=== PATIENT | male | born 1960 | race Caucasian/White ===

== ENCOUNTER 2022-03-20 13:47 | Outpatient (CLI) | payer OTHER, BC, SELFPAY ==
--- NOTE | 2022-03-20 14:00 | CRLHL7_ITS ---
For Patients: As a result of the Century Cures Act, medical imaging exams and procedure reports are released immediately into your electronic medical record. You may view this report before your referring provider. If you have questions, please contact your health care provider. INDICATION: TECHNIQUE: Ultrasound venous duplex left lower extremity. COMPARISON: None. FINDINGS: The left common femoral, superficial femoral, deep femoral, popliteal, posterior tibial, and greater saphenous veins are fully compressible normal waveforms. The contralateral right common femoral vein is also compressible with normal waveform. No masses evident. IMPRESSION: Normal ultrasound of the left lower extremity veins. Dictated by: Ankur Parada MD @ 03/20/2022 14:41:27 (Electronically Signed)
== END 2022-03-20 13:48 | disposition home or self-care (01) ==
LOC: US 13:54
PROVIDERS: PCP Family Medicine; Visit Provider Family Medicine
DX: M79.605 Pain in left leg (principal); Z98.1 Arthrodesis status
CPT/HCPCS: 93971

== ENCOUNTER 2022-06-29 15:41 | Outpatient (CLI) | payer OTHER, BC, SELFPAY ==
--- OUTSIDE RECORDS SUMMARY | 2022-06-29 15:49 | XMS_ITS ---
:1960 Author Care Team Providers Name Role Phone LIV BRUNO MD Primary Care Provider [phone] Allergies Code Code System Name Reaction Severity Status Onset NKDA ? Notes: seasonal Medications Name Status Start Date Stop Date ? ? amlodipine 5 mg tablet Active ? Not avail able chlorhexidine gluconate 0.12 % mouthwash Completed ? 01/19/2022 BEGIN AM OF SURGERY, RINSE 1/2 OZ X 30 SEC AFTER BREAKFAST & AT BED. DONT EAT/DRINK/RINSE X 30 MIN ciprofloxacin 500 mg tablet Completed ? 03/17 cyclobenzaprine 10 mg tablet Completed ? 02/2022 DentaGel 1.1 % Active ? Not available USE DIRECTED ON PACKAGE, BEGIN DAY AFTER SURGERY etodolac 300 mg capsule Active ? Not avai lable TAKE FIRST CAP 1 HOUR PRIOR TO APPOINTM ENT, THEN 1 CAP EVERY 8 HOURS NEEDED FOR DISCOMFORT hydrocodone 5 mg-acetaminophen 325 mg tablet Completed ? 01/19/2022 TAKE 1-2 TABS BY MOUTH EVERY 6 HOURS NEEDED FOR PAIN methylprednisolone 4 mg tablets in a dose pack Completed ? 01/19/2022 START THE MORNING OF SURGERY, USE DIRECTED ON PACKAGE naproxen 500 mg tablet Active ? Not avail able oxaprozin 600 mg tablet Completed ? 01/20/20 22 oxycodone 5 mg tablet Completed ? 04/06/2020 oxycodone-acetaminophen 5 mg-325 mg tablet Completed ? 07/21/2021 prednisone 20 mg tablet Completed ? 01/20/20 22 sildenafil 100 mg tablet Active ? Not michael ilable TAKE ONE TABLET BY MOUTH ONE HOUR PRIOR TO SEX sulfamethoxazole 800 mg-trimethoprim 160 mg tablet Completed ? 04/06/2020 tadalafil 20 mg tablet Active ? Not avail able Take 1 tablet as needed by oral route for 30 days. tramadol 50 mg tablet Active ? Not availa ble Problems Name Status Onset Date Source ? Carcinoma of Prostate Active 04/06/2020 ? Procedures Date Name Performed by ? 10/05/2019 Prostatectomy Information not avai lable 09/16/2018 Colonoscopy Information not avai lable Notes: per pt estimate of date ? Repair of Multiple Tears of Rotator Cuff of Information not available Shoulder ? Kidney Operation Information not avai lable ? Operative Procedure on Knee Information not available Notes: Kidney surgery for kidney stone s Results Lab Results Date Name Specimen Result Interpretation Description Value Range Status Address ? 01/19/2022 PSA, Serum or ? PSA, Total <0.04 ng/mL ? ? Plasma 01/19/2022 PSA, Serum or ? No observation ? ? ? Plasma recorded. 07/21/2021 PSA, Serum or ? PSA, Total <0.04 ? ? Plasma 07/21/2021 PSA, Serum or ? No observation ? ? ? Plasma recorded. 04/13/2021 Testosterone, ? No observation ? ? ? [place] Total, Serum recorded. [facility] [address] [facility] 04/13/2021 Testosterone, ? No observation ? ? ? [place] Free + Total, recorded. [facility] Serum Radiology Department : [address] [facility] 04/07/2021 PSA, Serum or ? PSA, Total <0.04ng/ml ? ? Plasma 08/03/2020 PSA, Serum or ? No observation ? ? ? Plasma recorded. 04/07/2020 PSA, Serum or ? No observation ? ? ? Plasma recorded. 04/06/2020 PSA, Serum or ? No observation ? ? ? Plasma recorded. ? PSA, Serum or ? PSA, Total <0.04 ng/mL ? ? Plasma ? PSA, Serum or ? PSA, Total <0.04 ng/Ml ? ? Plasma Past Encounters 01/19/2022 Carcinoma of Prostate; Erectile Dysfunct ion Following Radical Prostatectomy Connor Schaeffer MD: [address], [place] [address], Ph. 07/21/2021 Carcinoma of Prostate Connor Schaeffer MD: [address], [place] [address], Ph. 04/07/2021 Carcinoma of Prostate; Malaise and Fatig ue Connor Schaeffer MD: [address], [place] [address], Ph. Social History Tobacco Smoking Status Never Smoker Vaccine List Vaccine Type COVID-19 vaccine, vector-nr, [id number], PF , 0.5 mL (Evens) 11/24/2020 COVID-19, mRNA, LNP-S, PF, 100 mcg/0.5 m L dose (handsomexcutivea) 07/17/2021 Influenza, injectable, MDCK, preservativ e free, quadrivalent 07/17/2021 influenza, injectable, quadrivalent 07/06/2015 influenza, injectable, quadrivalent, pre servative free 07/28/2020 influenza, recombinant, quadrIvalent,inj ectable, preservative free 07/09/2019 influenza, seasonal, injectable 07/07/2010 07/05/2011 08/12/2012 influenza, seasonal, injectable, preserv ative free 06/09/2009 Tdap 05/24/2008 11/15/2016 Plan of Care Reminders Provider Appointments None recorded. ? ? Lab None recorded. ? ? Referral None recorded. ? ? Procedures None recorded. ? ? Surgeries None recorded. ? ? Imaging None recorded. ? ? Vitals 01/19/2022 09:30AM ESTABLISHED 10 Height Weight BMI 5 ft 11 in 205 lbs 28.6 kg/m2 07/21/2021 09:10AM ESTABLISHED 10 Height Weight BMI 5 ft 11 in 205 lbs 28.6 kg/m2 04/07/2021 02:50PM ESTABLISHED 10 Height Weight BMI Blood Pressure 5 ft 11 in 207 lbs 28.9 kg/m2 141/84 mm[Hg] 12/05/2020 03:50PM ESTABLISHED 10 Height Weight BMI 5 ft 11 in 200 lbs 27.9 kg/m2 08/03/2020 03:20PM ESTABLISHED 10 Height Weight BMI 5 ft 11 in 200 lbs 27.9 kg/m2 04/06/2020 04:00PM ESTABLISHED 10 Height Weight BMI 5 ft 11 in 200 lbs 27.9 kg/m2
--- OUTSIDE RECORDS SUMMARY | 2022-06-29 15:50 | XMS_ITS | Encounter Summary ---
:1960 Author Organization [place] Address [address] [place] [address] Care Team Providers Name Role Phone SunnyChadd vicente Primary Care Provider Reason for Visit Reason Onset Date Comments Clinic Care Coordination - Follow-up 10/08/2019 pos t op Encounter Details Date Type Department Care Team Description 10/08/2019 Telephone [facility] Lou Davies, Clinic Care Coordination Surgery Clinic Altagracia RN - Follow-up (post op ) [address] [place] [address] Social History Tobacco Use Types Packs/Day Years Used Date Smoking Tobacco: Never Smokeless Tobacco: Never Alcohol Use Standard Drinks/Week Comments Yes 0 (1 standard drink = 0.6 oz pure alcoho l) 2-3/week Sex Assigned at Date Recorded Not on file documented as of this encounter Miscellaneous Notes Telephone Encounter - Lou Davies, RN - 10/08/2019 12:22 PM CST Procedure: Combined open primary closure and laparoscopic repair of ventral hernia Date: 10/05/2019 Surgeon: Dr. Reyes This patient also had robotic assisted radical prostatectomy, bilateral lymph node dissection combined with the hernia repair. His is wondering if it is okay if Dr. Solis's office removes the brigida from the hernia repairrather than patient having to make a separate appointment to see Dr. Reyes for staple removal. Informed her that this is fine. However, if patient is having any concerns in regards to the hernia surgery, he should set up a post operative visit with Dr. Reyes. She verbalized understanding and will call PRN. Lou Davies, RN-BSN RTMENT STORE SALESPERSON documented in this encounter Plan of Treatment Not on filedocumented as of this encounter Visit Diagnoses Not on filedocumented in this encounter Care Teams Collet Gluer Relationship Specialty Start Date End Date Chadd Correa PCP - General Family Practice 09/22/[address] [address] documented as of this encounter
--- OUTSIDE RECORDS SUMMARY | 2022-06-29 15:50 | XMS_ITS | Clinical Summary ---
:1960 Author Organization [place] Address [facility] [place] [address] Care Team Providers Name Role Phone SunnyBeth cabreras Umberto Primary Care Provider Allergies No known active allergies Medications Medication Sig Dispensed Refills Start Date End Date Status oxaprozin (DAYPRO) 600 Take 1,200 mg by 0 Active MG tablet mouth daily as needed traMADol (ULTRAM) 50 Take 50-100 mg by 0 Active MG tablet mouth daily as needed Glucosamine HCl Take 2 tablets by 0 Active (GLUCOSAMINE PO) mouth daily MAGNESIUM PO Take 1 tablet by 0 Active mouth daily B Complex-C (SUPER B Take 1 tablet by 0 Active COMPLEX PO) mouth daily oxymetazoline (AFRIN) Kinsey 2 sprays 0 Active 0.05 % nasal spray into both nostrils every evening as needed for congestion oxyCODONE (ROXICODONE) Take 1-2 tablets 8 tablet 0 10/07/2019 Active 5 MG (5-10 mg) by mouth tabletIndications: S/P every 3 hours as prostatectomy needed for moderate to severe pain senna-docusate Take 1 tablet by 30 tablet 0 10/07/2019 Active (SENOKOT-S/PERICOLACE) mouth 2 times 8.6-50 MG daily tabletIndications: S/P prostatectomy bacitracin 500 UNIT/GM Apply topically 2 0 0 Active OINTIndications: S/P times daily as prostatectomy needed for wound care Active Problems Problem Noted Date S/P prostatectomy 10/05/2019 Resolved Problems Problem Noted Date Resolved Date iamLUMBAR DISC DISPLACEMENT 08/07/2005 11/21/2005 Family History Medical History Relation Comments Diabetes Father Other Cancer Mother Coronary Artery Disease Sister Relation Status Comments Father Mother Sister Social History Tobacco Use Types Packs/Day Years Used Date Smoking Tobacco: Never Smokeless Tobacco: Never Tobacco Cessation: Counseling Given: Yes Alcohol Use Standard Drinks/Week Comments Yes 0 (1 standard drink = 0.6 oz pure alcoho l) 2-3/week Sex Assigned at Date Recorded Not on file Last Filed Vital Signs Vital Sign Reading Time Taken Comments Blood Pressure 141/75 10/07/2019 12:47 PM AUTOMATIC MOUNTER Pulse 90 10/05/2019 3:49 PM AUTOMATIC MOUNTER Temperature 36.2 ??C (97.2 ??F) 10/07/2019 12:47 PM AUTOMATIC MOUNTER Respiratory Rate 16 10/07/2019 12:47 PM AUTOMATIC MOUNTER Oxygen Saturation 95% 10/07/2019 12:47 PM AUTOMATIC MOUNTER Inhaled Oxygen Concentration - - Weight 90.3 kg (199 lb 1.6 oz) 10/05/2019 6:12 AM AUTOMATIC MOUNTER Height 180.3 cm (5' 11) 10/05/2019 6:12 AM AUTOMATIC MOUNTER Body Mass Index 27.77 10/05/2019 6:12 AM AUTOMATIC MOUNTER Plan of Treatment Health Maintenance Due Date Last Done Comments ADVANCE CARE PLANNING 1960 ANNUAL REVIEW OF HM ORDERS 1960 CT COLONOGRAPHY 1960 FIT-DNA (Cologuard) 1960 FIT 1960 FLEX SIG 1960 HEPATITIS B IMMUNIZATION (1 1960 of 3 - 3-dose series) YEARLY PREVENTIVE VISIT 1960 COVID-19 Vaccine (#1) 06/14/1963 HIV SCREENING 1977 HEPATITIS C SCREENING 1980 DTAP/TDAP/TD IMMUNIZATION 12/13/1987 (1 - Tdap) LIPID 1997 ZOSTER IMMUNIZATION (1 of 2012 2) PHQ-2 (once per calendar 09/16/2021 year) INFLUENZA VACCINE (#1) 2022 07/09/2019, 08/12/2012, 07/05/2011, Additional history exists COLONOSCOPY 07/10/2029 07/10/2019 COLORECTAL CANCER SCREENING 07/10/2029 IPV IMMUNIZATION Aged Out No longer eligi ble based on patient 's age to complete this topic MENINGITIS IMMUNIZATION Aged Out No longe r eligible based on patient 's age to complete this topic Pneumococcal Vaccine: Aged Out No longer eligible Pediatrics (0 to 5 Years) based on patient's age and At-Risk Patients (6 to to co mplete this topic 64 Years) Medical Devices Implanted Type Area Set Staff Fitter Device Shelf Model / Identifier Expiration Serial / Date Lot Mesh Symbotex Composite Stex 20cm X 15cm [id number] Mesh N/A: C OVIDIEN 05/16/2023 [id number] / Implanted: Qty: 1 on 10/05/2019 by Carlos Solis MD at [facility] Umbilical / [id number] Stent Ureteral Percuflex Plus [id number] Stent Right: Ureter BOSTO N 07/13/2021 [id number] / Implanted: Qty: 1 on 02/12/2019 by Vicente Hayes MD at [facility] [employer] [id number] / [id number] Insurance Payer Benefit Plan / Subscriber ID Effective Dates Phone Addre ss Type Group BCBS BCBS OUT OF [id number] 2015-Present [phone] [address] [address] [place] [address] [id number] (Home) [phone] [facility] [place] (Work) [place] [address] Sawyer Carlson Personal/Family Self [phone] (Home) [place] [address] Advance Directives For more information, please contact: [phone] Latest Code Status on File Code Status Date Activated Date Inactivated Comments Full Code 10/05/2019 3:23 PM 10/07/2019 4:21 PM Question Answer Comments Code status determined by: Unable to determine; FULL CODE un til documents or legal decision maker available Care Teams Underwater Roboticist Relationship Specialty Start Date End Date Chadd Correa PCP - General Family Practice 09/22/[address] [address]
--- OUTSIDE RECORDS SUMMARY | 2022-06-29 15:50 | XMS_ITS | Encounter Summary ---
:1960 Author Organization [place] Address [address] [place] [address] Care Team Providers Name Role Phone Miguel Brown MD Primary Care Provider [phone] Reason for Visit Auth/Cert Specialty Diagnoses / Procedures Referred By Contact Refer red To Contact Surgery Diagnoses RIGHT URETERAL STONE Sh Periop Services Procedures CYSTOURETEROSCOPY, WITH HOLMIUM LASER LITHOTRIPSY OF URETERAL CALCULUS AND STENT INSERTION [address] [place] [address] Phone: Referral ID Status Reason Start Date Expiration Date Visits Requ ested Visits Authorized [id number] 1 1 Encounter Details Date Type Department Care Team Description 02/12/2019 Anesthesia Event M [facility] Luis Bearden MD [facility] [address] [place] [address] [facility] Alana Mendoza, CAMPUS WELLNESS COORDINATOR MARKETING SERVICES VICE PRESIDENT [address] [place] [id number] [address] [place] [address] Anesthesia Record Procedure Summary Procedure Name Responsible Anesthesia Start Anesthesia Stop Anesthesiologist Time Time CYSTOSCOPY RIGHT Luis Bearden MD 02/12/19 0717 02/12/19 0805 URETEROSCOPY, STONE REMOVAL RETROGRADE, STENT CHANGE (Right: Urethra) Events Date Time Event Comment 02/12/2019 0630 0717 An Start 0717 An Start Data 0720 An Induction 0721 An LMA 0730 AN INCISION 0800 LMA Removed 0802 an stop data 0805 An Stop Electronically s igned by Alana Mann on February 12, 2019 8:07 AM Name Total dexamethasone 4mg/mL 4 mg fentaNYL (SUBLIMAZE) injection 150 mcg lidocaine 2% 100 mg midazolam 1mg/mL 2 mg ondansetron 2mg/mL 4 mg propofol (DIPRIVAN) injection 10 mg/mL vial 200 mg ceFAZolin (ANCEF) intermittent infusion 2 g in 100 mL dextrose PRE-MIX 2 g LR 600 mL Agents Name NO HELIOX O2 N2O Air Exp Sevoflurane Exp Isoflurane Exp Desflurane Exp N2O Ins Sevoflurane Ins Isoflurane Ins Desflurane O2 Auxiliary Blood No blood administrations on file. Lines, Drains, and Airways Type Details Placement Removal Peripheral IV 20 G; Left; Lower 02/12/19 0732 by 02/12/19 0901 by forearm; Alcohol; Monique Burch, Injectable; Tolerated RN well Retired Non-Surgical 02/12/19; 0721; 02/12/19 0721 by 02/12/19 0 800 by Airway Intravenous; Easy; 5; Alana Mann, CAMPUS WELLNESS COORDINATOR Alana Gaytan, laryngeal mask airway; MARKETING SERVICES VICE PRESIDENT CAMPUS WELLNESS COORDINATOR MARKETING SERVICES VICE PRESIDENT center of mouth; MARKETING SERVICES VICE PRESIDENT; SMT; Spontaneous ventilation, Adequate tidal volume, Follows commands, Precision Mechanical Instrument Maker strength adequate, Head lift adequate, Transported with oxygen, Purposeful movement documented in this encounter Social History Tobacco Use Types Packs/Day Years Used Date Smoking Tobacco: Never Smokeless Tobacco: Never Alcohol Use Standard Drinks/Week Comments Yes 0 (1 standard drink = 0.6 oz pure alcoho l) Sex Assigned at Date Recorded Not on file documented as of this encounter OR Notes Anesthesia Postprocedure Evaluation - Luis Bearden MD - 02/12/2019 12:37 PM CDT Patient: Sawyer Samuelsuart Procedure(s): CYSTOSCOPY RIGHT URETEROSCOPY, STONE REMOVAL RETROGRADE, STENT CHANGE Diagnosis:RIGHT URETERAL STONE Diagnosis Additional Information: No value filed. Anesthesia Type: General, LMA Note: Anesthesia Post Evaluation Patient location during evaluation: PACU Patient participation: Able to fully participate in evaluation Level of consciousness: awake and alert Pain management: adequate Airway patency: patent Cardiovascular status: acceptable Respiratory status: acceptable Hydration status: acceptable PONV: none Anesthetic complications: None Last vitals: Vitals: 02/12/19 0830 02/12/19 0845 02/12/19 0904 BP: 114/79 115/77 123/71 Pulse: 56 Resp: 16 16 12 Temp: 35.8 ??C (96.4 ??F) 35.8 ??C (96.4 ??F) SpO2: 95% 99% 95% Electronically Signed By: Luis Bearden MD February 12, 2019 12:37 PM Anesthesia Preprocedure Evaluation - Luis Bearden MD - 02/12/2019 6:30 AM CDT Anesthesia Pre-Procedure Evaluation Patient: Sawyer Carlson : 1960 Preoperative Diagnosis: RIGHT URETERAL STONE Procedure(s): CYSTOSCOPY RIGHT URETEROSCOPY HOLMIUM LASER LITHOTRIPSY Past Medical History: Diagnosis Date ??? Right ureteral stone ??? Seasonal allergies ??? Tinnitus ??? Umbilical hernia Past Surgical History: Procedure Laterality Date ??? ORTHOPEDIC SURGERY RIGHT KNEE MENISCUS REPAIR, LEFT SOULDER IMPINGEMENT Anesthesia Evaluation . ROS/MED HX ENT/Pulmonary: (-) tobacco use and sleep apnea Neurologic: Cardiovascular: METS/Exercise Tolerance: Hematologic: Musculoskeletal: GI/Hepatic: (-) GERD Renal/Genitourinary: (+) Nephrolithiasis , Endo: Psychiatric: Infectious Disease: Malignancy: Other: Physical Exam Normal systems: cardiovascular, pulmonary and dental Airway Mallampati: II TM distance: >3 FB Neck ROM: full Dental Cardiovascular Pulmonary Lab Results Component Value Date WBC 10.3 01/20/2019 HGB 15.3 01/20/2019 HCT 43.6 01/20/2019 PLT 176 01/20/2019 NA 140 01/20/2019 POTASSIUM 3.9 01/20/2019 CHLORIDE 109 01/20/2019 CO2 25 01/20/2019 BUN 13 01/20/2019 CR 0.94 01/20/2019 GLC 136 (H) 01/20/2019 JACINTA 8.8 01/20/2019 ALBUMIN 3.7 01/20/2019 PROTTOTAL 7.1 01/20/2019 ALT 31 01/20/2019 AST 17 01/20/2019 ALKPHOS 79 01/20/2019 BILITOTAL 0.7 01/20/2019 Preop Vitals BP Readings from Last 3 Encounters: 02/12/19 125/84 01/20/19 (!) 127/102 01/07/17 128/81 Pulse Readings from Last 3 Encounters: 01/20/19 61 01/07/17 57 05/03/16 64 Resp Readings from Last 3 Encounters: 02/12/19 16 01/20/19 18 01/07/17 20 SpO2 Readings from Last 3 Encounters: 02/12/19 96% 01/20/19 99% 01/07/17 97% Temp Readings from Last 1 Encounters: 02/12/19 36.2 ??C (97.2 ??F) (Oral) Ht Readings from Last 1 Encounters: 02/12/19 1.778 m (5' 10) Wt Readings from Last 1 Encounters: 02/12/19 88.9 kg (196 lb) Estimated body mass index is 28.12 kg/m?? as calculated from the following: Height as of this encounter: 1.778 m (5' 10). Weight as of this encounter: 88.9 kg (196 lb). Anesthesia Plan History & Physical Review History and physical reviewed and following examination; no interval change. ASA Status: 1 . NPO Status: > 8 hours Plan for General and LMA with Intravenous and Propofol induction. Maintenance will be Inhalation. PONV prophylaxis: Ondansetron (or other 5HT-3) and Dexamethasone or Solumedrol Postoperative Care Postoperative pain management: IV analgesics and Oral pain medications. Consents Anesthetic plan, risks, benefits and alternatives discussed with: Patient and Spouse.. Luis Bearden MD documented in this encounter Miscellaneous Notes Anesthesia Care Transfer Note - Alana Mann APRN MARKETING SERVICES VICE PRESIDENT - 02/12/2019 8:09 AM CDT Images from the original note were not included. Patient: Sawyer Carlson Procedure(s): CYSTOSCOPY RIGHT URETEROSCOPY, STONE REMOVAL RETROGRADE, STENT CHANGE Diagnosis: RIGHT URETERAL STONE Diagnosis Additional Information: No value filed. Anesthesia Type: General, LMA Note: Airway :Face Mask Patient transferred to:PACU Comments: At end of procedure, spontaneous respirations, adequate tidal volumes, followed commands to voice, LMA removed atraumatically, oropharynx suctioned, airway patent after LMA removal. Oxygen via facemask at 10 liters per minute to PACU. Oxygen tubing connected to wall O2 in PACU, SpO2, NiBP, and EKG monitors and alarms on and functioning, Izzy Hugger warmer connected to patient gown, report on patient's clinical status given to LEHR OPERATOR, RN questions answered.Handoff Report: Identifed the Patient, Identified the Reponsible Provider, Reviewed the pertinent medical history, Discussed the surgical course, Reviewed Intra-OP anesthesia mangement and issues during anesthesia, Set expectations forpost-procedure period and Allowed opportunity for questions and acknowledgement of understanding Vitals: (Last set prior to Anesthesia Care Transfer) MARKETING SERVICES VICE PRESIDENT VITALS 02/12/2019 0732 - 02/12/2019 0809 02/12/2019 NIBP: 119/79 Pulse: 77 NIBP Mean: 98 SpO2: 95 % Resp Rate (observed): 1 (Abnormal) Resp Rate (set): 10 Electronically Signed By: Alana Mann APRN CRNA February 12, 2019 8:09 AM documented in this encounter Plan of Treatment Not on filedocumented as of this encounter Visit Diagnoses Not on filedocumented in this encounter Administered Medications Inactive Administered Medications - up to 3 most recent administrations Medication Order MAR Action Action Date Dose Rate Site ceFAZolin (ANCEF) intermittent Given 02/12/2019 7:25 AM CDT 2 g infusion 2 g in 100 mL dextrose PRE-MIX Routine, 2 g, Intravenous, PRE-OP/PRE-PROCEDURE, Starting on Johanny 02/12/19 at 0548, For 1 dose, Give first dose within 1 hour PRIOR to incision. If patient weight is greater than or equal to 120 kg increase dose to 3 g., Indications: Perioperative Pharmacoprophylaxis, Pre-procedure dexamethasone (DECADRON) injection Given 02/12/2019 7:31 AM CDT 4 mg PRN, Administer over 1 Minutes, Starting on Johanny 02/12/19 at 0731, Anesthesia Intra-op fentaNYL (PF) (SUBLIMAZE) injection Given 02/12/2019 7:45 AM CDT 50 mcg PRN, Administer over 3-5 Minutes, Starting on Johanny 02/12/19 at 0721, Anesthesia Intra-op Given 02/12/2019 7:28 AM CDT 50 mcg Given 02/12/2019 7:21 AM CDT 50 mcg lactated ringers infusion New Bag 02/12/2019 7:17 AM CDT Intravenous, CONTINUOUS PRN, Anesthesia Intra-op, Starting on Johanny 02/12/19 at 0717, Until Johanny 02/12/19 at 0807 lidocaine 2% injection (MDV) Given 02/12/2019 7:21 AM CDT 100 mg PRN, Starting on Johanny 02/12/19 at 0721, Anesthesia Intra-op midazolam (VERSED) injection Given 02/12/2019 7:19 AM CDT 2 mg Administer over 2 Minutes, PRN, Starting on Johanny 02/12/19 at 0719, Anesthesia Intra-op ondansetron (ZOFRAN) injection Given 02/12/2019 7:31 AM CDT 4 mg PRN, Administer over 2-5 Minutes, Starting on Johanny 02/12/19 at 0731, Anesthesia Intra-op propofol (DIPRIVAN) injection 10 mg/mL v ial Given 02/12/2019 7:21 AM CDT 200 mg PRN, Starting on Johanny 02/12/19 at 0721, Anesthesia Intra-op documented in this encounter Care Teams Icu Clerk Relationship Specialty Start Date End Date Miguel Brown MD PCP - General Family Practice 04/17/16 09/21/19 documented as of this encounter
--- OUTSIDE RECORDS SUMMARY | 2022-06-29 15:50 | XMS_ITS | Encounter Summary ---
:1960 Author Organization [facility] Address [facility] [place] [address] Care Team Providers Name Role Phone Chadd Correa Primary Care Provider Reason for Visit Auth/Cert Specialty Diagnoses / Procedures Referred By Contact Refer red To Contact Surgery Diagnoses Prostate cancer (H) Prostate cancer (H) [C61] Periop Services Procedures PROSTATECTOMY, ROBOT-ASSISTED, USING DA LASHONDA XI, WITH PELVIC LYMPHADENECTOMY HERNIORRHAPHY, UMBILICAL, OPEN [address] [place] [address] Phone: Referral ID Status Reason Start Date Expiration Date Visits Requ ested Visits Authorized [id number] 1 1 Encounter Details Date Type Department Care Team Description 10/05/[address] [facility] Carlos Piña MD ROBOTIC ASSISTED RADICAL [place] [facility] PROSTATECTOMY, BILATERAL Services [address] PELVIC LYMPH NODE DISSEC [address], [address] [place]([facility]) (with [address] [place] [address] ANESTHESIA ALSO) [place] [address] [phone] Surgery Details Date/Time Status Location OR Service Patient Case Class Case Tr auma Class Type Case? 10/05/19 7:30 Posted OR OR [facility] Day Outpatient in AM 42 Urology Surgery Bed Panel 1 Procedure LRB Anes Op Region Wound Class Commen ts ROBOTIC ASSISTED RADICAL N/A General Pelvis II-Clean Co ntaminated PROSTATECTOMY, BILATERAL PELVIC LYMPH NODE DISSEC TION(WANG) (with TAP ANESTHESIA ALSO) Panel 2 Procedure LRB Anes Op Region Wound Class Commen ts LAPAROSCOPIC ASSISTED UMBILICAL HERNIA N/A General Abdomen I-Clean REPAIR WITH MESH (FITZ) Surgeon Surgeon Role Service Panel Carlos Piña MD Primary [facility] Urology 1 Long Byrnes MD Primary General 2 Jody Squires PA-C Assisting Supervisor Blast Furnace Authoriz ation 2 documented in this encounter Social History Tobacco Use Types Packs/Day Years Used Date Smoking Tobacco: Never Smokeless Tobacco: Never Alcohol Use Standard Drinks/Week Comments Yes 0 (1 standard drink = 0.6 oz pure alcoho l) 2-3/week Sex Assigned at Date Recorded Not on file documented as of this encounter Last Filed Vital Signs Vital Sign Reading Time Taken Comments Blood Pressure 125/79 10/05/2019 6:12 AM BUZZSAW OPERATOR HELPER Pulse - - Temperature 36.3 ??C (97.4 ??F) 10/05/2019 6:12 AM BUZZSAW OPERATOR HELPER Respiratory Rate 16 10/05/2019 6:12 AM BUZZSAW OPERATOR HELPER Oxygen Saturation 96% 10/05/2019 6:12 AM BUZZSAW OPERATOR HELPER Inhaled Oxygen Concentration - - Weight 90.3 kg (199 lb 1.6 oz) 10/05/2019 6:12 AM BUZZSAW OPERATOR HELPER Height 180.3 cm (5' 11) 10/05/2019 6:12 AM BUZZSAW OPERATOR HELPER Body Mass Index 27.77 10/05/2019 6:12 AM BUZZSAW OPERATOR HELPER documented in this encounter Discharge Instructions Discharge InstructionsSkylar Hall RN - 10/07/2019 10:25 AM CST Make appointments to follow up with Dr. Byrnes in 10-14 days. Also for staple removal ~10 days at Urology or our clinic.-Call with concerns [facility] Discharge Instructions: Post-Operative Laparoscopic Umbilical/Ventral Hernia ACTIVITY ??? Take frequent, short walks and increase your activity gradually. ??? Avoid strenuous physical activity or heavy lifting greater than 15 lbs. for 4 weeks. You may climb stairs. ??? You may drive without restrictions when you are not using any prescription pain medication and feel comfortable in a car. ??? You may return to work/school when you are comfortable without any prescription pain medication. ??? You may wear an abdominal binder for comfort for 2-3 weeks from your surgery. You can wash the abdominal binder and dry it on low heat in the dryer. WOUND CARE ??? You may remove your outer dressing or Band-Aids and shower 48 hours after the surgery. Pat your incisions dry and leave them open to air. Re-apply dressing (Band-Aids or gauze/tape) as needed for comfort or drainage. ??? You may have steri-strips (looks like white tape) on your incision. You may peel off the steri-strips 2 weeks after your surgery if they have not peeled off on their own. ??? Do not soak your incisions in a tub or pool for 2 weeks. ??? Do not apply any lotions, creams, or ointments to your incisions. ??? A ridge under your incisions is normal and will gradually resolve. DIET ??? Start with liquids, then gradually resume your regular diet as tolerated. ??? Drink plenty of fluids to stay hydrated. PAIN ??? Expect some tenderness and discomfort at the incision site(s). Use the prescribed pain medication/muscle relaxant at your discretion. Expect gradual resolution of your pain over several days. ??? You may take ibuprofen with food (unless you have been told not to) instead of or in addition toyour prescribed pain medication. If you are taking [place] or Percocet, do not take any additional acetaminophen/APAP/Tylenol. ??? Do not drink alcohol or drive while you are taking pain medications. ??? You may apply ice to your incisions in 20 minute intervals as needed for the next 48 hours. After that time, consider switching to heat if you prefer. EXPECTATIONS ??? Pain medications can cause constipation. Limit use when possible. Take over the counter stool softener/stimulant, such as Colace or Senna, 1-2 times a day with plenty of water. You may take a mild over the counter laxative, such as Miralax or a suppository, as needed. You may take 1 oz. (2 tablespoons) Milk of Magnesia the evening following surgery to encourage bowel movement. You make discontinue these medications once you are having regular bowel movements and/or are no longer taking your narcotic pain medication. ??? You may have shoulder or upper back discomfort due to the gas used in surgery. This is temporaryand should resolve in 48-72 hours. Short, frequent walks may help with this. FOLLOW UP ??? Follow up with your surgeon in 10-14 days for staple removal (unless done at Urology office, then 2-3 weeks is ok). Please call our office at [phone] to schedule your appointment. We are located at [address] [place] [address]. CALL OUR OFFICE AT [phone] IF YOU HAVE: ??? Chills or fever above 101??F. ??? Increased redness or drainage at your incisions. ??? Significant bleeding. ??? Pain not relieved by your pain medication or rest. ??? Increasing pain after the first 48 hours. ??? Any other concerns or questions. Revised September 2017 SAW OPERATOR HELPER AttachmentsThe following attachments cannot be sent through Care Everywhere. Hernia Repair (Laparoscopic), After (Nigerien)Indwelling Urinary Catheter, Discharge Instructions (Nigerien)Leg Bag, Discharge Instructions (Nigerien)Barcenas Catheter, Care (Nigerien)documented in this encounter Medications at Time of Discharge Medication Sig Dispensed Refills Start Date End Date B Complex-C (SUPER B Take 1 tablet by 0 COMPLEX PO) mouth daily bacitracin 500 UNIT/GM Apply topically 2 0 2019 OINTIndications: S/P times daily as needed prostatectomy for wound care Glucosamine HCl Take 2 tablets by 0 (GLUCOSAMINE PO) mouth daily MAGNESIUM PO Take 1 tablet by 0 mouth daily oxaprozin (DAYPRO) 600 Take 1,200 mg by 0 MG tablet mouth daily as needed oxyCODONE (ROXICODONE) 5 Take 1-2 tablets 8 tablet 0 10/07 MG tabletIndications: (5-10 mg) by mouth S/P prostatectomy every 3 hours as needed for moderate to severe pain oxymetazoline (AFRIN) [place] 2 sprays into 0 0.05 % nasal spray both nostrils every evening as needed for congestion senna-docusate Take 1 tablet by 30 tablet 0 10/07/2019 (SENOKOT-S/PERICOLACE) mouth 2 times daily 8.6-50 MG tabletIndications: S/P prostatectomy traMADol (ULTRAM) 50 MG Take 50-100 mg by 0 tablet mouth daily as needed sulfamethoxazole-trimeth Take 1 tablet by 6 tablet 0 10/2010/23/2019 oprim (BACTRIM DS/SEPTRA mouth 2 times daily DS) 800-160 MG for 3 days Start tabletIndications: S/P taking the day before prostatectomy catheter removal documented as of this encounter Progress Notes Himanshu Crane PA-C - 10/07/2019 8:31 AM CST General Surgery Stable S/P Lap Umbilical Hernia Repair with Mesh POD2 -Discharge to home -Instructions reviewed -Follow up with Dr. Byrnes in 10-14 days. Staple removal ~10 days at Urology or our clinic. -Call with concerns -Pt and ok with waiting until follow up for work forms. Will call if need sooner. Doing much better today. Passing flatus. No BM yet. Pain improved and with activity primarily. NAD, pleasant, A&O BP 116/71 (BP Location: Right arm) Pulse 90 Temp 96.4 ??F (35.8 ??C) (Oral) Resp 16 Ht 1.803m (5' 11) Wt 90.3 kg (199 lb 1.6 oz) SpO2 93% BMI 27.77 kg/m?? Intake/Output Summary (Last 24 hours) at 10/07/2019 0833 Last data filed at 10/07/2019 0620 Gross per 24 hour Intake 510 ml Output 1215 ml Net -705 ml Abd: soft, approp tender, ND Inc: CDI with brigida NICHOLAS: serosang. RN to pull prior to discharge and bandage SAW OPERATOR HELPER Mick Okeefe PA-C - 10/07/2019 8:05 AM CST [facility] Progress Note Assessment & Plan Fredy Carlson is a 58 year old male POD#2 RALP and ventral hernia repair. AVSS, afebrile. Pain controlled. Ambulated. Tolerating diet. Discharge meds and instructions discussed. Plan: ?? Ambulate, IS ?? Remove NICHOLAS prior to discharge ?? Regular diet ?? RN to teach barcenas cares ?? Follow up in [address] cystogram, staple removal, and possible barcenas removal. Mick Okeefe PA-C 10/07/2019 8:05 AM [facility] Mon-Sat, 7am - 4pm Office: [phone] Interval History Pain much better controlled today. Ambuated. Tolerating diet. +flatus. No chest pain, dyspnea, or calf pain. Physical Exam Temp: 96.4 ??F (35.8 ??C) Temp src: Oral BP: 116/71 Heart Rate: 57 Resp: 16 SpO2: 93 % O2 Device: None (Room air) Vitals: 10/05/19 0612 Weight: 90.3 kg (199 lb 1.6 oz) Vital Signs with Ranges Temp: [96.4 ??F (35.8 ??C)-96.8 ??F (36 ??C)] 96.4 ??F (35.8 ??C) Heart Rate: [55-57] 57 Resp: [16] 16 BP: (109-117)/(68-71) 116/71 SpO2: [93 %] 93 % I/O last 3 completed shifts: In: 630 [P.O.:480; I.V.:150] Out: 1215 [Urine:1100; Drains:115] General: Patient awake, alert, NAD, sitting up in chair Head: Normocephalic, atraumatic Eyes: No icterus Neck: Symmetric Respiratory: Breathing unlabored Cardiac: Skin well-perfused GI: Soft, appropriately tender, non-distended, no SP tenderness, no CVA tenderness, NICHOLAS serosang Genitourinary: Barcenas in place draining clear pink urine, No penoscrotal edema Skin: Incisions CDI with brigida [employer], no visible rashes Extremities: No LE edema, no calf pain Neurologic: No focal deficits Neuropsychiatric: A&O x 3, responding appropriately Medications ??? 0.45% sodium chloride + KCl 20 mEq/L Stopped (10/06/19 2250) ??? acetaminophen 650 mg Oral Q6H ??? senna-docusate 1 tablet Oral BID ??? sodium chloride (PF) 3 mL Intracatheter Q8H Data Results for orders placed or performed during the hospital encounter of 10/05/19 (from the past 24 hour(s)) Glucose by meter Result Value Ref Range Glucose 80 70 - 99 mg/dL Jody Mcfarland PA-C - 10/06/2019 11:16 AM CST [facility] General Surgery Daily Post-Op Note Assessment and Plan: Fredy Carlson is a 58 year old male S/P Procedure(s): ROBOTIC ASSISTED RADICAL PROSTATECTOMY, BILATERAL PELVIC LYMPH NODE DISSEC TION(PIÑA) (with TAP ANESTHESIA ALSO) LAPAROSCOPIC ASSISTED UMBILICAL HERNIA REPAIR WITH MESH (BYRNES), 1 Day Post-Op Pain: mainly at midline incision, controlled with Tylenol, Toradol, has Oxy available prn Bowel: - gas Diet: tolerating regular diet with no nausea IVFs: 1/2 NS w/ K @ 75 mL/hr Activity: encourage up to chair, ambulation 3x daily, use of IS DVT prophylaxis: PCD and ambulation Dispo: likely tomorrow if pain well controlled and ambulating Interval History: Pt sitting up in bed. at bedside. Complains of pain at midline incision site. Tolerating regular diet. Hasn't been up walking yet. Physical Exam: Temp: 97.2 ??F (36.2 ??C) Temp src: Oral BP: 107/66 Pulse: 90 Heart Rate: 58 Resp: 16 SpO2: 94 % O2 Device: None (Room air) Oxygen Delivery: 1 LPM I/O last 3 completed shifts: In: 2100 [P.O.:300; I.V.:1800] Out: 1355 [Urine:1100; Drains:175; Blood:80] Constitutional: alert and no distress Abdomen: Abdomen soft, appropriately tender. Incisions: dressings and brigida in place - clean/dry/intact Data Recent Labs Lab 10/06/19 0706 HGB 13.6 CR 0.98 GLC 103* Jody Squires PA-C Mick Monroy PA-C - 10/06/2019 8:44 AM CST [facility] Progress Note Assessment & Plan Fredy Kit Carlson is a 58 year old male POD#1 RALP and ventral hernia repair with mesh. AVSS, afebrile. Limited mobility due to pain and nausea/dizziness. Good UOP. NICHOLAS OP 175. Hgb 13.6. Creat 0.98. Plan: ?? Continue barcenas catheter. DO NOT REMOVE. ?? Needs to ambulate ?? IS ?? Toradol ?? Can have small bites of whatever seems appealing. OK to have regular diet if he goes slow ?? Encourage PO fluids ?? Restart IVF at slow rate ?? Remove NICHOLAS prior to discharge ?? If ambulating and tolerating PO can discharge later today or tomorrow pending gen surg eval ?? RN to provide leg bag and teach barcenas cares. Mick Okeefe PA-C 10/06/2019 8:45 AM [facility] Mon-Fri, 7am - 4pm Office: [phone] Interval History [place] dizzy and nauseated when sitting up at bedside. Has not ambulated. Pain not well controlled. Noflatus or BM. Minimal appetite. Has been eating/drinking very little. No chest pain, dyspnea, or calf pain. Physical Exam Temp: 97.2 ??F (36.2 ??C) Temp src: Oral BP: 107/66 Pulse: 90 Heart Rate: 58 Resp: 16 SpO2: 94 % O2 Device: None (Room air) Oxygen Delivery: 1 LPM Vitals: 10/05/19 0612 Weight: 90.3 kg (199 lb 1.6 oz) Vital Signs with Ranges Temp: [96.4 ??F (35.8 ??C)-98.8 ??F (37.1 ??C)] 97.2 ??F (36.2 ??C) Pulse: [71-91] 90 Heart Rate: [58-90] 58 Resp: [5-16] 16 BP: (107-137)/(60-82) 107/66 SpO2: [93 %-99 %] 94 % I/O last 3 completed shifts: In: 2100 [P.O.:300; I.V.:1800] Out: 1355 [Urine:1100; Drains:175; Blood:80] General: Patient awake, alert, NAD Head: Normocephalic, atraumatic Eyes: No icterus Neck: Symmetric Respiratory: Breathing unlabored Cardiac: Skin well-perfused GI: Soft, appropriately tender, non-distended Genitourinary: Barcenas in place draining tracy urine, No penoscrotal edema Skin: Incisions CDI with trocar sites brigida ELADIO. No shadowing on midline incision dressing. NICHOLAS drain serosang Extremities: No LE edema, no calf pain Neurologic: No focal deficits Neuropsychiatric: A&O x 3, responding appropriately Medications ??? 0.45% sodium chloride + KCl 20 mEq/L ??? acetaminophen 650 mg Oral Q6H ??? senna-docusate 1 tablet Oral Daily ??? sodium chloride (PF) 3 mL Intracatheter Q8H Data Results for orders placed or performed during the hospital encounter of 10/05/19 (from the past 24 hour(s)) Creatinine Result Value Ref Range Creatinine 0.98 0.66 - 1.25 mg/dL GFR Estimate 85 >60 mL/min/[1.73_m2] GFR Estimate If Black >90 >60 mL/min/[1.73_m2] Hemoglobin Result Value Ref Range Hemoglobin 13.6 13.3 - 17.7 g/dL Glucose Result Value Ref Range Glucose 103 (H) 70 - 99 mg/dL SAW OPERATOR HELPER Donna Craven - 10/05/2019 6:36 AM CST Medication History Completed by Medication Scribe Admission medication history interview status for the 10/05/2019 admission is complete. See [facility] admission navigator for prior to admission medications Medication history sources: Patient, Surescripts, H&P and Patient's home med list Medication history source reliability: Good Adherence assessment: N/A Not Observed Significant changes made to the medication list: None Additional medication history information: Patient brought own home meds: Afrin Nasal [place] Medication reconciliation completed by provider prior to medication history? No Time spent in this activity: 30 minutes Prior to Admission medications Medication Sig Last Dose Taking? Auth Provider B Complex-C (SUPER B COMPLEX PO) Take 1 tablet by mouth daily more than a week Yes Reported, Patient Glucosamine HCl (GLUCOSAMINE PO) Take 2 tablets by mouth daily more than a week Yes Reported, Patient MAGNESIUM PO Take 1 tablet by mouth daily more than a week Yes Reported, Patient oxaprozin (DAYPRO) 600 MG tablet Take 1,200 mg by mouth daily as needed more than a month at prn YesReported, Patient oxymetazoline (AFRIN) 0.05 % nasal spray [place] 2 sprays into both nostrils every evening as needed for congestion 10/03/2019 Yes Reported, Patient traMADol (ULTRAM) 50 MG tablet Take 50-100 mg by mouth daily as needed more than a month at prn Yes Reported, Patient SAW OPERATOR HELPER documented in this encounter Procedure Notes Carlos Piña MD - 10/05/2019 12:18 PM CST Post-operative Note Preoperative Diagnosis: Prostate Cancer, Umbilical hernia Postoperative Diagnosis: Prostate Cancer, umbilical hernia Procedure: Robot Assisted Radical Prostatectomy with pelvic lymphadenectomy Umbilical hernia repair. See Dr Byrnes's note Surgeon(s): Carlos Piña MD Pierce, Bradley Robert, MD Supervisor Blast Furnace Surgeon(s): Chelsea Landry PA-C Date of Procedure: 10/05/2019 PSA: 5.3 PROSTATE VOLUME: 45 cc PATHOLOGY: Adenocarcinoma, Oliver grade 7 Right [place]: 3/4 Right Mid: Right Base: Left [place]: 3/4 Left Mid: 3/4 Left Base: 3/4 POTENCY SPARING: RIGHT RISK FACTORS: Body mass index is 27.77 kg/m??. Hernia: Umbilical PORT PLACEMENT: Standard 6 ports After discussing all treatment options, the patient elected to proceed with robotic prostatectomy. The patient understands that we will proceed with robotic prostatectomy, but will convert to open prostatectomy if needed. Dr Byrnes will do his hernia repair. DESCRIPTION OF PROCEDURE: The patient was identified and was brougt to the operating room. Hewas placed on a Gelfoam padded table. After adequate general anesthesia, he was placed in low stirrups. Pneumatic compression stockings had been applied. All the pressure points were adequately padded. Shoulder braces were used, these were appropriately positioned not to cause any pressure. The patient was then prepped and draped in the usual manner. Time out was called. An 18 canadian barcenas catheter was placed with in the sterile field and the bladder was emptied. I made a small supra umbilical incision. Stay sutures were placed on the fascia. Using a Veress needle, pneumoperitoneum was achieved. I then placed a 12 mm port at this site. Initial endoscopic inspection with a 0 degree lens showed findings as noted above. The remainingports were then placed. Two 8 mm ports were placed on either side 10 cm from the umbilical port. A 12 mm port was placed in the right lower quadrant above the anterior superior iliac spine, and a similar location on the left side an 8 mm port was placed. A 8 mm airseal/suction port was placed lateral to the camera port on the right side. With all the ports in place the patient was placed in steep trendelenburg position and the robot was docked. I performed the robotic prostatectomy in my standard fashion. 4 arms were used. The surgery was performed using a 0 degree lens. Guarded scissors in arm 1, PK long lines operator in arm 2 and prograsp in arm 3.I first incised the peritonium at the bladder base. The seminal vesicles and vas deferens were identified and dissected free and the plane between the prostate and rectum was identified and seperated as distal and lateral as possible. Next peritoneal incisions were made lateral to the medial umbilicalligaments and the bladder was dissected away from the anterior abdominal wall and pubic ramus to expose the prostate. The superficial dorsal vein was cauterized and transected. The endopelvic fascia was opened. I then proceeded to dissect the tissue away from the apex of the prostate down to the deep dorsal vein complex. I then placed a 0 Vic[address] suture [address]-1 needle to ligate the deep dorsal complex. Next the anterior bladder wall was incised at the level of the bladder neck. The barcenas catheter was extracted from the bladder and placed to traction using the third arm. The posterior bladder neck wasthen excised and dissected away from the base of the prostate. The previously dissected seminal vesicles and vas deferens were now brought into view. These structures were then tented up. The plane between the prostate and the rectum was further dissected up to the apex of the prostate. This exposed the lateral pedicles. I then proceeded to identify the plane between the lateral prostate and the lateral pedicles. Vesselsealer was used and the lateral pedicle was transected. Electro Cautery was not used in this area. Nerve preservation was performed mainly on he right. The dissection was carried around the apex of theprostate. Next I transected the deep dorsal vein and further dissection was carried around the apex of the prostate. The urethra was transected distal to the apex of the prostate and the prostate was placed in am Endopouch. Amadou-Seal was used to achieve further hemostasis. I than performed bilateral pelvic lymphadenectomy. The nodes along the right iliac and obturator chain were removed. Clinically they were not enlarged and appeared benign. They were sent for permanent pathologic analysis. Next, I proceeded to anastomosis the bladder neck to the urethra using a running suture of 3-0 Monocryl on a double armed needle. A two layer anastomosis was performed posteriorly. A 20 canadian barcenas catheter was placed and the bladder irrigated well. A good watertight , tension free anastasmosis was obtained. Further inspection at this time showed no further bleeding. The string of the Endopouch was then brought out through the umbilical port site. The robot was then docked away. A 15 canadian round Derek Romano was placed through the left lower quadrant port and all the laparoscopic ports were removed. I slightly extended the supraumbilical incision and the prostate was removed through this site. The fascia was then closed using Vicryl sutures. The skin incisions were closed using brigida. The Derek Romano was secured to the skin with a silk stitch. The needle, sponge and lap counts were correct. The patient remained stable throughout the entire procedure. The estimated blood loss was 80 cc . The patient tolerated the procedure well and was sent to the recovery room in stable condition. SAW OPERATOR HELPER documented in this encounter Miscellaneous Notes Plan of Care - Skylar Hall RN - 10/07/2019 2:14 PM CST 7-3 shift Minimum abd pain controlled with Toradol. Was getting anxious and nauseated due to nervousness priorto NICHOLAS removal - premedicated with Oxycodone and Zofran which helped NICHOLAS removal -Suture removed from NICHOLAS site and NICHOLAS removed without incident. Pt did have discomfort during removal but lessened to tolerable level within 10 minutes following. Pressure dressing applied to NICHOLAS site. Small amt red blood noted on old NICHOLAS drsg before removal. About 45 minutes spent gathering supplies and teaching pt and via demo about catheter care, changing bedside bag to leg bag - emptying them/positioning for best flow. Pt/ decided to just use bedside bag for the 2 weeks that he needs to keep barcenas in. Catheter supplies and drsg/tape supplies for NICHOLAS site given to pt. By afternoon, pt gets up indeo in room. No longer a fall risk. Patient discharged at approx 1400 to home. IV was discontinued. Abdominal and NICHOLAS site discomfort at time of discharge was tolerable. Belongings returned to patient. Discharge instructions and medications reviewed with patient. New 3 rx meds were filled here and sent with pt. Patient and verbalized understanding and all questions were answered.. At time of discharge, patient condition was stable and left the unit in w/c with barcenas in place to beside bag escorted by step force aid SAW OPERATOR HELPER Plan of Care - Brooke Coto RN - 10/07/2019 6:39 AM CST A&Ox4. VSS on RA. C/o mild incisional pain, refused 2am scheduled tylenol, Toradol given x1. +BS, +flatus. Lap sites x5 & midline incision; CDI. Left NICHOLAS to bulb suction; bright/bloody output. Barcenas patent, adequate UO. Up SBA. PIV SL. Plan to discharge home today with barcenas. SAW OPERATOR HELPER Plan of Care - Braden Schaeffer, SUNSHINE - 10/06/2019 10:49 PM CST A&Ox4. VSS. C/o abdominal pain; PRN toradol effective. Regular diet; tolerating well. BS active,+ flatus. Lap sites x5 and midline incision; CDI. NICHOLAS to bulb suction; bright, bloody output. Barcenas patent; adequate UO. Ambulated in the watts today x1; up with SBA. PIV is SL. Placed abdominal binder and barcenas supplies in pt room in preparation for discharge 10/07. SAW OPERATOR HELPER Plan of Care - Skylar Hall RN - 10/06/2019 1:37 PM CST 7a-3p shift POD#1 A&Ox4. VSS. Capno WNL at shift start abd was dc'd. Midline incision & 5 lap sites. The 5 lapsite bandaids were removed by urology PA. Midline drsg from hernia repair is D/I. Abdomen distended soft and tender to touch, No flatus yet. Bowel sounds hypoactive.Senokot started At shift start pt was pale, fatigued, and having increase abd pain. Gas Systems Worker asked urology PA for Toradol (since pt refuses offer of any narcotic due to fear of constipation hx with narcs in the past) and for IV fluids (pt has not been on any IV fluids since post op, pt's probably dehydrated which is contributing to fatigue) Toradoll and scheduled Tylenol combo was effective and controlled pain well. By afternoon pt pt was more energetic, facial color returned to normal and he tolerated walk in watts and sitting in chair each x1 with assist of 1. Slight nausea at shift start resolved with Zofran. Held Ativan since pt denied any nausea for rest of shift. Pt will be going home with barcenas in place for 2 weeks Pt/ watched Urinary catheter care video and each received a copy of the Urinary Catheter Care atHome booklet Alix shift to give demo and teach pt/and both on catheter changing bedside bag to leg bag. need hands on learning and practice changing bags Plan for discharge home tomorrow - pending medically status Addendum: walked in watts with SBA at 2pm -tolerated activity , Medicated with Toradol at approx 3pm for postop abd pain SAW OPERATOR HELPER Plan of Care - Brooke Coto RN - 10/06/2019 6:22 AM CST A&Ox4. VSS on 1L oxygen. Capno WNL. Midline incision & 5 lap sites, CDI. C/o mild pain to sites, scheduled tylenol effective. BS+, -flatus. Clear liquid diet, tolerating. Left NICHOLAS, bright/bloodydrainage. Barcenas, patent, adequate UO. Up SBA, stood at bedside, c/o some dizziness. Discharge pending. SAW OPERATOR HELPER Plan of Care - Dee Moore, SUNSHINE - 10/05/2019 9:34 PM CST Pt is A/Ox4. VSS, on 1L O2, capno WNL. C/o pain to abd, scheduled tylenol effective + ice applied. Hypo BS, not passing gas, clear liquid diet. Became quickly nauseous after dinner + standing up-PRN zofran and compazine given. 5 lap sites w/ bandaids + midline incision (covered): CDI. L NICHOLAS w/ bright, bloody drainage. Barcenas patent w/ clear tracy UOP. Stood at edge of bed w/ some dizziness, was not able to ambulate in hallway this shift. Up SBA. Urology following. Discharge pending progress. SAW OPERATOR HELPER Plan of Care - Skylar Hall RN - 10/05/2019 4:20 PM CST Pt arrived to unit at approx 1430 settled into bed by NA and myself. IV changed to TJKO till pharmacist reviews orders. NICHOLAS draining on left side of abdomen bright red blood. Barcenas catheter flowing watermelon to tracy clear urine. CAPNO score WNL. Pt states abdominal pain tolerable at 3 in 1-10 scale. Abdomen has 5 visible lap sites covered with bandaids that have scant red blood drainage each. Midline abd has a drsdg which is dry/intact. BS absent at present. Abd soft, nondistended Left side abd NICHOLAS drsg is D/I. Pt denies n/v, he is awake, alert and conversing with family. Pt taking sips of water and icechips and tolerating it well.. Lungs anteriorly clear. Gas Systems Worker explained the current orders, POC and showed family the family lounge and location of ice and water for pt and themselves. Gas Systems Worker also explained rationale of the PCD's, NICHOLAS, CAPNO, IV, frequent vitals. Pt/family expressed understanding of info. Current status is stable. Continue to monitor SAW OPERATOR HELPER Op Note - Long Byrnes MD - 10/05/2019 2:34 PM CST PREOPERATIVE DIAGNOSIS: ventral hernia, prostate cancer POSTOPERATIVE DIAGNOSIS: same PROCEDURE: Combined open primary closure and Laparoscopic repair of ventral hernia. Surgeon: Long Byrnes MD 1st Supervisor Blast Furnace: Jody Squires PA-C, Physician social human services assistants rn first assistant was necessary during the performance of this procedure for expertise in patient positioning, prepping, draping, trocar placement, camera management, retraction and exposure, and suctioning. ANESTHESIA: General endotracheal. ESTIMATED BLOOD LOSS: 5cc DRAINS: None. COMPLICATIONS: None. SPECIMENS: None. INDICATIONS: Mr Carlson presented to my office with a symptomatic ventral hernia. I discussed with the patient therapeutic options and it was elected to proceed with combined open and laparoscopic repair. The potential risks of bleeding, infection, bowel injury, recurrent hernia, chronic prosthetic infection or chronic pain were all reviewed in detail and he wished to proceed. DESCRIPTION OF PROCEDURE: After informed consent was obtained, the patient was taken to the operating room and placed supine on the operating table. Following the induction of adequate general endotracheal anesthesia, the abdomen was shaved, prepped and draped in the usual fashion. Patient subsequently was operated on by the urology service and underwent robotic assisted laparoscopic cystoprostatectomy. When this was completed I entered the operating room. A surgical timeout for my portion of the procedure was initiated and completed, appropriate IV antibiotics had been administered. A curvilinear infraumbilical incision was made and dissection was carried down until the hernia sac was encountered. The sac was excised. The fascia was then closed primarily with 0 Vicryl suture. A carbon dioxide pneumoperitoneum was then established. I utilized the previously placed robotic ports for the procedure. I did need to place an additional 5 mm port in the right upper abdomen. Fascial closure at the hernia site was good. I elected to repair not only this site but also to prophylactically repair the supraumbilical specimen extraction site where the fascia had been closed by the attending urologist with interrupted 0 Vicryl suture. I elected to reinforce this area with a 15 cm circular Symbotex mesh. A positioning suture was placed in the center of the mesh. The mesh was then introduced into the abdominal cavity. The positioning suture was brought out at a location that would allow to completely covermy hernia repair site as well as the fascia of the specimen extraction site. There was a minimum of 5 cm of overlapping coverage on all sides of both sites. With the mesh in good position, the AbsorbaTack absorbable fixation device was used to circumferentially tack the mesh into position. Under the direction of the attending urologist I placed a drain down into the pelvis anterior to the bladder anastomosis that was brought out through the left lower quadrant port site. This was sutured into position at the skin exit site. With the mesh completely tacked into position and the drain in place, all remaining trocars were removed. Carbon dioxide was massaged from the abdomen. Local anesthetic was injected. The midline incision was closed using a combination of 3.0 vicryl on the subq and 4.0 Vicryl on the skin. The laparoscopic incisions were closed with subcuticular 4-0 Vicryl stitches. Benzoin andSteri-Strips were applied. Needle and sponge counts were correct. The patient tolerated this well. He was awakened in the operating room, extubated and taken to recovery room in stable condition. LONG BYRNES MD SAW OPERATOR HELPER Op Note - Carlos Piña MD - 10/05/2019 12:06 PM CST [facility] Urology Brief Operative Note Pre-operative diagnosis: Prostate cancer (H) [C61] Umbilical hernia Post-operative diagnosis: Same Procedure: Procedure(s): ROBOTIC ASSISTED RADICAL PROSTATECTOMY, BILATERAL PELVIC LYMPH NODE DISSEC TION(WANG) (with TAP ANESTHESIA ALSO) LAPAROSCOPIC ASSISTED UMBILICAL HERNIA REPAIR WITH MESH (FITZ) Surgeon: Carlos Piña MD Supervisor Blast Furnace(s): Chelsea Landry PA-C Anesthesia: General endotracheal anesthesia Estimated blood loss: 80 mL Total IV fluids: (See anesthesia record) Blood transfusion: No transfusion was given during surgery Total urine output: (See anesthesia record) Drains: Derek-Romano Specimens: Prostate , lymph nodes Implants: None Findings: Prostate ca, umbilical hernia Complications: None Condition: Stable Comments: See dictated operative report for full details SAW OPERATOR HELPER documented in this encounter Plan of Treatment Not on filedocumented as of this encounter Procedures Procedure Name Priority Date/Time Associated Comments Diagnosis GLUCOSE BY METER Routine 10/07/2019 6:17 Results for this AM BUZZSAW OPERATOR HELPER procedure are i n the results section. HEMOGLOBIN Routine 10/06/2019 7:06 Results for this AM BUZZSAW OPERATOR HELPER procedure are i n the results section. CREATININE Routine 10/06/2019 7:06 Results for this AM BUZZSAW OPERATOR HELPER procedure are i n the results section. GLUCOSE Add-On AM 10/06/2019 7:06 Results for this AM BUZZSAW OPERATOR HELPER procedure are i n the results section. SURGICAL PATHOLOGY EXAM Routine 10/05/2019 11:11 Results for this AM BUZZSAW OPERATOR HELPER procedure are i n the results section. HERNIORRHAPHY, 10/05/2019 8:01 Prostate cancer UMBILICAL, LAPAROSCOPIC AM BUZZSAW OPERATOR HELPER (H) PROSTATECTOMY, 10/05/2019 8:01 Prostate cancer ROBOT-ASSISTED, USING AM BUZZSAW OPERATOR HELPER (H) DA LASHONDA XI, WITH PELVIC LYMPHADENECTOMY EKG CARDIAC - HIM SCAN 09/24/2019 12:00 AM BUZZSAW OPERATOR HELPER LAB RESULT - HIM SCAN 07/09/2019 12:00 AM CDT documented in this encounter Results Glucose by meter (10/07/2019 6:17 AM BUZZSAW OPERATOR HELPER) P athologist Signature Glucose 80 70 - 99 10/07/2019 POINT OF CARE mg/dL 6:38 AM BUZZSAW OPERATOR HELPER TEST, GLUCOSE Specimen Anatomical Collection Method Collection Time Receive d Time (Source) Location / / Volume Laterality 10/07/2019 6:17 AM 0 6:38 BUZZSAW OPERATOR HELPER AM BUZZSAW OPERATOR HELPER Carlos Piña MD LAB - BEAKER POCT Performing Organization Address City/State/ZIP Code Phon e Number [facility] POINT OF CARE TEST, GLUCOSE POINT OF CARE TEST, GLUCOSE (ABNORMAL) Glucose (10/06/2019 7:06 AM BUZZSAW OPERATOR HELPER) P athologist Signature Glucose 103 (H) 70 - 99 10/06/2019 [place] mg/dL 7:34 AM BUZZSAW OPERATOR HELPER [facility] Specimen Anatomical Collection Method Collection Time Receive d Time (Source) Location / / Volume Laterality Blood specimen 10/06/2019 7:06 AM 020 7:07 (specimen) BUZZSAW OPERATOR HELPER AM BUZZSAW OPERATOR HELPER Carlos Piña MD LAB - BLOOD ORDERABLES Performing Organization Address City/State/ZIP Code Phon e Number M [facility] [address] [place] [address] [phone] [facility] [address] [place] [address], [place] [phone] Hemoglobin (10/06/2019 7:06 AM BUZZSAW OPERATOR HELPER) athologist Signature Hemoglobin 13.6 13.3 - 17.7 10/06/2019 [place] g/dL 7:19 AM [facility] Specimen Anatomical Collection Method Collection Time Receive d Time (Source) Location / / Volume Laterality Blood specimen 10/06/2019 7:06 AM 020 7:07 (specimen) BUZZSAW OPERATOR HELPER AM BUZZSAW OPERATOR HELPER Chelsea Landry PA-C LAB - BLOOD ORDERABLES Performing Organization Address City/State/ZIP Code Phon e Number M [facility] [address] [place] [address] [facility] [address] [place] [address], [place] [phone] Creatinine (10/06/2019 7:06 AM BUZZSAW OPERATOR HELPER) athologist Signature Creatinine 0.98 0.66 - 1.25 10/06/2019 [place] mg/dL 7:34 AM [facility] GFR Estimate 85 >60 10/06/2019 [place] mL/min/{1.7 7:[address] [facility] 3_m2} [facility] Comment: Non GFR Calc Starting 09/02/2018, serum creatinine ba sed estimated GFR (eGFR) will be calculated using the Chronic Kidney Dise [facility] Epidemiology Collaboration (CKD-EPI) equation. GFR Estimate If >90 >60 mL/min/{1.73_m2} 10/06/2019 7: 34 AM [facility] Comment: GFR Calc Starting 09/02/2018, serum creatinine ba sed estimated GFR (eGFR) will be calculated using the Chronic Kidney Dise [facility] Epidemiology Collaboration (CKD-EPI) equation. Specimen Anatomical Collection Method Collection Time Receive d Time (Source) Location / / Volume Laterality Blood specimen 10/06/2019 7:06 AM 020 7:07 (specimen) BUZZSAW OPERATOR HELPER AM BUZZSAW OPERATOR HELPER Chelsea Landry PA-C LAB - BLOOD ORDERABLES Performing Organization Address City/State/ZIP Code Phon e Number M [facility] [address] [place] [address] [facility] [address] [place] [address], [place] [phone] Surgical pathology exam (10/05/2019 11:11 AM BUZZSAW OPERATOR HELPER) Component Value Ref Test Analysis Performed At [facility] Range Method Time Signature Copath Report Patient Name: FREDY CARLSON MR#: [id number] Specimen #: [id number] Collected: 10/05/2019 Received: 10/05/2019 Reported: 10/07/2019 15:27 Ordering Phy(s): CARLOS PIÑA For improved result formatting, select 'View Enhanced Report Format' under Linked Documents section. 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 Status: Submitted Checklist Inst: 1 ?Last Upda rojas By: Michael Lucero M.D., 10/07/2019 15:26:23 Part(s) Involved: B: Prostate and seminal vesicles Synoptic Report: SPECIMEN ??Procedure: ?- Radical prostatectomy TUMOR ??Histologic Type: ?- Acinar adenocarcinoma ??Histologic Grade ?Grade Group and Oliver Score: ?- Grade group 2 ([place] Score 3 + 4 = 7) ?Percentage of Pattern 4: 40% ??Intraductal Carcinoma (IDC): ?- Not identified ??Tumor Quantitation: ?12% ??Extraprostatic Extension (EPE): ?- Present, focal ?Location of Extraprostatic Extension: ?- Left posterior ??Urinary Bladder Neck Invasion: ?- Not identified ??Seminal Vesicle Invasion: ?- Not identified ??Treatment Effect: ?- No known presurgical therapy ??Lymphovascular Invasion: ?- Not Identified ??Perineural Invasion: ?- Present MARGINS ??Margins: ?- Uninvolved by invasive carcinoma ?- Benign prostate glands present at surgical margin LYMPH NODES ??Number of Lymph Nodes Involved: ?- 0 ??Number of Lymph Nodes Examined: 5 PATHOLOGIC STAGE CLASSIFICATION (PTNM, AJCC 8TH EDITION) ??Primary Tumor (pT): ?- pT3a ??Regional Lymph Nodes (pN): ?- pN0 ADDITIONAL FINDINGS ??Additional Findings: ?- High-grade prostatic intraepithelial neoplasia (P IN) CAP [facility] October 2018 Annual Release Electronically signed out by: Michael Lucero M.D. CLINICAL HISTORY: Prostate cancer GROSS: A. The specimen is received in formalin, labeled with the pa michael's name and date of , and designated prostate apical tissue. It consists of a 0.5 x 0.3 x 0.3 c m pink-red soft tissue fragment. Submitted in toto in one cassette. B. The specimen is received in formalin, labeled with the pa keshiamesfin's name and date of , and designated prostate and seminal vesicles. It consists of a 43.4 g rad ical prostatectomy specimen measuring 4.0 cm apex to base x 3.9 cm transversely x 4.2 cm anterior to posterior . ??The right and left seminal vesicles measure 3.7 x 1.5 x 0.7 cm and 3.2 x 1.4 x 0.6 cm respectively. ??The ri ght and left vasa deferentia measure 2.2 cm in length x 0.5 cm in diameter and 2.0 cm in length x 0.6 cm di ameter, respectively. ??The left side of the prostate is inked black, and the right side is inked blue. ? ?The bladder neck and distal urethral margins are coned and submitted entirely. ??The specimen is serially sec tioned from apex to base into nine slices, revealing a pink-roberts, focally nodular cut surface. No discre te tumor nodules are noted grossly. Coffee Sampler sections are submitted. Summary of Sections: B1 - right seminal vesicle B2 - left seminal vesicle B3 - right bladder neck margin B4 - left bladder neck margin B5 - right distal urethral margin B6 - left distal urethral margin B7-B9 - right anterior apex (slice 1), mid (slice 5), base ( slice 9) B10-B12 - right posterior apex (slice 1), mid (slice 5), bas e (slice 9) B13-B15 - left anterior apex (slice 1), mid (slice 5), base (slice 9) B16-B18 - left posterior apex (slice 1), mid (slice 5), base (slice 9) C. The specimen is received in formalin, labeled with the pa tient's name and date of , and designated right pelvic lymph nodes. It consists of two yellow-roberts fo guru fatty replaced potential lymph nodes measuring 0.7 cm and 7.5 cm in greatest dimension. The lymph nodes are entirely submitted. Summary of Sections: C1 - one intact potential lymph node C2-C10 - one serially sectioned potential lymph node D. The specimen is received in formalin, labeled with the pa tient's name and date of , and designated left pelvic lymph nodes. It consists of four yellow pink f ocally fatty replaced potential lymph nodes ranging from 0.2-8.0 cm in greatest dimension. The lymph nod es are entirely submitted. Summary of Sections: D1 - two intact potential lymph nodes D2 - one bisected potential lymph node D3-D14 - one serially sectioned potential lymph node (Dictat ed by: ANKUR Segundo(ASCP)CM 10/05/2019 02:25 PM) MICROSCOPIC: Sections from the separately submitted apical tissue show pr ostatic tissue with marked cautery artifact. A prostate triple cocktail was performed and show no definitiv e expression of P504S and intact basal cells in the non-cauterized tissue. The prostate shows mixed pattern 3 and 4 acinar adenocarcinoma with focal extra prostatic extension at left posterior. All the resection mar gins are negative for carcinoma. The tumor comes closest to the left apical margin. The bladder neck is uninv olved. All of the examined lymph nodes are benign. This case was reviewed in consultation with Dr. Alamo and Dr. Rosales, who concurs with the interpretation. The technical component of this testing [facility], with the professional compo nent performed at the [facility], [address] [place] [address] ??[phone] ([phone]) The following ASR disclaimer is in reference to the stain(s) listed below: ?Analyte Specific Reagents (ASRs) are used in many laboratory tests necessary for [facility] care and generally do not require FDA approval. ??This test was developed and its performance geraldine acteristics determined by [facility]. ??It has not been cleared or approved by the U.S. Food and Drug Administration. P504s/p63 (ASR) CPT Codes: A: 23292.051, 85862-GAM-BNY, 03496-PRC B: 59860-PU6 C: 46666-KP4 D: 49697-BP7 COLLECTION SITE: Client: [facility] Location: SHOR (S) Specimen (Source) Anatomical Collection Method Collection Time Re ceived Time Location / / Volume Laterality Tissue specimen PROSTATIC 10/05/2019 11:11 (specimen) STRUCTURE / AM BUZZSAW OPERATOR HELPER Unknown Tissue specimen PROSTATIC 10/05/2019 11:34 (specimen) STRUCTURE / AM BUZZSAW OPERATOR HELPER Unknown Tissue specimen STRUCTURE OF 10/05/2019 11:34 (specimen) LYMPHATIC SYSTEM AM BUZZSAW OPERATOR HELPER OF RIGHT HALF OF PELVIS / Unknown Tissue specimen STRUCTURE OF 10/05/2019 11:40 (specimen) LYMPHATIC SYSTEM AM BUZZSAW OPERATOR HELPER OF LEFT HALF OF PELVIS / Unknown Carlos K Piña MD LAB - BEAKER AP Performing Organization Address City/State/ZIP Code Phon e Number [facility] EKG CARDIAC - HIM SCAN (09/24/2019 12:00 AM BUZZSAW OPERATOR HELPER) Specimen (Source) Anatomical Location Collection Method / Collectio n Time Received Time / Laterality Volume 09/24/2019 Narrative This result has an attachment that is no t available. Provider Outside ECG ORDERABLES LAB RESULT - HIM SCAN (07/09/2019 12:00 AM CDT) Specimen (Source) Anatomical Location Collection Method / Collectio n Time Received Time / Laterality Volume 07/09/2019 Narrative This result has an attachment that is no t available. Provider Outside NON-BEAKER LAB TESTING documented in this encounter Visit Diagnoses Diagnosis S/P prostatectomy - Primary Other postprocedural status S/P prostatectomy Other postprocedural status Prostate cancer (H) Malignant neoplasm of prostate documented in this encounter Administered Medications Inactive Administered Medications - up to 3 most recent administrations Medication Order MAR Action Action Date Dose Rate Site 0.45% sodium chloride + KCl 20 New Bag 10/06/2019 11:38 AM BUZZSAW OPERATOR HELPER 75 mL/hr mEq/L infusion at 75 mL/hr, Intravenous, CONTINUOUS, Starting on Sat10/06/19 at 0845, Until Sat10/07/19 at 1616 acetaminophen (TYLENOL) tablet 1,000 mg Given 10/05/2019 7:06 AM BUZZSAW OPERATOR HELPER 1,000 mg 1,000 mg, Oral, ONCE, On Sat10/05/19 at 0700, For 1 dose, Maximum acetaminophen dose from all sources = 75 mg/kg/day not to exceed 4 gram, Pre-procedure acetaminophen (TYLENOL) tablet 650 mg Given 10/06/2019 11:36 PM BUZZSAW OPERATOR HELPER 650 mg 650 mg, Oral, EVERY 6 HOURS RT, First dose on Sat10/05/19 at 1530, Maximum acetaminophen dose from all sources = 75 mg/kg/day not to exceed 4 grams/day., Post-procedure Given 10/06/2019 2:55 PM BUZZSAW OPERATOR HELPER 650 mg Given 10/06/2019 8:28 AM BUZZSAW OPERATOR HELPER 650 mg bacitracin ointment Topical, 2 TIMES DAILY, First dose on 10/07/19 at 1030, Apply to urinary meatus at urinary catheter site bacitracin ointment Topical, 2 TIMES DAILY PRN, wound care, Starting on Sat10/07/19 at 1026, Apply to meatus hemostatic matrix Given 10/05/2019 11:30 AM 2 kits Operative Site/Surgical (SURGIFLO) kit BUZZSAW OPERATOR HELPER Site PRN, Starting on Sat10/05/19 at 1130, Intra-procedure HYDROmorphone (PF) (DILAUDID) injection Given 10/05/2019 2:10 PM BUZZSAW OPERATOR HELPER 0.5 mg 0.3-0.5 mg 0.3-0.5 mg, Intravenous, EVERY 5 MIN PRN, other, acute pain. ??May administer if Respiratory Rate is greater than 10, Starting on Sat10/05/19 at 1314, Max cumulative dose = 2 mg If fentaNYL (SUBLIMAZE) is also ordered, use HYDROmorphone (DILAUDID) if pain control insufficient with fentaNYL (SUBLIMAZE) or a longer acting agent is needed. For ordered IV doses 0.1-4 mg give IV Push undiluted. Administer each 2mg over 2-5 minutes., PACU ketorolac (TORADOL) injection 30 mg Given 10/07/2019 1:32 PM BUZZSAW OPERATOR HELPER 30 mg 30 mg, Intravenous, EVERY 6 HOURS PRN, moderate to severe pain, Starting on Sat10/06/19 at 0841, For 5 days, Can cause pain on injection. If ordered intravenously (IV) : administer through a running maintenance fluid over 1 minute followed by a flush. If patient complains of pain on injection, may dilute 15-30 mg in 5 mL and push over 1 to 2 minutes. Given 10/07/2019 6:22 AM BUZZSAW OPERATOR HELPER 30 mg Given 10/06/2019 9:50 PM BUZZSAW OPERATOR HELPER 30 mg LORazepam (ATIVAN) injection 0.5-1 mg 0.5-1 mg, Intravenous, EVERY 6 HOURS PRN , anxiety, Starting on Sat10/06/19 at 1500, This drug may cause significant respirat ory depression. Monitor respiratory status and vital signs carefully for 1 hour after each dose. metoclopramide (REGLAN) injection 10 mg 10 mg, Intravenous, Administer over 2 Mi nutes, EVERY 6 HOURS PRN, nausea, vomiting, Starting on Sat10/05/19 at 1522, This is Step 3 of nausea and vomiting management. Give if nausea not resolved 15 minutes a fter giving prochlorperazine (COMPAZINE). If nausea not resolved in 15-30 minutes, Notify provider. Avoid use if patient has full bowel obstruction or perforation. I rritant. For ordered IV doses 1-10 mg, give IV Push undiluted over 2 minutes., Post-procedure metoclopramide (REGLAN) tablet 10 mg 10 mg, Oral, EVERY 6 HOURS PRN, nausea, vomiting, Starting on Sat10/05/19 at 1522, This is Step 3 of nausea and vomiting ma nagement. Give if nausea not resolved 15 minutes after giving prochlorperazine (C OMPAZINE). If nausea not resolved in 15-30 minutes, Notify provider., Post-procedure ondansetron (ZOFRAN) injection 4 mg 4 mg, Intravenous, EVERY 6 HOURS PRN, nausea, vomiting , Administer over 2-5 Minutes, Starting on Sat10/05/19 at 1522, This is Step 1 of nausea and vomiting management. If nausea not resolved in 15 minutes, go t o Step 2 prochlorperazine (COMPAZINE). Irritant. For ordered IV do ses 0.1-4 mg, give IV Push undiluted over 2-5 minutes., Post-procedure ondansetron (ZOFRAN-ODT) ODT tab 4 mg Given 10/07/2019 11:45 AM [employer]PER[employer] HELPER 4 mg 4 mg, Oral, EVERY 6 HOURS PRN, nausea, vomiting, Starting on Sat10/05/19 at 1522, This is Step 1 of nausea and vomiting management. If nausea not resolved in 15 minutes, go to Step 2 prochlorperazine (COMPAZINE). Do not push through foil backing. Peel back foil and gently remove. Place on tongue immediately. Administration with liquid unnecessary With dry hands, peel back foil backing and gently remove tablet. Do not push oral disintegrating tablet through foil backing. Administer immediately on tongue and oral disintegrating tablet dissolves in seconds, then swallow with saliva. Liquid not required., Post-procedure Given 10/06/2019 7:23 AM [employer]PERATOR HELPER 4 mg Given 10/05/2019 5:49 PM [employer] HELPER 4 mg opium-belladonna (B&O SUPPRETTES) 30-16.2 MG Given 12:49 PM [employer]PER[employer] HELPER 30 mg per suppository PRN, Starting on Sat10/05/19 at 1249, Intra-procedure oxyCODONE (oxyCONTIN) 12 hr tablet 10 mg Given 10/05/2019 7:06 AM [employer]PER[employer] HELPER 10 mg 10 mg, Oral, ONCE, On Sat10/05/19 at 0700, For 1 dose, DO NOT CRUSH., Pre-procedure oxyCODONE (ROXICODONE) tablet 5-10 mg Given 10/07/2019 11:45 AM [employer]PER[employer] HELPER 5 mg 5-10 mg, Oral, EVERY 3 HOURS PRN, moderate to severe pain, Starting on Sat10/06/19 at 1121 prochlorperazine (COMPAZINE) injection 1 0 mg Given 10/05/2019 8:05 PM [employer] HELPER 10 mg 10 mg, Intravenous, EVERY 6 HOURS PRN, nausea, vomiting, Administer over 1-2 Minutes, Starting on Sat10/05/19 at 1522, This is Step 2 of nausea and vomiting management. If nausea not resolved in 15 minutes, give metoclopramide (REGLAN), if ordered (step 3 of nausea and vomiting management) For ordered IV doses 0.1-10 mg, give IV Push undiluted. Each 5mg over 1 minute., Post-procedure prochlorperazine (COMPAZINE) tablet 10 m g 10 mg, Oral, EVERY 6 HOURS PRN, nausea, vomiting, Starting on Sat10/05/19 at 1522, This is Step 2 of nausea and vomiting management. If n ausea not resolved in 15 minutes, give metoclopramide (REGLAN), i f ordered (step 3 of nausea and vomiting management), Post-procedure senna-docusate (SENOKOT-S/PERICOLACE) Given 10/06/2019 8:[address] 1 tablet 8.6-50 MG per tablet 1 tablet 1 tablet, Oral, DAILY, First dose (after last modification) on Sat10/06/19 at 0900, If no bowel movement in 24 hours, increase to 2 tablets PO. Hold for loose stools. Hold for loose stools., Post-procedure senna-docusate (SENOKOT-S/PERICOLACE) Given 10/06/2019 9:[address] 1 tablet 8.6-50 MG per tablet 1 tablet 1 tablet, Oral, 2 TIMES DAILY, First dose (after last modification) on Sat10/06/19 at 2100, If no bowel movement in 24 hours, increase to 2 tablets PO. Hold for loose stools. Hold for loose stools. sodium chloride (PF) 0.9% PF flush 3 mL Given 10/06/2019 9:01 AM [employer] HELPER 3 mLs 3 mL, Intracatheter, EVERY 1 MIN PRN, line flush, for peripheral IV flush post IV meds, Starting on Sat10/05/19 at 1522, Post-procedure sodium chloride (PF) 0.9% PF flush 3 mL Given 10/07/2019 6:25 AM [employer]PER[employer] HELPER 3 mLs 3 mL, Intracatheter, EVERY 8 HOURS, First dose on Sat10/05/19 at 1530, And Q1H PRN, to lock peripheral IV dormant line., Post-procedure Given 10/06/2019 6:39 AM [employer] HELPER 3 mLs sodium chloride 0.9% (bag) Given 10/05/2019 8:37 AM 1,000 mLs Operative irrigation [employer]ATOR HELPER Site/Surgical S ite PRN, Starting on Sat10/05/19 at 0837, Intra-procedure sodium chloride 0.9% Given 10/05/2019 8:37 AM 1,000 mLs Operative (bottle) irrigation [employer]PERATOR HELPER Site/Surgical S ite PRN, Starting on Sat10/05/19 at 0837, Intra-procedure documented in this encounter Active and Recently Administered Medications Times are shown in [employer] HEL[employer]. Scheduled Medication Order 10/05/2019 10/06/2019 10/07/2019 acetaminophen (TYLENOL) tablet 1,000 mg (COMPLETED) 07 06 (Given - Provider: Iva Groves RN) 1,000 mg, Oral, ONCE, Sat10/05/19 at 070 0, For 1 dose, Maximum acetaminophen dose from all sources = 75 mg/kg/day not to exceed 4 gram, Pre-procedure acetaminophen (TYLENOL) tablet 650 mg 1626 (Not Given - Provider: Dee Moore RN - Reason: Patient/family refused)1741 (Given - Provider: Dee Moore RN)2356 (Given - Provider: Brooke Coto, RN) 0217 (Given - Provider: Brooke Coto, RN)0828 (Given - Provider: Skylar Hall, SUNSHINE)1455 (Given - Provider: Skylar Hall, SUNSHINE)2336 (Given - Provider: Brooke Coto, RN) 0150 (Not Given - Provider: Brooke rodriguez RN - Reason: Patient/family refused)0800 (Not Given - Provider: Skylar Hall RN - Reason: Patient/family refused)1300 (Not Given - Provider: Skylar Hall RN - Reason: Patient/family refused) 650 mg, Oral, EVERY 6 HOURS, First dose on Sat10/05/19 at 1530, Maximum acetaminophen dose from all sources = 75 mg/kg/day not to exceed 4 grams/day., Post-procedure bacitracin ointment 1332 (Not Gi luis - Provider: Skylar Hall RN - Reason: Patient/family refused) Topical, 2 TIMES DAILY, First dose on 10/07/19 at 1030, Apply to urinary meatus at urinary catheter site ceFAZolin (ANCEF) intermittent infusion 2 g in 100 mL dextrose PRE-MIX (COMPLETED) 0816 (Given - Provider: Kristen Spain APRN CRNA)1016 (Given - Provider: Kristen Spain APRN CRNA)1212 (Given - Provider: Kristen Spain APRN CRNA) Routine, 2 g, Intravenous, PRE-OP/PRE-LA OCEDURE, Starting Sat10/05/19 at 0556, For 1 dose, Give first dose within 1 hour PRIOR to incision. If patient weight is greater than or equal to 120 kg increase dose to 3 g., Indications: Perioperative Pharmacoprophylaxis oxyCODONE (oxyCONTIN) 12 hr tablet 10 mg (COMPLETED) 0 706 (Given - Provider: Iva Groves, SUNSHINE) 10 mg, Oral, ONCE, Sat10/05/19 at 0700, For 1 dose, DO NOT CRUSH., Pre-procedure senna-docusate (SENOKOT-S/PERICOLACE) 8.6-50 MG per tablet 1 tablet (CANCELED) 0858 (Given - Provider: Skylar Hall RN) 1 tablet, Oral, DAILY, First dose (after last modification) on Sat10/06/19 at 0900, If no bowel movement in 24 hours, increase to 2 tablets PO. Hold for loose stools. Hold for loose stools., Post-procedure senna-docusate (SENOKOT-S/PERICOLACE) 8.6-50 MG per tablet 1 tablet 0 (Given - Provider: Braden Schaeffer RN) 0900 (Not Given - Provider: Skylar black RN - Reason: Patient/family refused) 1 tablet, Oral, 2 TIMES DAILY, First dos e (after last modification) on Sat10/06/19 at 2100, If no bowel movement in 24 hours, increase to 2 tablets PO. Hold for loose stools. Hold for loose stools. sodium chloride (PF) 0.9% PF flush 3 mL 1538 (Not Give n - Provider: Skylar Hall RN - Reason: IV Infusing) 0151 (Not Given - Provider: Brooke rodriguez RN - Reason: Patient sleeping)0639 (Given - Provider: Brooke Coto, RN)1400 (Not Given - Provider: Skylar Hall RN - Reason: IV Infusing) 0625 (Given - Provider: Brooke Coto, RN)1300 (Not Given - Provider: Skylar Hall RN - Reason: No IV Access) 3 mL, Intracatheter, EVERY 8 HOURS, Firs t dose on Sat10/05/19 at 1530, And Q1H PRN, to lock peripheral IV dormant line., Post-procedure 2150 (Not Given - Provider: Braden Schaeffer RN - Reason: IV Infusing) Continuous Medication Order 10/05/2019 10/06/2019 10/07/2019 0.45% sodium chloride + KCl 20 mEq/L infusion 1138 (New Bag - Provider: Skylar Hall RN)2250 (Stopped - Provider: Braden Schaeffer RN - Comment: adequate I+O) 0500 (Stopped - Provider: Skylar palma RN - Comment: Stopped by other RN.neonatal surgeon reported of IV dc'd prior to day shift today) at 75 mL/hr, Intravenous, CONTINUOUS, St arting Sat10/06/19 at 0845, Until Sat10/07/19 at 1616 PRN Medication Order 10/05/2019 10/06/2019 10/07/2019 bacitracin ointment Topical, 2 TIMES DAILY PRN, wound care, Starting Sat10/07/19 at 1026, Apply to meatus hemostatic matrix (SURGIFLO) kit (CANCELED) 1130 (Give n - Provider: Carlos Piña MD) PRN, Starting Sat10/05/19 at 1130, Intra-procedure HYDROmorphone (PF) (DILAUDID) injection 0.3-0.5 mg (CA NCELED) 1410 (Given - Provider: Tana York RN) 0.3-0.5 mg, Intravenous, EVERY 5 MIN PRN , Starting Sat10/05/19 at 1314, Until Sat10/05/19 at 1500, other, acute pain. ??May administer if Respiratory Rate is greater than 10, PACU, Max cumulative dose = 2 mg If fentaNYL (SUBLIMAZE) is also or dered, use HYDROmorphone (DILAUDID) if pain control insufficient with fentaNYL (SUBLIMAZE) or a longer acting agent is needed. For ordered IV doses 0.1-4 mg give IV Push undiluted. Administer each 2mg over 2-5 minutes. HYDROmorphone (PF) (DILAUDID) injection 0.3-0.5 mg 0.3-0.5 mg, Intravenous, EVERY 3 HOURS P RN, Starting Sat10/05/19 at 1522, Until Sat10/07/19 at 1616, moderate to severe pain, Post-procedure, For ordered IV doses 0.1-4 mg give IV Push undiluted. Administer each 2mg over 2-5 minutes. ketorolac (TORADOL) injection 30 mg 0858 (Given - Provider: Skylar Hall RN)1456 (Given - Provider: Skylar Hall, SUNSHINE)2150 (Given - Provider: Braden Schaeffer RN) 0622 (Given - Provider: Brooke Coto , SUNSHINE)1332 (Given - Provider: Skylar Hall RN) 30 mg, Intravenous, EVERY 6 HOURS PRN, S tarting 10/06/19 at 0841, For 5 days, moderate to severe pain, Can cause pain on injection. If ordered intravenously (IV) : administer through a running mainte nance fluid over 1 minute followed by a flush. If patient complains of pain on injection, may dilute 15-30 mg in 5 mL and push over 1 to 2 minutes. lidocaine (LMX4) cream Topical, EVERY 1 HOUR PRN, pain, with VA D insertion or accessing implanted port., Starting Sat10/05/19 at 1522, Do NOT give if patient has a history of allergy to any local anesthetic or any luis pro duct. Apply at least 30 minutes prior to VAD insertion or port access. In divided doses as needed for size of site for insertion with MAX Dose: 2.5 g (?? of 5 g tube), Post-procedure lidocaine (XYLOCAINE) 5 % ointment Topical, 4 TIMES DAILY PRN, other, ureth ral irritation, Starting Sat10/05/19 at 1522, Apply to urethral meatus., Post-procedure lidocaine 1 % 0.1-1 mL 0.1-1 mL, Other, EVERY 1 HOUR PRN, mild pain with VAD insertion., Starting Sat10/05/19 at 1522, Do NOT give if patient has a history of allergy to any local anesthetic or any luis product. MAX dose 1 mL subcutaneous OR intradermal in divid ed doses as needed for VAD insertion., Post-procedure LORazepam (ATIVAN) injection 0.5-1 mg 0.5-1 mg, Intravenous, EVERY 6 HOURS PRN , anxiety, Starting 10/06/19 at 1500, This drug may cause significant respiratory depression. Monitor respiratory status and vital signs carefully for 1 hour after each dose. metoclopramide (REGLAN) injection 10 mg(Linked Group 1) 10 mg, Intravenous, Administer over 2 Mi nutes, EVERY 6 HOURS PRN, Starting Sat10/05/19 at 1522, nausea, vomiting, This is Step 3 of nausea and vomiting management. Give if nausea not resolved 15 minutes after giving prochlorperazine (COMPAZIN E). If nausea not resolved in 15-30 minutes, Notify provider. Avoid use if patient has full bowel obstruction or perforation. Irritant. For ordered IV doses 1-10 mg, give IV Push undiluted over 2 minutes., Post-procedure metoclopramide (REGLAN) tablet 10 mg(Linked Group 1) 10 mg, Oral, EVERY 6 HOURS PRN, Starting 10/05/19 at 1522, nausea, vomiting, This is Step 3 of nausea and vomiting management. Give if nausea not resolved 15 minutes after giving prochlorperazine (CO MPAZINE). If nausea not resolved in 15-3 0 minutes, Notify provider., Post-procedure naloxone (NARCAN) injection 0.1-0.4 mg 0.1-0.4 mg, Intravenous, EVERY 2 MIN PRN , opioid reversal, Starting 10/05/19 at 1522, For respiratory rate LESS than or EQUAL to 8. Partial reversal dose: 0.1 mg titrated q 2 minutes for Analgesia Si de Effects Monitoring Sedation Level of 3 (frequently drowsy, arousable, drifts to sleep during conversation).Full reversal dose: 0.4 mg bolus for Analgesia Side Effects Monitoring Sedation Level of 4 ( somnolent, minimal or no response to sti mulation). For ordered IV doses 0.1-2mg give IVP. Give each 0.4mg over 15 seconds in emergency situations. For non- emergent situations further dilute in 9mL of NS to facilitate titration of response., Post-procedure smfyblzx-fcbphhpchn-vgmwdqcwu (NEOSPORIN) ointment Topical, 4 TIMES DAILY PRN, urethral irr itation, Starting 10/05/19 at 1522, Apply to urethral meatus., Post-procedure ondansetron (ZOFRAN) injection 4 mg(Linked Group 2) 17 49 (See Alternative - Provider: Dee Moore RN) 0723 (See Alternative - Provider: Braden Lockhart RN) 1145 (See Alternative - Provider: Skylar Hall, SUNSHINE) 4 mg, Intravenous, EVERY 6 HOURS PRN, na usea, vomiting, Administer over 2-5 Minutes, Starting 10/05/19 at 1522, This is Step 1 of nausea and vomiting management. If nausea not resolved in 15 minutes, go to Step 2 prochlorperazine (COMPAZIN E). Irritant. For ordered IV doses 0.1-4 mg, give IV Push undiluted over 2-5 minutes., Post-procedure ondansetron (ZOFRAN-ODT) ODT tab 4 mg(Linked Group 2) 1749 (Given - Provider: Dee Moore RN) 0723 (Given - Provider: Braden Lockhart RN) 1145 (Given - Provider: Skylar Hall RN) 4 mg, Oral, EVERY 6 HOURS PRN, nausea, v omiting, Starting 10/05/19 at 1522, This is Step 1 of nausea and vomiting management. If nausea not resolved in 15 minutes, go to Step 2 prochlorperazine (COMP AZINE). Do not push through foil backing . Peel back foil and gently remove. Place on tongue immediately. Administration with liquid unnecessary With dry hands, peel back foil backing and gently remove t ablet. Do not push oral disintegrating t ablet through foil backing. Administer immediately on tongue and oral disintegrating tablet dissolves in seconds, then swallow with saliva. Liquid not required., Post-procedure opium-belladonna (B&O SUPPRETTES) 30-16.2 MG per suppo sitory (CANCELED) 1249 (Given - Provider: Carlos Piña MD) PRN, Starting 10/05/19 at 1249, Intra-procedure oxyCODONE (ROXICODONE) tablet 5-10 mg 1145 (Given - Provider: Skylar Hall RN - Comment: abd pain at 4 - medicated) 5-10 mg, Oral, EVERY 3 HOURS PRN, modera te to severe pain, Starting 10/06/19 at 1121 prochlorperazine (COMPAZINE) injection 10 mg(Linked Gr oup 3) 2004 (Given - Provider: Dee Moore RN) 10 mg, Intravenous, EVERY 6 HOURS PRN, n ausea, vomiting, Administer over 1-2 Minutes, Starting 10/05/19 at 1522, This is Step 2 of nausea and vomiting management. If nausea not resolved in 15 minutes , give metoclopramide (REGLAN), if order ed (step 3 of nausea and vomiting management) For ordered IV doses 0.1-10 mg, give IV Push undiluted. Each 5mg over 1 minute., Post-procedure prochlorperazine (COMPAZINE) tablet 10 mg(Linked Group 3) 2004 (See Alternative - Provider: Dee Moore, SUNSHINE) 10 mg, Oral, EVERY 6 HOURS PRN, nausea, vomiting, Starting 10/05/19 at 1522, This is Step 2 of nausea and vomiting management. If nausea not resolved in 15 minutes, give metoclopramide (REGLAN), if o rdered (step 3 of nausea and vomiting management), Post-procedur e sodium chloride (PF) 0.9% PF flush 3 mL 0901 (Given - Provider: Skylar Hall, SUNSHINE) 3 mL, Intracatheter, EVERY 1 MIN PRN, li ne flush, for peripheral IV flush post IV meds, Starting 10/05/19 at 1522, Post-procedure sodium chloride 0.9% (bag) irrigation (CANCELED) 0837 (Given - Provider: Carlos Piña MD) PRN, Starting 10/05/19 at 0837, Intra-procedure sodium chloride 0.9% (bottle) irrigation (CANCELED) 08 37 (Given - Provider: Carlos Piña MD) PRN, Starting 10/05/19 at 0837, Intra-procedure Linked Groups Order Group 1: metoclopramide (REGLAN) tablet 10 mgJump to med 10 mg, Oral, EVERY 6 HOURS PRN, Starting 10/05/19 at 1522, nausea, vomiting
This is Step 3 of nausea and vomiting management. Give if nausea not resolved 15 minutes after giving prochlorperazine (COMPAZINE).&nbs p;If nausea not resolved in 15-30 minutes, Notify provider.
Post-procedure Or metoclopramide (REGLAN) injection 10 mgJump to med 10 mg, Intravenous, Administer over 2 Mi nutes, EVERY 6 HOURS PRN, Starting 10/05/19 at 1522, nausea, vomiting
This is Step 3 of nausea and vomiting management. Give if luanne sea not resolved 15 minutes after giving prochlorperazine (COMPAZINE). If nausea not resolved in 15-30 minutes, Notify provider. Avoid use if patient has full bowel obstruction or perf oration. Irritant. For ordered IV doses 1-10 mg, give IV Push undiluted over 2 minutes.
Post-procedure Group 2: ondansetron (ZOFRAN-ODT) ODT tab 4 mgJump to med 4 mg, Oral, EVERY 6 HOURS PRN, nausea, v omiting, Starting 10/05/19 at 1522
This is Step 1 of nausea and vomiting management. If nausea not resolved in 15 minutes, go to St ep 2 prochlorperazine (COMPAZINE). Do no t push through foil backing. Peel back foil and gently remove. Place on tongue immediately. Administration with liquid unnecessary With dry hands, peel b ack foil backing and gently remove table t. Do not push oral disintegrating tablet through foil backing. Administer immediately on tongue and oral disintegrating tablet dissolves in seconds, then swallow with saliva. Liquid not required.
Po st-procedure Or ondansetron (ZOFRAN) injection 4 mgJump to med 4 mg, Intravenous, EVERY 6 HOURS PRN, na usea, vomiting, Administer over 2-5 Minutes, Starting 10/05/19 at 1522
This is Step 1 of nausea and vomiting management. If nausea not resolved in 15 minutes, go to Step 2 prochlorperazine (COMPAZINE). Irritant. For ordered IV doses 0.1-4 mg, give IV Push undiluted over 2-5 minutes.
Post-procedure Group 3: prochlorperazine (COMPAZINE) injection 10 mgJump to med 10 mg, Intravenous, EVERY 6 HOURS PRN, n ausea, vomiting, Administer over 1-2 Minutes, Starting 10/05/19 at 1522
This is Step 2 of nausea and vomiting management. If nausea not reso lved in 15 minutes, give metoclopramide (REGLAN), if ordered (step 3 of nausea and vomiting management) For ordered IV doses 0.1-10 mg, give IV Push undiluted. Each 5mg over 1 minute.
Post-procedure Or prochlorperazine (COMPAZINE) tablet 10 mgJump to med 10 mg, Oral, EVERY 6 HOURS PRN, nausea, vomiting, Starting 10/05/19 at 1522
This is Step 2 of nausea and vomiting management. If nausea not resolved in 15 minutes, give metoclopram inder (REGLAN), if ordered (step 3 of naus ea and vomiting management)
Post-procedure documented in this encounter Care Teams Cloth Weaver Relationship Specialty Start Date End Date Chadd Correa PCP - General Family Practice 09/22/19 [place] [id number] documented as of this encounter
--- OUTSIDE RECORDS SUMMARY | 2022-06-29 15:50 | XMS_ITS | Encounter Summary ---
:1960 Author Organization [facility] Address [address] [place] [id number] Care Team Providers Name Role Phone Miguel Brown MD Primary Care Provider [phone] Encounter Details Date Type Department Care Team Description 02/12/2019 Travel Social History Tobacco Use Types Packs/Day Years Used Date Smoking Tobacco: Never Smokeless Tobacco: Never Alcohol Use Standard Drinks/Week Comments Yes 0 (1 standard drink = 0.6 oz pure alcoho l) Sex Assigned at Date Recorded Not on file documented as of this encounter Plan of Treatment Not on filedocumented as of this encounter Visit Diagnoses Not on filedocumented in this encounter Care Teams Rn Perioperative Relationship Specialty Start Date End Date Miguel Brown MD PCP - General Family Practice 04/17/16 09/21/19 documented as of this encounter
--- OUTSIDE RECORDS SUMMARY | 2022-06-29 15:50 | XMS_ITS | Encounter Summary ---
:1960 Author Organization [place] Address [facility] [place] [address] Care Team Providers Name Role Phone Chadd Correa Primary Care Provider Reason for Visit Auth/Cert Specialty Diagnoses / Procedures Referred By Contact Refer red To Contact Surgery Diagnoses Prostate cancer (H) Prostate cancer (H) [C61] Sh Periop Services Procedures PROSTATECTOMY, ROBOT-ASSISTED, USING DA LASHONDA XI, WITH PELVIC LYMPHADENECTOMY HERNIORRHAPHY, UMBILICAL, OPEN [address] [place] [address] Phone: Referral ID Status Reason Start Date Expiration Date Visits Requ ested Visits Authorized [id number] 1 1 Encounter Details Date Type Department Care Team Description 10/05/2019 - Hospital Encounter [facility] Carlos Piña S/P prostatectomy 10/07/2019 Niall Lopez MD (Primary Dx) Oncology UROLOGY [address], [facility] [address] [address] [address] [place] [id number] Social History Tobacco Use Types Packs/Day Years Used Date Smoking Tobacco: Never Smokeless Tobacco: Never Alcohol Use Standard Drinks/Week Comments Yes 0 (1 standard drink = 0.6 oz pure alcoho l) 2-3/week Sex Assigned at Date Recorded Not on file documented as of this encounter Last Filed Vital Signs Vital Sign Reading Time Taken Comments Blood Pressure 141/75 10/07/2019 12:47 PM COMPUTER NUMERIC CONTROL SETTER Pulse 90 10/05/2019 3:49 PM COMPUTER NUMERIC CONTROL SETTER Temperature 36.2 ??C (97.2 ??F) 10/07/2019 12:47 PM COMPUTER NUMERIC CONTROL SETTER Respiratory Rate 16 10/07/2019 12:47 PM COMPUTER NUMERIC CONTROL SETTER Oxygen Saturation 95% 10/07/2019 12:47 PM COMPUTER NUMERIC CONTROL SETTER Inhaled Oxygen Concentration - - Weight 90.3 kg (199 lb 1.6 oz) 10/05/2019 6:12 AM COMPUTER NUMERIC CONTROL SETTER Height 180.3 cm (5' 11) 10/05/2019 6:12 AM COMPUTER NUMERIC CONTROL SETTER Body Mass Index 27.77 10/05/2019 6:12 AM COMPUTER NUMERIC CONTROL SETTER documented in this encounter Discharge Instructions Discharge InstructionsSkylar Hall RN - 10/07/2019 10:25 AM CST Make appointments to follow up with Dr. Byrnes in 10-14 days. Also for staple removal ~10 days at Urology or our clinic.-Call with concerns [facility] - [facility] Discharge Instructions: Post-Operative Laparoscopic [...] prescribed pain medication. If you are taking [place] or Percocet, do not take any additional [...] is ok). Please call our office at [phone] to schedule your appointment. We are located at [address] [place] [address]. CALL OUR OFFICE AT [phone] IF YOU HAVE: ??? Chills or fever above 101??F. ??? Increased redness or drainage at your incisions. ??? Significant bleeding. ??? Pain not relieved by your pain medication or rest. ??? Increasing pain after the first 48 hours. ??? Any other concerns or questions. Revised September 2017 UTER NUMERIC CONTROL SETTER AttachmentsThe following attachments cannot be sent through Care Everywhere. Hernia Repair (Laparoscopic), After (Latvian)Indwelling Urinary Catheter, Discharge Instructions (Latvian)Leg Bag, Discharge Instructions (Latvian)Barcenas Catheter, Care (Latvian)documented in this encounter Medications at Time of [...] for moderate to severe pain oxymetazoline (AFRIN) Howells 2 sprays into 0 0.05 % nasal [...] to pull prior to discharge and bandage UTER NUMERIC CONTROL SETTER Mick Okeefe PA-C - 10/07/2019 8:05 AM CST [facility] Urology Progress Note Assessment & Plan Fredy [...] PA-C 10/07/2019 8:05 AM [facility] Mon-Fri, 7am - 4pm Office: [phone] Interval History Pain much better controlled today. [...] penoscrotal edema Skin: Incisions CDI with brigida WAXER FLOOR, no visible rashes Extremities: No LE edema, [...] Range Glucose 80 70 - 99 mg/dL UTER NUMERIC CONTROL SETTER Jody Squires PA-C - 10/06/2019 11:16 AM CST [facility] General Surgery Daily Post-Op Note Assessment and [...] CR 0.98 GLC 103* Jody Squires PA-C UTER NUMERIC CONTROL SETTER Mick Okeefe PA-C - 10/06/2019 8:44 AM CST [facility] Urology Progress Note Assessment & Plan Fredy [...] PA-C 10/06/2019 8:45 AM [facility] Mon-Sat, 7am - 4pm Office: [phone] Interval History Dewitt dizzy and nauseated when sitting up at [...] Glucose 103 (H) 70 - 99 mg/dL UTER NUMERIC CONTROL SETTER Donna Craven - 10/05/2019 6:36 AM CST Medication History Completed by Medication Scribe Admission medication history interview status for the 10/05/2019 admission is complete. See [facility] admission navigator for prior to admission medications Medication history sources: Patient, Surescripts, H&P and Patient's home med list Medication history source reliability: Good Adherence assessment: N/A Not Observed Significant changes made to the medication list: None Additional medication history information: Patient brought own home meds: Afrin Nasal Howells Medication reconciliation completed by provider prior to [...] Patient oxymetazoline (AFRIN) 0.05 % nasal spray Howells 2 sprays into both nostrils every evening as needed for congestion 10/03/2019 Yes Reported, Patient traMADol (ULTRAM) 50 MG tablet Take 50-100 mg by mouth daily as needed more than a month at prn Yes Reported, Patient UTER NUMERIC CONTROL SETTER documented in this encounter Procedure Notes Carlos Piña MD - 10/05/2019 12:18 PM CST Post-operative Note Preoperative Diagnosis: Prostate Cancer, Umbilical hernia Postoperative Diagnosis: Prostate Cancer, umbilical hernia Procedure: Robot Assisted Radical Prostatectomy with pelvic lymphadenectomy Umbilical hernia repair. See Dr Byrnes's note Surgeon(s): Carlos Piña MD Pierce, Bradley Robert, MD Clinical Data Analyst Surgeon(s): Chelsea Landry PA-C Date of Procedure: 10/05/2019 PSA: 5.3 PROSTATE VOLUME: 45 cc PATHOLOGY: Adenocarcinoma, Oliver grade 7 Right Jessup: 3/4 Right Mid: Right Base: Left Jessup: 3/4 Left Mid: 3/4 Left Base: 3/4 [...] manner. Time out was called. An 18 grenadian barcenas catheter was placed with in the [...] lens. Guarded scissors in arm 1, PK retail customer service representative in arm 2 and prograsp in arm [...] layer anastomosis was performed posteriorly. A 20 grenadian barcenas catheter was placed and the bladder irrigated well. A good watertight , tension free anastasmosis was obtained. Further inspection at this time showed no further bleeding. The string of the Endopouch was then brought out through the umbilical port site. The robot was then docked away. A 15 grenadian round Derek Romano was placed through the [...] to the recovery room in stable condition. UTER NUMERIC CONTROL SETTER documented in this encounter Miscellaneous Notes Plan [...] beside bag escorted by step force aid UTER NUMERIC CONTROL SETTER Plan of Care - Brooke Coto RN - 10/07/2019 6:39 AM CST A&Ox4. VSS on RA. C/o mild incisional pain, refused 2am scheduled tylenol, Toradol given x1. +BS, +flatus. Lap sites x5 & midline incision; CDI. Left NICHOLAS to bulb suction; bright/bloody output. Barcenas patent, adequate UO. Up SBA. PIV SL. Plan to discharge home today with barcenas. UTER NUMERIC CONTROL SETTER Plan of Care - Braden Schaeffer RN - 10/06/2019 10:49 PM CST A&Ox4. VSS. [...] pt room in preparation for discharge 10/07. UTER NUMERIC CONTROL SETTER Plan of Care - Skylar Hall RN [...] pale, fatigued, and having increase abd pain. Extension Educator asked urology PA for Toradol (since pt [...] at approx 3pm for postop abd pain UTER NUMERIC CONTROL SETTER Plan of Care - Brooke Coto RN - 10/06/2019 6:22 AM CST A&Ox4. VSS on 1L oxygen. Capno WNL. Midline incision & 5 lap sites, CDI. C/o mild pain to sites, scheduled tylenol effective. BS+, -flatus. Clear liquid diet, tolerating. Left NICHOLAS, bright/bloodydrainage. Barcenas, patent, adequate UO. Up SBA, stood at bedside, c/o some dizziness. Discharge pending. UTER NUMERIC CONTROL SETTER Plan of Care - Dee Moore RN - 10/05/2019 9:34 PM CST Pt is [...] Up SBA. Urology following. Discharge pending progress. UTER NUMERIC CONTROL SETTER Plan of Care - Skylar Hall RN [...] and tolerating it well.. Lungs anteriorly clear. Extension Educator explained the current orders, POC and showed family the family lounge and location of ice and water for pt and themselves. Extension Educator also explained rationale of the PCD's, NICHOLAS, CAPNO, IV, frequent vitals. Pt/family expressed understanding of info. Current status is stable. Continue to monitor UTER NUMERIC CONTROL SETTER Op Note - Long Byrnes MD - 10/05/2019 2:34 PM CST PREOPERATIVE DIAGNOSIS: ventral hernia, prostate cancer POSTOPERATIVE DIAGNOSIS: same PROCEDURE: Combined open primary closure and Laparoscopic repair of ventral hernia. Surgeon: Long Byrnes MD 1st Clinical Data Analyst: Jody Squires PA-C, Physician lab assistant bilingual administrative assistant was necessary during the performance of [...] room in stable condition. LONG BYRNES MD UTER NUMERIC CONTROL SETTER Op Note - Carlos Piña MD - 10/05/2019 12:[address] [facility] Urology Brief Operative Note Pre-operative diagnosis: Prostate cancer (H) [C61] Umbilical hernia Post-operative diagnosis: Same Procedure: Procedure(s): ROBOTIC ASSISTED RADICAL PROSTATECTOMY, BILATERAL PELVIC LYMPH NODE DISSEC TION(WANG) (with TAP ANESTHESIA ALSO) LAPAROSCOPIC ASSISTED UMBILICAL HERNIA REPAIR WITH MESH (FITZ) Surgeon: Carlos Piña MD Clinical Data Analyst(s): Chelsea Landry PA-C Anesthesia: General endotracheal anesthesia Estimated blood loss: 80 mL Total IV fluids: (See anesthesia record) Blood transfusion: No transfusion was given during surgery Total urine output: (See anesthesia record) Drains: Derek-Romano Specimens: Prostate , lymph nodes Implants: None Findings: Prostate ca, umbilical hernia Complications: None Condition: Stable Comments: See dictated operative report for full details UTER NUMERIC CONTROL SETTER documented in this encounter Plan of Treatment Not on filedocumented as of this encounter Procedures Procedure Name Priority Date/Time Associated Comments Diagnosis GLUCOSE BY METER Routine 10/07/2019 6:17 Results for this AM COMPUTER NUMERIC CONTROL SETTER procedure are i n the results section. HEMOGLOBIN Routine 10/06/2019 7:06 Results for this AM COMPUTER NUMERIC CONTROL SETTER procedure are i n the results section. CREATININE Routine 10/06/2019 7:06 Results for this AM COMPUTER NUMERIC CONTROL SETTER procedure are i n the results section. GLUCOSE Add-On AM 10/06/2019 7:06 Results for this AM COMPUTER NUMERIC CONTROL SETTER procedure are i n the results section. SURGICAL PATHOLOGY EXAM Routine 10/05/2019 11:11 Results for this AM COMPUTER NUMERIC CONTROL SETTER procedure are i n the results section. HERNIORRHAPHY, 10/05/2019 8:01 Prostate cancer UMBILICAL, LAPAROSCOPIC AM COMPUTER NUMERIC CONTROL SETTER (H) PROSTATECTOMY, 10/05/2019 8:01 Prostate cancer ROBOT-ASSISTED, USING AM COMPUTER NUMERIC CONTROL SETTER (H) DA LASHONDA XI, WITH PELVIC LYMPHADENECTOMY EKG CARDIAC - HIM SCAN 09/24/2019 12:00 AM COMPUTER NUMERIC CONTROL SETTER LAB RESULT - HIM SCAN 07/09/2019 12:00 AM CDT documented in this encounter Results Glucose by meter (10/07/2019 6:17 AM COMPUTER NUMERIC CONTROL SETTER) athologist Signature Glucose 80 70 - 99 10/07/2019 POINT OF CARE mg/dL 6:38 AM COMPUTER NUMERIC CONTROL SETTER TEST, GLUCOSE Specimen Anatomical Collection Method Collection Time Receive d Time (Source) Location / / Volume Laterality 10/07/2019 6:17 AM 0 6:38 COMPUTER NUMERIC CONTROL SETTER AM COMPUTER NUMERIC CONTROL SETTER Carlos Piña MD LAB - BEAKER POCT Performing Organization Address City/State/ZIP Code Phon e Number [facility] POINT OF CARE TEST, GLUCOSE POINT OF CARE TEST, GLUCOSE (ABNORMAL) Glucose (10/06/2019 7:06 AM COMPUTER NUMERIC CONTROL SETTER) athologist Signature Glucose 103 (H) 70 - 99 10/06/2019 [place] mg/dL 7:34 AM COMPUTER NUMERIC CONTROL SETTER [facility] Specimen Anatomical Collection Method Collection Time Receive d Time (Source) Location / / Volume Laterality Blood specimen 10/06/2019 7:06 AM 020 7:07 (specimen) COMPUTER NUMERIC CONTROL SETTER AM COMPUTER NUMERIC CONTROL SETTER Carlos Piña MD LAB - BLOOD ORDERABLES Performing Organization Address City/State/ZIP Code Phon e Number M [facility] [address] [place] [address] [employer] [address] [place] [address], [place] [phone] Hemoglobin (10/06/2019 7:06 AM COMPUTER NUMERIC CONTROL SETTER) athologist Signature Hemoglobin 13.6 13.3 - 17.7 10/06/2019 [place] g/dL 7:19 AM COMPUTER NUMERIC CONTROL SETTER [facility] Specimen Anatomical Collection Method Collection Time Receive d Time (Source) Location / / Volume Laterality Blood specimen 10/06/2019 7:06 AM 020 7:07 (specimen) COMPUTER NUMERIC CONTROL SETTER AM COMPUTER NUMERIC CONTROL SETTER Chelsea Landry PA-C LAB - BLOOD ORDERABLES Performing Organization Address City/State/ZIP Code Phon e Number M [facility] [address] [place] [address] [employer] [address] [place] [address], [place] [phone] Creatinine (10/06/2019 7:06 AM COMPUTER NUMERIC CONTROL SETTER) P athologist Signature Creatinine 0.98 0.66 - 1.25 10/06/2019 [place] mg/dL 7:34 AM [facility] GFR Estimate 85 >60 10/06/2019 [place] mL/min/{1.7 7:34 AM [facility] 3_m2} [facility] Comment: Non GFR Calc Starting 09/02/2018, serum creatinine ba sed estimated GFR (eGFR) will be calculated using the Chronic Kidney Dise page hospital Epidemiology Collaboration (CKD-EPI) equation. GFR Estimate If >90 >60 mL/min/{1.73_m2} 10/06/2019 7: [address] [facility] Comment: GFR Calc Starting 09/02/2018, serum creatinine ba sed estimated GFR (eGFR) will be calculated using the Chronic Kidney Dise page hospital Epidemiology Collaboration (CKD-EPI) equation. Specimen Anatomical Collection Method Collection Time Receive d Time (Source) Location / / Volume Laterality Blood specimen 10/06/2019 7:06 AM 020 7:07 (specimen) COMPUTER NUMERIC CONTROL SETTER AM COMPUTER NUMERIC CONTROL SETTER Chelsea Landry PA-C LAB - BLOOD ORDERABLES Performing Organization Address City/State/ZIP Code Phon e Number M [facility] [address] [place] [address] [employer] [address] [place] [address], [place] [phone] Surgical pathology exam (10/05/2019 11:11 AM COMPUTER NUMERIC CONTROL SETTER) Component Value Ref Test Analysis Performed At Patholo gist Range Method Time Signature Copath Report Patient Name: GENARO FREDY ORTEZ MR#: [id number] Specimen #: [id number] Collected: 10/05/2019 Received: 10/05/2019 [...] Robotic-assisted radical prostatectomy: - Prostatic acinar adenocarcinoma, Oliver score 3+4 = 7, gr chhaya group [...] Acinar adenocarcinoma ??Histologic Grade ?Grade Group and Bowdon Score: ?- Grade group 2 (Oliver Score 3 + 4 = 7) ?Percentage [...] High-grade prostatic intraepithelial neoplasia (P IN) [facility] October 2018 Annual Release Electronically signed out [...] discre te tumor nodules are noted grossly. Carbon Brushes Assembler sections are submitted. Summary of Sections: B1 [...] potential lymph node (Dictat ed by: ANKUR Segundo([facility]) 10/05/2019 02:25 PM) MICROSCOPIC: Sections from the [...] of this testing was completed at the [facility], with the professional compo nent performed at the [facility], [address] [place], [place] ??[address] ([phone]) The following ASR disclaimer is in reference to the stain(s) listed below: ?Analyte Specific Reagents (ASRs) are used in many laboratory tests necessary for standard [facility] care and generally do not require FDA approval. ??This test was developed and its performance geraldine acteristics determined by [facility], [facility]. ??It has not been cleared or approved by the U.S. Food and Drug Administration. P504s/p63 (ASR) CPT Codes: A: 47970.051, 08736-IRT-LQI, 67276-VFE B: 60715-FF9 C: 65237-MD6 D: 84548-YJ9 COLLECTION SITE: Client: [facility] Location: [facility]OR (S) Specimen (Source) Anatomical Collection Method Collection Time Re ceived Time Location / / Volume Laterality Tissue specimen PROSTATIC 10/05/2019 11:11 (specimen) STRUCTURE / AM COMPUTER NUMERIC CONTROL SETTER Unknown Tissue specimen PROSTATIC 10/05/2019 11:34 (specimen) STRUCTURE / AM COMPUTER NUMERIC CONTROL SETTER Unknown Tissue specimen STRUCTURE OF 10/05/2019 11:34 (specimen) LYMPHATIC SYSTEM AM COMPUTER NUMERIC CONTROL SETTER OF RIGHT HALF OF PELVIS / Unknown Tissue specimen STRUCTURE OF 10/05/2019 11:40 (specimen) LYMPHATIC SYSTEM AM COMPUTER NUMERIC CONTROL SETTER OF LEFT HALF OF PELVIS / Unknown Carlos Piña MD LAB - BEAKER AP Performing Organization Address City/State/ZIP Code Phon e Number [facility] EKG CARDIAC - HIM SCAN (09/24/2019 12:00 AM COMPUTER NUMERIC CONTROL SETTER) Specimen (Source) Anatomical Location Collection Method / [...] postprocedural status S/P prostatectomy Other postprocedural status documented in this encounter Administered Medications Inactive Administered Medications - up to 3 most recent administrations Medication Order MAR Action Action Date Dose Rate Site 0.45% sodium chloride + KCl 20 New Bag 10/06/2019 11:38 AM COMPUTER NUMERIC CONTROL SETTER 75 mL/hr mEq/L infusion at 75 mL/hr, Intravenous, CONTINUOUS, Starting on Sat10/06/19 at 0845, Until Sat10/07/19 at 1616 acetaminophen (TYLENOL) tablet 1,000 mg Given 10/05/2019 7:06 AM COMPUTER NUMERIC CONTROL SETTER 1,000 mg 1,000 mg, Oral, ONCE, On Sat10/05/19 at 0700, For 1 dose, Maximum acetaminophen dose from all sources = 75 mg/kg/day not to exceed 4 gram, Pre-procedure acetaminophen (TYLENOL) tablet 650 mg Given 10/06/2019 11:36 PM COMPUTER NUMERIC CONTROL SETTER 650 mg 650 mg, Oral, EVERY 6 HOURS RT, First dose on Sat10/05/19 at 1530, Maximum acetaminophen dose from all sources = 75 mg/kg/day not to exceed 4 grams/day., Post-procedure Given 10/06/2019 2:55 PM COMPUTER NUMERIC CONTROL SETTER 650 mg Given 10/06/2019 8:28 AM COMPUTER NUMERIC CONTROL SETTER 650 mg bacitracin ointment Topical, 2 TIMES DAILY, First dose on 10/07/19 at 1030, Apply to urinary meatus at urinary catheter site bacitracin ointment Topical, 2 TIMES DAILY PRN, wound care, Starting on Sat10/07/19 at 1026, Apply to meatus HYDROmorphone (PF) (DILAUDID) injection Given 10/05/2019 2:10 PM COMPUTER NUMERIC CONTROL SETTER 0.5 mg 0.3-0.5 mg 0.3-0.5 mg, Intravenous, [...] injection 30 mg Given 10/07/2019 1:32 PM COMPUTER NUMERIC CONTROL SETTER 30 mg 30 mg, Intravenous, EVERY 6 [...] to 2 minutes. Given 10/07/2019 6:22 AM COMPUTER NUMERIC CONTROL SETTER 30 mg Given 10/06/2019 9:50 PM COMPUTER NUMERIC CONTROL SETTER 30 mg LORazepam (ATIVAN) injection 0.5-1 mg [...] tab 4 mg Given 10/07/2019 11:45 AM COMPUTER NUMERIC CONTROL SETTER 4 mg 4 mg, Oral, EVERY 6 [...] not required., Post-procedure Given 10/06/2019 7:23 AM COMPUTER NUMERIC CONTROL SETTER 4 mg Given 10/05/2019 5:49 PM COMPUTER NUMERIC CONTROL SETTER 4 mg oxyCODONE (oxyCONTIN) 12 hr tablet 10 mg Given 10/05/2019 7:06 AM COMPUTER NUMERIC CONTROL SETTER 10 mg 10 mg, Oral, ONCE, On Sat10/05/19 at 0700, For 1 dose, DO NOT CRUSH., Pre-procedure oxyCODONE (ROXICODONE) tablet 5-10 mg Given 10/07/2019 11:45 AM COMPUTER NUMERIC CONTROL SETTER 5 mg 5-10 mg, Oral, EVERY 3 HOURS PRN, moderate to severe pain, Starting on Sat10/06/19 at 1121 prochlorperazine (COMPAZINE) injection 1 0 mg Given 10/05/2019 8:05 PM COMPUTER NUMERIC CONTROL SETTER 10 mg 10 mg, Intravenous, EVERY 6 [...] flush 3 mL Given 10/06/2019 9:01 AM COMPUTER NUMERIC CONTROL SETTER 3 mLs 3 mL, Intracatheter, EVERY 1 MIN PRN, line flush, for peripheral IV flush post IV meds, Starting on Sat10/05/19 at 1522, Post-procedure sodium chloride (PF) 0.9% PF flush 3 mL Given 10/07/2019 6:25 AM COMPUTER NUMERIC CONTROL SETTER 3 mLs 3 mL, Intracatheter, EVERY 8 HOURS, First dose on Sat10/05/19 at 1530, And Q1H PRN, to lock peripheral IV dormant line., Post-procedure Given 10/06/2019 6:39 AM COMPUTER NUMERIC CONTROL SETTER 3 mLs documented in this encounter Active and Recently Administered Medications Times are shown in COMPUTER NUMERIC CONTROL SETTER. Scheduled Medication Order 10/05/2019 10/06/2019 10/07/2019 acetaminophen [...] Hall, SUNSHINE)1455 (Given - Provider: Skylar Hall, RN)2336 (Given - Provider: Brooke Coto, SUNSHINE) 0150 (Not Given - Provider: rBooke rodriguez RN - Reason: Patient/family refused)0800 (Not Given - Provider: Skylar Hall RN - Reason: Patient/family refused)1300 (Not Given - Provider: Skylar Hall RN - Reason: Patient/family refused) 650 mg, Oral, EVERY 6 HOURS, First dose on 10/05/19 at 1530, Maximum acetaminophen dose from all sources = 75 mg/kg/day not to exceed 4 grams/day., Post-procedure bacitracin ointment 1332 (Not Gi luis - Provider: Skylar Hall RN - Reason: Patient/family refused) Topical, 2 TIMES DAILY, First dose on We d 10/07/19 at 1030, Apply to urinary meatus at urinary catheter site ceFAZolin (ANCEF) intermittent infusion 2 g in 100 mL dextrose PRE-MIX (COMPLETED) 0816 (Given - Provider: Kristen Spain APRN CRNA)1016 (Given - Provider: Kristen Spain APRN CRNA)1212 (Given - Provider: Kristen Spain APRN CRNA) Routine, 2 g, Intravenous, PRE-OP/PRE-WI OCEDURE, Starting 10/05/19 at 0556, For 1 dose, Give first dose within 1 hour PRIOR to incision. If patient weight is greater than or equal to 120 kg increase dose to 3 g., Indications: Perioperative Pharmacoprophylaxis oxyCODONE (oxyCONTIN) 12 hr tablet 10 mg (COMPLETED) 0 706 (Given - Provider: Iva Groves, SUNSHINE) 10 mg, Oral, ONCE, 10/05/19 at 0700, For 1 dose, DO NOT [...] (SENOKOT-S/PERICOLACE) 8.6-50 MG per tablet 1 tablet 2150 (Given - Provider: Braden Schaeffer RN) 0900 [...] palma RN - Comment: Stopped by other RN.night shift manager reported of IV dc'd prior to day shift today) at 75 mL/hr, Intravenous, CONTINUOUS, St arting 10/06/19 at 0845, Until Sat10/07/19 at 1616 PRN Medication Order 10/05/2019 10/06/2019 10/07/2019 bacitracin ointment Topical, 2 TIMES DAILY PRN, wound care, Starting Sat10/07/19 at 1026, Apply to meatus hemostatic matrix (SURGIFLO) kit (CANCELED) 1130 (Give n - Provider: Carlos Piña MD) PRN, Starting 10/05/19 at 1130, Intra-procedure HYDROmorphone (PF) (DILAUDID) injection 0.3-0.5 mg (CA NCELED) 1410 (Given - Provider: Tana York RN) 0.3-0.5 mg, Intravenous, EVERY 5 MIN PRN , Starting 10/05/19 at 1314, Until Sat10/05/19 at 1500, other, [...] Intravenous, EVERY 3 HOURS P RN, Starting 10/05/19 at 1522, Until Sat10/07/19 at 1616, moderate to severe pain, Post-procedure, For ordered IV doses 0.1-4 mg give IV Push undiluted. Administer each 2mg over 2-5 minutes. ketorolac (TORADOL) injection 30 mg 0858 (Given - Provider: Skylar Hall RN)1456 (Given - Provider: Skylar Hall RN)2150 (Given - Provider: Braden Schaeffer, RN) 0622 (Given - Provider: Brooke Coto RN)1332 (Given - Provider: Skylar Hall RN) 30 mg, Intravenous, EVERY 6 HOURS PRN, S tarting e 10/06/19 at 0841, For 5 days, moderate [...] EVERY 6 HOURS PRN , anxiety, Starting e 10/06/19 at 1500, This drug may cause [...] NS to facilitate titration of response., Post-procedure onsczkfu-abhibsgyuf-zjptlpwqe (NEOSPORIN) ointment Topical, 4 TIMES DAILY PRN, urethral irr itation, Starting 10/05/19 at 1522, Apply to urethral meatus., Post-procedure ondansetron (ZOFRAN) injection 4 mg(Linked Group 2) 17 49 (See Alternative - Provider: Dee Moore RN) 0723 (See Alternative - Provider: Braden Lockhart, SUNSHINE) 1145 (See Alternative - Provider: Skylar Hall RN) 4 mg, Intravenous, EVERY 6 HOURS PRN, [...] Group 2) 1749 (Given - Provider: Dee Moore, SUNSHINE) 0723 (Given - Provider: Braden Lockhart, SUNSHINE) 1145 (Given - Provider: Skylar Hall, SUNSHINE) 4 mg, Oral, EVERY 6 HOURS PRN, [...] 3) 2004 (See Alternative - Provider: Dee Moore RN) 10 mg, Oral, EVERY 6 HOURS PRN, [...]
Post-procedure documented in this encounter Care Teams Processing Engineer Relationship Specialty Start Date End Date Chadd Correa PCP - [facility] 09/22/19 [place] [address] documented as of this encounter
--- OUTSIDE RECORDS SUMMARY | 2022-06-29 15:50 | XMS_ITS | Encounter Summary ---
:1960 Author Organization [facility] Address [address] [place] [address] Care Team Providers Name Role Phone Chadd Correa Primary Care Provider Reason for Visit Auth/Cert Specialty Diagnoses / Procedures Referred By Contact Refer red To Contact Surgery Diagnoses Prostate cancer (H) Prostate cancer (H) [C61] Sh Periop Services Procedures PROSTATECTOMY, ROBOT-ASSISTED, USING DA LASHONDA XI, WITH PELVIC LYMPHADENECTOMY HERNIORRHAPHY, UMBILICAL, OPEN [address] [place] [address] Phone: Referral ID Status Reason Start Date Expiration Date Visits Requ ested Visits Authorized [id number] 1 1 Encounter Details Date Type Department Care Team Description 10/05/2019 Anesthesia Event [facility] Dario Duffy PeriOP Ser hilary Fonseca MD [address] [facility] [place] [id number] [phone] [facility] [address] [place], [place] [address] (Wo rk) Anesthesia Record Procedure Summary Procedure Name Responsible Anesthesia Start Anesthesia Stop Anesthesiologist Time Time ROBOTIC ASSISTED Dario Duffy MD 10/05/19 0801 1315 RADICAL PROSTATECTOMY, BILATERAL PELVIC LYMPH NODE DISSEC TION(PIÑA) (with TAP ANESTHESIA ALSO) (Pelvis) Events Date Time Event Comment 10/05/2019 0635 0801 An Start 0801 An Start Data 0801 Quick Note SRNA Chadd beyer present for case. 0807 Present 0808 An Induction 0814 An Intubation 0837 AN INCISION 0950 MD Present 1149 AN INCISION Umbilical Hernia Repair start 1251 an heladio now Bilateral TAP Bl ocks 1251 Present 1302 AN Extubation 1306 an stop data 1315 An Stop Electronically s igned by Kristen Spain APRN CRNA on October 05 020 1:15 PM Name Total dexamethasone 4mg/mL 4 mg ePHEDrine 5 mg/mL 7.5 mg fentaNYL (SUBLIMAZE) injection 200 mcg glycopyrrolate 0.2mg/mL 0.8 mg lidocaine 2% 100 mg midazolam 1mg/mL 2 mg neostigmine 1mg/mL 5 mg ondansetron 2mg/mL 4 mg propofol (DIPRIVAN) injection 10 mg/mL vial 200 mg rocuronium 10mg/mL 130 mg ceFAZolin (ANCEF) intermittent infusion 2 g in 100 mL dextrose PRE-MIX 4 g HYDROmorphone 1 mg/ml 1 mg bupivacaine 0.5% /EPI 1:400,000 40 ml given LR 1,000 mL LR PIV #2 800 mL Agents Name NO HELIOX O2 N2O Air Exp Sevoflurane Exp Isoflurane Exp Desflurane Exp N2O O2 Delivery Device Ins Sevoflurane Ins Isoflurane Ins Desflurane O2 Auxiliary Blood No blood administrations on file. Lines, Drains, and Airways Type Details Placement Removal Urethral Catheter 10/05/19; 1039; No; 10/05/19 1039 by Anesthesia, /GI/FILM WAXER Jessie Mata, Pelvic Procedure; 20 fr RN Incision/Surgical Site 10/05/19; 1217; Abdomen 10/05/19 1217 by (lap sites); 8 Kathryn Maicas, SUNSHINE INCISIONS, 1 TURNED INTO NICHOLAS DRAIN SITE Peripheral IV 10/05/19; 0803; 18 G; 10/05/19 0803 by 10/06/19 2000 by Right; Hand; Alcohol; Kristen Spain Susan L, Injectable; Tolerated JULEE Gutierrez CRNA RN well Peripheral IV 10/05/19; 0806; 18 G; 10/05/19 0806 by 10/07/19 1400 by Left; Lower forearm; Kristen Spain S usan L, Alcohol; Injectable; JULEE Gutierrez CRNA, RN Tolerated well RETIRED ETT 10/05/19; 0814; Mask 10/05/19 0814 by 10/05/19 1 302 by Ventilation: Easy with Ezikeoha, Kristen Ezikeoha , Kristen oral airway; Ease of JULEE Gutierrez CRNA, i, APRN CRNA Intubation: Easy; Airway Size: 8; Cuffed; Oral; Blade Type: Maria [place] Carm[place]; Blade Size: 4; Place by: NG; Insertion Attempts: 1; Secured at (cm)to lip: 24 cm; Breath Sounds: Equal, clear and bilateral; End Tidal CO2: Present; Dentition: Intact, Unchanged; Grade View of Cords: 1 Gastric Tube 10/05/19; 0819; 10/05/19 0819 by 10/05/19 1310 b y Decompression; 16 fr; Ezikeoha, Kristen Harder, A ndria Respiratory status JULEE Gutierrez CRNA, RN unchanged, Aspiration of gastric content; Other (please comment) Urethral Catheter 10/05/19; 0837; No; 10/05/19 0837 by 10/05/19 1038 by /GI/FILM WAXER Pelvic Jessie Mata, Juliana Mata, Procedure; 16 fr RN RN Closed/Suction Drain 10/05/19; 1207; Left; 10/05/19 1207 by 09/17 11/05 1400 by Abdomen; Bulb Jessie Mata [place], Sus an L, RN RN documented in this encounter Social History Tobacco Use Types Packs/Day Years Used Date Smoking Tobacco: Never Smokeless Tobacco: Never Alcohol Use Standard Drinks/Week Comments Yes 0 (1 standard drink = 0.6 oz pure alcoho l) 2-3/week Sex Assigned at Date Recorded Not on file documented as of this encounter OR Notes Anesthesia Postprocedure Evaluation - Dario Duffy MD - 10/05/2019 2:02 PM CST Patient: Sawyer Carlson Procedure(s): ROBOTIC ASSISTED RADICAL PROSTATECTOMY, BILATERAL PELVIC LYMPH NODE DISSEC TION(PIÑA) (with TAP ANESTHESIA ALSO) LAPAROSCOPIC ASSISTED UMBILICAL HERNIA REPAIR WITH MESH (BYRNES) Diagnosis:Prostate cancer (H) [C61] Diagnosis Additional Information: No value filed. Anesthesia Type: General, ETT Note: Anesthesia Post Evaluation Patient location during evaluation: PACU Patient participation: Able to fully participate in evaluation Level of consciousness: awake and alert Pain management: adequate Airway patency: patent Cardiovascular status: acceptable and hemodynamically stable Respiratory status: acceptable Hydration status: euvolemic PONV: none Anesthetic complications: None Last vitals: Vitals: 10/05/19 1320 10/05/19 1330 10/05/19 1340 BP: 133/82 121/76 127/77 Pulse: 71 73 76 Resp: (!) 5 8 8 Temp: SpO2: 97% 97% 99% Electronically Signed By: Dario Duffy MD October 05, 2019 2:01 PM ED PERSON Anesthesia Procedure Notes - Rohan Taveras MD - 10/05/2019 1:15 PM SCREED PERSON Associated Order(s): Peripheral/Paravertebral Block Peripheral nerve/Neuraxial procedure note : TAP (bilateral tap block) Pre-Procedure Performed by Rohan Taveras MD Location: OR Procedure Times:10/05/2019 12:38 PM and 10/05/2019 12:51 PM Pre-Anesthestic Checklist: patient identified, IV checked, risks and benefits discussed, informed consent, pre-op evaluation, at physician/surgeon's request and post-op pain management Timeout Correct Patient: Yes Correct Procedure: Yes Correct Site: Yes Correct Laterality: Yes Correct Position: Yes Site Marked: Yes . Procedure Documentation . Procedure: TAP (bilateral tap block), bilateral. Patient Position:supine Local skin infiltrated with mL of 1% lidocaine. Ultrasound used to identify targeted nerve, plexus, or vascular marker and placed a needle adjacent to it., Ultrasound was used to visualize the spread of the anesthetic in close proximity to the abovestated nerve. A permanent image is entered into the patient's record. Patient Prep/Sterile Barriers; chlorhexidine gluconate and isopropyl alcohol. . Needle: short bevel Needle Gauge: 21. Needle Length (Inches) 3.13 Insertion Method: Single Shot. Assessment/Narrative Paresthesias: No. Injection made incrementally with aspirations every 5 mL.. The placement was negative for: blood aspirated, painful injection and site bleeding. Bolus given via needle.. Secured via. Complications: none. Comments: Ultrasound Interpretation, peripheral nerve block 1. Under ultrasound guidance, needle was inserted and placed in the proper plane 2. Ultrasound was also used to visualize the spread of the anesthetic 3. The area appeared anatomically normal. 4. There were no apparent abnormal pathological findings. 5. A permanent ultrasound image was saved n the patient's record. 20cc of local placed on the right 20cc of local placed on the left Ultrasound image captured for both sides Same procedure for each side followed as outlined above Rohan Taveras MD 1:15 PM ED PERSON Anesthesia Preprocedure Evaluation - Dario Duffy MD - 10/05/2019 6:33 AM CST Anesthesia Pre-Procedure Evaluation Patient: Sawyer Carlson : 1960 Preoperative Diagnosis: Prostate cancer (H) [C61] Procedure(s): ROBOTIC ASSISTED RADICAL PROSTATECTOMY (WANG) (with TAP ANESTHESIA ALSO) UMBILICAL HERNIA REPAIR (FITZ) Past Medical History: Diagnosis Date ??? Hx of vertigo ??? Hydronephrosis with renal calculous obstruction ??? Low back pain ??? Prostate cancer (H) ??? Right ureteral stone ??? Seasonal allergies ??? Tinnitus ??? Umbilical hernia Past Surgical History: Procedure Laterality Date ??? COLONOSCOPY ??? LASER HOLMIUM LITHOTRIPSY URETER(S), INSERT STENT, COMBINED Right 02/12/2019 Procedure: CYSTOSCOPY RIGHT URETEROSCOPY, STONE REMOVAL RETROGRADE, STENT CHANGE; Surgeon: Vicente Perez MD; Location: OR ??? ORTHOPEDIC SURGERY RIGHT KNEE MENISCUS REPAIR, LEFT SHOULDER IMPINGEMENT ??? SHOULDER SURGERY left ??? SHOULDER SURGERY right Anesthesia Evaluation . ROS/MED HX ENT/Pulmonary: Comment: Hx tinnitus (-) tobacco use, asthma and COPD Neurologic: (-) seizures and CVA Cardiovascular: (-) hypertension and dyslipidemia METS/Exercise Tolerance: >4 METS Hematologic: Musculoskeletal: GI/Hepatic: (-) GERD and liver disease Renal/Genitourinary: (+) Nephrolithiasis (hx of), Endo: (-) Type II DM, thyroid disease and obesity Psychiatric: (-) psychiatric history Infectious Disease: Malignancy: (+) Malignancy History of Prostate Other: Physical Exam Normal systems: dental Airway Mallampati: II TM distance: >3 FB Neck ROM: full Dental Cardiovascular Rhythm and rate: regular Pulmonary Lab Results Component Value Date WBC [...] Vitals BP Readings from Last 3 Encounters: 10/05/19 125/79 10/01/19 120/72 02/12/19 123/71 Pulse Readings from Last 3 Encounters: 10/01/19 64 02/12/19 56 01/20/19 61 Resp Readings from Last 3 Encounters: 10/05/19 16 02/12/19 12 01/20/19 18 SpO2 Readings from Last 3 Encounters: 10/05/19 96% 02/12/19 95% 01/20/19 99% Temp Readings from Last 1 Encounters: 10/05/19 36.3 ??C (97.4 ??F) (Oral) Ht Readings from Last 1 Encounters: 10/05/19 1.803 m (5' 11) Wt Readings from Last 1 Encounters: 10/05/19 90.3 kg (199 lb 1.6 oz) Estimated body mass index is 27.77 kg/m?? as calculated from the following: Height as of this encounter: 1.803 m (5' 11). Weight as of this encounter: 90.3 kg (199 lb 1.6 oz). Anesthesia Plan History & Physical Review History and physical reviewed and following examination; no interval change. ASA Status: 2 . NPO Status: > 8 hours Plan for General, ETT, Peripheral Nerve Block and For Post-op pain in coordination with surgeon withPropofol induction. Maintenance will be Balanced. PONV prophylaxis: Ondansetron (or other 5HT-3) and Dexamethasone or Solumedrol Additional equipment: 2nd IV TAP blocks at end of procedure in OR prior to emergence Preop oxycontin 10mg and acetaminophen 1000mg Postoperative Care Postoperative pain management: IV analgesics and Oral pain medications. Consents Anesthetic plan, risks, benefits and alternatives discussed with: Patient.. Dario Duffy MD ED PERSON documented in this encounter Miscellaneous Notes Anesthesia Care Transfer Note - Kristen Spain APRN CRNA - 10/05/2019 1:15 PM CST Patient: Sawyer Carlson Procedure(s): ROBOTIC ASSISTED RADICAL PROSTATECTOMY, BILATERAL PELVIC LYMPH NODE DISSEC TION(PIÑA) (with TAP ANESTHESIA ALSO) LAPAROSCOPIC ASSISTED UMBILICAL HERNIA REPAIR WITH MESH (BYRNES) Diagnosis: Prostate cancer (H) [C61] Diagnosis Additional Information: No value filed. Anesthesia Type: General, ETT Note: Airway :Face Mask Patient transferred to:PACU Handoff Report: Identifed the Patient, Identified the Reponsible Provider, Reviewed the pertinent medical history, Discussed the surgical course, Reviewed Intra-OP anesthesia mangement and issues during anesthesia, Set expectations for post-procedure period and Allowed opportunity for questions and acknowledgement of understanding Vitals: (Last set prior to Anesthesia Care Transfer) NANCY VITALS 10/05/2019 1236 - 10/05/2019 1315 10/05/2019 Pulse: 95 SpO2: 99 % Resp Rate (set): 10 Electronically Signed By: Kristen Spain APRN CRNA October 05, 2019 1:15 PM ED PERSON documented in this encounter Plan of Treatment Not on filedocumented as of this encounter Procedures Procedure Name Priority Date/Time Associated Diagnosis Comme nts ANE Routine 10/05/2019 1:15 PM Results f or this PERIPHERAL/PARAVETE SCREED PERSON procedur e are in BRAL BLOCK the results section. documented in this encounter Results Peripheral/Paravertebral Block (10/05/2019 1:15 PM SCREED PERSON) Rohan Marley, MD - 10/05/2019 1:1 5 PM SCREED PERSON Rohan Taveras MD ? 10/05/2019 ??1:19 PM Peripheral nerve/Neuraxial procedure not e : TAP (bilateral tap block) Pre-Procedure Performed by Rohan Taveras MD Location: OR ?? Procedure Times:10/05/2019 12:38 PM and 12:51 PM Pre-Anesthestic Checklist: patient ident ified, IV checked, risks and benefits discussed, informed consent, pr e-op evaluation, at physician/surgeon's request and post-op pain management ?? Timeout Correct Patient: Yes Correct Procedure: Yes Correct Site: Yes Correct Laterality: Yes Correct Position: Yes Site Marked: Yes . Procedure Documentation . ?? Procedure: TAP (bilateral tap block), bi lateral. Patient Position:supine Local skin infil trated with mL of 1% lidocaine. ?? Ultrasound used to identify targeted ner ve, plexus, or vascular marker and placed a needle adjacent to it., Ultraso und was used to visualize the spread of the anesthetic in close proxim ity to the above stated nerve. A permanent image is entered into the jeramy ent's record. Patient Prep/Sterile Barriers; chlorhexi dine gluconate and isopropyl alcohol. ??. ??Needle: short bevel ?? Ne edle Gauge: 21. ?Needle Length (Inches) 3.13 ?? Insertion Method: Singl e Shot. ?? Assessment/Narrative Paresthesias: No. ??Injection made incre mentally with aspirations every 5 mL.. ??The placement was negative for: b lood aspirated, painful injection and site bleeding. ??Bolus given via nee dle.. Secured via. Complications: none. Comments: ??Ultraso und Interpretation, peripheral nerve block 1. ??Under ultrasound guidance, needle w as inserted and placed in the proper plane 2. Ultrasound was also used to visualize the spread of the anesthetic 3. The area appeared anatomically normal . 4. There were no apparent abnormal patho logical findings. 5. A permanent ultrasound image was save d n the patient's record. 20cc of local placed on the right 20cc of local placed on the left Ultrasound image captured for both sides Same procedure for each side followed as outlined above Rohan Taveras MD 1:15 PM Dario Duffy MD [place] ANESTHESIA documented in this encounter Visit Diagnoses Not on filedocumented in this encounter Administered Medications Inactive Administered Medications - up to 3 most recent administrations Medication Order MAR Action Action Date Dose Rate Site bupivacaine 0.5% /EPI New Bag 10/05/2019 12:51 PM SCREED PERSON 40 ml given 1:400,000 CONTINUOUS PRN, Starting on Sat10/05/19 at 1251, Anesthesia Intra-op ceFAZolin (ANCEF) intermittent infusion 2 g in Given 0 10/05/2019 12:12 PM SCREED PERSON 1 g 100 mL dextrose PRE-MIX Routine, 2 g, Intravenous, PRE-OP/PRE-PROCEDURE, Starting on Sat10/05/19 at 0556, For 1 dose, Give first dose within 1 hour PRIOR to incision. If patient weight is greater than or equal to 120 kg increase dose to 3 g., Indications: Perioperative Pharmacoprophylaxis Given 10/05/2019 10:16 AM SCREED PERSON 1 g Given 10/05/2019 8:16 AM SCREED PERSON 2 g dexamethasone (DECADRON) injection Given 10/05/2019 8:25 AM SCREED PERSON 4 mg PRN, Administer over 1 Minutes, Starting on Sat10/05/19 at 0825, Anesthesia Intra-op ePHEDrine injection Given 10/05/2019 8:35 AM SCREED PERSON 7.5 mg PRN, Starting on Sat10/05/19 at 0835, Anesthesia Intra-op fentaNYL (PF) (SUBLIMAZE) injection Given 10/05/2019 12:18 PM SCREED PERSON 50 mcg PRN, Administer over 3-5 Minutes, Starting on Sat10/05/19 at 0808, Anesthesia Intra-op Given 10/05/2019 8:37 AM SCREED PERSON 50 mcg Given 10/05/2019 8:08 AM SCREED PERSON 100 mcg glycopyrrolate (ROBINUL) injection Given 10/05/2019 12:26 PM SCREED PERSON 0.8 mg PRN, Administer over 1-2 Minutes, Starting on Sat10/05/19 at 1226, Anesthesia Intra-op HYDROmorphone (DILAUDID) injection Given 10/05/2019 11:11 AM SCREED PERSON 0.5 mg PRN, Starting on Sat10/05/19 at 0859, Anesthesia Intra-op Given 10/05/2019 8:59 AM SCREED PERSON 0.5 mg lactated ringers infusion New Bag 10/05/2019 8:01 AM SCREED PERSON Intravenous, CONTINUOUS PRN, Anesthesia Intra-op, Starting on Sat10/05/19 at 0801, Until Sat10/05/19 at 1315 lactated ringers infusion New Bag 10/05/2019 8:07 AM SCREED PERSON CONTINUOUS PRN, Anesthesia Intra-op, Starting on Sat10/05/19 at 0807, Until Sat10/05/19 at 1315 lidocaine 2% injection (MDV) Given 10/05/2019 8:08 AM SCREED PERSON 100 mg PRN, Starting on Sat10/05/19 at 0808, Anesthesia Intra-op midazolam (VERSED) injection Given 10/05/2019 8:05 AM SCREED PERSON 2 mg Administer over 2 Minutes, PRN, Starting on Sat10/05/19 at 0805, Anesthesia Intra-op neostigmine (PROSTIGMINE) injection Given 10/05/2019 12:26 PM SCREED PERSON 5 mg Intravenous, PRN, Starting on Sat10/05/19 at 1226, Anesthesia Intra-op ondansetron (ZOFRAN) injection Given 10/05/2019 12:03 PM SCREED PERSON 4 mg PRN, Administer over 2-5 Minutes, Starting on Sat10/05/19 at 1203, Anesthesia Intra-op propofol (DIPRIVAN) injection 10 mg/mL v ial Given 10/05/2019 8:08 AM SCREED PERSON 200 mg PRN, Starting on Sat10/05/19 at 0808, Anesthesia Intra-op rocuronium injection Given 10/05/2019 11:46 AM SCREED PERSON 10 mg PRN, Starting on Sat10/05/19 at 0808, Anesthesia Intra-op Given 10/05/2019 10:35 AM SCREED PERSON 20 mg Given 10/05/2019 10:06 AM SCREED PERSON 10 mg documented in this encounter Care Teams Ductfixing Plumber Relationship Specialty Start Date End Date Chadd Correa PCP - [facility] Family Practice 09/22/19 [place] [address] documented as of this encounter
--- OUTSIDE RECORDS SUMMARY | 2022-06-29 15:50 | XMS_ITS | Encounter Summary ---
:1960 Author Organization [facility] Address [address] [facility] [place] [address] Care Team Providers Name Role Phone SunnyChadd cabrera Primary Care Provider Reason for Visit Reason Comments Consult umbilical hernia Encounter Details Date Type Department Care Team Description 10/01/2019 Office Visit [facility] Re[facility] Altagracia Kan MD without obstruction [address] an d without gangrene [id number] (Primary Dx) [place] [phone] [place] [id number] Social History Tobacco Use Types Packs/Day Years Used Date Smoking Tobacco: Never Smokeless Tobacco: Never Alcohol Use Standard Drinks/Week Comments Yes 0 (1 standard drink = 0.6 oz pure alcoho l) 2-3/week Sex Assigned at Date Recorded Not on file documented as of this encounter Last Filed Vital Signs Vital Sign Reading Time Taken Comments Blood Pressure 120/72 10/01/2019 10:23 AM PLATER SUPERVISOR Pulse 64 10/01/2019 10:23 AM PLATER SUPERVISOR Temperature - - Respiratory Rate - - Oxygen Saturation - - Inhaled Oxygen Concentration - - Weight 92.5 kg (204 lb) 10/01/2019 10:23 AM patient rep orted PLATER SUPERVISOR Height 180.3 cm (5' 11) 10/01/2019 10:23 AM patient re ported PLATER SUPERVISOR Body Mass Index 28.45 10/01/2019 10:23 AM PLATER SUPERVISOR documented in this encounter Patient Instructions Patient InstructionsMarilu Ortez - 10/01/2019 10:30 AM CST Your surgery is scheduled on 10/05/19 at [facility]. ER SUPERVISOR documented in this encounter Progress Notes Luc Reyes MD - 10/01/2019 10:30 AM CST [facility] Surgery Consultation Primary care provider: Chadd Correa [phone] Consultation requested by: Carlos Solis MD HPI: Patient is a 58-year-old gentleman referred by his urologist for consultation regarding umbilical hernia. Patient was recently diagnosed with prostate cancer and is scheduled for robotic assisted laparoscopic prostatectomy next week. He has had a known umbilical hernia for some time. This causes o ccasional mild discomfort. No episodes to suggest incarceration or strangulation. PMH: has a past medical history of vertigo, Hydronephrosis with renal calculous obstruction, Low back pain, Prostate cancer (H), Right ureteral stone, Seasonal allergies, Tinnitus, and Umbilical hernia. PSH: has a past surgical history that includes Laser holmium lithotripsy ureter(s), insert stent, combined (Right, 02/12/2019); orthopedic surgery; colonoscopy; shoulder surgery; shoulder surgery; Davinci Prostatectomy, Lymphadenectomy (N/A, 10/05/2019); and Laparoscopic herniorrhaphy umbilical (N/A, 10/05/2019). Social History: reports that he has never smoked. He has never used smokeless tobacco. He reports current alcohol use. He reports that he does not use drugs. Family History: family history includes Coronary Artery Disease in his sister; Diabetes in his father; Other Cancer in his mother. Medications/Allergies: Home medications and allergies reviewed. ROS: The 10 point Review of Systems is negative other than noted in the HPI. Physical Exam: BP 120/72 Pulse 64 Ht 1.803 m (5' 11) Wt 92.5 kg (204 lb) BMI 28.45 kg/m?? GENERAL: Generally appears well. Psych: Alert and Oriented. Normal affect Eyes: Sclera clear Respiratory: Lungs clear to ausculation bilaterally with good air excursion Cardiovascular: Regular Rate and Rhythm with no murmurs gallops or rubs, normal peripheral pulses GI: Abdomen Non Distended Non-Tender Umbilical hernia palpated. Hernia easily reduciable.. Groin- I examined the patient in both the standing and supine positions. Right Groin- No hernia Palpated. Left Groin- No hernia Palpated. No scrotal or testicle abnormalities. Lymphatic/Hematologic/Immune: No femoral or cervical lymphadenopathy. Integumentary: No rashes Neurological: grossly intact All new lab and imaging data was reviewed. Impression and Plan: Patient is a 58 year old male with umbilical hernia PLAN: We will plan for coordinated repair at the time of his prostatectomy. Multiple different options were discussed for surgical approach. Possible robotic approach versus hybrid approach or simple open approach. We will decide upon the best repair intraoperatively. I discussed the pathophysiology of hernias and options for repair including laparoscopic VS open. The risks associated with the procedure including, but not limited to, recurrence, nerve entrapment or injury, persistence of pain, injury to the bowel/bladder, infertility, hematoma, mesh migration, mesh infection, IA, and PE were discussed with the patient. He indicated understanding of the discussion, asked appropriate questions, and provided consent. Signs and symptoms of incarceration were discussed. If these develop in the interim, he promises to call or go straight to the ER. I have provided the patient with an information pamphlet. Thank you very much for this consult. Luc Reyes M.D. [facility] [phone] Please route or send letter to: Primary Care Provider (PCP) and Referring Provider ER SUPERVISOR documented in this encounter Plan of Treatment Not on filedocumented as of this encounter Visit Diagnoses Diagnosis Umbilical hernia without obstruction and without gangrene - Primary documented in this encounter Care Teams Gear Tester Relationship Specialty Start Date End Date Chadd Correa PCP - General Family Practice 09/22/[address] [address] documented as of this encounter
--- OUTSIDE RECORDS SUMMARY | 2022-06-29 15:50 | XMS_ITS | Encounter Summary ---
:1960 Author Organization [facility] Address [address] [place] [address] Care Team Providers Name Role Phone Miguel Brown MD Primary Care Provider [phone] Reason for Visit Auth/Cert Specialty Diagnoses / Procedures Referred By Contact Refer red To Contact Surgery Diagnoses RIGHT URETERAL STONE Sh Periop Services Procedures CYSTOURETEROSCOPY, WITH HOLMIUM LASER LITHOTRIPSY OF URETERAL CALCULUS AND STENT INSERTION [address] [place] [address] Phone: Referral ID Status Reason Start Date Expiration Date Visits Requ ested Visits Authorized [id number] 1 1 Encounter Details Date Type Department Care Team Description 02/12/2019 Surgery [facility] Vicente Perez CYSTOSCOPY RIGHT [place] [facility] MD Raymundo URETEROSCOPY, STONE Services [facility], [address] STENT CHANGE [address] [place] [address] [place] [address] [phone] Surgery Details Date/Time Status Location OR Service Patient Case Case Traum a Class Class Type Case? 02/12/19 7:30 Posted SH OR OR M Laser Same Day AM 18 Urology Surgery Panel 1 Procedure LRB Anes Op Region Wound Class Commen ts CYSTOSCOPY RIGHT URETEROSCOPY, Right General Urethra II-Cl mason Contaminated STONE REMOVAL RETROGRADE, STENT CHANGE Surgeon Surgeon Role Service Panel Vicente Perez MD Primary [facility] 1 Case Notes documented in this encounter Social History Tobacco Use Types Packs/Day Years Used Date Smoking Tobacco: Never Smokeless Tobacco: Never Alcohol Use Standard Drinks/Week Comments Yes 0 (1 standard drink = 0.6 oz pure alcoho l) Sex Assigned at Date Recorded Not on file documented as of this encounter Last Filed Vital Signs Vital Sign Reading Time Taken Comments Blood Pressure 115/77 02/12/2019 8:45 AM CDT Pulse 56 02/12/2019 8:30 AM CDT Temperature 35.8 ??C (96.4 ??F) 02/12/2019 8:45 AM CDT Respiratory Rate 16 02/12/2019 8:45 AM CDT Oxygen Saturation 99% 02/12/2019 8:45 AM CDT Inhaled Oxygen Concentration - - Weight 88.9 kg (196 lb) 02/12/2019 6:00 AM CDT Height 177.8 cm (5' 10) 02/12/2019 6:00 AM CDT Body Mass Index 28.12 02/12/2019 6:00 AM CDT documented in this encounter Discharge Instructions Discharge InstructionseMna Shay RN - 02/12/2019 8:24 AM CDT Same Day Surgery Discharge Instructions for Sedation and General Anesthesia ?? It's not unusual to feel dizzy, light-headed or faint for up to 24 hours after surgery or while taking pain medication. If you have these symptoms: sit for a few minutes before standing and have someone assist you when you get up to walk or use the bathroom. ?? You should rest and relax for the next 24 hours. We recommend you make arrangements to have an adult stay with you for at least 24 hours after your discharge. Avoid hazardous and strenuous activity. ?? DO NOT DRIVE any vehicle or operate mechanical equipment for 24 hours following the end of your surgery. Even though you may feel normal, your reactions may be affected by the medication you have received. ?? Do not drink alcoholic beverages for 24 hours following surgery. ?? Slowly progress to your regular diet as you feel able. It's not unusual to feel nauseated and/or vomit after receiving anesthesia. If you develop these symptoms, drink clear liquids (apple juice, mansoor kendra, broth, 7-up, etc. ) until you feel better. If your nausea and vomiting persists for 24 hours, please notify your surgeon. ?? All narcotic pain medications, along with inactivity and anesthesia, can cause constipation. Drinking plenty of liquids and increasing fiber intake will help. ?? For any questions of a medical nature, call your surgeon. ?? Do not make important decisions for 24 hours. ?? If you had general anesthesia, you may have a sore throat for a couple of days related to the breathing tube used during surgery. You may use Cepacol lozenges to help with this discomfort. If it worsens or if you develop a fever, contact your surgeon. ?? If you feel your pain is not well managed with the pain medications prescribed by your surgeon, please contact your surgeon's office to let them know so they can address your concerns. Cystoscopy and Stent Placement Discharge Instructions During surgery, a stent was placed in the ureter. The ureter is the tube that drains urine from the kidney to the bladder. The stent is placed to dilate (open) the ureter so the stone fragments can pass easily through the ureter or to decrease ureteral swelling after surgery, or to relieve an obstruction. The stent is made of rubber. The upper end of the stent curls in the kidney while the lower end rests in the bladder Diet: ??? Return to the diet that you were on before the procedure, unless you are given specific diet instructions. ??? It is important to drink 6-8 glasses of fluids per day at home - at least 3- 4 glasses should be water. Activity: ??? Walk short distances and increase as your strength allows. ??? You may climb stairs. ??? Do not do strenuous exercise or heavy lifting until approved by surgeon. ??? Do not drive while taking narcotic pain medications. Bathing: ??? You may take a shower. While the stent is in place you may experience the following symptoms: ??? Blood and/or small blood clots in urine. ??? Bladder spasm (frequency and urgency of urination). ??? Discomfort or aching in the back or side where the stent is. ??? Burning or discomfort at the end of urine stream. To decrease these symptoms you should: ??? Take pain medication as prescribed. ??? Drink plenty of fluids. ??? If you experience pain at the end of urination try not emptying your bladder completely. ??? If having discomfort in back or side, decrease activity. Call your physician if these signs/symptoms are present: ??? Pain that is not relieved by a short rest or ordered pain medications. ??? Temperature at or above 101.0??F or chills. ??? Inability or difficulty urinating. ??? Excessive blood in urine. ??? Any questions or concerns. If you have questions or concerns about your procedure, call Dr. Perez at [phone] documented in this encounter Medications at Time of Discharge Medication Sig Dispensed Refills Start Date End Date cefuroxime (CEFTIN) 500 Take 1 tablet (500 4 tablet 0 01/1602/14/2019 MG tabletIndications: mg) by mouth 2 times Postoperative state daily for 2 days oxaprozin (DAYPRO) 600 MG Take 1,200 mg by 0 10/01/2019 tablet mouth as needed. oxyCODONE-acetaminophen Take 1-2 tablets by 12 tablet 0 10/01/2019 (PERCOCET) 5-325 MG mouth every 4 hours tabletIndications: as needed for Postoperative state moderate to severe pain documented as of this encounter Progress Notes Kalli Burch RN - 02/12/2019 9:00 AM CDT Pt voided at 9:00 am, states it was fair amount and pink with some blood tinged. documented in this encounter Nursing Notes Kalli Burch RN - 02/12/2019 9:16 AM CDT Waiting for meds, discharge teaching done. Mena Shay RN - 02/12/2019 8:53 AM CDT PNDS met, po per I&O sheet. Pt dressed, up in recliner and transported to Phase 2. Mena Shay RN - 02/12/2019 8:53 AM CDT 2 hives noted upon arrival to PACU, redness and raised area fading. No other areas noted. Mena Shay RN - 02/12/2019 8:12 AM CDT 2 hives noted on left midback, no other hives noted. Dr Bearden at bedside to assess, no further orders, will continue to assess. documented in this encounter Miscellaneous Notes Op Note - Vicente Perez MD - 02/12/2019 8:13 AM CDT Procedure Date: 02/12/2019 PREOPERATIVE DIAGNOSIS: Right ureteral calculus. POSTOPERATIVE DIAGNOSIS: Right ureteral calculus. PROCEDURES: Cystoscopy, right ureteroscopy with stone extraction, and right ureteral stent placement. SURGEON: Vicente Perez MD ANESTHESIA: General. ESTIMATED BLOOD LOSS: 4 mL. SPECIMENS: Right ureteral stone fragments sent for analysis. COMPLICATIONS: None. FINDINGS: A 3 mm stone in proximal right ureter and 1-2 mm stone fragments in the lower right ureter. INDICATIONS: The patient is a 58-year-old gentleman, who has no prior history of kidney stones, developed severe right flank pain on 01/20/2019. CT scan at that time showed a 5 mm stone in the proximalright ureter. He underwent attempted right ureteroscopy on 01/26/2019. Had a stent placed at that time. He underwent right ESWL on 01/29/2019. Followup KUB on 02/02/2019 showed significant stone fragments still present in the ureter. He presents now to undergo repeat right ureteroscopy with laser lithotripsy, stone removal, and possible stent change. The risks and benefits were discussed with the patient. PROCEDURE IN DETAIL: The patient was brought to the operating room, placed in a supine position. After undergoing general anesthetic, he was placed in a low lithotomy position. Genitalia were prepped and draped in the usual sterile fashion. A 21-Romanian rigid cystoscope was inserted in the bladder. There were no urethral lesions or strictures. The prostate shows 1+ lateral enlargement. Inspection of bladder reveals a stent in the right orifice. There is some moderate edema at the right ureteral orifice with stent irritation. A 2-prong grasper was used to grab the stent and it was brought to the urethral opening. A 0.035 Sensor wire was passed with the stent in the right kidney and the stent was removed. A rigid ureteroscope was advanced up the right ureter under direct vision. In the distal right ureter, there were 1-2 mm stone fragments. These were extracted with an escape basket. The scope was then passed up the ureter. In the proximal ureter, a 3 mm fragment was seen. The escape basket was also used to grab this piece and remove it. The ureter was re-explored. No further stone fragments wereseen in the right ureter. Of note, he did have a significant amount of oozing and clots in the rightureter. Due to this, decision was made to replace the stent for fear of clot colic. The ureteroscopewas removed. Contrast injection into the kidney to note the location of the renal pelvis. The cystosc ope was again inserted into the bladder. A 4.7 Romanian x 26 cm stent was then placed in the right ureter. The stent could be seen curled in the kidney and the bladder. The patient's bladder was emptied.Cystoscope was removed. He was put back in a supine position, awoken from anesthesia and transferredback to recovery room in good condition. There were no complications. I will see him back next week to remove the stent in the office via cystoscopy. I recommend he have a 24-hour urine test performed in the future to assess risk factors for stone formation. VICENTE PEREZ MD MT: LELO Name: FREDY CARLSON MRN: [id number] Account: [id number] : 1960 Procedure Date: 02/12/2019 Document: [id number] cc: Miguel Brown MD [facility] Brief Op Note - Vicente Perez MD - 02/12/2019 8:03 AM CDT [facility] Brief Operative Note Pre-operative diagnosis: RIGHT URETERAL STONE Post-operative diagnosis: Same Procedure: Procedure(s): CYSTOSCOPY RIGHT URETEROSCOPY, STONE REMOVAL RETROGRADE, STENT CHANGE Surgeon: VICENTE PEREZ MD [employer] Map(s): None Anesthesia: General endotracheal anesthesia Estimated blood loss: Less than 10 ml Total IV fluids: (See anesthesia record) Blood transfusion: No transfusion was given during surgery Total urine output: Not measured Drains: None Specimens: Right ureteral stone fragment - sent for analysis Implants: 4.7 Fr x 26 cm stent in Right ureter Findings: 3 mm stone (upper ureter) - 2 mm and 1 mm fragments (lower ureter) Complications: None Condition: Stable Comments: See dictated operative report for full details documented in this encounter Plan of Treatment Not on filedocumented as of this encounter Procedures Procedure Name Priority Date/Time Associated Diagnosis Comme nts XR SURGERY JERAMY Routine 02/12/2019 7:50 AM Result s for this FLUORO LESS THAN 5 CDT procedure are in MIN W STILLS the results section. SURGICAL PATHOLOGY Routine 02/12/2019 7:34 AM Res ults for this EXAM CDT procedure are i n the results section. STONE ANALYSIS Routine 02/12/2019 7:34 AM Postoperative state Results for this CDT procedure are i n the results section. CYSTOURETEROSCOPY, 02/12/2019 7:17 AM Right ureteral s tones WITH LITHOTRIPSY CDT USING LASER AND URETERAL STENT INSERTION Case Notes EKG CARDIAC - HIM SCAN 01/29/2018 12:00 AM CDT documented in this encounter Results XR Surgery JERAMY L/T 5 Min Fluoro w Stills (02/12/2019 7:50 AM CDT) Specimen (Source) Anatomical Location Collection Method / Collectio n Time Received Time / Laterality Volume Narrative [facility] - 02/12/2019 7:57 AM CDT This exam was marked as non-reportable because it will not be read by a radiologist or a [facility] non-radiologis t provider. Vicente Perez MD IMG DIAGNOSTIC IMAGING ORDER MIGUEL Performing Organization Address City/State/ZIP Code Phon e Number [facility] Surgical pathology exam (02/12/2019 7:34 AM CDT) Component Value Ref Test Analysis Performed At [facility] Range Method Time Signature Copath Report Patient Name: FREDY CARLSON MR#: [id number] Specimen #: [id number] Collected: 02/12/2019 Received: 02/12/2019 Reported: 02/13/2019 13:34 Ordering Phy(s): VICENTE PEREZ For improved result formatting, select 'View Enhanced Report Format' under Linked Documents section. SPECIMEN(S): Stone, right ureteral FINAL DIAGNOSIS: Right ureteral stone pending chemical analysis Electronically signed out by: Ronaldo Alamo M.D. GROSS: The specimen is labeled right ureteral stone. ??The specim en consists of two hard nodular stones ranging from 0.2 cm up to 0.6 cm. ??The specimens are sent to a lab for calculus (stone) analysis. ??Franco only, radio interference supervisor direct per Dr. Alamo. (Dictated by: Matthew Fan 019 09:33 AM) The technical component of this testing was completed at the [facility], with the professional compo nent performed at the [facility], [address] [place] [address] ??[phone] ([phone]) CPT Codes: A: 66616-YW COLLECTION SITE: Client: [facility] Location: [facility] (S) Specimen Anatomical Collection Method Collection Time Receive d Time (Source) Location / / Volume Laterality 02/12/2019 7:34 AM 9 8:22 CDT AM CDT Vicente Perez MD [facility] Performing Organization Address City/State/ZIP Code Phon e Number [place] Stone analysis (02/12/2019 7:34 AM CDT) [facility] Method Time Signature Stone SEE NOTE 02/15/2019 [place] Composition 8:48 AM CDT [facility] Comment: (Note) Calculi composed primarily of: 30% calcium oxalate monohydrate, 10% calcium oxalate dihydrate, and 60% calcium phosphate (hydroxy- and carb deanna- apatite). INTERPRETIVE INFORMATION: Calculi (Stone ) analysis Calculi are the products of physiologica l processes that yield crystalline compounds in a matrix of biological compounds and blood. ??Matrix components are not reported. ?? The clinically significant crystalline c omponents identified in calculi specimens are repo rted. ??Gross description may not be consistent with c omposition determined by FTIR analysis. Performed by [employer], [facility] [place] [address] [email or web address], Paul Broderick MD, Lab. Director Calculi Number 3 02/15/2019 8:[address] [facility] Calculi Size Various mm 02/15/2019 8:48 AM CDT [facility] Calculi Description SEE NOTE 02/15/2019 8:48 AM C DT [facility] Comment: (Note) Specimen consists of three, various size d (1 mm to 9 mm), brown/roberts, irregular calculi fragments. Stone Mass 41 mg 02/15/2019 8:48 AM CDT [facility] Specimen (Source) Anatomical Collection Method Collection Time Re ceived Time Location / / Volume Laterality Calculus specimen RIGHT KIDNEY 02/12/2019 7:34 AM (specimen) STRUCTURE / CDT Unknown Vicente Perez MD LAB - BODY FLUIDS ORDERABLES Performing Organization Address City/State/ZIP Code Phon e Number M [facility] [address] [place] [address] [phone] [facility] [address] [place] [address], [facility] [phone] EKG CARDIAC - HIM SCAN (01/29/2018 12:00 AM CDT) Specimen (Source) Anatomical Location Collection Method / Collectio n Time Received Time / Laterality Volume 01/29/2018 Narrative This result has an attachment that is no t available. Provider Outside ECG ORDERABLES documented in this encounter Visit Diagnoses Not on filedocumented in this encounter Administered Medications Inactive Administered Medications - up to 3 most recent administrations Medication Order MAR Action Action Date Dose Rate Site naloxone (NARCAN) injection 0.1-0.4 mg 0.1-0.4 mg, Intravenous, EVERY 2 MIN PRN , opioid reversal, Starting on Johanny 02/12/19 at 0758, For 24 hours, For apnea or imminent respirato ry arrest: give 0.4 mg IV undiluted Q 2 minutes PRN until desired degree of reversal is obtained, stop opioid and notify provider. Continue monitoring until dischar ge criteria are met for a minimum of 2 hours. For severe sedation, decrease in respiratory depth, quality or respiratory rate less than 8: give 0.1 m g IV Q 2 minutes x 3 doses, stop opioid and notify provider. Try to minimize reversa l of analgesia especially in end-of-life patients For ordered IV doses 0.1-2mg gi ve IVP. Give each 0.4mg over 15 seconds in emergency situations. For non-emergent s ituations further dilute in 9mL of NS to facilitate titration of response., Post-procedure sodium chloride 0.9% (bag) Given 02/12/2019 7:31 AM 3,000 mLs Operative irrigation CDT Site/Surgical S ite PRN, Starting on Johanny 02/12/19 at 0731, Intra-procedure sodium chloride 0.9% Given 02/12/2019 7:31 AM 1,000 mLs Operative (bottle) irrigation CDT Site/Surgical S ite PRN, Starting on Johanny 02/12/19 at 0731, Intra-procedure documented in this encounter Active and Recently Administered Medications Times are shown in CDT. Scheduled Medication Order 02/10/2019 02/11/2019 02/12/2019 acetaminophen (TYLENOL) tablet 650 mg 0815 (Canceled Entry - Provider: Orders Generic Provider - Comment: Automatically canceled at discontinue of medication order) 650 mg, Oral, ONCE, Johanny 02/12/19 at 0815, For 1 dose, One time prior to discharge. Maximum acetaminophen dose from all sources = 75 mg/kg/day not to exceed 4 grams/day., Post-procedure ceFAZolin (ANCEF) intermittent infusion 2 g in 100 mL dextrose PRE-MIX (COMPLETED) 0725 (Given - Provid er: Alana Mann APRN CRNA) 2 g, Intravenous, PRE-OP/PRE-PROCEDURE, Starting Johanny 02/12/19 at 0548, For 1 dose, Give first dose within 1 hour PRIOR to incision. If patient weight is greater than or equal to 120 kg increase dose to 3 g., Indications: Perioperative Pharmacoprophylaxis, Pre-procedu re oxyCODONE (ROXICODONE) tablet 5 mg 0815 (Canceled Entry - Provider: Orders Generic Provider - Comment: Automatically canceled at discontinue of medication order) 5 mg, Oral, ONCE, Johanny 02/12/19 at 0815, F or 1 dose, May administer ONCE as needed for pain control or improvement in physical function.??Notify provider to assess for uncontrolled pain or?? analgesic side effects., Post-procedure PRN Medication Order 02/10/2019 02/11/2019 02/12/2019 naloxone (NARCAN) injection 0.1-0.4 mg 0.1-0.4 mg, Intravenous, EVERY 2 MIN PRN , opioid reversal, Starting Johanny 02/12/19 at 0758, For 24 hours, For apnea or imminent respiratory arrest: give 0.4 mg IV undiluted Q 2 minutes PRN until desired de gree of reversal is obtained, stop opioi d and notify provider. Continue monitoring until discharge criteria are met for a minimum of 2 hours. For severe sedation, decrease in respiratory depth, quality or respiratory rate less than 8: give 0. 1 mg IV Q 2 minutes x 3 doses, stop opioid and notify provider. Try to minimize reversal of analgesia especially in end-of-life patients For ordered IV doses 0.1- 2mg give IVP. Give each 0.4mg over 15 se conds in emergency situations. For non- emergent situations further dilute in 9mL of NS to facilitate titration of response., Post-procedure sodium chloride 0.9% (bag) irrigation (CANCELED) 0731 (Given - Provider: Vicente Perez MD) PRN, Starting Johanny 02/12/19 at 0731, Intra-procedure sodium chloride 0.9% (bottle) irrigation (CANCELED) 0731 (Given - Provider: Vicente Perez MD) PRN, Starting Johanny 02/12/19 at 0731, Intra-procedure documented in this encounter Care Teams Lead Caster Helper Relationship Specialty Start Date End Date Miguel Brown MD PCP - General Family Practice 04/17/16 09/21/19 documented as of this encounter
--- OUTSIDE RECORDS SUMMARY | 2022-06-29 15:50 | XMS_ITS | Clinical Summary ---
:1960 Author Organization [facility] [place] [address] Care Team Providers Name Role Phone Ankur Vazquez MD Primary Care Provider [phone] Allergies No known active allergies Medications Medication Sig Dispensed Refills Start End Date Status Date cyanocobalamin, Take 1,000 mg 0 Active vitamin B-12, by mouth once (CYANOCOBALAMIN daily. ORAL) amLODIPine Take 5 mg by 0 Active (NORVASC) 5 mg mouth at tablet bedtime. Electrical Bone For home use. 0 Active Growth For use after 2 StimulatorIndicatio surgery. ns: S/P lumbar fusion tadalafiL tadalafil 20 mg tablet 0 Active (CIALIS;ADCIRCA) 20 Take 1 tablet as needed by oral route for 30 days . mg tablet ergocalciferol Take 1 Capsule 12 Capsule 3 Active (VITAMIN D2; (50,000 units) 2 DRISDOL) 50,000 by mouth once unit weekly. capsuleIndications: S/P spinal fusion calcium carbonate Chew 1 Tablet 180 Tablet 3 Active (TUMS) 200 mg (500 mg) by 2 calcium (500 mg) mouth 2 times chewable daily with tabletIndications: meals. S/P spinal fusion sennosides-docusate Take 1-4 40 Tablet 0 Active (SENOKOT S) (8.6-50 Tablets by 2 mg) mouth 2 times tabletIndications: daily. S/P lumbar fusion WalkerIndications: Rolling walker 1 Each 0 Active S/P lumbar fusion for home use. 2 tiZANidine Take 1-2 60 Tablet 0 06/06/20 Discontin ued (ZANAFLEX) 2 mg Tablets (2-4 2 22 ( *Med tabletIndications: mg) by mouth complete/Regimen S/P lumbar fusion every 6 hours complete/Level if needed for of car e change) Muscle Spasm. oxyCODONE Take 1-2 30 Tablet 0 06/06/20 Discontinu ed (ROXICODONE) 5 mg Tablets (5-10 2 22 (*Med immediate release mg) by mouth complete/Regimen tabletIndications: every 4 hours complete/Level S/P lumbar fusion if needed for of care change) Pain (First choice for severe pain.). methocarbamoL Take 1 tab PO 60 Tablet 0 06/06/20 Di scontinued (ROBAXIN) 500 mg BID PRN 2 22 (*M ed tabletIndications: c omplete/Regimen Pain complete/L evel of care ch miguel angel) Active Problems Problem Noted Date Elevated PSA 07/01/2019 Kidney stone 02/18/2019 Encounters Date Type Specialty Care Team Description 06/06/2022 Office Visit Connor Taylor MD Pos t-op (Lumbar Spine) 06/06/2022 Travel 06/04/2022 Orders Only Scanner <No scans attac hed> 05/31/2022 Telephone Connor Taylor MD Ima ging (X-rays) 04/27/2022 Office Visit Connor Taylor MD Pos t-op (S/P L5-S1 ASF 03/07/2022 w/ T EJ) 04/27/2022 Travel 04/23/2022 Telephone Connor Taylor MD 04/19/2022 Orders Only Scanner <No scans attac hed> 04/19/2022 Orders Only Scanner <No scans attac hed> 04/13/2022 Telephone Alex Fournier PA from Last 3 Months Immunizations Name Administration Dates Next Due Td (Age >=7 Years) 05/24/2008 Social History Tobacco Use Types Packs/Day Years Used Date Never Smoker Smokeless Tobacco: Never Used Alcohol Use Standard Drinks/Week Comments Yes 0 (1 standard drink = 0.6 oz pure alcoho l) 1-2 per week Alcohol Habits Answer Date Recorded How often do you have a drink containing alcohol? Not asked How many drinks containing alcohol do you have on a Not aske d typical day when you are drinking? How often do you have six or more drinks on one occasion? No t asked Comment: 1-2 per week 08/06/2019 Sex Assigned at Date Recorded Not on file COVID-19 Exposure Response Date Recorded In the last 10 days, have you been in contact with No / Unsu re 06/06/2022 9:58 AM CDT someone who was confirmed or suspected to have Coronavirus/COVID-19? Obstetrics History Last Filed Vital Signs Vital Sign Reading Time Taken Comments Blood Pressure 117/70 03/09/2022 8:41 AM CDT Pulse 63 03/09/2022 8:41 AM CDT Temperature 36.2 ??C (97.1 ??F) 03/09/2022 8:41 AM CDT Respiratory Rate 18 03/09/2022 8:41 AM CDT Oxygen Saturation 93% 03/09/2022 8:41 AM CDT Inhaled Oxygen Concentration - - Weight 90.7 kg (200 lb) 06/06/2022 10:38 AM CDT Height 177.8 cm (5' 10) 06/06/2022 10:38 AM CDT Body Mass Index 28.7 06/06/2022 10:38 AM CDT Plan of Treatment Upcoming Encounters Date Type Specialty Care Team Description 07/18/2022 Office Visit Connor Taylor Ed, MD [address] [place] [address] 5 [phone] (Wo rk) Health Maintenance Due Date Last Done Comments Tdap 1973 Depression screening for age 12+ 1974 Hepatitis C screening for age 0312/12/1980 18-79 Colonoscopy through age 75 12/13/2007 Lipids for age 45-75 12/13/2007 Zoster (shingles) series for age 0312/12/2012 50+ (1 of 2) Tetanus booster 05/24/2018 05/24/2008 COVID-19 vaccine series (3 - 09/11/2021 07/17/2021, 021 Booster for Evens series) Influenza for age 50-64 05/17/2022 BMI (ht and wt on same day) for 06/06/2023 06/06/2022, 04/16, age 18+ 03/28/2022, Additional history exists Medical Devices Implanted Type Area Motor Scooter Mechanic Device Shelf Model / Identifier Expiration Serial / Date Lot Self Drilling Screw N/A: Lumbar [employer] [id number] / Implanted: Qty: 1 on 03/07/2022 by Connor Taylor MD at [facility] [employer] / Procedures Procedure Name Priority Date/Time Associated Diagnosis Comme nts SCAN-RADIOLOGY 06/04/2022 12:00 AM Result s for this REPORT CDT procedure are i n the results section. SCAN-RADIOLOGY 04/19/2022 12:00 AM Result s for this REPORT CDT procedure are i n the results section. SCAN-RADIOLOGY 04/19/2022 12:00 AM Result s for this REPORT CDT procedure are i n the results section. from Last 3 Months Results SCAN-RADIOLOGY REPORT (06/04/2022 12:00 AM CDT)Only the most recent of3 results within the time period is included. Narrative This result has an attachment that is no t available. Scanner OTHER from Last 3 Months Insurance Payer Benefit Plan / Subscriber ID Effective Dates Phone Addre ss Type Group WC WORKERS WC [facility] [id number] 2021-Presen [address] [address] [place] [address] BLUE CROSS BLUE CROSS OF [id number] 2015-Present [address] [address] [place] [address] Advance Directives Latest Code Status on File Code Status Date Activated Date Inactivated Comments Full Code 03/07/2022 5:54 AM 03/09/2022 12:16 PM Code Status Discussion: Other Not discussed Full Code 08/06/2019 6:01 AM 08/06/2019 1:43 PM Full Code 01/29/2019 12:17 PM 01/29/2019 8:30 PM Care Teams Alarm Signaler Relationship Specialty Start Date End Date Ankur Vazquez MD PCP - General Family Practice 02/26/221999 [place] [address]
--- OUTSIDE RECORDS SUMMARY | 2022-06-29 15:50 | XMS_ITS | Continuity of Care Document ---
:1960 Author Organization [facility] Address [place] [address] [facility] [place] [address]- Encounter 03/01/22 - 03/03/22 [facility] [address] [place] [address] [address] [place], [place] [address] Encounter Diagnosis Degeneration of intervertebral disc at L5-S1 level (Discharge Diagnosis) - 03/01/22 Attending Physician: Luis Espino MD Allergies, Adverse Reactions, Alerts No Known Medication Allergies Assessment and Plan Extracted from: Title: Consult Note Author: Luis Espino MD Date: 03/01/22 1.??Degeneration of intervertebral disc at L5-S1 level??(M51.37) ??CT angiogram is reviewed personally. ??Patient does not have specific anatomic anomaly which would prevent us from getting the L5-S1 interspace. ??The risk benefits complications of surgical inventio n are reviewed and we will proceed with surgery as scheduled. Ordered: [id number] office o/p new hi 60-74 min ([employer]), Quantity: 1, Degeneration of intervertebral disc at L5-S1 level ?? Medications No Known Medications Problem List Diagnosis Diagnosis Type Effective Dates Health Clinical Infor [facility] Status Service Degeneration of Discharge 03/01/22 intervertebral disc Diagnosis at L5-S1 level
--- OUTSIDE RECORDS SUMMARY | 2022-06-29 15:50 | XMS_ITS | Encounter Summary ---
:1960 Author Organization [place] Address [address] [facility] [place] [address] Care Team Providers Name Role Phone Chadd Correa Primary Care Provider Encounter Details Date Type Department Care Team Description 10/19/2019 Telephone [facility] Surgery Luc Reyes, [facility] [place] MENDEZ [id number] [place] [address] [place] [address] (Wo rk) Social History Tobacco Use Types Packs/Day Years Used Date Smoking Tobacco: Never Smokeless Tobacco: Never Alcohol Use Standard Drinks/Week Comments Yes 0 (1 standard drink = 0.6 oz pure alcoho l) 2-3/week Sex Assigned at Date Recorded Not on file documented as of this encounter Miscellaneous Notes Telephone Encounter - Cherise Ugarte, RN - 10/19/2019 3:[address] Reyes about work questions. Per Dr. Reyse: -ok to return to work on light duty as planned after follow up with Dr. Solis -while on light duty pt should avoid doing heavy lifting/pushing/pulling > 15 lb or doing strenuous activity -pt may go off light duty 4 weeks after surgery and return to normal activity Called Sarai back and discussed with her. States she and patient are considering a little light duty at work for limited hours next week. Reviewed that heavy lifting or strenuous activity should be avoided until at least 4 weeks postop and patient should listen to his body and stop an activity if edge ving pain. Discussed that patient can reach out for letter if needed. No further needs at this time. Cherise Ugarte RN on 10/19/2019 at 4:26 PM UCTION AIDE Telephone Encounter - Cherise Ugarte RN - 10/19/2019 10:28 AM CST Procedure: Combined open primary closure and laparoscopic repair of ventral hernia Date: 10/05/2019 Surgeon: Dr. Reyes ?? This patient also had robotic assisted radical prostatectomy, bilateral lymph node dissection combined with the hernia repair. Reviewed chart; noted pt has consent to communicate for verbal communication with spouse Sarai. Called Sarai spouse back at her request. Reports following concerns: She and patient are not clear on progress of returning to work. States they will follow up with Dr. Solis to have brigida out on Saturday. However, were told Dr. Solis wants workability to come from Dr Reyes. States they do NOT need a formal letter at this time just verbal directions. Reviewed AVS withspouse. States she is still needing clarification. 1) When exactly can patient return to work at light duty? How long should this last? AVS states 3-4 weeks. 2) During light duty, is patient restricted from any other movements other than no lifting > 15 lbs? Can he still crawl under cars? 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 When can he return to full duty? also states that brigida are itching but they have already confirmed with Dr. Solis that the brigida shouldn't come out before Saturday with Dr. Solis. No further needs re: incision at this time. States ok to leave detailed voicemail if no answer when nurse calls back. Cherise Ugarte RN on 10/19/2019 at 10:43 AM UCTION AIDE Telephone Encounter - Kalie Fischerdy - 10/19/2019 9:45 AM CST Name of caller: spouse Reason for Call: Call back-question about stitches. Patient had a dual surgery with Dr. Solis and EFRAIN 10/05/2019. He is scheduled for PO with Dr. Solis 10/23/2019, but the stitches are itching and feels he needs to have them removed sooner. Wondering if they can go somewhere else to have them removed as they live a ways away from our office. LAPAROSCOPIC ASSISTED UMBILICAL HERNIA REPAIR WITH MESH (FITZ) Also have questions about workability with the hernia surgery. Best phone number to reach pt at is: [phone] Ok to leave a message with medical info? Yes. UCTION AIDE documented in this encounter Plan of Treatment Not on filedocumented as of this encounter Visit Diagnoses Not on filedocumented in this encounter Care Teams Airport Planner Relationship Specialty Start Date End Date Chadd Correa PCP - General Family Practice 09/22/[address] [address] documented as of this encounter
--- OUTSIDE RECORDS SUMMARY | 2022-06-29 15:51 | XMS_ITS | Encounter Summary ---
:1960 Author Organization [place] Address [address] [place] [address] Care Team Providers Name Role Phone Miguel Brown MD Primary Care Provider [phone] Encounter Details Date Type Department Care Team Description 01/20/2019 Travel Social History Tobacco Use Types Packs/Day [...] on filedocumented in this encounter Care Teams Tube Cutter Relationship Specialty Start Date End Date Miguel Brown MD PCP - General Family Practice 04/17/16 09/21/19 documented as of this encounter
--- OUTSIDE RECORDS SUMMARY | 2022-06-29 15:51 | XMS_ITS | Encounter Summary ---
:1960 Author Organization [facility] Address [facility] [place] [address] Care Team Providers Name Role Phone Miguel Brown MD Primary Care Provider [phone] Reason for Visit Reason Onset Date Comments Pt. Information/instruction 01/22/2019 information Encounter Details Date Type Department Care Team Description 01/22/2019 Telephone [facility] Nurse Cielo [employer] SUNSHINE Ordaz Information/instruction [address] (information ) [place] [address] Social History Tobacco Use Types Packs/Day Years Used Date Smoking Tobacco: Never Smokeless Tobacco: Never Alcohol Use Standard Drinks/Week Comments Yes 0 (1 standard drink = 0.6 oz pure alcoho l) Sex Assigned at Date Recorded Not on file documented as of this encounter Miscellaneous Notes Telephone Encounter - Sushma Buck RN - 01/22/2019 7:23 PM CDT and patient calling to see if they should return to ER for kidney stones. Denies triage, sx are:worsening pain, chills(not sure if fever, did not check), vomiting. Advised per francy/ discharge summary to return to ER. Sushma Buck RN [facility] documented in this encounter Plan of Treatment Not on filedocumented as of this encounter Visit Diagnoses Not on filedocumented in this encounter Care Teams Dispute Coordinator Relationship Specialty Start Date End Date Miguel Brown MD PCP - General Family Practice 8/2/16 1/6/20 documented as of this encounter
--- OUTSIDE RECORDS SUMMARY | 2022-06-29 15:51 | XMS_ITS | Encounter Summary ---
:1960 Author Organization [facility] Address [facility] [place] [address] Care Team Providers Name Role Phone Miguel Brown MD Primary Care Provider [phone] Reason for Visit Reason Comments Consult Encounter Details Date Type Department Care Team Description 05/03/2016 Office Visit [facility] Marianne Ferris Umbilica yoan hernia Surgery Clinic MD Miguel without obstruction [place] [address] and without gangrene [address] [place] [address] [address] [place], [place] [phone] (Wo rk) [address] [phone] Social History Tobacco Use Types Packs/Day Years Used Date Smoking Tobacco: Never Smokeless Tobacco: Never Tobacco Cessation: Counseling Given: Yes Alcohol Use Standard Drinks/Week Comments Yes 0 (1 standard drink = 0.6 oz pure alcoho l) Sex Assigned at Date Recorded Not on file documented as of this encounter Last Filed Vital Signs Vital Sign Reading Time Taken Comments Blood Pressure 108/70 05/03/2016 9:06 AM CDT Pulse 64 05/03/2016 9:06 AM CDT Temperature - - Respiratory Rate - - Oxygen Saturation - - Inhaled Oxygen Concentration - - Weight 89.4 kg (197 lb) 05/03/2016 9:06 AM CDT pt repor rojas Height 177.8 cm (5' 10) 05/03/2016 9:06 AM CDT pt repo rted Body Mass Index 28.27 05/03/2016 9:06 AM CDT documented in this encounter Progress Notes Marianne Ferris MD - 05/03/2016 9:55 AM CDT May 03, 2016 MD [facility] [address] [address] [facility], [address] [place], [place] [address] Re: Fredy Carlson, [address] Brown: I had the pleasure of meeting your patient, Mr. Carlson, and his in my office today regarding anasymptomatic umbilical hernia. The patient states that his noted his umbilical skin to be everted about a year ago. In the intervening time it has not caused him any pain or discomfort. 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 He has not had previous abdominal surgery. Examination reveals a visible eversion to the base of the umbilical skin. This is a soft, reducible fat-containing umbilical hernia which reproduces with cough and Valsalva. I had a discussion with Mr. Carlson and his about hernias, their anatomic considerations and indications for repair. We discussed that while he is not having symptoms currently, he may have symptoms in the future and that the natural history of this hernia in all likelihood will be to slowly grow with time. The likelihood of incarceration, especially with bowel contents, is extraordinarily small and unlikely. The patient is interested in pursuing repair at some juncture given his physically demanding job, but will defer until he is less busy with work. He will phone us to make these arrangements as he desires. Thank you very much for involving me in his care. Sincerely, Marianne Mckinney MD RD/carl Dictation #[id number] MARIANNE FERRIS MD MT: carl Name: FRDEY CARLSON MRN: [id number] Account: [id number] : 1960 Service Date: 05/03/2016 Document: [id number] HPI ROS Physical Exam Marianne Ferris MD - 05/03/2016 9:35 AM CDT Fredy is a 55 year old male who presents for hernia evaluation. The patient has noticed a bulge. It was first noted by his about a year ago. Pain has not been present. The patient has not had previous abdominal surgery. Patient does not report that increased activity/lifting causes pain. 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 Constipation No Dysuria No Cough No Smoking No Pt's chart has been reviewed for PMH, PSH, allergies, medications and social history. ROS: Pulm: No shortness of breath, dyspnea on exertion, cough, or hemoptysis CV: negative ABD: See chief complaint : negative BP 108/70 mmHg Pulse 64 Ht 5' 10 (1.778 m) Wt 197 lb (89.359 kg) BMI 28.27 kg/m2 Physical exam: Patient able to get up on table without difficulty. Abdomen is abdomen is soft without significant tenderness, masses, organomegaly or guarding bowel sounds are positive and no caput medusa noted. There is visible eversion of the umbilical skin; there is a soft, fat-containing hernia which is readily reducible and augments with cough. Imaging None Assesment: umbilical hernia, asymptomatic at present. Plan: The nature of hernias, anatomic considerations, indications and approaches to repair were discussed. Risks of operative intervention were discussed including infection, bleeding, harm to structures as well as recurrence, which is about 5% per decade of life. Post operative recuperation and activity limitations were reviewed as well. At present the hernia is not causing any life-limiting pain orsymptoms and he would like to defer repair until his work is less busy, likely around August. He will call us to schedule surgery in the future. Marianne Mckinney MD 05/03/2016 9:36 AM Please route or send letter to: Primary Care Provider (PCP) Please send dictated letter only. Hilda Sood CMA - 05/03/2016 9:14 AM CDT HPI ROS (Review of Systems): Positive for System Review. System Review has been done Physical Exam documented in this encounter Plan of Treatment Not on filedocumented as of this encounter Visit Diagnoses Diagnosis Umbilical hernia without obstruction and without gangrene - Primary documented in this encounter Care Teams Mill Dresser Relationship Specialty Start Date End Date Miguel Brown MD PCP - General Family Practice 04/17/16 09/21/19 documented as of this encounter
--- OUTSIDE RECORDS SUMMARY | 2022-06-29 15:51 | XMS_ITS | Encounter Summary ---
:1960 Author Organization [place] Address [facility] [place] [address] Care Team Providers Name Role Phone Doctor, None MD Primary Care Provider Unavailable Reason for Visit Reason Comments Sinus Problem pt c/o sinus pressure in the face area, nose congestion x 2 days. Urgent Care Encounter Details Date Type Department Care Team Description 10/31/2012 Office Visit [facility] Eloise Santacruz Produ ctive cough (Primary Dx); Urgent Care Yvan MENDEZ Purulent nasal discharge; [address] Allergic rhinitis, [place] [address] [place], [place] [phone] [id number] Social History Tobacco Use Types Packs/Day Years Used Date Smoking Tobacco: Never Smokeless Tobacco: Never Alcohol Use Standard Drinks/Week Comments Yes 0 (1 standard drink = 0.6 oz pure alcoho l) Sex Assigned at Date Recorded Not on file documented as of this encounter Last Filed Vital Signs Vital Sign Reading Time Taken Comments Blood Pressure 110/78 10/31/2012 7:52 PM FOOD SERVICE KITCHEN SUPERVISOR Pulse 74 10/31/2012 7:52 PM FOOD SERVICE KITCHEN SUPERVISOR Temperature 36.8 ??C (98.2 ??F) 10/31/2012 7:52 PM FOOD SERVICE KITCHEN SUPERVISOR Respiratory Rate - - Oxygen Saturation - - Inhaled Oxygen Concentration - - Weight 92.6 kg (204 lb 3.2 oz) 10/31/2012 7:52 PM FOOD SERVICE KITCHEN SUPERVISOR Height - - Body Mass Index - - documented in this encounter Progress Notes Eloise Santacruz MD - 10/31/2012 7:59 PM CST SUBJECTIVE: Sawyer Carlson is a 51 year old male who complains of recurrent nasal congestion, nasal blockage, runny nose, yellow and green nasal discharge, headache, left sinus pain and cough for 5 days. He denies a history of other unusual symptoms and denies a history of asthma. Patient denies smoke cigarettes. OBJECTIVE: BP 110/78 Pulse 74 Temp 98.2 ??F (36.8 ??C) Wt 204 lb 3.2 oz (92.625 kg) He appears congested but in NAD, vital signs are as noted by the nurse. Ears normal. Throat and pharynx normal. Neck supple. No adenopathy in the neck. Nose is congested. Sinuses tender bilaterally. The chest is clear, without wheezes or rales. Assessment/Plan: Productive cough (primary encounter diagnosis) Comment: Plan: azithromycin (ZITHROMAX) 250 MG tablet Purulent nasal discharge Comment: Plan: azithromycin (ZITHROMAX) 250 MG tablet Allergic rhinitis, cause unspecified Comment: Plan: fluticasone (FLONASE) 50 MCG/ACT nasal spray Symptomatic therapy suggested: push fluids, rest, gargle warm salt water, use vaporizer or mist needed , use ibuprofen, decongestant of choice as needed and apply heat to sinuses as needed. Call or return to clinic prn if these symptoms worsen or fail to improve as anticipated. SERVICE KITCHEN SUPERVISOR documented in this encounter Nursing Notes 10/31/2012 7:45 PM CST >> LACY SALCEDO Fri Oct 31, 2012 7:55 PM Patient presents with: Sinus Problem - pt c/o sinus pressure in the face area, nose congestion x 2 days. Urgent Care Initial BP 110/78 Pulse 74 Temp 98.2 ??F (36.8 ??C) Wt 204 lb 3.2 oz (92.625 kg) There is no height on file to calculate BMI.. BP completed using cuff size: regular Mulu Salcedo MA documented in this encounter Plan of Treatment Not on filedocumented as of this encounter Visit Diagnoses Diagnosis Productive cough - Primary Cough Purulent nasal discharge Other diseases of nasal cavity and sinus es Allergic rhinitis, cause unspecified documented in this encounter Care Teams Object Oriented Developer Relationship Specialty Start Date End Date Doctor, None, PCP - General 10/31/01 04/16/16 documented as of this encounter
--- OUTSIDE RECORDS SUMMARY | 2022-06-29 15:51 | XMS_ITS | Encounter Summary ---
:1960 Author Organization [place] Address On license of [facility] [place] [address] Care Team Providers Name Role Phone DoctorRadhames MD Primary Care Provider Unavailable Encounter Details Date Type Department Care Team Description 08/17/2005 Therapy Visit [place] for Bryan Stein, iamLUMBAR DISC Athletic Medicine - PT DISPLACEMENT (Primary [place] [facility] [place] FOR Dx) Therapy ATHLETIC MED [address] [place] [address] [address] [place], [place] [phone] [id number] Social History Tobacco Use Types Packs/Day Years Used Date Smoking Tobacco: Never Assessed Sex Assigned at Date Recorded Not on file documented as of this encounter Progress Notes Bryan Stein - 08/17/2005 5:22 PM CST Please refer to the daily flowsheet for treatment today. 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
--- OUTSIDE RECORDS SUMMARY | 2022-06-29 15:51 | XMS_ITS | Encounter Summary ---
:1960 Author Organization [place] Address [address] [facility] [place] [address] Care Team Providers Name Role Phone Miguel Brown MD Primary Care Provider [phone] Reason for Visit Auth/Cert Specialty Diagnoses / Procedures Referred By Contact Refer red To Contact Surgery Diagnoses RIGHT URETERAL STONE Sh Periop Services Procedures CYSTOURETEROSCOPY, WITH HOLMIUM LASER LITHOTRIPSY OF URETERAL CALCULUS AND STENT INSERTION [address] [place] [address] Phone: Referral ID Status Reason Start Date Expiration Date Visits Requ ested Visits Authorized [id number] 1 1 Encounter Details Date Type Department Care Team Description 02/12/2019 Hospital Encounter [facility] Vicente Perez Post operative state Niall Fonseca MD (Primary Dx) PreOP/Phase II [place] [address], UROLOGY [address] [facility] [address] [place] [id number] Social History Tobacco Use Types Packs/Day Years Used Date Smoking Tobacco: Never Smokeless Tobacco: Never Alcohol Use Standard Drinks/Week Comments Yes 0 (1 standard drink = 0.6 oz pure alcoho l) Sex Assigned at Date Recorded Not on file documented as of this encounter Last Filed Vital Signs Vital Sign Reading Time Taken Comments Blood Pressure 123/71 02/12/2019 9:04 AM CDT Pulse 56 02/12/2019 8:30 AM CDT Temperature 35.8 ??C (96.4 ??F) 02/12/2019 8:45 AM CDT Respiratory Rate 12 02/12/2019 9:04 AM CDT Oxygen Saturation 95% 02/12/2019 9:04 AM CDT Inhaled Oxygen Concentration - - Weight 88.9 kg (196 lb) 02/12/2019 6:00 AM CDT Height 177.8 cm (5' 10) 02/12/2019 6:00 AM CDT Body Mass Index 28.12 02/12/2019 6:00 AM CDT documented in this encounter Discharge Instructions Discharge InstructionsMena Shay RN - 02/12/2019 8:24 AM CDT [...] about your procedure, call Dr. Perez at [phone] documented in this encounter Medications at Time [...] draped in the usual sterile fashion. A 21-Bhutanese rigid cystoscope was inserted in the bladder. [...] again inserted into the bladder. A 4.7 Bhutanese x 26 cm stent was then placed [...] PEREZ MD MT: LELO Name: FREDY CARLSON Account: [id number] : 1960 Procedure Date: 02/12/2019 Document: [id number] cc: Miguel Brown MD [facility] Brief Op Note - Vicente Perez MD - 02/12/2019 8:03 AM CDT [facility] Urology Brief Operative Note Pre-operative diagnosis: RIGHT URETERAL STONE Post-operative diagnosis: Same Procedure: Procedure(s): CYSTOSCOPY RIGHT URETEROSCOPY, STONE REMOVAL RETROGRADE, STENT CHANGE Surgeon: VICENTE PEREZ MD Associate Professor Computer Science(s): None Anesthesia: General endotracheal anesthesia Estimated blood [...] be read by a radiologist or a [place] non-radiologis t provider. Vicente Perez MD IMG DIAGNOSTIC IMAGING ORDER MIGUEL Performing Organization Address City/State/ZIP Code Phon e Number [facility] Surgical pathology exam (02/12/2019 7:34 AM CDT) Component Value Ref Test Analysis Performed At [facility] Range Method Time Signature Copath Report Patient Name: FREDY CARLSON MR#: [id number] Specimen #: [id number] Collected: 02/12/2019 Received: 02/12/2019 Reported: 02/13/2019 13:34 [...] lab for calculus (stone) analysis. ??Franco only, major appliance assembly supervisor direct per Dr. Alamo. (Dictated by: Matthew Fan 019 09:33 AM) The technical component of this testing was completed at the [facility], with the professional compo nent performed at the [facility], [address] [place] [address] ??[phone] ([phone]) CPT Codes: A: 74080-SV COLLECTION SITE: Client: [facility] Location: SHOR (S) Specimen Anatomical Collection Method Collection Time Receive d Time (Source) Location / / Volume Laterality 02/12/2019 7:34 AM 9 8:22 CDT AM CDT Vicente Perez MD [facility] Performing Organization Address City/State/ZIP Code Phon e Number [place] Stone analysis (02/12/2019 7:34 AM CDT) [facility] Method Time Signature Stone SEE NOTE 02/15/2019 [place] Composition 8:48 AM CDT [facility] Comment: (Note) Calculi composed primarily of: 30% [...] omposition determined by FTIR analysis. Performed by [facility], [address] [place] [id number] [email or web address], Paul Broderick MD, Lab. Director Calculi Number 3 02/15/2019 8:48 AM CDT [facility] Calculi Size Various mm 02/15/2019 8:48 AM CDT [facility] Calculi Description SEE NOTE 02/15/2019 8:48 AM C DT [facility] Comment: (Note) Specimen consists of three, various size d (1 mm to 9 mm), brown/roberts, irregular calculi fragments. Stone Mass 41 mg 02/15/2019 8:[address] [facility] Specimen (Source) Anatomical Collection Method Collection Time Re ceived Time Location / / Volume Laterality Calculus specimen RIGHT KIDNEY 02/12/2019 7:34 AM (specimen) STRUCTURE / CDT Unknown Vicente Perez MD LAB - BODY FLUIDS ORDERABLES Performing Organization Address City/State/ZIP Code Phon e Number M [facility] [address] [place] [address] [facility] [address] [place] [address], U [phone] EKG CARDIAC - HIM SCAN (01/29/2018 12:00 AM CDT) Specimen (Source) Anatomical Location Collection Method / Collectio n Time Received Time / Laterality Volume 01/29/2018 Narrative This result has an attachment that is no t available. Provider Outside ECG ORDERABLES documented in this encounter Visit Diagnoses Diagnosis Postoperative state - Primary Other postprocedural status documented in this encounter [...] NS to facilitate titration of response., Post-procedure documented in this encounter Active and Recently [...] (COMPLETED) 0725 (Given - Provid er: Alana Mann, PRACTICAL NURSING FACULTY ENERGY ATTORNEY) 2 g, Intravenous, PRE-OP/PRE-PROCEDURE, Starting Johanny 02/12/19 [...] irrigation (CANCELED) 0731 (Given - Provider: Vicente Preez MD) PRN, Starting Johanny 02/12/19 at 0731, Intra-procedure sodium chloride 0.9% (bottle) irrigation (CANCELED) 0731 (Given - Provider: Vicente Perez MD) PRN, Starting Johanny 02/12/19 at 0731, Intra-procedure documented in this encounter Care Teams Rn Or Lpn Relationship Specialty Start Date End Date Miguel Brown MD PCP - General Family Practice 04/17/16 09/21/19 documented as of this encounter
--- OUTSIDE RECORDS SUMMARY | 2022-06-29 15:51 | XMS_ITS | Encounter Summary ---
:1960 Author Organization [place] Address [facility] [address] Care Team Providers Name Role Phone Doctor, Radhames MENDEZ Primary Care Provider Unavailable Encounter Details Date Type Department Care Team Description 07/20/2015 Orders Only [place] Miguel Lynn y history of CT MRI MD [place] ischemic heart disease [address] [facility] [address] [facility] [address] [place] [address] [place] [phone] Social History Tobacco Use Types Packs/Day Years Used Date Smoking Tobacco: Never Smokeless Tobacco: Never Alcohol Use Standard Drinks/Week Comments Yes 0 (1 standard drink = 0.6 oz pure alcoho l) Sex Assigned at Date Recorded Not on file documented as of this encounter Plan of Treatment Not on filedocumented as of this encounter Visit Diagnoses Diagnosis Family history of ischemic heart disease - Primary documented in this encounter Care Teams Hearing Dog Trainer Relationship Specialty Start Date End Date Radhames Major MD PCP - General 10/31/01 04/16/16 documented as of this encounter
--- OUTSIDE RECORDS SUMMARY | 2022-06-29 15:51 | XMS_ITS | Encounter Summary ---
:1960 Author Organization [facility] Address [address] [place] [address] Care Team Providers Name Role Phone Miguel Brown MD Primary Care Provider [phone] Reason for Visit Reason Comments Dizziness Encounter Details Date Type Department Care Team Description 01/07/2017 Emergency [facility] Luc Spence, Vertigo; Emergency Dept [facility] Arachnoid cyst [address] [place] [id number] [phone] Social History Tobacco Use Types Packs/Day Years Used Date Smoking Tobacco: Never Smokeless Tobacco: Never Alcohol Use Standard Drinks/Week Comments Yes 0 (1 standard drink = 0.6 oz pure alcoho l) Sex Assigned at Date Recorded Not on file documented as of this encounter Last Filed Vital Signs Vital Sign Reading Time Taken Comments Blood Pressure 128/81 01/07/2017 8:06 AM CDT Pulse 57 01/07/2017 6:25 AM CDT Temperature 37.1 ??C (98.7 ??F) 01/07/2017 6:25 AM CDT Respiratory Rate 20 01/07/2017 6:25 AM CDT Oxygen Saturation 97% 01/07/2017 8:07 AM CDT Inhaled Oxygen Concentration - - Weight 89.4 kg (197 lb) 01/07/2017 6:25 AM CDT Height 180.3 cm (5' 11) 01/07/2017 6:25 AM CDT Body Mass Index 27.48 01/07/2017 6:25 AM CDT documented in this encounter Discharge Instructions Discharge InstructionsLuc Spence, - 01/07/2017 7:56 AM CDT Images from the original note were not included. Arachnoid Cyst (Leptomeningeal Cyst) An arachnoid cyst is a fluid-filled sac of the brain or spinal cord. It forms between the brain or spinal cord and the arachnoid membrane. This membrane is a thin layer of tissue around the brain. It???s one of the protective coverings around the brain. An arachnoid cyst contains cerebrospinal fluid (CSF). This is a normal fluid that???s found around the brain and spinal cord. These cysts appear mostoften in children, but they may also occur in adults. What causes an arachnoid cyst? The cyst may form during the first few weeks when a baby is growing in the womb. This is called a primary arachnoid cyst. In some cases, the cyst may be caused later in life. It can be caused by a headinjury, meningitis, or tumors, or from brain surgery. This type is called a secondary arachnoid cyst. These are less common than primary arachnoid cysts. Symptoms of an arachnoid cyst The symptoms vary depending on where the cyst is. In some cases, a small cyst may not cause any symptoms. Some cysts cause no symptoms until they grow large. Symptoms can occur a bit differently in each person, but can include: ?? Headache ?? Nausea and vomiting ?? Vertigo or dizziness ?? Hearing or vision problems ?? Difficulties with balance and walking ?? Seizures An arachnoid cyst on the spinal cord can compress the cord or nerve roots and cause: ?? Back and leg pain ?? Numbness and tingling in arms or legs ?? Weakness in arms or legs ?? Problems with bowel and bladder control Diagnosing an arachnoid cyst In some cases, your health care provider may discover a cyst when it shows up on an imaging scan done for another reason. In other cases, you may have symptoms from the cyst. Your health care provider may refer you to a neurologist. This is a doctor who specializes in diagnosing and treating diseases of the central nervous system. Or you may be referred to a neurosurgeon. This is a surgeon who does brain or spinal cord surgery. The process to diagnose a cyst starts with a medical history and a physical exam. Your health care provider will ask about your symptoms and past medical conditions. He or she may also ask about your family???s medical history. The physical exam may include a neurologic exam. Imaging tests may be doneto look at the brain. Contrast dye may be used to help show more detail in the images. The tests mayinclude: ?? CT scan. This is a test that uses a series of X-rays and a computer to create images of the inside of the body. Scans may be done of your brain and spinal cord. ?? MRI. This test uses large magnets and a computer to create images of the body. MRI scans of your brain and spinal cord may be done to get more information about the cyst and nearby tissues. Scans may be repeated over time to learn if the cyst is growing. Treatment for an arachnoid cyst If a brain cyst is causing problems, your health care provider may advise removing it with surgery. If the cyst isn???t causing symptoms and isn???t growing, your health care provider may choose to watch it closely with repeated brain scans. Treatment depends mostly on the location and size of the cyst. If you need treatment, your health care provider may puncture the cyst sac and drain the fluid. The fluid drains into the CSF. Surgical removal of the cyst may also be a choice. Possible complications of an arachnoid cyst An arachnoid cyst that is untreated may cause permanent neurological damage as the cyst expands or bleeding occurs. Discuss treatment choices with your health care provider. ?? When to call the health care provider Call your health care provider right away if you have any of these: ?? Severe sudden headache (call 911) ?? Seizures (call 911) ?? Nausea and vomiting ?? Vertigo or dizziness Dizziness (Uncertain Cause) Dizziness is a common symptom. It may be described as lightheadedness, spinning, or feeling like youare going to faint. Dizziness can have many causes. Be sure to tell the healthcare provider about: All medicines you take, including prescription, louo-gur-irrfzcd, herbs, and supplements Any other symptoms you have Any health problems you are being treated for Anything that causes the dizziness to get worse or better Today's exam did not show an exact cause for your dizziness.??Other tests may be needed. Follow up with your healthcare provider. Home care Dizziness that occurs with sudden standing may be a sign of mild dehydration. Drink extra fluids forthe next few days. If you recently started a new medicine, stopped a medicine, or had the dose of a current medicine changed,??talk with the prescribing healthcare provider. Your medicine plan may need adjustment. If dizziness lasts more than a few seconds, sit or lie down until it passes. This may help prevent injury in case you pass out. Do not drive??or use power tools or dangerous equipment until you have had no dizziness for at least48 hours. Follow-up care Follow up with your healthcare provider for further evaluation within the next 7 days or as advised. When to seek medical advice Call your healthcare provider for any of the following: Worsening of symptoms or new symptoms Passing out or seizure Repeated vomiting Headache Palpitations (the sense that your heart is fluttering or beating fast or hard) Shortness of breath Blood in vomit or stool (black or red color) Weakness of an arm or leg or one side of the face Vision or hearing changes Trouble walking or speaking Chest, arm, neck, back, or jaw pain ? [phone] [employer]. [address] [place] [address]. All rights reserved. This information is not intended as a substitute for professional medical care. Always follow your healthcare professional's instructions. ? Hearing or vision problems ?? Difficulties with balance and walking ?? Back and leg pain ?? Numbness and tingling in arms or legs ? [phone] [employer]. [address] [place] [address]. All rights reserved. This information is not intended as a substitute for professional medical care. Always follow your healthcare professional's instructions. documented in this encounter Medications at Time of Discharge Medication Sig Dispensed Refills Start Date End Date azithromycin (ZITHROMAX) Two tablets first 6 tablet 0 10/1702/12/2019 250 MG day, then one tablet tabletIndications: daily for four days. Productive cough, Purulent nasal discharge fluticasone (FLONASE) 50 [place] 2 sprays into 1 Package 2 02/12/2019 MCG/ACT nasal both nostrils daily. sprayIndications: Allergic rhinitis, cause unspecified meclizine (ANTIVERT) Take 1-2 tablets 30 tablet 0 7 02/12/2019 12.5 MG tablet (12.5-25 mg) by mouth 4 times daily as needed for dizziness oxaprozin (DAYPRO) 600 Take 1,200 mg by 0 10/01/2019 MG tablet mouth as needed. traMADol (ULTRAM) 50 MG Take by mouth every 6 0 02/12/2019 tablet hours as needed. documented as of this encounter ED Notes Alexandra Wells RN - 01/07/2017 8:08 AM CDT Pt ready to dc home with s.o. Able to ambulate to BR safely with sba, minimal dizziness. Plan to dc home with paperwork and prescription x1. Kathy Okeefe RN - 01/07/2017 6:27 AM CDT Pt to ER with c/o severe dizziness, nausea, nothing makes it better, now also c/o ALFRED to top half of head Luc Spence DO - 01/07/2017 6:23 AM CDT History Chief Complaint: Dizziness The history is provided by the patient. Sawyer Carlson is an otherwise healthy 56 year old male who presents to the ED for evaluation of dizziness. The patient reports that at 2am, he felt a sudden onset of lightheadedness, dizziness, headache and nausea, which describes like feeling hammered (although the patient did not drink alcohol). He mentions as long as his eyes are closed, he feels okay. He states that when he rolled over to his side in bed, the room would start spinning. When he started purposefully breathing slower, he states it helped slow the feelings down. He also complains of feeling very thirsty and experiencing cotton mouth. He denies any palpitations. He was feeling fine yesterday and has not been exposed to any known illness. He mentions he remembers having an incident of vertigo about 25- 30 years ago and his dizziness feels similar to this, however he believes the nausea and headache are new symptoms. 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 Cardiovascular: Negative for palpitations. Neurological: Positive for dizziness, light-headedness and headaches. All other systems reviewed and are negative. Physical Exam First Vitals: BP: 148/89 Pulse: 57 Temp: 98.7 ??F (37.1 ??C) Resp: 20 Height: 180.3 cm (5' 11) Weight: 89.4 kg (197 lb) SpO2: 99 % Physical Exam Constitutional: Patient appears well-developed and well-nourished. HENT: Head: No external signs of trauma noted. Eyes: Pupils are equal, round, and reactive to light. No papilledema. No nystagmus noted. Cardiovascular: Normal rate, regular rhythm, normal heart sounds and intact distal pulses. Pulmonary/Chest: Effort normal and breath sounds normal. No respiratory distress. No wheezes noted. Abdominal: Soft. There is no tenderness. There is no rebound. Neurological: Patient is alert and oriented to person, place, and time. Speech is fluent, cognition is normal. CN 2-12 intact (PERRL, EOMI, symmetric smile, equal eye squeeze and forehead raise, normal and equal sensation to bilateral forehead/cheek/chin, equal hearing to finger rub, midline tongue protrusion with nl ycnc-md-hnne movement, normal shoulder shrug). RUE strength 5/5: deputy treasurer, finger abd, wrist flex/ext, elbow flex/ext. LUE strength 5/5: deputy treasurer, finger abd, wrist flex/ext, elbow flex/ext. RLE strength 5/5: ankle flex/ext, knee flex/ext, hip flex. LLE strength 5/5: ankle flex/ext, knee flex/ext, hip flex. Sensation equal in all 4 extremities. No arm drift. ?? Cerebellar: Normal ltirga-kqzj-ejvalw on left; patient would not move right arm due to IV placement. Normal rapid pronation/supination and hand rolling). Normal doei-su-sfbi bilaterally Normal gait. Skin: Skin is warm and dry. Emergency Department Course ECG done at 6:50. ECG read at 6:52. Indication: Dizziness Rate 51 bpm. GA interval 140. QRS duration 106. QT/QTc 444/409. P-R-T axes -8 - 14 4. Sinus bradycardia. Otherwise normal ECG. Imaging: Radiographic findings were communicated with the patient who voiced understanding of the findings. CT Head Neck w/o and w/ Contrast: Pending. The Radiologist called at 7:45am to report the CT Head Neck was unremarkable. CT Head w/o Contrast: IMPRESSION: 1. Left posterior fossa arachnoid cyst, likely incidental. 2. Nothing acute. 3. CT angiogram will follow. Per Radiology. Laboratory: CBC: WBC 6.4, HGB 15.3, PLT 189 CMP: Glucose 103(H), Calcium 8.2(L), o/w WNL (Creat 0.88) Interventions: 6:35 Zofran 4mg Injection 6:36 Zofran 2mg Injection 6:49 NS Bolus IV 6:52 Antivert tablet 25mg PO 7:13 NS Bolus IV Emergency Department Course: Nursing notes and vitals reviewed. I performed an exam of the patient as documented above. 7:45 I spoke with Radiology regarding the patient's CT results. 7:[address] Dobbins in Neurology regarding the patient's history and the incidental finding of the arachnoid cyst on CT. He recommended an outpatient MRI if the patient is not feeling better. Findings and plan explained to the patient. Patient discharged home with instructions regarding supportive care, medications, and reasons to return. The importance of close follow-up was reviewed. The patient was prescribed Meclizine. Impression & Plan Medical Decision Making: Sawyer Carlson is a 56 year old male who presents to the ER for evaluation of dizziness. He also describes pressure on the top of his head that has seemed to migrate more unilaterally to the right side ofhis head. The patient feels quite a bit better after Meclizine in the ER. His blood work is normal and his CT imaging demonstrates only a left posterior fossa arachnoid cyst without any noted mass effect. Again the patient feels much better and at this time I believe he is stable for discharged. I talked with Neurology, who states the same thing and notes that if the patient's symptoms seem come backand he feels different, that elective outpatient MRI could be performed in 2-3 days. Anticipatory guidance given prior to discharge. Diagnosis: 1. (R42) Vertigo 2. (G93.0) Arachnoid cyst Disposition: The patient was discharged home. Discharge Medications: New Prescriptions MECLIZINE (ANTIVERT) 12.5 MG TABLET Take 1-2 tablets (12.5-25 mg) by mouth 4 times daily as needed for dizziness 01/07/2017 [facility] EMERGENCY DEPARTMENT ICarmen, sharad serving as a scribe at 6:36 on January 07, 2017 to document services personallyperformed by Dr. Spence, based on my observations and the provider's statements to me. Luc Spence DO 01/07/17 1233 documented in this encounter Plan of Treatment Not on filedocumented as of this encounter Procedures Procedure Name Priority Date/Time Associated Comments Diagnosis CTA HEAD NECK W STAT 01/07/2017 7:37 AM Result s for this CONTRAST CDT procedure are i n the results section. CT HEAD W/O CONTRAST STAT 01/07/2017 7:34 AM R esults for this CDT procedure are i n the results section. EKG 12-LEAD, TRACING STAT 01/07/2017 6:50 AM R esults for this ONLY CDT procedure are i n the results section. CBC WITH PLATELETS & STAT 01/07/2017 6:30 AM R esults for this DIFFERENTIAL CDT procedure are i n the results section. COMPREHENSIVE STAT 01/07/2017 6:30 AM Results for this METABOLIC PANEL CDT procedure ar e in the results section. documented in this encounter Results CT Head Neck Angio w/o & w Contrast (01/07/2017 7:37 AM CDT) Anatomical Region Laterality Modality Head, SUBRAD CT NEURO, SUBRAD CT NEURO, UMP CT NEURO Computed Tomography Specimen (Source) Anatomical Location Collection Method / Collectio n Time Received Time / Laterality Volume Impressions 01/07/2017 10:49 AM CDT IMPRESSION: Moderate tortuosity of the cervical internal carotid arteries on both sides. Otherwise, nayan l head and neck CT angiogram. I agree with the preliminary report prov ided by Dr. Tong at 0747 hours on 01/07/2017. Radiation dose for this scan was reduced using automated exposure control, adjustment of the mA and/or kV according to patient size, or iterative reconstruction technique. PERFECTO NIXON MD Narrative 01/07/2017 10:[address] ANGIOGRAM OF THE HEAD AND NECK WITHOUT AND WITH CONTRAST ??01/07/2017 7:37 AM COMPARISON: None. HISTORY: Evaluate for dissection/thrombo embolism. TECHNIQUE: ??Precontrast localizing scan s were followed by CT angiography with an injection of 70 mL I sovue-370 nonionic intravenous contrast material with scans through the head and neck. ??Images were transferred to a separate 3-D workstatio n where multiplanar reformations and 3-D images were created . ??Estimates of carotid stenoses are made relative to the distal internal carotid artery diameters except as noted. ?? FINDINGS: Neck CTA: The bilateral common carotid a rteries are patent without stenosis. The cervical internal carotid arteries bilaterally are tortuous but are patent without stenosis . The dominant left and tiny right vertebral arteries are patent with out stenosis or occlusion. Head CTA: The basilar, intracranial bila teral distal internal carotid, bilateral anterior cerebral, bilateral m iddle cerebral and bilateral posterior cerebral arteries are patent a nd unremarkable. The anterior commuting artery is patent and unremarka ble. Procedure Note Perfecto Nixon MD - 01/07/2017Forma tting of this note might be different from the original. CT ANGIOGRAM OF THE HEAD AND NECK WITHOU T AND WITH CONTRAST 01/07/2017 7:37 AM COMPARISON: None. HISTORY: Evaluate for dissection/thrombo embolism. TECHNIQUE: Precontrast localizing scans were followed by CT angiography with an injection of 70 mL I sovue-370 nonionic intravenous contrast material with scans through the head and neck. Images were transferred to a separate 3-D workstatio n where multiplanar reformations and 3-D images were created . Estimates of carotid stenoses are made relative to the distal internal carotid artery diameters except as noted. FINDINGS: Neck CTA: The bilateral common carotid a rteries are patent without stenosis. The cervical internal carotid arteries bilaterally are tortuous but are patent without stenosis . The dominant left and tiny right vertebral arteries are patent with out stenosis or occlusion. Head CTA: The basilar, intracranial bila teral distal internal carotid, bilateral anterior cerebral, bilateral m iddle cerebral and bilateral posterior cerebral arteries are patent a nd unremarkable. The anterior commuting artery is patent and unremarka ble. IMPRESSION: Moderate tortuosity of the c ervical internal carotid arteries on both sides. Otherwise, nayan l head and neck CT angiogram. I agree with the preliminary report prov ided by Dr. Tong at 0747 hours on 01/07/2017. Radiation dose for this scan was reduced using automated exposure control, adjustment of the mA and/or kV according to patient size, or iterative reconstruction technique. PERFECTO NIXON MD Luc Spence DO IMG CT ORDERABLES CT Head w/o Contrast (01/07/2017 7:34 AM CDT) Anatomical Region Laterality Modality Head, SUBRAD CT NEURO, SUBRAD CT NEURO, UMP CT NEURO Computed Tomography Specimen (Source) Anatomical Location Collection Method / Collectio n Time Received Time / Laterality Volume Impressions 01/07/2017 7:38 AM CDT IMPRESSION: 1. Left posterior fossa arachnoid cyst, likely incidental. 2. Nothing acute. 3. CT angiogram will follow. OBIE TONG MD Narrative 01/07/2017 7:[address] HEAD W/O CONTRAST ??01/07/2017 7:34 AM HISTORY: Dizziness. TECHNIQUE: Scans were obtained through t he head without IV contrast. Radiation dose for this scan was reduced using automated exposure control, adjustment of the mA and/or kV according to patient size, or iterative reconstruction technique. COMPARISON: None. FINDINGS: 2 cm x 3.5 cm arachnoid cyst i n the left upper lateral posterior fossa, likely incidental. ??No hemorrhage or intra-axial mass. No evidence for recent infarction. Paranasal sinuses are clear. Procedure Note Obie Tong MD - 01/07/2017Forma tting of this note might be different from the original. CT HEAD W/O CONTRAST 01/07/2017 7:34 AM HISTORY: Dizziness. TECHNIQUE: Scans were obtained through t he head without IV contrast. Radiation dose for this scan was reduced using automated exposure control, adjustment of the mA and/or kV according to patient size, or iterative reconstruction technique. COMPARISON: None. FINDINGS: 2 cm x 3.5 cm arachnoid cyst i n the left upper lateral posterior fossa, likely incidental. No h emorrhage or intra-axial mass. No evidence for recent infarction. Paranasal sinuses are clear. IMPRESSION: 1. Left posterior fossa arachnoid cyst, likely incidental. 2. Nothing acute. 3. CT angiogram will follow. OBIE TONG MD Luc Spence DO IMG CT ORDERABLES EKG 12-lead, tracing only (01/07/2017 6:50 AM CDT) [facility] Method Time Signature Interpretation ECG Click View RADIOLOGY Image link RESULTS to view waveform and result Specimen (Source) Anatomical Collection Method Collection Time Re ceived Time Location / / Volume Laterality 01/07/2017 6:50 AM CDT Luc Spence DO ECG ORDERABLES Performing Organization Address City/State/ZIP Code Phon e Number RADIOLOGY RESULTS (ABNORMAL) Comprehensive metabolic panel (01/07/2017 6:30 AM CDT) [facility] Method Time Signature Sodium 139 133 - 144 [place] mmol/L [facility] Potassium 4.0 3.4 - 5.3 [place] mmol/L [facility] Chloride 107 94 - 109 [place] mmol/L [facility] Carbon Dioxide 28 20 - 32 [place] mmol/L [facility] Anion Gap 4 3 - 14 [place] mmol/L [facility] Glucose 103 (H) 70 - 99 [place] mg/dL [facility] Urea Nitrogen 13 7 - 30 [place] mg/dL [facility] Creatinine 0.88 0.66 - [place] 1.25 [facility] mg/dL HOSPITAL GFR Estimate >90 >60 [place] Non GFR Calc mL/min/1. [facility] 7m2 [facility] GFR Estimate If >90 >60 [place] Black GFR Calc mL/min/1. [facility] 7m2 HOSPITAL Calcium 8.2 (L) 8.5 - [place] 10.1 [facility] mg/dL [facility] Bilirubin Total 0.9 0.2 - 1.3 [place] mg/dL [facility] Albumin 3.5 3.4 - 5.0 [place] g/dL [facility] Protein Total 7.0 6.8 - 8.8 [facility] g/dL [facility] Alkaline 73 40 - 150 [place] Phosphatase U/L [facility] ALT 29 0 - 70 [place] U/L [facility] AST 19 0 - 45 [place] U/L [facility] Specimen Anatomical Collection Method Collection Time Receive d Time (Source) Location / / Volume Laterality Blood specimen 01/07/2017 6:30 AM 017 6:42 (specimen) CDT AM CDT Luc Spence DO LAB - BLOOD ORDERABLES Performing Organization Address City/State/ZIP Code Phon e Number [facility] [address] [place], [place] [address] [facility] [address] [phone] CBC with platelets differential (01/07/2017 6:30 AM CDT) [facility] Method Time Signature WBC 6.4 4.0 - [place] 11.0 [facility] 10e9[facility] RBC Count 5.48 4.4 - 5.9 [place] 10e12/[facility] Hemoglobin 15.3 13.3 - [place] 17.7 g/dL [facility] Hematocrit 45.3 40.0 - [place] 53.0 % [facility] MCV 83 78 - 100 [facility] MCH 27.9 26.5 - [place] 33.0 pg [facility] MCHC 33.8 31.5 - [place] 36.5 g/dL [facility] RDW 12.8 10.0 - [place] 15.0 % [facility] Platelet Count 189 150 - [address] Diff Method Automated [facility] % Neutrophils 55.3 % [facility] % Lymphocytes 34.0 % [facility] % Monocytes 6.3 % [facility] % Eosinophils 3.1 % [facility] % Basophils 0.8 % [facility] % Immature 0.5 % [place] Granulocytes [facility] Nucleated RBCs 0 0 /100 [facility] Absolute 3.5 1.6 - 8.3 [place] Neutrophil 10e9/L [facility] Absolute 2.2 0.8 - 5.3 [place] Lymphocytes 10e9/[facility] Absolute 0.4 0.0 - 1.3 [place] Monocytes e9/[facility] Absolute 0.2 0.0 - 0.7 [place] Eosinophils e9/[facility] Absolute 0.1 0.0 - 0.2 [place] Basophils [id number] Abs Immature 0.0 0 - 0.4 [place] Granulocytes [address] [place] [address] Absolute 0.0 [place] Nucleated RBC [facility] Specimen Anatomical Collection Method Collection Time Receive d Time (Source) Location / / Volume Laterality Blood specimen 01/07/2017 6:30 AM 017 6:42 (specimen) CDT AM CDT Luc Spence DO LAB - BLOOD ORDERABLES Performing Organization Address City/State/ZIP Code Phon e Number [place] [address] [address] [place], [place] [address] [phone] [facility] [address] [phone] documented in this encounter Visit Diagnoses Diagnosis Vertigo Dizziness and giddiness Arachnoid cyst Cerebral cysts documented in this encounter Administered Medications Inactive Administered Medications - up to 3 most recent administrations Medication Order MAR Action Action Date Dose Rate Site 0.9% sodium chloride BOLUS New Bag 01/07/2017 6:55 AM CDT 1,000 mLs 1000 mL/hr Intravenous, 1,000 mL, ONCE, at 1,000 mL/hr, Administer over 1 Hours, On Sat01/07/17 at 0649, For 1 dose 0.9% sodium chloride BOLUS New Bag 01/07/2017 7:18 AM CDT 80 mLs Intravenous, 1,000 mL, ONCE, On Sat01/07/17 at 0713, For 1 dose iopamidol (ISOVUE-370) solution 500 mL Given 01/07/2017 7:18 AM CDT 70 mLs 500 mL, Intravenous, ONCE, On Sat01/07/17 at 0713, For 1 dose meclizine (ANTIVERT) tablet 25 mg Given 01/07/2017 6:55 AM CDT 25 mg 25 mg, Oral, ONCE, On Sat01/07/17 at 0652, For 1 dose ondansetron (ZOFRAN) injection 4 mg Given 01/07/2017 6:38 AM CDT 4 mg 4 mg, Intravenous, ONCE, Administer over 2-5 Minutes, On Sat01/07/17 at 0635, For 1 dose, Irritant. documented in this encounter Active and Recently Administered Medications Times are shown in CDT. Scheduled Medication Order 01/05/2017 01/06/2017 01/07/2017 0.9% sodium chloride BOLUS (COMPLETED) 0655 (New Bag - Provider: Jonathan Shore RN)0805 (Stopped - Provider: Alexandra Wells RN) Intravenous, 1,000 mL, ONCE, at 1,000 mL /hr, Administer over 1 Hours, On Sat01/07/17 at 0649, For 1 dose 0.9% sodium chloride BOLUS (COMPLETED) 07 (New Bag - Provider: Katia Aldana - Comment: bulk)0723 (Stopped - Provider: Katia Aldana) Intravenous, 1,000 mL, ONCE, Sat01/07/17 at 0713, For 1 dose iopamidol (ISOVUE-370) solution 500 mL (COMPLETED) 717 (Given - Provider: Katia Aldana - Comment: bulk) 500 mL, Intravenous, ONCE, Sat01/07/17 at 0713, For 1 dose meclizine (ANTIVERT) tablet 25 mg (COMPLETED) 654 (Given - Provider: Jonathan Shore RN) 25 mg, Oral, ONCE, Sat01/07/17 at 0652, For 1 dose ondansetron (ZOFRAN) injection 4 mg (COMPLETED) 637 (Given - Provider: Jonathan Shore RN) 4 mg, Intravenous, ONCE, Administer over 2-5 Minutes, Sat01/07/17 at 0635, For 1 dose, Irritant. documented in this encounter Care Teams Parcel Post Delivery Relationship Specialty Start Date End Date Miguel Brown MD PCP - General Family Practice 04/17/16 09/21/19 documented as of this encounter
--- OUTSIDE RECORDS SUMMARY | 2022-06-29 15:51 | XMS_ITS | Encounter Summary ---
:1960 Author Organization [facility] Address [address] [place] [address] Care Team Providers Name Role Phone DoctorRadhames MD Primary Care Provider Unavailable Encounter Details Date Type Department Care Team Description 08/14/2005 Therapy Visit [place] for Bryan Stein, [facility] - PT DISPLACEMENT (Primary [place] [facility] FOR Dx) Therapy ATHLETIC MED [address] [place] [address] [address] [place], [place] [phone] Social History Tobacco Use Types Packs/Day Years Used Date Smoking Tobacco: Never Assessed Sex Assigned at Date Recorded Not on file documented as of this encounter Progress Notes Bryan Stein - 08/14/2005 6:01 PM CST Please refer to the daily flowsheet for treatment today. 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
--- OUTSIDE RECORDS SUMMARY | 2022-06-29 15:51 | XMS_ITS | Encounter Summary ---
:1960 Author Organization [facility] Address [facility] [place] [address] Care Team Providers Name Role Phone Miguel Brown MD Primary Care Provider [phone] Reason for Visit Reason Comments Abdominal Pain abd pain RLQ sharp pain then radiated into right flank for 1 hour with n/v no urinary sx's Encounter Details Date Type Department Care Team Description 01/20/2019 Emergency [facility] Emergency Dept MD Dr[facility] [address] [facility] [place] [id number] G[place] [phone] [address] [place] [address] (Wo rk) Social History Tobacco Use Types Packs/Day Years Used Date Smoking Tobacco: Never Smokeless Tobacco: Never Alcohol Use Standard Drinks/Week Comments Yes 0 (1 standard drink = 0.6 oz pure alcoho l) Sex Assigned at Date Recorded Not on file documented as of this encounter Last Filed Vital Signs Vital Sign Reading Time Taken Comments Blood Pressure 127/102 01/20/2019 10:32 AM CDT Pulse 61 01/20/2019 10:32 AM CDT Temperature 36.6 ??C (97.8 ??F) 01/20/2019 7:21 AM CDT Respiratory Rate 18 01/20/2019 7:21 AM CDT Oxygen Saturation 99% 01/20/2019 10:33 AM CDT Inhaled Oxygen Concentration - - Weight 90.7 kg (200 lb) 01/20/2019 7:21 AM CDT Height 177.8 cm (5' 10) 01/20/2019 7:21 AM CDT Body Mass Index 28.7 01/20/2019 7:21 AM CDT documented in this encounter Discharge Instructions Discharge InstructionsLucrecia Del Toro MD - 01/20/2019 10:30 AM CDT Opioid Medication Information You have been given a prescription for an opioid (narcotic) pain medicine and/or have received a pain medicine while here in the Emergency Department. These medicines can make you drowsy or impaired. You must not drive, operate dangerous equipment, or engage in any other dangerous activities while taking these medications. If you drive while taking these medications, you could be arrested for DUI, ordriving under the influence. Do not drink any alcohol while you are taking these medications. Opioid pain medications can cause addiction. If you have a history of chemical dependency of any type, you are at a higher risk of becoming addicted to pain medications. Only take these prescribed medications to treat your pain when all other options have been tried. Take it for as short a time and asfew doses as possible. Store your pain pills in a secure place, as they are frequently stolen and provide a dangerous opportunity for children or visitors in your house to start abusing these powerful medications. We will not replace any lost or stolen medicine. As soon as your pain is better, you should flush all your remaining medication. Many prescription pain medications contain Tylenol?? (acetaminophen), including Vicodin??, Tylenol #3??, [place]??, Lortab??, and Percocet??. You should not take any extra pills of Tylenol?? if you are using these prescription medications or you can get very sick. Do not ever take more than 4000 mg of acetaminophen in any 24 hour period. All opioids tend to cause constipation. Drink plenty of water and eat foods that have a lot of fiber, such as fruits, vegetables, prune juice, apple juice and high fiber cereal. Take a laxative if you don?t move your bowels at least every other day. Miralax??, Milk of Magnesia, Colace??, or Senna?? can be used to keep you regular. AttachmentsThe following attachments cannot be sent through Care Everywhere. Kidney Stone w/ Colic (Syriac)documented in this encounter Medications at Time of Discharge Medication Sig Dispensed Refills Start Date End Date azithromycin (ZITHROMAX) Two tablets first 6 tablet 0 10/1702/12/2019 250 MG day, then one tablet tabletIndications: daily for four days. Productive cough, Purulent nasal discharge fluticasone (FLONASE) 50 [place] 2 sprays into 1 Package 2 02/12/2019 MCG/ACT nasal both nostrils daily. sprayIndications: Allergic rhinitis, cause unspecified meclizine (ANTIVERT) Take 1-2 tablets 30 tablet 0 7 02/12/2019 12.5 MG tablet (12.5-25 mg) by mouth 4 times daily as needed for dizziness ondansetron (ZOFRAN ODT) Take 1 tablet (4 mg) 10 tablet 0 0 01/20/2019 02/12/2019 4 MG ODT tab by mouth every 6 hours as needed for nausea or vomiting oxaprozin (DAYPRO) 600 Take 1,200 mg by 0 10/01/2019 MG tablet mouth as needed. oxyCODONE-acetaminophen Take 1 tablet by 12 tablet 0 201802/12/2019 (PERCOCET) 5-325 MG mouth every 6 hours tablet as needed for moderate to severe pain tamsulosin (FLOMAX) 0.4 Take 1 capsule (0.4 7 capsule 0 03/201902/12/2019 MG capsule mg) by mouth daily for 7 days traMADol (ULTRAM) 50 MG Take by mouth every 6 0 02/12/2019 tablet hours as needed. documented as of this encounter ED Notes Stewart Ndiaye RN - 01/20/2019 7:22 AM CDT Bed: ED06 Expected date: Expected time: Means of arrival: Comments: triage Lucrecia Del Toro MD - 01/20/2019 7:17 AM CDT History Chief Complaint: Abdominal Pain NEYDA Carlson is a 58 year old male who presents to the emergency department today for evaluation ofabdominal pain. Patient states he had a sudden onset waxing and waning right lower quadrant abdominal wrapping around towards his right flank, an hour and half prior to arrival. He endorses the abdominal pain is constant, but when the pain intensifies, the right flank has sharp pain. The patient reports pain is exacerbated with sitting and lying down because he cannot get comfortable. Additionally, he endorses episode of diarrhea this morning and on his way to work this morning he felt nauseated andpulled over to the side of the road to vomit. When he arrived at work, he tried to eat some ute crackers, but vomited soon after he ate. Patient denies dysuria, difficulty urinating, frequency, hematuria, or constipation. Allergies: No Known Drug Allergies Medications: Medications reviewed. No pertinent medications. Past Medical History: Past medical history reviewed. No pertinent medical history. Past Surgical History: Orthopedic surgery Family History: Mother: cancer Father: diabetes Social History: The patient was accompanied to the ED by himself. Smoking Status: Never Smoker Smokeless Tobacco: Never Used Alcohol Use: Positive Drug Use: Negative PCP: Miguel Brown Marital Status: Review of Systems Gastrointestinal: Positive for abdominal pain (right lower quadrant), diarrhea, nausea and vomiting.Negative for constipation. Genitourinary: Positive for flank pain (right). Negative for difficulty urinating, dysuria, frequency and hematuria. All other systems reviewed and are negative. Physical Exam Patient Vitals for the past 24 hrs: BP Temp Temp src Pulse Heart Rate Resp SpO2 Height Weight 01/20/19 1033 -- -- -- -- -- -- 99 % -- -- 01/20/19 1032 (!) 127/102 -- -- 61 -- -- -- -- -- 01/20/19 0721 160/82 97.8 ??F (36.6 ??C) Temporal 68 68 18 97 % 1.778 m (5' 10) 90.7 kg (200 lb) Physical Exam General/Appearance: appears stated age, well-groomed, appears in moderate distress -- walking about room Eyes: EOMI, no scleral injection, no icterus ENT: MMM Neck: supple, nl ROM, no stiffness Cardiovascular: RRR, nl S1S2, no m/r/g, 2+ pulses in all 4 extremities, cap refill <2sec Respiratory: CTAB, good air movement throughout, no wheezes/rhonchi/rales, no increased WOB, no retractions Back: no lesions GI: abd soft, non-distended, no reproducible ttp, no HSM, no rebound, no guarding, nl BS MSK: AVILES, good tone, no bony abnormality Skin: warm and well-perfused, no rash, no edema, no ecchymosis, nl turgor Neuro: GCS 15, alert and oriented, no gross focal neuro deficits Psych: interacts appropriately Heme: no petechia, no purpura, no active bleeding Emergency Department Course Imaging: Radiology findings were communicated with the patient who voiced understanding of the findings. Abd/pelvis CT no contrast - Stone Protocol Proximal right ureteral stone causes right hydronephrosis. No other urinary tract calculi bilaterally. No left hydronephrosis. Simple left renal cyst measures 3.1 cm. No further follow-up of this lesion is recommended. COURTNEY EMERSON MD Reading per radiology Laboratory: Laboratory findings were communicated with the patient who voiced understanding of the findings. UA with microscopic: blood moderate(A), RBC 170(A), mucous present(A) o/w WNL CBC: WBC 10.3, HGB 15.3, PLT 176 CMP: glucose 136(H) o/w WNL (Creatinine 0.94) Interventions: 0747 NS 1000 ml IV 0747 Zofran 4 mg IV 0747 dilaudid 1 mg IV Emergency Department Course: 07 Nursing notes and vitals reviewed. 0726 I performed an exam of the patient as documented above. 0751 IV was inserted and blood was drawn for laboratory testing, results above. 0921 The patient provided a urine sample here in the emergency department. This was sent for laboratory testing, findings above. 1015 The patient was sent for a abd/pelvis CT stone protocol while in the emergency department, results above. 1026 Patient rechecked and updated. 1043 I personally reviewed the lab and image results with the patient and answered all related questions prior to discharge. Impression & Plan Medical Decision Making: Sawyer Carlson is a 58 year old male who presents to the emergency department today for evaluation ofRLQ pain radiating to R flank. The patient presented with unilateral flank and abdominal pain are consistent with renal colic. CT confirms a ureteral stone. Pain is controlled with interventions in theEmergency Department. There is no fever or evidence of a concomitant urinary tract infection or renal dysfunction. The patient will be discharged with opioid analgesics and Ibuprofen for pain. Flomax will be prescribed daily to attempt to ease stone passage. Other etiologies for these symptoms (AAA, pyelonephritis, amongst others) are considered and have been excluded. They know to strain their urineto look for passage of stone. We also discussed return if increasing pain not controlled with pain meds, vomiting, and fever. Follow up with urology within one week, sooner if pain continues, as retrieval of the stone may be required for refractory symptoms. Diagnosis: ICD-10-CM 1. Kidney stone N20.0 Disposition: The patient is discharged to home. Discharge Medications: START taking Dose / Directions ondansetron 4 MG ODT tab Commonly known as: ZOFRAN ODT Dose: 4 mg Take 1 tablet (4 mg) by mouth every 6 hours as needed for nausea or vomiting Quantity: 10 tablet Refills: 0 oxyCODONE-acetaminophen 5-325 MG tablet Commonly known as: PERCOCET Dose: 1 tablet Take 1 tablet by mouth every 6 hours as needed for moderate to severe pain Quantity: 12 tablet Refills: 0 tamsulosin 0.4 MG capsule Commonly known as: FLOMAX Dose: 0.4 mg Take 1 capsule (0.4 mg) by mouth daily for 7 days Quantity: 7 capsule Refills: 0 Where to get your medicines Some of these will need a paper prescription and others can be bought over the counter. Ask your nurse if you have questions. Bring a paper prescription for each of these medications ?? ondansetron 4 MG ODT tab ?? oxyCODONE-acetaminophen 5-325 MG tablet ?? tamsulosin 0.4 MG capsule Scribe Disclosure: Hilda Prater, am serving as a scribe at 7:25 AM on 01/20/2019 to document services personally performed by Lucrecia Del Toro MD based on my observations and the provider's statements to me. EMERGENCY DEPARTMENT Lucrecia Del Toro MD 01/20/19 6950 documented in this encounter Plan of Treatment Not on filedocumented as of this encounter Procedures Procedure Name Priority Date/Time Associated Comments Diagnosis CT ABDOMEN PELVIS W/O STAT 01/20/2019 10:16 Re sults for this CONTRAST AM CDT procedure are i n the results section. ROUTINE UA WITH STAT 01/20/2019 9:21 AM Result s for this MICROSCOPIC CDT procedure are i n the results section. CBC WITH PLATELETS & STAT 01/20/2019 7:51 AM R esults for this DIFFERENTIAL CDT procedure are i n the results section. COMPREHENSIVE STAT 01/20/2019 7:51 AM Results for this METABOLIC PANEL CDT procedure ar e in the results section. documented in this encounter Results Abd/pelvis CT no contrast - Stone Protocol (01/20/2019 10:16 AM CDT) Anatomical Region Laterality Modality Abdomen/Pelvis, SUBRAD CT BODY, UMP CT ABDOMEN PELVIS, Computed Tomography RAD CT Specimen (Source) Anatomical Location Collection Method / Collectio n Time Received Time / Laterality Volume Impressions 01/20/2019 12:03 PM CDT IMPRESSION: Proximal right ureteral stone causes right hydronephrosis. No other urinary tract calculi bilateral ly. No left hydronephrosis. Simple left renal cyst measures 3.1 cm. No further follow-up of this lesion is recommended. COURTNEY EMERSON MD Narrative 01/20/2019 12:[address] ABDOMEN/PELVIS WITHOUT CONTRAST January 20, 2019 10:16 AM HISTORY: Flank pain, stone disease suspe cted. Right-sided abdomen pain radiating to flank. TECHNIQUE: Axial images are obtained fro m the lung bases to the symphysis without oral or IV contrast. C oronal reformatted images are also generated. Radiation dose for this scan was reduced using automated exposure control, adjustment o f the mA and/or kV according to patient size, or iterative reconstruc tion technique. FINDINGS: The lung bases are clear. Abdomen: There is a 0.4 cm stone proxima l right ureter on series 2, image 40 causing mild right hydronephros is. No other urinary tract calculi are noted bilaterally. No left h ydronephrosis. Allowing for the noncontrast technique, the liver, sp lyndon, gallbladder, pancreas and adrenal glands are unremarkable. Sim ple appearing cyst mid left kidney measures 3.1 cm. No enlarged lymp h nodes. Fat-containing umbilical hernia is present. The bowel i s unremarkable without obstruction or diverticulitis. Appendix is normal. Pelvis: The bladder, prostate and rectum are unremarkable. No enlarged pelvic lymph nodes or free fluid. Bone w indow examination demonstrates degenerative spine changes. No aggressiv e appearing bone lesions are evident. Procedure Note Courtney Emerson MD - 01/20/2019Form atting of this note might be different from the original. CT ABDOMEN/PELVIS WITHOUT CONTRAST January 10:16 AM HISTORY: Flank pain, stone disease suspe cted. Right-sided abdomen pain radiating to flank. TECHNIQUE: Axial images are obtained fro m the lung bases to the symphysis without oral or IV contrast. C oronal reformatted images are also generated. Radiation dose for this scan was reduced using automated exposure control, adjustment o f the mA and/or kV according to patient size, or iterative reconstruc tion technique. FINDINGS: The lung bases are clear. Abdomen: There is a 0.4 cm stone proxima l right ureter on series 2, image 40 causing mild right hydronephros is. No other urinary tract calculi are noted bilaterally. No left h ydronephrosis. Allowing for the noncontrast technique, the liver, sp lyndon, gallbladder, pancreas and adrenal glands are unremarkable. Sim ple appearing cyst mid left kidney measures 3.1 cm. No enlarged lymp h nodes. Fat-containing umbilical hernia is present. The bowel i s unremarkable without obstruction or diverticulitis. Appendix is normal. Pelvis: The bladder, prostate and rectum are unremarkable. No enlarged pelvic lymph nodes or free fluid. Bone w indow examination demonstrates degenerative spine changes. No aggressiv e appearing bone lesions are evident. IMPRESSION: Proximal right ureteral ston e causes right hydronephrosis. No other urinary tract calculi bilateral ly. No left hydronephrosis. Simple left renal cyst measures 3.1 cm. No further follow-up of this lesion is recommended. COURTNEY EMERSON MD Lucrecia Del Toro MD IMG CT ORDERABLES (ABNORMAL) UA with Microscopic (01/20/2019 9:21 AM CDT) [facility] Method Time Signature Color Urine Yellow 01/20/2019 [facility] 9:[address] [facility] Appearance Urine Clear 01/20/2019 [facility] 9:41 AM [facility] Glucose Urine Negative NEG^Negat 01/20/2019 [facility] edson mg/dL 9:41 AM [facility] Bilirubin Urine Negative NEG^Negat 01/20/2019 [facility] [place] 9:41 AM [facility] Ketones Urine Negative NEG^Negat 01/20/2019 [facility] [place] mg/dL 9:41 AM [facility] Specific [place] 1.010 1.003 - 01/20/2019 [facility] Urine 1.035 9:41 AM [facility] Blood Urine Moderate (A) NEG^Negat 01/20/2019 [facility] [place] 9:41 AM [facility] pH Urine 7.0 5.0 - 7.0 01/20/2019 [facility] pH 9:41 AM [facility] Protein Albumin Negative NEG^Negat 01/20/2019 [facility] Urine edson mg/dL 9:41 AM [facility] Urobilinogen Normal 0.0 - 2.0 01/20/2019 [facility] mg/dL mg/dL 9:41 AM [facility] Nitrite Urine Negative NEG^Negat 01/20/2019 [facility] [place] 9:41 AM [facility] Leukocyte Negative NEG^Negat 01/20/2019 [facility] Esterase Urine edson 9:41 AM [facility] Source Midstream 01/20/2019 [facility] Urine 9:34 AM [facility] WBC Urine 2 0 - 5 01/20/2019 [facility] /HPF 9:41 AM [facility] RBC Urine 170 (H) 0 - 2 01/20/2019 [facility] /HPF 9:41 AM [facility] Mucous Urine Present (A) NEG^Negat 01/20/2019 [facility] /LPF 9:41 AM [facility] Specimen (Source) Anatomical Collection Method Collection Time Re ceived Time Location / / Volume Laterality Examination of URINE SPECIMEN 01/20/2019 9:21 01/21/20 19 9:34 midstream urine OBTAINED BY CLEAN AM T AM [facility] specimen CATCH PROCEDURE / (procedure) Unknown Lucrecia Del Toro MD LAB - URINE ORDERABLES Performing Organization Address City/State/ZIP Code Phon e Number [facility] [address] [place] [address] [phone] [facility] [address], [place] [address], U [phone] (ABNORMAL) Comprehensive metabolic panel (01/20/2019 7:51 AM T) athologist Signature Sodium 140 133 - 144 01/20/2019 [facility] mmol/L 8:18 AM [facility] Potassium 3.9 3.4 - 5.3 01/20/2019 [facility] mmol/L 8:18 AM [facility] Chloride 109 94 - 109 01/20/2019 [facility] mmol/L 8:18 AM [facility] Carbon Dioxide 25 20 - 32 01/20/2019 [facility] mmol/L 8:27 AM [facility] Anion Gap 6 3 - 14 01/20/2019 [facility] mmol/L 8:27 AM [facility] Glucose 136 (H) 70 - 99 01/20/2019 [facility] mg/dL 8:27 AM [facility] Urea Nitrogen 13 7 - 30 01/20/2019 [facility] mg/dL 8:27 AM [facility] Creatinine 0.94 0.66 - 01/20/2019 [facility] 1.25 mg/dL 8:27 AM [facility] GFR Estimate 90 >60 01/20/2019 [facility] mL/min/{1. 8:27 AM [facility] 73_m2} [facility] Comment: Non GFR Calc Starting 09/02/2018, serum creatinine ba sed estimated GFR (eGFR) will be calculated using the Chronic Kidney Dise [facility] Epidemiology Collaboration (CKD-EPI) equation. GFR Estimate If >90 >60 mL/min/{1.73_m2} 01/20/2019 8: 27 AM [facility] Comment: GFR Calc Starting 09/02/2018, serum creatinine ba sed estimated GFR (eGFR) will be calculated using the Chronic Kidney Dise [facility] Epidemiology Collaboration (CKD-EPI) equation. Calcium 8.8 8.5 - 10.1 mg/dL 01/20/2019 8:27 AM [facility] Bilirubin Total 0.7 0.2 - 1.3 mg/dL 01/20/2019 8:28 AM [facility] Albumin 3.7 3.4 - 5.0 g/dL 01/20/2019 8:28 AM [facility] Protein Total 7.1 6.8 - 8.8 g/dL 01/20/2019 8:28 AM [facility] Alkaline Phosphatase 79 40 - 150 U/L 01/20/2019 8:28 AM [facility] ALT 31 0 - 70 U/L 01/20/2019 8:28 AM [facility] AST 17 0 - 45 U/L 01/20/2019 8:28 AM [facility] Specimen Anatomical Collection Method Collection Time Receive d Time (Source) Location / / Volume Laterality Blood specimen 01/20/2019 7:51 AM 019 7:57 (specimen) CDT AM CDT Lucrecia Del Toro MD LAB - BLOOD ORDERABLES Performing Organization Address City/State/ZIP Code Phon e Number [facility] [address] [place] [address] [phone] [facility] [address] [place] [address], U [phone] CBC with platelets differential (01/20/2019 7:51 AM CDT) [facility] Method Time Signature WBC 10.3 4.0 - 01/20/2019 [facility] 11.0 8:02 AM [facility] 10e9/L [facility] RBC Count 5.28 4.4 - 5.9 01/20/2019 [facility] 10e12/L 8:02 AM [facility] Hemoglobin 15.3 13.3 - 01/20/2019 [facility] 17.7 g/dL 8:02 AM [facility] Hematocrit 43.6 40.0 - 01/20/2019 [facility] 53.0 % 8:02 AM [facility] MCV 83 78 - 100 01/20/2019 [facility] fl 8:02 AM [facility] MCH 29.0 26.5 - 01/20/2019 [facility] 33.0 pg 8:02 AM [facility] MCHC 35.1 31.5 - 01/20/2019 [facility] 36.5 g/dL 8:02 AM [facility] RDW 12.9 10.0 - 01/20/2019 [facility] 15.0 % 8:02 AM [facility] Platelet Count 176 150 - 450 01/20/2019 [facility] 10e9/L 8:02 AM [facility] Diff Method Automated 01/20/2019 [facility] Method 8:02 AM [facility] % Neutrophils 80.8 % 01/20/2019 [facility] 8:02 AM [facility] % Lymphocytes 13.9 % 01/20/2019 [facility] 8:02 AM [facility] % Monocytes 3.9 % 01/20/2019 [facility] 8:02 AM [facility] % Eosinophils 0.9 % 01/20/2019 [facility] 8:02 AM [facility] % Basophils 0.1 % 01/20/2019 [facility] 8:02 AM [facility] % Immature 0.4 % 01/20/2019 [facility] Granulocytes 8:02 AM [facility] Nucleated RBCs 0 0 /100 01/20/2019 [facility] 8:02 AM [facility] Absolute 8.3 1.6 - 8.3 01/20/2019 [facility] Neutrophil 10e9/L 8:02 AM [facility] Absolute 1.4 0.8 - 5.3 01/20/2019 [facility] Lymphocytes 10e9/L 8:02 AM [facility] Absolute 0.4 0.0 - 1.3 01/20/2019 [facility] Monocytes 10e9/L 8:02 AM [facility] Absolute 0.1 0.0 - 0.7 01/20/2019 [facility] Eosinophils 10e9/L 8:02 AM [facility] Absolute 0.0 0.0 - 0.2 01/20/2019 [facility] Basophils 10e9/L 8:02 AM [facility] Abs Immature 0.0 0 - 0.4 01/20/2019 [facility] Granulocytes 10e9/L 8:02 AM [facility] Absolute 0.0 01/20/2019 [facility] Nucleated RBC 8:02 AM [facility] Specimen Anatomical Collection Method Collection Time Receive d Time (Source) Location / / Volume Laterality Blood specimen 01/20/2019 7:51 AM 019 7:57 (specimen) CDT AM CDT Lucrecia Del Toro MD LAB - BLOOD ORDERABLES Performing Organization Address City/State/ZIP Code Phon e Number [facility] [address] [place] [address] [facility] [address] [place] [address], U [phone] documented in this encounter Visit Diagnoses Diagnosis Kidney stone Calculus of kidney documented in this encounter Administered Medications Inactive Administered Medications - up to 3 most recent administrations Medication Order MAR Action Action Date Dose Rate Site 0.9% sodium chloride BOLUS New Bag 01/20/2019 7:47 AM CDT 1,000 mLs 2000 mL/hr Intravenous, 1,000 mL, ONCE, at 2,000 mL/hr, Administer over 30 Minutes, On Sat01/20/19 at 0731, For 1 dose HYDROmorphone (DILAUDID) injection 1 mg Given 01/20/2019 7:47 AM CDT 1 mg 1 mg, Intravenous, ONCE, On e 01/20/19 at 0731, For 1 dose HYDROmorphone (PF) (DILAUDID) injection 0.5 mg 0.5 mg, Intravenous, EVERY 15 MIN PRN, moderate to sev ere pain, Starting on Tu01/20/19 at 0730, For 3 doses, For ordered IV doses 0.1-4 mg give IV Push undiluted. Administer each 2mg over 2-5 minutes. ondansetron (ZOFRAN) injection 4 mg Given 01/20/2019 7:47 AM CDT 4 mg 4 mg, Intravenous, ONCE, Administer over 2-5 Minutes, On e 01/20/19 at 0731, For 1 dose, Irritant. For ordered IV doses 0.1-4 mg, give IV Push undiluted over 2-5 minutes. documented in this encounter Active and Recently Administered Medications Times are shown in CDT. Scheduled Medication Order 01/18/2019 01/19/2019 01/20/2019 0.9% sodium chloride BOLUS (COMPLETED) 0747 (New Bag - Provider: Echo Tavera RN)1033 (Stopped - Provider: Echo Tavera RN) Intravenous, 1,000 mL, ONCE, at 2,000 mL /hr, Administer over 30 Minutes, On 01/20/19 at 0731, For 1 dose HYDROmorphone (DILAUDID) injection 1 mg (COMPLETED) 746 (Given - Provider: Echo Tavera, SUNSHINE) 1 mg, Intravenous, ONCE, 1 dose, 01/20/19 at 0731 ondansetron (ZOFRAN) injection 4 mg (COMPLETED) 746 (Given - Provider: Echo Tavera, SUNSHINE) 4 mg, Intravenous, ONCE, Administer over 2-5 Minutes, 01/20/19 at 0731, For 1 dose, Irritant. For ordered IV doses 0.1-4 mg, give IV Push undiluted over 2-5 minutes. PRN Medication Order 01/18/2019 01/19/2019 01/20/2019 HYDROmorphone (PF) (DILAUDID) injection 0.5 mg 0.5 mg, Intravenous, EVERY 15 MIN PRN, 3 doses, Starting 01/20/19 at 0730, Until 01/20/19 at 1243, moderate to severe pain, For ordered IV doses 0.1-4 mg give IV Push undiluted. Administer each 2mg over 2-5 minutes. documented in this encounter Care Teams Onion Farmer Relationship Specialty Start Date End Date Miguel Brown MD PCP - General Family Practice 04/17/16 09/21/19 documented as of this encounter
--- OUTSIDE RECORDS SUMMARY | 2022-06-29 15:51 | XMS_ITS | Encounter Summary ---
:1960 Author Organization [facility] Address [address] [place] [id number] Care Team Providers Name Role Phone Doctor, None MD Primary Care Provider Unavailable Encounter Details Date Type Department Care Team Description 08/24/2005 Therapy Visit [facility] for Bryan Stein, iamLUMBAR DISC Athletic Medicine - PT DISPLACEMENT (Primary [facility] MANITOU FOR Dx) Therapy [facility] [address] [place] [address] [address] [place], [place] [phone] [id number] Social History Tobacco Use Types Packs/Day Years Used Date Smoking Tobacco: Never Assessed Sex Assigned at Date Recorded Not on file documented as of this encounter Progress Notes Bryan Stein - 11/21/2005 2:06 PM CUSTOMER ORDER CLERK Addended by: BRYAN STEIN J on: 11/21/2005 2:06:50 PM Modules accepted: Orders OMER ORDER CLERK Bryan Stein - 08/24/2005 5:36 PM CST Please refer to the daily flowsheet for treatment today. 11-21-2005 Pt discharged. See summary for status. 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
--- NOTE | 2022-06-29 16:00 | CRLHL7_ITS ---
For Patients: As a result of the Cures Act, medical imaging exams and procedure reports are released immediately into your electronic medical record. You may view this report before your referring provider. If you have questions, please contact your health care provider. INDICATION: LEFT LEG SWELLING TECHNIQUE: Ultrasound venous duplex left lower extremity. COMPARISON: None. FINDINGS: The left common femoral, superficial femoral, deep femoral, popliteal, posterior tibial, and greater saphenous veins are fully compressible normal waveforms. The contralateral right common femoral vein is also compressible with normal waveform. No masses evident. IMPRESSION: Normal ultrasound of the left lower extremity veins. Dictated by: Ankur Parada MD @ 06/29/2022 16:24:39 (Electronically Signed)
== END 2022-06-29 15:42 | disposition home or self-care (01) ==
PROVIDERS: PCP Family Medicine; Visit Provider Family Medicine
DX: M79.89 Other specified soft tissue disorders (principal)
CPT/HCPCS: 93971

== ENCOUNTER 2022-09-21 09:54 | Outpatient (CLI) | payer BC, SELFPAY ==
[2022-09-21 11:04] LABS: Chloride* 106 mmol/L (96-114); Potassium* 3.8 mmol/L (3.6-5.1); Sodium* 140 mmol/L (135-149)
[2022-09-21 11:07] LABS: Blood Urea Nitrogen* 12 mg/dL (7-30); Carbon Dioxide* 26 mmol/L (20-32); Cholesterol* 161 mg/dL (90-199); Creatinine* 0.8 mg/dL (0.5-1.5); Estimated Glomerular Filt Rate 102 ml/min
[2022-09-21 11:08] LABS: Calcium* 8.7 mg/dL (8.4-10.6); Glucose* 97 mg/dL (60-115); HDL Cholesterol* 41 mg/dL (>=40); LDL Cholesterol Calculated 99 mg/dL (<100); Triglycerides* 104 mg/dL (40-149)
[2022-09-21 11:50] LABS: PSA Screen* < 0.06 ng/mL (0.10-4.00)
== END 2022-09-21 09:55 | disposition home or self-care (01) ==
PROVIDERS: PCP Family Medicine; Visit Provider Family Medicine
DX: Z00.00 Encounter for general adult medical examination without abnormal findings (principal); I10 Essential (primary) hypertension; E55.9 Vitamin D deficiency, unspecified; Z12.5 Encounter for screening for malignant neoplasm of prostate
CPT/HCPCS: 80048; 80061; 84153

== ENCOUNTER 2023-02-20 11:15 | Outpatient (RCR) | payer BC, SELFPAY | END 2023-06-05 09:27 | disposition home or self-care (01) | PROVIDERS: PCP Family Medicine; Visit Provider Physician Assistant | DX: Z98.1 Arthrodesis status (principal); Z51.89 Encounter for other specified aftercare | CPT/HCPCS: 97032; 97110; 97140; 97161 ==

== ENCOUNTER 2023-11-14 07:50 | Outpatient (CLI) | payer BC, SELFPAY | END 2023-11-14 07:51 | disposition home or self-care (01) | LOC: AMB 11-22 10:55 | PROVIDERS: PCP Internal Medicine; Visit Provider Student in an Organized Health Care Education/Training Program | DX: M54.9 Dorsalgia, unspecified (principal) | CPT/HCPCS: A0425; A0427 ==

== ENCOUNTER 2023-11-14 08:30 | Observation (INO) | payer BC, SELFPAY ==
[2023-11-14] VITALS (31 sets, daily range): BP systolic 114–160; BP diastolic 73–93; PULSE 48–80; RESP 16–18; TEMP 36.6–36.9; O2SAT 90–97; BMI 30.8
--- NOTE | 2023-11-14 09:09 | ED.GENADULT ---
HPI - General Adult General Date Seen: 11/14/23 Chief complaint: Back Injury/Pain Stated complaint: Back Pain Time Seen by Provider: 11/14/23 08:33 Source: patient, family, EMS, RN notes reviewed and old records reviewed Mode of arrival: EMS Limitations: no limitations History of Present Illness HPI narrative: Patient is a 62 year old man with a history of lumbar fusion several years ago done at [place]. He has had occasional flares of back pain, but none severe. Last night, he said he had gone to the bathroom, bent over to throw something away and had onset of severe pain in his left lumbar region with some radiation into the left gluteal area. No numbness or weakness. No bowel or bladder changes. No recent fevers, unexpected weight loss, night sweats. If he lays still he is reasonably comfortable but if he tries to move at all he complains of severe pain. He found himself unable to get out of bed this morning due to pain and EMS was called. He denies any trauma. He had fentanyl EN route but still has pain with movement. Related Data Home Medications Medication Instructions Recorded Confirmed glucosamine HCl 500 mg tablet 500 mg PO BID 12/26/22 11/14/23 celecoxib 100 mg capsule 100 mg PO BID PRN 10/29/23 11/14/23 methocarbamol 500 mg tablet 500 mg PO TID PRN 10/29/23 11/14/23 amlodipine 5 mg tablet 5 mg PO DAILY 11/14/23 11/14/23 dextroamphetamine-amphetamine 15 15 mg PO BID@07,13 11/14/23 11/14/23 mg tablet (Adderall) Allergies Allergy/AdvReac Type Severity Reaction Status Date / Time No Known Drug Allergies Allergy Verified 10/29/23 08:14 Review of Systems Status of ROS: Reports: 6 or more systems reviewed and unremarkable except as noted in History and below [facility] Medical History ADHD ?F90.9 - Attention-deficit hyperactivity disorder, unspecified type (ICD-10) POLST (Physician Orders for Life-Sustaining Treatment) ?Z78.9 - Other specified health status (ICD-10) Malignant neoplasm of prostate ?C61 - Malignant neoplasm of prostate (ICD-10) Low back pain ?M54.50 - Low back pain, unspecified (ICD-10) History of vertigo ?Z87.898 - Personal history of other specified conditions (ICD-10) Hypertension ?I10 - Essential (primary) hypertension (ICD-10) Surgical History History of lumbar fusion (~02/2022) ?Z98.1 - Arthrodesis status (ICD-10) Status post epidural steroid injection ?Z92.241 - Personal history of systemic steroid therapy (ICD-10) History of umbilical hernia repair (09/2019) ?Z98.890 - Other specified postprocedural states (ICD-10) ?Z87.19 - Personal history of other diseases of the digestive system (ICD-10) History of repair of rotator cuff ?Z98.890 - Other specified postprocedural states (ICD-10) History of prostatectomy (09/2019) ?Z90.79 - Acquired absence of other genital organ(s) (ICD-10) History of lithotripsy ?Z98.890 - Other specified postprocedural states (ICD-10) History of colonoscopy ?Z98.890 - Other specified postprocedural states (ICD-10) History of arthroscopy of shoulder ?Z98.890 - Other specified postprocedural states (ICD-10) History of arthroscopic knee surgery ?Z98.890 - Other specified postprocedural states (ICD-10) Family History Mother Cancer Sister Myocardial infarction, Onset Age: 64 Other No family history of adverse response to anesthesia Social History Narrative: Non smoker Social drinker 2/drinks per week Exercises regularly walks dog nightly What is your current living situation?: I presently have a place to live Problems where you live: no known problems Problems where you live details: N/A In the past 12 months, utilities in danger of being shut off: no In past 12 months, lack of transportation kept you from medical appts, meetings, work, or getting things needed for daily living: no In the past 12 mos, have been you worried that your food would run out before you had money to buy more?: never true In the past 12 mos, the food you bought just didn't last and you didn't have money to buy more?: never true Smoking Status: Never smoker How often do you have a drink containing alcohol: 2-3 times a week How many standard drinks containing alcohol do you have on a typical day: 1 or 2 How often do you have six or more drinks on one occasion: Never AUDIT-C Alcohol total score: 3 Non-prescribed substance use: denies use Caffeine: Yes How often does anyone, including family, friends and others, physically hurt you: never How often does anyone, including family, friends and others, insult or talk down to you: never How often does anyone, including family, friends and others, threaten you with harm: never How often does anyone, including family, friends and others, scream or curse at you: never Little interest or pleasure in doing things: not at all Feeling down, depressed, or hopeless: not at all service: No Exam Narrative: Exam Narrative: Vital signs as noted above. In general, an alert, well-appearing patient. Head: Normocephalic, atraumatic. Eyes: Pupils are equal reactive. Extraocular movements are full. Conjunctivae are normal. ENT: Mucous membranes are moist. Throat is normal. Neck: Supple without lymphadenopathy. Heart: Regular rate and rhythm. No murmur or rub. Lungs: Clear bilaterally. No increased work of breathing, crackles or wheezes. Abdomen: Soft and nontender. No organomegaly. Back: Not examined at my initial encounter secondary to pain with movement. Extremities: Well perfused. No edema. No calf tenderness. Pulses intact. Neurologic: Patient is alert and oriented to person and place. Speech is fluent. Face is symmetric. Moves all extremities equally. Strength is 5 of 5 in bilateral lower extremities. Sensation is intact to light touch. Affect: Normal. Skin: Warm and dry. Well perfused. Const: Vital Signs, click to edit/add: Vital Signs - 24 hr 11/14/23 08:38 11/14/23 09:19 11/14/23 09:20 Temperature 98.3 F Pulse Rate 50 L Pulse Rate [Pulse Oximeter] 55 L 49 L Respiratory Rate 16 16 Blood Pressure 118/73 Blood Pressure [Le ft Upper Arm] 127/86 118/73 Pulse Oximetry 95 94 92 Oxygen Delivery Me thod Room Air Room Air 11/14/23 09:21 11/14/23 09:30 11/14/23 09:45 Temperature Pulse Rate 48 L 52 L 57 L Pulse Rate [Pulse Oximeter] Respiratory Rate Blood Pressure Blood Pressure [Le ft Upper Arm] Pulse Oximetry 92 92 95 Oxygen Delivery Me thod 11/14/23 10:00 11/14/23 10:15 11/14/23 10:30 Temperature Pulse Rate 53 L 51 L 56 L Pulse Rate [Pulse Oximeter] Respiratory Rate Blood Pressure Blood Pressure [Le ft Upper Arm] Pulse Oximetry 93 93 92 Oxygen Delivery Me thod 11/14/23 10:45 11/14/23 11:00 11/14/23 11:16 Temperature Pulse Rate 53 L 52 L 58 L Pulse Rate [Pulse Oximeter] Respiratory Rate Blood Pressure Blood Pressure [Le ft Upper Arm] Pulse Oximetry 92 96 95 Oxygen Delivery Me thod 11/14/23 11:19 11/14/23 11:30 11/14/23 11:45 Temperature Pulse Rate 60 54 L 51 L Pulse Rate [Pulse Oximeter] Respiratory Rate Blood Pressure 127/84 Blood Pressure [Le ft Upper Arm] Pulse Oximetry 95 93 95 Oxygen Delivery Me thod 11/14/23 12:00 11/14/23 12:15 11/14/23 12:30 Temperature Pulse Rate 59 L 59 L 59 L Pulse Rate [Pulse Oximeter] Respiratory Rate Blood Pressure Blood Pressure [Le ft Upper Arm] Pulse Oximetry 93 94 92 Oxygen Delivery Me thod 11/14/23 12:45 11/14/23 13:00 11/14/23 13:15 Temperature Pulse Rate 61 64 62 Pulse Rate [Pulse Oximeter] Respiratory Rate Blood Pressure Blood Pressure [Le ft Upper Arm] Pulse Oximetry 96 90 93 Oxygen Delivery Me thod 11/14/23 13:30 11/14/23 13:45 11/14/23 14:00 Temperature Pulse Rate 68 74 63 Pulse Rate [Pulse Oximeter] Respiratory Rate Blood Pressure Blood Pressure [Le ft Upper Arm] Pulse Oximetry 90 90 91 Oxygen Delivery Me thod 11/14/23 14:15 11/14/23 14:30 11/14/23 14:45 Temperature Pulse Rate 74 66 77 Pulse Rate [Pulse Oximeter] Respiratory Rate Blood Pressure Blood Pressure [Le ft Upper Arm] Pulse Oximetry 97 94 93 Oxygen Delivery Me thod Documenting provider has reviewed patient's vital signs: yes Course Course ED Course: Patient has his were concerned about other possible etiologies for his pain given that he has not had severe pain like this previously, specifically his wondered about a kidney stone. Discussed that I think the likelihood of kidney stone is very low because his pain is alleviated by lying still and exacerbated by any movement. I do think this is likely musculoskeletal nature, discussed with them that it is possible this is related to muscle spasm, disc herniation is possible though he does not show signs of radiculopathy. In the absence of trauma I doubt a bony cause, this does not present like metastatic bone pain. He is not on any anticoagulation, has a normal neurologic exam, I do not have any specific reason at this time to suspect hemorrhage or infection. No red flags on history or exam to suggest that he needs repeat imaging today. Will focus on pain control. Patient had multiple medications including Solu-Medrol 125 mg IV, Toradol 15 mg, Ativan 1 mg, morphine 4 mg, Dilaudid 0.5 mg x2. He reports no improvement in his pain and cannot get out of bed. Neurologic exam remained normal although he feels now that he has pain kind of radiating into the right gluteal area as well as the left glute. At this point, given that he is not able to get out of bed or ambulate will have to bring into the hospital for pain control in additional evaluation. We can get an MRI done later in the day to rule out disc herniation or other acute findings such as hemorrhage, infection, etcetera. Admit to hospitalist service. Vital Signs Vital signs: Initial Vital Signs Temperature 98.3 F 11/14/23 08:38 Temperature Source Temporal Artery Scan 11/14/23 08:38 Pulse Rate 55 L 11/14/23 08:38 Respiratory Rate 16 11/14/23 08:38 Blood Pressure 127/86 11/14/23 08:38 Blood Pressure Mean 99 11/14/23 08:38 Pulse Oximetry 95 11/14/23 08:38 Oxygen Delivery Method Room Air 11/14/23 08:38 Vital Signs Temperature 98.3 F 11/14/23 08:38 Pulse Rate 55 L 11/14/23 08:38 Respiratory Rate 16 11/14/23 08:38 Blood Pressure 127/86 11/14/23 08:38 Pulse Oximetry 95 11/14/23 08:38 Oxygen Delivery Method Room Air 11/14/23 08:38 Temperature 98.1 F 11/14/23 14:58 Pulse Rate 70 11/14/23 14:58 Respiratory Rate 18 11/14/23 14:58 Blood Pressure 138/84 11/14/23 14:58 Pulse Oximetry 91 11/14/23 14:58 Oxygen Delivery Method Room Air 11/14/23 14:58 Medications Administered Medications: Discontinued Medications Generic Name Dose Route Start Last Admin Trade Name Alexx PRN Reason Stop Dose Admin Hydromorphone HCl 0.5 mg 11/14/23 11:23 11/14/23 11:34 Hydromorphone 0.5 Mg/0.5 Ml Inj IVP 11/14/23 11:24 0.5 mg ONCE ONE Administration Hydromorphone HCl 0.5 mg 11/14/23 12:26 11/14/23 12:55 Hydromorphone 0.5 Mg/0.5 Ml Inj IVP 11/14/23 12:27 0.5 mg ONCE ONE Administration Sodium Chloride 500 mls @ 500 mls/hr 11/14/23 08:55 11/14/23 14:09 0.9 % Sodium Chloride 500 Ml IV 11/14/23 09:54 Not Given .Q1H ONE Ketorolac Tromethamine 15 mg 11/14/23 08:55 11/14/23 09:18 Ketorolac 15 Mg/Ml Inj IVP 11/14/23 08:56 15 mg ONCE ONE Administration Lorazepam 1 mg 11/14/23 08:55 11/14/23 09:17 Lorazepam 2 Mg/Ml Inj IVP 11/14/23 08:56 1 mg ONCE ONE Administration Methylprednisolone Sodium Succinate 125 mg 11/14/23 09:15 11/14/23 09:51 Methylprednisolone Sod Succ 62.5 Mg/Ml (125) IVP 11/14/23 09:16 125 mg ONCE ONE Administration Morphine Sulfate 4 mg 11/14/23 08:55 11/14/23 09:17 Morphine 4 Mg/Ml Inj IVP 11/14/23 08:56 4 mg ONCE ONE Administration Discharge Plan Discharge Patient Disposition: Admitted As Observation
[2023-11-14] MEDS: LORazepam 2 MG/ML inj 1 MG IVP (09:17)
[2023-11-14] MEDS: MORPHINE 4 MG/ML INJ IVP (09:17)
[2023-11-14] MEDS: KETOROLAC 15 MG/ML inj IVP (09:18)
[2023-11-14] MEDS: METHYLPREDNISOLONE SOD SUCC 62.5 MG/ML (125) 125 MG IVP (09:51)
[2023-11-14] MEDS: HYDROmorphone 0.5 mg/0.5 ml inj IVP ×2 (11:34→12:55)
--- NOTE | 2023-11-14 14:21 | MR_ITS ---
Patient: FREDY LAM Facility:?[facility] Patient ID:?[id number] Site Patient ID:?[id number]. Site :?1960 Study:?MRI-Spine Lumbar W/O-11/14/2023 5:38:13 PM Ordering Physician:?MARIE SCOTT Final Report: INDICATION: LOW BACK PAIN Indication [Low back pain] Technique Multiplanar, multisequence, MRI of the lumbar spine, obtained without contrast. Comparison [Lumbar spine x-ray 12/26/2022] Findings [Preserved lumbar lordosis. No significant spondylolisthesis. Anterior interbody fusion changes at L5-S1. No acute osseous abnormality. Unremarkable bone marrow signal. Conus medullaris terminates at L1. No suspicious findings identified in the paraspinal soft tissues. However, there is fluid signal within the L3-4 interspinous space, as well as at L2-3 to a lesser degree. Partially visualized presumed left renal cysts. Mild degenerative changes at the included SI joints.] T12-L1: [No significant neural foramen or spinal canal stenosis.] L1-L2: [Mild diffuse disc bulge, central annular fissure. No neural foraminal or spinal canal stenosis.] L2-L3: [Mild diffuse disc bulge, shallow central protrusion with caudal disc migration. No neural foraminal or spinal canal stenosis.] L3-L4: [Mild diffuse disc bulge, mild facet arthropathy. No significant neural foraminal or spinal canal stenosis.] L4-L5: [Mild diffuse disc bulge, shallow central disc protrusion mild facet arthropathy. No right, mild left neural foraminal narrowing. No spinal canal stenosis.] L5-S1: [Anterior interbody fusion, facet arthropathy. No right, mild left neural foraminal narrowing. No spinal canal stenosis.] Impression 1. Postsurgical changes of L5-S1 anterior interbody fusion. Normal spinal alignment. No acute osseous abnormality. 2. Mild scattered spondylosis, contributing to mild left neural foraminal narrowing at L4-5 and L5-S1 3. Fluid signal within the L3-4 interspinous space (and at L2-3 to a lesser degree), potentially representing interspinous bursitis. Dictated by: Sarai Tavares MD @ 11/14/2023 19:16:00 Signed by:?Sarai Tavares MD @11/14/2023 7:16:00 PM (Electronic Signature)
--- NOTE | 2023-11-14 15:52 | PM.IMHP1 ---
Hospitalist- H&P: HPI History of Present Illness Date Seen: 11/14/23 Chief complaint: Back Pain Narrative: Sawyer Carlson is a 62 year old male who presented to the emergency room today with intractable low back pain. 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 This morning, he woke up, and pain was much more severe. He was unable to ambulate. Pain is located in lumbar region, radiates across belt line and into bilateral buttocks, as well as bilateral anterior thighs. Recent URI, no febrile illnesses. No recent travel. No hematuria. No loss of lower lower bladder function or sensation. History of anterior lumbar fusion of L5-S1 in 2021. Not typically on daily pain medications. Takes Celebrex prn, no narcotics. ER course and findings: - received morphine, Dilaudid, Toradol, Ativan, methylprednisolone - unable to ambulate or even bear weight after these interventions, remained in ER for close to 6 hours Given persistent pain and inability to ambulate, patient is admitted to the hospital. Histories are updated below, PCP is Dr. Vazquez locally. Review of Systems Status of ROS: Reports: 10 or more systems reviewed and unremarkable except as noted in History and below [facility] Medical History (Updated 11/14/23 @ 16:00 by Vianca Garvey MD) ADHD ?F90.9 - Attention-deficit hyperactivity disorder, unspecified type (ICD-10) Malignant neoplasm of prostate ?C61 - Malignant neoplasm of prostate (ICD-10) Low back pain ?M54.50 - Low back pain, unspecified (ICD-10) History of vertigo ?Z87.898 - Personal history of other specified conditions (ICD-10) Hypertension ?I10 - Essential (primary) hypertension (ICD-10) Surgical History History of lumbar fusion (~02/2022) ?Z98.1 - Arthrodesis status (ICD-10) Status post epidural steroid injection ?Z92.241 - Personal history of systemic steroid therapy (ICD-10) History of umbilical hernia repair (09/2019) ?Z98.890 - Other specified postprocedural states (ICD-10) ?Z87.19 - Personal history of other diseases of the digestive system (ICD-10) History of repair of rotator cuff ?Z98.890 - Other specified postprocedural states (ICD-10) History of prostatectomy (09/2019) ?Z90.79 - Acquired absence of other genital organ(s) (ICD-10) History of lithotripsy ?Z98.890 - Other specified postprocedural states (ICD-10) History of colonoscopy ?Z98.890 - Other specified postprocedural states (ICD-10) History of arthroscopy of shoulder ?Z98.890 - Other specified postprocedural states (ICD-10) History of arthroscopic knee surgery ?Z98.890 - Other specified postprocedural states (ICD-10) Family History Mother Cancer Sister Myocardial infarction, Onset Age: 64 Other No family history of adverse response to anesthesia Social History (Updated 11/14/23 @ 15:59 by Vianca Garvey MD) Narrative: , Sarai would be MDM if needed. 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 Non smoker, social drinker 2/drinks per week Exercises regularly walks dog nightly. Requests Full Code status What is your current living situation?: I presently have a place to live Problems where you live: no known problems Problems where you live details: N/A In the past 12 months, utilities in danger of being shut off: no In past 12 months, lack of transportation kept you from medical appts, meetings, work, or getting things needed for daily living: no In the past 12 mos, have been you worried that your food would run out before you had money to buy more?: never true In the past 12 mos, the food you bought just didn't last and you didn't have money to buy more?: never true Smoking Status: Never smoker How often do you have a drink containing alcohol: 2-3 times a week How many standard drinks containing alcohol do you have on a typical day: 1 or 2 How often do you have six or more drinks on one occasion: Never AUDIT-C Alcohol total score: 3 Non-prescribed substance use: denies use Caffeine: Yes How often does anyone, including family, friends and others, physically hurt you: never How often does anyone, including family, friends and others, insult or talk down to you: never How often does anyone, including family, friends and others, threaten you with harm: never How often does anyone, including family, friends and others, scream or curse at you: never Little interest or pleasure in doing things: not at all Feeling down, depressed, or hopeless: not at all service: No Meds Home Medications and Allergies Home Medications Medication Instructions Recorded Confirmed Type glucosamine HCl 500 mg tablet 500 mg PO BID 12/26/22 11/14/23 History celecoxib 100 mg capsule 100 mg PO BID PRN 10/29/23 11/14/23 History methocarbamol 500 mg tablet 500 mg PO TID PRN 10/29/23 11/14/23 History amlodipine 5 mg tablet 5 mg PO DAILY 11/14/23 11/14/23 History dextroamphetamine-amphetamine 15 15 mg PO BID@07,13 11/14/23 11/14/23 History mg tablet (Adderall) Allergies Allergy/AdvReac Type Severity Reaction Status Date / Time No Known Drug Allergies Allergy Verified 10/29/23 08:14 Exam Narrative: Exam Narrative: GEN: Alert and oriented, appears uncomfortable, answering questions appropriately HEENT: EOMIs bilaterally, no scleral icterus CV: RRR, No concerning murmurs, rubs, or gallops R: LCTA bilaterally without concerning wheezing, air movement adequate Ext: wwp, no concerning edema Skin: No concerning skin lesions or rashes on exposed skin Neuro: Normal sensation and pulses of bilateral lower extremities, + straight leg raise bilaterally Psych: Appropriate Const: Vital Signs, click to edit/add: Vital Signs - 24 hr 11/14/23 08:38 11/14/23 09:19 11/14/23 09:20 Temperature 98.3 F Pulse Rate 50 L Pulse Rate [Left P ulse Oximeter] Pulse Rate [Pulse Oximeter] 55 L 49 L Respiratory Rate 16 16 Blood Pressure 118/73 Blood Pressure [Le ft Arm] Blood Pressure [Le ft Upper Arm] 127/86 118/73 Pulse Oximetry 95 94 92 Oxygen Delivery Me thod Room Air Room Air 11/14/23 09:21 11/14/23 09:30 11/14/23 09:45 Temperature Pulse Rate 48 L 52 L 57 L Pulse Rate [Left P ulse Oximeter] Pulse Rate [Pulse Oximeter] Respiratory Rate Blood Pressure Blood Pressure [Le ft Arm] Blood Pressure [Le ft Upper Arm] Pulse Oximetry 92 92 95 [facility]/14/23 10:00 11/14/23 10:15 11/14/23 10:30 Temperature Pulse Rate 53 L 51 L 56 L Pulse Rate [Left P ulse Oximeter] Pulse Rate [Pulse Oximeter] Respiratory Rate Blood Pressure Blood Pressure [Le ft Arm] Blood Pressure [Le ft Upper Arm] Pulse Oximetry 93 93 92 [facility] 11/14/23 10:45 11/14/23 11:00 11/14/23 11:16 Temperature Pulse Rate 53 L 52 L 58 L Pulse Rate [Left P ulse Oximeter] Pulse Rate [Pulse Oximeter] Respiratory Rate Blood Pressure Blood Pressure [Le ft Arm] Blood Pressure [Le ft Upper Arm] Pulse Oximetry 92 96 95 [facility] 11/14/23 11:19 11/14/23 11:30 11/14/23 11:45 Temperature Pulse Rate 60 54 L 51 L Pulse Rate [Left P ulse Oximeter] Pulse Rate [Pulse Oximeter] Respiratory Rate Blood Pressure 127/84 Blood Pressure [Le ft Arm] Blood Pressure [Le ft Upper Arm] Pulse Oximetry 95 93 95 [facility] 11/14/23 12:00 11/14/23 12:15 11/14/23 12:30 Temperature Pulse Rate 59 L 59 L 59 L Pulse Rate [Left P ulse Oximeter] Pulse Rate [Pulse Oximeter] Respiratory Rate Blood Pressure Blood Pressure [Le ft Arm] Blood Pressure [Le ft Upper Arm] Pulse Oximetry 93 94 92 [facility] 11/14/23 12:45 11/14/23 13:00 11/14/23 13:15 Temperature Pulse Rate 61 64 62 Pulse Rate [Left P ulse Oximeter] Pulse Rate [Pulse Oximeter] Respiratory Rate Blood Pressure Blood Pressure [Le ft Arm] Blood Pressure [Le ft Upper Arm] Pulse Oximetry 96 90 93 [facility] 11/14/23 13:30 11/14/23 13:45 11/14/23 14:00 Temperature Pulse Rate 68 74 63 Pulse Rate [Left P ulse Oximeter] Pulse Rate [Pulse Oximeter] Respiratory Rate Blood Pressure Blood Pressure [Le ft Arm] Blood Pressure [Le ft Upper Arm] Pulse Oximetry 90 90 91 Oxygen Delivery Me thod 11/14/23 14:15 11/14/23 14:30 11/14/23 14:45 Temperature Pulse Rate 74 66 77 Pulse Rate [Left P ulse Oximeter] Pulse Rate [Pulse Oximeter] Respiratory Rate Blood Pressure Blood Pressure [Le ft Arm] Blood Pressure [Le ft Upper Arm] Pulse Oximetry 97 94 93 Oxygen Delivery Me thod 11/14/23 14:58 Temperature 98.1 F Pulse Rate Pulse Rate [Left P ulse Oximeter] 70 Pulse Rate [Pulse Oximeter] Respiratory Rate 18 Blood Pressure Blood Pressure [Le ft Arm] 138/84 Blood Pressure [Le ft Upper Arm] Pulse Oximetry 91 Oxygen Delivery Me thod Room Air Assessment and Plan Assessment and plan (1) Low back pain: Problem comment: - MRI this afternoon, labs to evaluate for organic source - pain regimen to include scheduled APAP, Medrol, Celebrex, prn muscle relaxers and narcotics - PT referral Status: Acute Plan - per above - SCDs and Lovenox for ppx - home with when medically appropriate
[2023-11-14] MEDS: ACETAMINOPHEN 650 MG TABLET ER 1300 MG PO ×2 (16:26→23:46)
[2023-11-14] MEDS: methylPREDNISolone 4 MG TABLET 20 MG PO (16:26)
[2023-11-14 16:36] LABS: Albumin* 4.2 g/dL (3.3-5.0); Chloride* 105 mmol/L (96-114); Potassium* 3.4 mmol/L (3.6-5.1); Sodium* 139 mmol/L (135-149)
[2023-11-14 16:38] LABS: Creatinine* 0.8 mg/dL (0.5-1.5); Est. Creatinine Clearance* 101.39; Estimated Glomerular Filt Rate 101 ml/min
[2023-11-14 16:39] LABS: Alanine Aminotransferase* 27 U/L (4-50); Alkaline Phosphatase* 95 U/L (40-150); Anion Gap 14 mEq/L (7-15); Aspartate Amino Transferase* 27 U/L (12-35); Bilirubin Total* 0.6 mg/dL (0.1-1.5); Blood Urea Nitrogen* 14 mg/dL (7-30); Carbon Dioxide* 20 mmol/L (20-32); Glucose* 161 mg/dL (60-115); Total Protein* 7.6 g/dL (6.0-8.3)
[2023-11-14 16:40] LABS: Calcium* 9.1 mg/dL (8.4-10.6)
[2023-11-14 16:59] LABS: Basophils Absolute Auto 0.01 K/uL (0.00-0.30); Basophils Percent Auto 0.1 % (0.0-3.0); Hematocrit 48.2 % (37.0-53.0); Hemoglobin* 16.3 gm/dL (13.5-17.5); Immature Granulocytes Abs Auto 0.02 K/uL (0.00-0.30); Immature Granulocytes Pct Auto 0.3 %; Lymphocytes Percent Auto 8.7 % (20-44); Mean Corpuscular HGB Conc 34 gm/dL (32-36); Mean Corpuscular Hemoglobin 28 pg (26-34); Mean Corpuscular Volume 82 fL (80-100); Neutrophils Percent Auto 89.9 % (42.0-72.0); Platelet Count* 203 K/uL (140-440); RDW Coefficient of Variation % 12.7 % (11.5-15.5); White Blood Count* 7.73 K/uL (4.50-11.00)
[2023-11-14 17:05] LABS: Slide Review Reflex No
[2023-11-14 17:28] LABS: PSA Screen* < 0.06 ng/mL (0.10-4.00)
[2023-11-14 18:43] LABS: Appearance Urine Clear (Clear); Bilirubin Urine Negative (Negative); Blood Urine Negative (Negative); Color Urine Dark yellow (Yellow); Glucose Urine 2+ (Negative); Ketones Urine 2+ (Negative); Leukocyte Esterase Urine Negative (Negative); Nitrite Urine Negative (Negative); Protein Urine Negative (Negative); Specific Gravity Urine 1.025 (1.000-1.030); Urobilinogen Urine 0.2 (0.2-1.0); pH Urine 6.5 (5.0-8.5)
[2023-11-14] MEDS: AMLODIPINE 5 MG TABLET PO (20:44)
[2023-11-14] MEDS: SODIUM CHLORIDE 0.9 % (FLUSH) 10 ML SYRINGE 5 ML IVF (20:45)
[2023-11-14] MEDS: OXYCODONE 5 MG TABLET PO (23:46)
[2023-11-15 03:47] VITALS: BP 123/72; PULSE 62; RESP 18; TEMP 36.6; O2SAT 91
--- NOTE | 2023-11-15 06:57 | PC.NURSE ---
End of shift note [id number]: Pt noted to be alert & oriented x 4 and able to make needs known. Lower back pain 4-5/10 upon movement this shift per pt report and pain has been controlled with PRN Oxycodone and scheduled Tylenol. 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 Pt up independently in room. IV to R AC SL. He has been continent of bladder using urinal. Pt declined to have weight obtained on standing scale when approached this morning. Bed weight obtained- will update day RN. VSS and pt has been afebrile throughout the shift.
[2023-11-15 07:45] VITALS: BP 110/80; PULSE 74; RESP 18; TEMP 36.6; O2SAT 94
[2023-11-15] MEDS: ACETAMINOPHEN 650 MG TABLET ER 1300 MG PO (08:36)
[2023-11-15] MEDS: CELECOXIB 200 MG CAPSULE PO (08:37)
[2023-11-15] MEDS: methylPREDNISolone 4 MG TABLET 16 MG PO (08:37)
[2023-11-15] MEDS: OXYCODONE 5 MG TABLET PO (08:37)
[2023-11-15] MEDS: SODIUM CHLORIDE 0.9 % (FLUSH) 10 ML SYRINGE 5 ML IVF (08:38)
--- NOTE | 2023-11-15 09:48 | P.DS_ITS ---
DS: Providers Provider Time Seen by Provider: 09:35 Date Seen: 11/15/23 Date of admission: 11/14/23 14:46 Primary care physician: Paul Chow MD Admitting Clinician: Vianca Garvey MD Consults: 11/14/23 15:31 Consult to Physical Therapy [CONS] Routine Comment: Reason(s) for PT Consult:: Evaluate Ambulation Any Restrictions?:: No Restrictions 11/14/23 15:39 Consult to Physical Therapy [CONS] Routine Comment: Reason(s) for PT Consult:: Pain Any Restrictions?:: No Restrictions Comment: back pain - not until 11/14 please Attending Physician on discharge: Anne Bearden MD Date of Discharge: 11/15/23 DS: Diagnosis Discharge Diagnosis (1) Intractable back pain: Status: Acute Problem details: - MRI showed mild bursitis, labs okay - pain regimen: scheduled APAP, Medrol, Celebrex, prn muscle relaxers and narcotics. He did not use muscle relaxers. Pain well controlled with total of 10 mg of oxycodone. Feeling better, ambulating today. PT evaluated. Dishcarge home on medrol dose gagan with prn oxycodone. Recommended decreasing use of this over the next few days and f/u with PCP, Geraldo, early next week. PCP may consider if left SI joint injection may be helpful if stil painful in that area after completing medrol dose gagan. - continue outpatient PT (2) Low back pain: Status: Chronic (3) Malignant neoplasm of prostate: Status: Chronic DS: Summary Hospital Course Hospital Course: Per H&P: Sawyer Carlson is a 62 year old male who presented to the emergency room today with intractable low back pain. 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 This morning, he woke up, and pain was much more severe. He was unable to ambulate. Pain is located in lumbar region, radiates across belt line and into bilateral buttocks, as well as bilateral anterior thighs. Recent URI, no febrile illnesses. No recent travel. No hematuria. No loss of lower lower bladder function or sensation. History of anterior lumbar fusion of L5-S1 in 2021. Not typically on daily pain medications. Takes Celebrex prn, no narcotics. ER course and findings: - received morphine, Dilaudid, Toradol, Ativan, methylprednisolone - unable to ambulate or even bear weight after these interventions, remained in ER for close to 6 hours Given persistent pain and inability to ambulate, patient is admitted to the hospital. Patient is doing much better today, able to stand independently at the bedside and ambulate. MRI and lab results below. Pain is more well controlled. He is discharged home today with follow-up with Dr. Chow early next week. Please see above for further details. Time Spent with Patient Time attestation: Total time spent providing and/or coordinating discharge services: Exam Narrative: Exam Narrative: General: No acute distress. Awake, alert, oriented x3. No pallor. No jaundice. Oropharynx: Clear. Mucous membranes moist. Cardiovascular: Regular rate and rhythm. No murmurs, gallops, or rubs. Respiratory: Clear to auscultation bilaterally. No wheezes or crackles. Back: Tender to palpation over the left SI joint, which reproduces pain. aise. Extremities: No pedal edema. Neuro: There are no focal deficits. He is able to independently get out of the bed and stand, moving around at the bedside albeit with some pain. Gait is stiff and painful, favoring his left side. Light touch sensation is intact in both lower extremities. Shrink is 5/5 in both lower extremities. Positive left straight leg raise and mildly positive cross right straight leg r Const: Vital Signs, click to edit/add: Vital Signs - 24 hr 11/14/23 10:00 11/14/23 10:15 11/14/23 10:30 Temperature Pulse Rate 53 L 51 L 56 L Pulse Rate [Left P ulse Oximeter] Respiratory Rate Blood Pressure Blood Pressure [Le ft Arm] Pulse Oximetry 93 93 92 Oxygen Delivery Me thod 11/14/23 10:45 11/14/23 11:00 11/14/23 11:16 Temperature Pulse Rate 53 L 52 L 58 L Pulse Rate [Left P ulse Oximeter] Respiratory Rate Blood Pressure Blood Pressure [Le ft Arm] Pulse Oximetry 92 96 95 Oxygen Delivery Me thod 11/14/23 11:19 11/14/23 11:30 11/14/23 11:45 Temperature Pulse Rate 60 54 L 51 L Pulse Rate [Left P ulse Oximeter] Respiratory Rate Blood Pressure 127/84 Blood Pressure [Le ft Arm] Pulse Oximetry 95 93 95 Oxygen Delivery Me thod 11/14/23 12:00 11/14/23 12:15 11/14/23 12:30 Temperature Pulse Rate 59 L 59 L 59 L Pulse Rate [Left P ulse Oximeter] Respiratory Rate Blood Pressure Blood Pressure [Le ft Arm] Pulse Oximetry 93 94 92 Oxygen Delivery Me thod 11/14/23 12:45 11/14/23 13:00 11/14/23 13:15 Temperature Pulse Rate 61 64 62 Pulse Rate [Left P ulse Oximeter] Respiratory Rate Blood Pressure Blood Pressure [Le ft Arm] Pulse Oximetry 96 90 93 Oxygen Delivery Me thod 11/14/23 13:30 11/14/23 13:45 11/14/23 14:00 Temperature Pulse Rate 68 74 63 Pulse Rate [Left P ulse Oximeter] Respiratory Rate Blood Pressure Blood Pressure [Le ft Arm] Pulse Oximetry 90 90 91 Oxygen Delivery Me thod 11/14/23 14:15 11/14/23 14:30 11/14/23 14:45 Temperature Pulse Rate 74 66 77 Pulse Rate [Left P ulse Oximeter] Respiratory Rate Blood Pressure Blood Pressure [Le ft Arm] Pulse Oximetry 97 94 93 Oxygen Delivery Me od 11/14/23 14:58 11/14/23 19:00 11/14/23 23:00 Temperature 98.1 F 98.4 F Pulse Rate Pulse Rate [Left P ulse Oximeter] 70 80 63 Respiratory Rate 18 18 18 Blood Pressure Blood Pressure [Le ft Arm] 138/84 160/93 H Pulse Oximetry 91 95 [facility] Room Air 11/14/23 23:40 11/15/23 03:47 Temperature 97.9 F 97.8 F Pulse Rate Pulse Rate [Left P ulse Oximeter] 63 62 Respiratory Rate 18 18 Blood Pressure Blood Pressure [Le ft Arm] 114/73 123/72 Pulse Oximetry 92 91 Oxygen Delivery Me thod Room Air Room Air DS: Data Data Completed and Pending Completed studies during hospitalization: Study: MRI-Spine Lumbar W/O-11/14/2023 5:38:13 PM Ordering Physician: MARIE SCOTT Final Report: INDICATION: LOW BACK PAIN Indication [Low back pain] Technique Multiplanar, multisequence, MRI of the lumbar spine, obtained without contrast. Comparison [Lumbar spine x-ray 12/26/2022] Findings [Preserved lumbar lordosis. No significant spondylolisthesis. Anterior interbody fusion changes at L5-S1. No acute osseous abnormality. Unremarkable bone marrow signal. Conus medullaris terminates at L1. No suspicious findings identified in the paraspinal soft tissues. However, there is fluid signal within the L3-4 interspinous space, as well as at L2-3 to a lesser degree. Partially visualized presumed left renal cysts. Mild degenerative changes at the included SI joints.] T12-L1: [No significant neural foramen or spinal canal stenosis.] L1-L2: [Mild diffuse disc bulge, central annular fissure. No neural foraminal or spinal canal stenosis.] L2-L3: [Mild diffuse disc bulge, shallow central protrusion with caudal disc migration. No neural foraminal or spinal canal stenosis.] L3-L4: [Mild diffuse disc bulge, mild facet arthropathy. No significant neural foraminal or spinal canal stenosis.] L4-L5: [Mild diffuse disc bulge, shallow central disc protrusion mild facet arthropathy. No right, mild left neural foraminal narrowing. No spinal canal stenosis.] L5-S1: [Anterior interbody fusion, facet arthropathy. No right, mild left neural foraminal narrowing. No spinal canal stenosis.] Impression 1. Postsurgical changes of L5-S1 anterior interbody fusion. Normal spinal alignment. No acute osseous abnormality. 2. Mild scattered spondylosis, contributing to mild left neural foraminal narrowing at L4-5 and L5-S1 3. Fluid signal within the L3-4 interspinous space (and at L2-3 to a lesser degree), potentially representing interspinous bursitis. Dictated by: Sarai Tavares MD @ 11/14/2023 19:16:00 Signed by: Sarai Tavares MD @11/14/2023 7:16:00 PM (Electronic Signature) Dictated By: Sarai Tavares D.O. 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: Labs on day of discharge: Labs from last 24 hours 11/14/23 11/14/23 11/14/23 18:30 16:06 16:06 WBC 7.73 RBC 5.90 Hgb 16.3 Hct 48.2 MCV 82 MCH 28 MCHC 34 RDW Coeff of Sohan 12.7 Plt Count 203 Neut % (Auto) 89.9 H Lymph % (Auto) 8.7 L [place] % (Auto) 1.0 Eos % (Auto) 0.0 Baso % (Auto) 0.1 Neut # (Auto) 6.90 Lymph # (Auto) 0.70 L [place] # (Auto) 0.10 Eos # (Auto) 0.00 Baso # (Auto) 0.01 Abs Immat Gran (auto) 0.02 Imm/Tot Granulo (auto) 0.3 Sodium 139 Potassium 3.4 L Chloride 105 Carbon Dioxide 20 Anion Gap 14 BUN 14 Creatinine 0.8 Estimated Creat Clear 101.39 Estimated GFR 101 Glucose 161 H Calcium 9.1 Total Bilirubin 0.6 AST 27 ALT 27 Alkaline Phosphatase 95 Total Protein 7.6 Albumin 4.2 PSA Screen Cancelled < 0.06 L Urine Color Dark yellow Urine Appearance Clear Urine pH 6.5 Ur Specific [place] 1.025 Urine Protein Negative Urine Glucose (UA) 2+ A Urine Ketones 2+ A Urine Blood Negative Urine Nitrite Negative Urine Bilirubin Negative Urine Urobilinogen 0.2 Ur Leukocyte Esterase Negative Discharge Plan Discharge Disposition: Home, Self-Care Date of Admission: 11/14/23 14:46 Attending Provider on Discharge: Anne Bearden Primary Care Provider: Paul Chow Condition: Stable Anticipated Discharge Date/Time: 11/15/23 12:44 Discharge Medications: New acetaminophen 650 mg Tablet Extended Release 1,300 mg PO Q8H PRN (Reason: pain) Qty: 30 0RF oxycodone 5 mg Tablet 5 - 10 mg PO Q4H PRN (Reason: Pain) Qty: 15 0RF methylprednisolone [Medrol (Gagan)] 4 mg tablets,dose pack See Rx Instructions .ROUTE .COMPLEX Qty: 21 0RF Rx Instructions: orally per package directions, START TOMORROW 11/16/23 ON DAY #3. sennosides-docusate sodium [Senna-S] 8.6-50 mg tablet 1 tab-cap PO BID PRN (Reason: constipation) Qty: 10 0RF Continued glucosamine HCl 500 mg tablet 500 mg PO BID Rx Instructions: administer with meals celecoxib 100 mg capsule 100 mg PO BID PRN methocarbamol 500 mg tablet 500 mg PO TID PRN amlodipine 5 mg tablet 5 mg PO DAILY dextroamphetamine-amphetamine [Adderall] 15 mg tablet 15 mg PO BID@07,13 Rx Instructions: administer doses at least 4-6 hours apart Discharge Orders: Discharge Order (Routine); Ordered 11/15/23 Ordered By: Anne Bearden Additional Instructions: Continue outpatient PT as previously scheduled. Use ice to low left back for 20 minutes duration 4x per day. Start medrol dose gagan tomorrow, start with day #3. Activity Level: Activity as Tolerated Discharge Diet: Regular Follow Up Appointments: Paul Chow MD [Primary Care Provider] - (Saturday or Saturday) Forms: [facility]ES[facility] Info Instructions
--- NOTE | 2023-11-15 15:42 | PC.NURSE ---
UP AD RENEE IN ROOM. PAIN CONTROLLED WITH SCHEDULED MEDS AND PRN OXYCODONE. DENIED PAIN OR N/V. SALINE LOCK DC'D. REVIEWED DC INSTRUCTIONS WITH PATIENT AND HIS AND PATIENT DC'D HOME.
== END 2023-11-15 15:10 | disposition home or self-care (01) ==
LOC: ED 09:01 → MEDSURG 14:46
PROVIDERS: Admitting Provider Family Medicine; Emergency Provider Emergency Medicine; PCP Internal Medicine; Visit Provider Family Medicine
DX: M54.50 Low back pain, unspecified (principal); M79.18 Myalgia, other site; M71.9 Bursopathy, unspecified; C61 Malignant neoplasm of prostate; R63.4 Abnormal weight loss; Z68.31 Body mass index [BMI] 31.0-31.9, adult; M54.9 Dorsalgia, unspecified; R61 Generalized hyperhidrosis; Z74.09 Other reduced mobility; F90.9 Attention-deficit hyperactivity disorder, unspecified type; Z98.1 Arthrodesis status; Z90.79 Acquired absence of other genital organ(s); Z87.898 Personal history of other specified conditions; Z92.241 Personal history of systemic steroid therapy; Z87.19 Personal history of other diseases of the digestive system; Z98.890 Other specified postprocedural states; Z78.9 Other specified health status
CPT/HCPCS: 36415; 72148; 80053; 81003; 85025; 96374; 96375; 96376; 97110; 97116; 97161; 99284; G0103; A9270; G0378; J1170; J1885; J2060; J2270; J2930; J7509

== ENCOUNTER 2024-03-08 06:26 | Emergency (ER) | payer BC, SELFPAY ==
[2024-03-08 06:36] VITALS: BP 134/89; PULSE 68; RESP 16; TEMP 36.3; O2SAT 98; BMI 28.0
--- NOTE | 2024-03-08 06:40 | ED.GENADULT ---
HPI - General Adult General Chief complaint: Back Injury/Pain Stated complaint: back pain Time Seen by Provider: 03/08/24 06:39 History of Present Illness HPI narrative: lower back pain - started Saturday when bent over to pick item off ground. pain in lower back goes to L thigh and causes cramp like feeling. took Celebrex Saturday and tramadol last night. states no relief. states similar to ER visit in oct. 63-year-old man presenting to the emergency department with complaint of cramping and sharp pain in the lower back down into the left thigh encompassing good portion of the thigh but does not particular radiate around the back. This started about a day and a half ago when he bent over to pick something up off the ground. Try to Celebrex that day and tramadol overnight and has not been able to get pain relief. He feels that some sort of truncal rotation is just really going to flare this up worse. No loss of bowel or bladder control. In October or November of this last year had similar occurrence. Difficult to control pain ultimately prompting admission. MRI imaging without clear source but he says he was suspected of having and nerve pinched somewhere. On reviewing records it looks like was discharged with Medrol Dosepak and p.r.n. oxycodone. Does have a history of L5-S1 fusion MRI read from 11/05 for admission here Impression 1. Postsurgical changes of L5-S1 anterior interbody fusion. Normal spinal alignment. No acute osseous abnormality. 2. Mild scattered spondylosis, contributing to mild left neural foraminal narrowing at L4-5 and L5-S1 3. Fluid signal within the L3-4 interspinous space (and at L2-3 to a lesser degree), potentially representing interspinous bursitis. Related Data Home Medications ?Medication ?Instructions ?Recorded ?Confirmed glucosamine HCl 500 mg tablet 500 mg PO BID 12/26/22 02/25/24 celecoxib 100 mg capsule 100 mg PO BID PRN 10/29/23 02/25/24 methocarbamol 500 mg tablet 500 mg PO TID PRN 10/29/23 02/25/24 Previous Rx's ?Medication ?Instructions ?Recorded acetaminophen 650 mg 1,300 mg (2 x 650 mg) PO Q8H PRN 11/15/23 tablet,extended release pain #30 tabs sennosides 8.6 mg-docusate sodium 1 tab-cap PO BID PRN constipation 11/15/23 50 mg tablet (Senna-S) #10 tabs amlodipine 5 mg tablet 5 mg PO DAILY #90 tabs 01/17/24 tramadol 100 mg tablet 100 mg PO TID PRN pain #60 tabs 02/25/24 dextroamphetamine-amphetamine 15 15 mg PO BID@07,13 #60 tabs 03/16/24 mg tablet (Adderall) phentermine 30 mg capsule 30 mg PO QAM #30 caps 04/15/24 Allergies Allergy/AdvReac Type Severity Reaction Status Date / Time No Known Drug Allergies Allergy Verified 02/25/24 08:19 Review of Systems Status of ROS: Reports: 6 or more systems reviewed and unremarkable except as noted in History and below PFSH PFS Medical History Obesity ?E66.9 - Obesity, unspecified (ICD-10) ADHD ?F90.9 - Attention-deficit hyperactivity disorder, unspecified type (ICD-10) Malignant neoplasm of prostate ?C61 - Malignant neoplasm of prostate (ICD-10) Low back pain ?M54.50 - Low back pain, unspecified (ICD-10) History of vertigo ?Z87.898 - Personal history of other specified conditions (ICD-10) Hypertension ?I10 - Essential (primary) hypertension (ICD-10) Surgical History History of lumbar fusion (~02/2022) ?Z98.1 - Arthrodesis status (ICD-10) Status post epidural steroid injection ?Z92.241 - Personal history of systemic steroid therapy (ICD-10) History of umbilical hernia repair (09/2019) ?Z98.890 - Other specified postprocedural states (ICD-10) ?Z87.19 - Personal history of other diseases of the digestive system (ICD-10) History of repair of rotator cuff ?Z98.890 - Other specified postprocedural states (ICD-10) History of prostatectomy (09/2019) ?Z90.79 - Acquired absence of other genital organ(s) (ICD-10) History of lithotripsy ?Z98.890 - Other specified postprocedural states (ICD-10) History of colonoscopy ?Z98.890 - Other specified postprocedural states (ICD-10) History of arthroscopy of shoulder ?Z98.890 - Other specified postprocedural states (ICD-10) History of arthroscopic knee surgery ?Z98.890 - Other specified postprocedural states (ICD-10) Family History Mother Cancer Sister Myocardial infarction, Onset Age: 64 Other No family history of adverse response to anesthesia Social History (Updated 11/14/23 @ 15:59 by Vianca Garvey MD) Narrative: , Sarai would be MDM if needed. 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 Non smoker, social drinker 2/drinks per week Exercises regularly walks dog nightly. Requests Full Code status What is your current living situation?: I presently have a place to live Problems where you live: no known problems Problems where you live details: N/A In the past 12 months, utilities in danger of being shut off: no In past 12 months, lack of transportation kept you from medical appts, meetings, work, or getting things needed for daily living: no In the past 12 mos, have been you worried that your food would run out before you had money to buy more?: never true In the past 12 mos, the food you bought just didn't last and you didn't have money to buy more?: never true Smoking Status: Never smoker Do you use any of these nicotine containing products: None How often do you have a drink containing alcohol: 2-3 times a week How many standard drinks containing alcohol do you have on a typical day: 1 or 2 How often do you have six or more drinks on one occasion: Never AUDIT-C Alcohol total score: 3 Non-prescribed substance use: denies use Caffeine: Yes How often does anyone, including family, friends and others, physically hurt you: never How often does anyone, including family, friends and others, insult or talk down to you: never How often does anyone, including family, friends and others, threaten you with harm: never How often does anyone, including family, friends and others, scream or curse at you: never Little interest or pleasure in doing things: not at all Feeling down, depressed, or hopeless: not at all service: No Exam Narrative: Exam Narrative: Restless. Clearly very uncomfortable with pain. He is attempting to ambulate is somewhat unsteady and tenuous. Skin is warm and dry. There is not midline back tenderness. Seems a little uncomfortable he into the right low back but winces with reproducible pain in the area of the left SI joint. He says it radiates up from there as well in the paracervical musculature. Does not have clear piriformis pain. A little labored in his breathing Const: Vital Signs, click to edit/add: Vital Signs - 24 hr 03/08/24 06:36 03/08/24 07:26 Temperature 97.3 F L Pulse Rate [Pulse Oximeter] 68 62 Respiratory Rate 16 16 Blood Pressure [Ri t Upper Arm] 134/89 113/72 Pulse Oximetry 98 96 Oxygen Delivery Me thod Room Air Room Air Documenting provider has reviewed patient's vital signs: yes Course Vital Signs Vital signs: Initial Vital Signs Temperature 97.3 F L 03/08/24 06:36 Temperature Source Temporal Artery Scan 03/08/24 06:36 Pulse Rate 68 03/08/24 06:36 Respiratory Rate 16 03/08/24 06:36 Blood Pressure 134/89 03/08/24 06:36 Blood Pressure Mean 104 03/08/24 06:36 Blood Pressure Position Sitting 03/08/24 06:36 Pulse Oximetry 98 03/08/24 06:36 Oxygen Delivery Method Room Air 03/08/24 06:36 Vital Signs Temperature 97.3 F L 03/08/24 06:36 Pulse Rate 68 03/08/24 06:36 Respiratory Rate 16 03/08/24 06:36 Blood Pressure 134/89 03/08/24 06:36 Pulse Oximetry 98 03/08/24 06:36 Oxygen Delivery Method Room Air 03/08/24 06:36 Temperature 97.3 F L 03/08/24 06:36 Pulse Rate 62 03/08/24 07:26 Respiratory Rate 16 03/08/24 07:26 Blood Pressure 113/72 03/08/24 07:26 Pulse Oximetry 96 03/08/24 07:26 Oxygen Delivery Method Room Air 03/08/24 07:26 Medications Administered Medications: Discontinued Medications Generic Name Dose Route Start Last Admin Trade Name Freq PRN Reason Stop Dose Admin Hydromorphone HCl 1 mg 03/08/24 06:51 03/08/24 07:05 Hydromorphone 0.5 Mg/0.5 Ml Inj IM 03/08/24 06:52 1 mg ONCE ONE Administration Ibuprofen 800 mg 03/08/24 06:51 03/08/24 07:05 Ibuprofen 400 Mg Tablet PO 03/08/24 06:52 800 mg ONCE ONE Administration Lidocaine 1 patch 03/08/24 06:52 03/08/24 07:05 Lidocaine 5% Patch TRANSDERMA 03/08/24 06:53 1 patch ONCE ONE Administration Protocol Lorazepam 1 mg 03/08/24 06:51 03/08/24 07:05 Lorazepam 2 Mg/Ml Inj IM 03/08/24 06:52 1 mg ONCE ONE Administration Medical Decision Making MDM Narrative Medical decision making narrative: I think there is some sacral iliac origin here on the left side. Looks like this may have been suspected on review of records with question of potentially needing an injection here. Likely with surrounding muscle spasm at this time. He is in extremis of discomfort. Have ordered for injectable Dilaudid, Ativan and oral ibuprofen. Also place lidocaine patch in the area of the left sacroiliac joint. I do not think imaging that I can do here at this time would be beneficial otherwise. No new traumatic event. Symptoms improved on reassessment. See patient discharge plan for further discussion Medical Records Medical records reviewed: Yes I reviewed the patient's medical records Discharge Plan Discharge Clinical Impression: Low back pain, Sacroiliac joint pain Patient Disposition: Home w/ Parent or Adult Condition: Improved Additional Instructions: If it seems to help, would ice the low back to 3 times daily over the next few days. If the lidocaine patch seems to help, these are available [id number]. You might want to slide it just a little bit more midline given where your telling me some of the pain seemed to be. Otherwise I would center it over your left sacroiliac joint. Prednisone, Flexeril, Percocet from [facility]. Can take up to 800 mg of ibuprofen per dose with any of these medications. Alternative to ibuprofen might be up to 500 mg of naproxen 2 times daily. Can take up to 1000 mg of acetaminophen per dose and combine with any of these medications. Keep in mind that each tablet of Percocet contains 325 mg of acetaminophen. See handout on sacroiliac joint pain for exercises that might be helpful. Would follow up to discuss, review with primary. Might benefit from physical therapy care. Prescriptions: No Action glucosamine HCl 500 mg tablet 500 mg PO BID Rx Instructions: administer with meals celecoxib 100 mg capsule 100 mg PO BID PRN methocarbamol 500 mg tablet 500 mg PO TID PRN tramadol 100 mg tablet 100 mg PO TID PRN (Reason: pain) Qty: 60 0RF acetaminophen 650 mg Tablet Extended Release 1,300 mg PO Q8H PRN (Reason: pain) Qty: 30 0RF sennosides-docusate sodium [Senna-S] 8.6-50 mg tablet 1 tab-cap PO BID PRN (Reason: constipation) Qty: 10 0RF amlodipine 5 mg tablet 5 mg PO DAILY Qty: 90 3RF dextroamphetamine-amphetamine [Adderall] 15 mg tablet 15 mg PO BID@07,13 Qty: 60 0RF Rx Instructions: administer doses at least 4-6 hours apart phentermine 30 mg capsule 30 mg PO QAM Qty: 30 0RF Rx Instructions: must administer 2 hours after breakfast Follow Up/Referrals: Paul Chow MD [Primary Care Provider] - Stand Alone Forms: [facility] [facility] Info Instructions
--- OUTSIDE RECORDS SUMMARY | 2024-03-08 06:56 | XMS_ITS | Data Portability ---
Author Organization [facility], [facility] Address [address] [place] [address] Care Team Providers Care Office Messenger Helper Name Role Phone ÁNGELA GLEZ Primary Care Provider Assessment No assessment recorded. Plan of Treatment Reminders Order Date Submit Date Provider Last Modified By Organization Details Last Modified Time Details Appointments LAB BLOOD DRAW 2023 09:00A M [facility] Not available Not available Not available ESTABLISH ED 10 2023 09:20A M Vicente Perez MD Not available Not available Not available Lab PSA, serum or plasma 2023 024 [email or web address] [facility], [address], [place], [address], 02/25/2024 00:08:22 PSA, serum or plasma 2023 024 [email or web address] [facility], [address], [place], [address], 03/01/2024 12:37:19 PSA, serum or plasma 2022 023 [email or web address] [facility], [address], [place], [address], 03/13/2023 14:13:21 PSA, total, serum or plasma 2022 023 SUSY [facility], [address], [place], [address], 03/13/2023 14:50:52 PSA, serum or plasma 2021 022 [email or web address] [facility], [address], [place], [address], 07/30/2022 11:20:46 PSA, serum or plasma 2021 022 [email or web address] 0 [facility], [address], [place], [address], 08/08/2022 08:34:18 PSA, serum or plasma 2021 022 SUSY Not available 01/19/2022 16:51:18 PSA, serum or plasma 2020 021 [email or web address] Not available 07/21/2021 10:11:20 PSA, serum or plasma 2020 021 [email or web address] Not available 04/07/2021 16:16:58 PSA, total, serum or plasma 2020 021 [email or web address] Not available 12/13/2020 08:39:01 PSA, serum or plasma 2019 020 [email or web address] Not available 08/03/2020 16:28:23 PSA, serum or plasma 2019 020 SUSY Not available 04/07/2020 15:33:58 PSA, serum or plasma 2019 020 [email or web address] Not available 04/06/2020 17:06:41 Referral None recorded. Procedures None recorded. Surgeries None recorded. Imaging None recorded. Medication Orders tadalafil 20 mg tablet 2021 022 [email or web address] [facility], [address] [facility], [place], [address], 02/24/2024 09:34:23 tadalafil 20 mg tablet 2021 022 [email or web address] Not available 02/24/2024 09:34:23 sildenafi l 100 mg tablet 2020 021 [email or web address] [id number], [address] [facility] [address] [place], [address], 07/30/2022 11:19:28 tadalafil 20 mg tablet 2019 020 [email or web address] [id number], [address] [facility] [address] [place], [address], 02/24/2024 09:34:23 Patient TargetsNo targets recorded. Patient Instructions Encounter Date Encounter Id Patient Instructions Last Modified By Organization Details Last Modified Time 01/19/2022 [id number] plan rtc 6 month s for PSA, rx for tadalafil 20mg for ED and take twice weekly for penile rehab. [email or web address] Not available 01/19/2022 10:40:03 07/21/2021 [id number] undetectable PSA 2 years out from [facility]. will plan follow up 6 months for PSA recheck. [email or web address] Not available 07/21/2021 10:14:09 04/07/2021 [id number] will check testo level with an AM draw, call with report. with the PCP lab. plan recheck here 3-4 months. [email or web address] Not available 04/07/2021 16:33:13 12/05/2020 [id number] will send sildenafil 100mg rx, plan rtc for PSA recheck in 4 months. Not available 12/05/2020 18:05:35 08/03/2020 [id number] PSA is <0.04. Pt will try cialis. If still problems, consider penile inj. F/up [address] Schaeffer with PSA [email or web address] Not available 08/03/2020 17:37:55 04/06/2020 [id number] PSA is <0.04. Pt has ED. Discussed management. Has not used JULIANA. Wishes to try meds. Rx for tadalafil. F/up 4 months with PSA> [email or web address] Not available 04/06/2020 17:26:33 04/06/2020 [id number] Follow up with Provider as scheduled. [email or web address] Not available 04/06/2020 17:07:55 Reason for Referral None Reported. Results Created Date Observation Date Name Description Value Unit Range Abnormal Flag LastModifiedBy Organization Detail LastModifiedTime 08/03/2020 PSA, serum or plasm a PSA, Total <0.04 ng/mL Not Available [facility] [address], [place], [address], 08/03/2020 16:00:23 04/06/2020 PSA, serum or plasm a PSA, Total <0.04 ng/Ml Not Available [facility] [address], [place], [address], 04/06/2020 17:06:26 04/07/20 21 04/07/2021 PSA, serum or plasm a PSA, Total <0.04n g/ml Not Available [facility] [address], [place], [address], 04/07/2021 16:04:36 07/21/20 21 07/21/2021 PSA, serum or plasm a PSA, Total <0.04 Not Available [facility] [address], [place], [address], 07/21/2021 09:58:24 01/20/20 22 01/19/2022 PSA, serum or plasm a PSA, Total <0.04 ng/mL Not Available [facility] [address], [place], [address], 01/19/2022 10:23:24 07/30/20 22 07/30/2022 PSA, serum or plasm a PSA <0.04 ng/mL 0-4.0 Not Available [facility] [address], [place], [address], 07/30/2022 11:20:35 03/13/20 23 03/13/2023 PSA, serum or plasm a PSA <0.04n g/mL 0-4.0 Not Available [facility] [address], [place], [address], 03/13/2023 14:13:11 02/24/20 24 02/24/2024 PSA, serum or plasm a PSA 0.05ng /ml 0-4.0 NG/mL Not Available [facility] [address], [place], [address], 02/18/2024 16:23:33 Result Notes None recorded. Problems Name Status Onset Date Resolution Date Notes Provider Name and Address Organization Details Recorded Time Carcinoma of prostate Active 0 Frances Calderon charissa, [facility] 04/06/2020 16:55:36 Problem Notes None recorded. Procedures Surgical History Date Name Laterality Status Provider Name and Address Organization Details Recorded Time 03/04/20 24 DT Penile Injection Teaching completed Vicente Perez MD [address] [place] [address],[address], [place], [address], [facility] 03/04/2024 11:14:59 02/24/20 24 Blood Draw/MENTAL HEALTH CASE MANAGER/PSA RESULTS [facility] 09:35:12 03/13/20 23 Blood Draw/MENTAL HEALTH CASE MANAGER/PSA RESULTS completed Vicente Perez MD [address] [place] [address],[address], [place], [address], [facility] 03/13/2023 14:13:07 07/30/20 22 MENTAL HEALTH CASE MANAGER/blood draw completed Vicente Perez MD [address] [place] [address],[address], [place], [address], [facility] 07/30/2022 11:20:28 01/20/20 22 Blood Draw/MENTAL HEALTH CASE MANAGER/PSA RESULTS completed Connor Schaeffer MD [address] [place] [address],[address], [place], [address], [facility] 01/19/2022 10:23:20 07/21/20 21 Blood Draw/MENTAL HEALTH CASE MANAGER/PSA RESULTS completed Carmen carrington [facility] 07/21/2021 10:11:05 04/07/20 21 Blood Draw/MENTAL HEALTH CASE MANAGER/PSA RESULTS [facility] 04/07/2021 16:17:09 12/06/19 21 Blood Draw/MENTAL HEALTH CASE MANAGER/PSA RESULTS completed Chapito Mace MD [address] [facility],[address], [place], [address], [facility] 12/05/2020 17:29:08 08/03/20 20 Blood Draw/MENTAL HEALTH CASE MANAGER/PSA RESULTS completed Jim Callahan null, [facility] 08/03/2020 16:28:02 04/06/20 20 Blood Draw/MENTAL HEALTH CASE MANAGER/PSA RESULTS completed Bertha Mckeon null, [facility] 04/06/2020 17:06:16 10/05/19 20 Prostatectomy completed Buzz Ramey null, [facility] 04/06/2020 17:03:04 09/16/19 19 Colonoscopy completed Brooke Fields null, [facility] 07/21/2021 10:01:00 operative procedure on knee completed Frances Calderon null, [facility] 04/06/2020 16:56:27 kidney operation completed Frances Calderon null, [facility] 04/06/2020 16:57:02 repair of multiple tears of rotator cuff of shoulder completed Buzz Ramey null, [facility] 04/06/2020 17:03:31 Imaging Results None recorded. Procedure Notes None recorded. Medical Equipment None Reported. Allergies No known drug allergies Medications Name Sig Start Date Stop Date Status Note LastModified by Organization Details LastModified Time cyclobenzap rine 10 mg tablet 01/19 completed Not Available Not Available Not Available methocarbam ol 500 mg tablet TAKE 1 TABLET BY MOUTH THREE TIMES A DAY NEEDED FOR PAIN active Not Available Not Available No t Available tizanidine 2 mg tablet TAKE 1-2 TABLETS (2-4 MG) BY MOUTH EVERY 6 HOURS IF NEEDED FOR MUSCLE SPASM. 07/30 completed Not Available Not Available Not Available etodolac 300 mg capsule TAKE FIRST CAP 1 HOUR PRIOR TO APPOINTME NT, THEN 1 CAP EVERY 8 HOURS NEEDED FOR DISCOMFOR T 07/30 completed Not Available Not Available Not Available hydrocodone 5 mg-acetamin ophen 325 mg tablet TAKE 1-2 TABS BY MOUTH EVERY 6 HOURS NEEDED FOR PAIN 01/19 completed Not Available Not Available Not Available Chris-Gest Antacid 200 mg (as calcium carbonate 500 mg) chewable tablet CHEW 1 TABLET (500 MG) BY MOUTH TWO TIMES DAILY WITH MEALS. 03/04 completed Not Available Not Available Not Available prednisone 20 mg tablet 01/19 completed Not Available Not Available Not Available amlodipine 5 mg tablet TAKE 1 TABLET BY MOUTH EVERY DAY active Not Available Not Available No t Available ciprofloxac in 500 mg tablet 04/06 completed Not Available Not Available Not Available sulfamethox azole 800 mg-trimetho prim 160 mg tablet 04/06 completed Not Available Not Available Not Available aspirin 81 mg tablet,love yed release TAKE 1 TABLET BY MOUTH ONCE DAILY. 03/13 completed Not Available Not Available Not Available tramadol 50 mg tablet TAKE 2 TABLET BY MOUTH 3 TIMES A DAY NEEDED FOR PAIN 02/23 completed Not Available Not Available Not Available sildenafil 100 mg tablet TAKE ONE TABLET BY MOUTH ONE HOUR PRIOR TO SEX 07/30 completed Not Available Not Available Not Available phentermine 30 mg capsule TAKE 1 CAPSULE BY MOUTH EVERY MORNING MUST ADMINISTE R 2 HOURS AFTER BREAKFAST active Not Available Not Available No t Available nortriptyli ne 25 mg capsule TAKE 1 CAPSULE BY MOUTH AT BEDTIME. 03/13 completed Not Available Not Available Not Available oxycodone-a cetaminophe n 5 mg-325 mg tablet 07/21 completed Not Available Not Available Not Available dextroamphe tamine-amph etamine 15 mg tablet 15 MG ORALLY TWICE DAILY @07,13 ADMINISTE R DOSES AT LEAST 4-6 HOURS APART active Not Available Not Available No t Available diclofenac sodium 75 mg tablet,love yed release TAKE 1 TABLET BY MOUTH TWICE A DAY 07/30 completed Not Available Not Available Not Available ergocalcife rol (vitamin D2) 1,250 mcg (50,000 unit) capsule TAKE 1 CAPSULE (50,000 UNITS) BY MOUTH ONE TIME PER WEEK 03/04 completed Not Available Not Available Not Available oxaprozin 600 mg tablet 01/19 completed Not Available Not Available Not Available methylpredn isolone 4 mg tablets in a dose pack ORALLY PER PACKAGE DIRECTION S, START TOMORROW 11/16/23 ON DAY #3. 02/23 completed Not Available Not Available Not Available celecoxib 100 mg capsule TAKE 1 CAPSULE BY MOUTH TWICE A DAY NEEDED 02/23 completed Not Available Not Available Not Available dextroamphe tamine-amph etamine 5 mg tablet TAKE 1 TABLET BY MOUTH TWICE DAILY FOR ADHD. TAKE DOSES AT LEAST 4-6 HOURS APART. 02/23 completed Not Available Not Available Not Available naproxen 500 mg tablet 07/30 completed Not Available Not Available Not Available oxycodone 5 mg tablet TAKE 1-2 TABLETS BY MOUTH EVERY 4 HOURS NEEDED FOR PAIN 02/23 completed Not Available Not Available Not Available DentaGel 1.1 % USE DIRECTED ON PACKAGE, BEGIN DAY AFTER SURGERY 07/30 completed Not Available Not Available Not Available tadalafil 20 mg tablet TAKE 1 TABLET BY MOUTH THREE TIMES A WEEK 02/23 completed Not Available Not Available Not Available chlorhexidi ne gluconate 0.12 % mouthwash BEGIN AM OF SURGERY, RINSE 1/2 OZ X 30 SEC AFTER BREAKFAST & AT BED. DONT EAT/DRINK /RINSE X 30 MIN 01/19 completed Not Available Not Available Not Available Glucosamine active Not Available Not A vailable Not Available tramadol 100 mg tablet TAKE 1 TABLET BY MOUTH 3 TIMES A DAY NEEDED FOR PAIN active Not Available Not Available No t Available Vitals Date Recorded Body height Body mass index (BMI) Body weight Provider Name and Address Organization Details Last Updated DateTime 07/30/2022 177.8 cm 30.1 kg/m2 96934.4 g Vicente Perez MD [address] [place] [address], [address] [place] [address] 07/30/2022 11:17:50 Date Recorded Body height Body mass index (BMI) Body weight Provider Name and Address Organization Details Last Updated DateTime 03/13/2023 177.8 cm 29.7 kg/m2 15997.62 g Vicente Perez MD [address] [place] [address], [phone] [place] [address] 03/13/2023 14:11:27 Date Recorded Body height Body mass index (BMI) Body weight Provider Name and Address Organization Details Last Updated DateTime 08/03/2020 180.34 cm 27.9 kg/m2 83666.47 g Carlos Solis [facility] 08/03/2020 15:58:47 Date Recorded Body height Body mass index (BMI) Body weight Provider Name and Address Organization Details Last Updated DateTime 02/24/2024 177.8 cm 28 kg/m2 90418.51 g Siobhan Narvaez [facility] 02/24/2024 09:33:41 Date Recorded Body height Body mass index (BMI) Body weight Provider Name and Address Organization Details Last Updated DateTime 03/04/2024 177.8 cm 28 kg/m2 97426.51 g Zoë Vick-Shalini lira [facility] 03/04/2024 10:42:16 Date Recorded Body height Body mass index (BMI) Body weight Provider Name and Address Organization Details Last Updated DateTime 04/06/2020 180.34 cm 27.9 kg/m2 33696.47 g Buzz Ramey [facility] 04/06/2020 17:00:48 Date Recorded Body height Body mass index (BMI) Body weight Provider Name and Address Organization Details Last Updated DateTime 12/05/2020 180.34 cm 27.9 kg/m2 44435.47 g Chapito Mace MD [address] [facility],[address] [address] 12/05/2020 17:24:58 Date Recorded Body height Body mass index (BMI) Body weight Systolic blood pressure Diastolic blood pressure Provider Name and Address Organization Details Last Updated DateTime 04/07/2021 180.34 cm 28.9 kg/m2 59223.62 g 141 mm[Hg] 84 mm[Hg] Connor Schaeffer MD [address] [facility],[address] [place] [address], [address] [place] [address] 16:09:51 Date Recorded Body height Body weight Body mass index (BMI) Provider Name and Address Organization Details Last Updated DateTime 07/21/2021 180.34 cm 90949.44 g 28.6 kg/m2 Brooke Fields [facility] 07/21/2021 10:00:22 Date Recorded Body height Body mass index (BMI) Body weight Provider Name and Address Organization Details Last Updated DateTime 01/19/2022 180.34 cm 28.6 kg/m2 73416.44 g Connor Schaeffer MD [address] [facility],[address], [place], [address], [facility] 01/19/2022 10:19:39 Social History Question Answer Notes LastModified by Organizat ion Details LastModified Time Tobacco Smoking Status Never Smoker Buzz carrington [place] - [facility] 04/06/2020 17:02:22 Do You Have An Advance Directive? No [email or web address] Information not available 04/07/2021 What Is Your Level Of Alcohol Consumption? Moderate Information not available 12/05/2020 What Is Your Level Of Caffeine Consumption? Moderate Information not available 12/05/2020 In The 14 Days Before Symptom Onset, Have You Had Close Contact With A Laboratory-confir med COVID-19 While That Case Was Ill? No [email or web address] Information not available 04/07/2021 In The 14 Days Before Symptom Onset, Have You Had Close Contact With A Person Who Is Under Investigation For COVID-19 While That Person Was Ill? No Information not available 04/07/2021 Have You Been To An Area Known To Be High Risk For COVID-19? No [email or web address] Information not available 04/07/2021 What Type Of Diet Are You Following? REGULAR [email or web address] Information not available 04/07/2021 Do You Or Have You Ever Used E-cigarettes Or Vape? Never Used Electronic Cigarettes [email or web address] Information not available 04/06/2020 Race White [email or web address] Information no t available 04/07/2021 Ethnicity Not /Latin o [email or web address] Information not available 04/07/2021 Preferred Language Swedish [email or web address] Information not available 04/07/2021 Recreational Drug Use No Information not available 12/05/2020 Marital Status Informatio n not available 12/05/2020 What Was The Date Of Your Most Recent Tobacco Screening? 03/04/2024 [email or web address] Information not available 03/04/2024 What Is Your Relationship Status? [email or web address] Information not available 04/07/2021 Are You Sexually Active? Yes [email or web address] Information not available 04/07/2021 Do You Or Have You Ever Used Smokeless Tobacco? Never Used Smokeless Tobacco [email or web address] Information not available 04/06/2020 Do You Use Any Illicit Or Recreational Drugs? No [email or web address] Information not available 04/07/2021 Do You Or Have You Ever Used Any Other Forms Of Tobacco Or Nicotine? No [email or web address] Information not available 04/07/2021 Sex: Unknown Functional Status Question Answer Note LastModified by Organization D etails LastModified Time What is your exercise level? Moderate [email or web address] Information not available 04/07/2021 Mental Status None recorded. Family History Relationship Description Onset Age of this Age Resolved Age Notes Father Family history of diabetes mellitus Mother Family history of malignant neoplasm Lung cancer Medical History Condition Response High Blood Pressure Y Cancer Y Kidney Stones Y Immunizations Vaccine Type Date Status Provider Name and Address Organization Details Recorded Time COVID-19 vaccine, vector-nr, rS-Ad26, PF, 0.5 mL 11/24/2020 completed Connor Schaeffer MD [address] [place] [address],[address], [address], [facility] 01/19/2022 10:19:44 Influenza, split virus, trivalent, PF 06/09/2009 completed Connor Schaeffer MD [address] [place] [address],[address], [address], [facility] 01/19/2022 10:19:44 Influenza, recombinant, quadrivalent, PF 07/09/2019 completed Connor Schaeffer MD [address] [place] [address],[address], [address], [facility] 01/19/2022 10:19:44 Influenza, split virus, trivalent, preservative 07/07/2010 completed Connor Schaeffer MD [address] [place] [address],[address], [address], [facility] 01/19/2022 10:19:44 Influenza, split virus, trivalent, preservative 07/05/2011 completed Connor Schaeffer MD [address] [place] [address],[address], [address], [facility] 01/19/2022 10:19:44 Influenza, MDCK, quadrivalent, PF 07/17/2021 completed Connor Schaeffer MD [address] [place] [address],[address], [address], [facility] 01/19/2022 10:19:44 Influenza, split virus, quadrivalent, preservative 07/06/2015 completed Connor Schaeffer MD [address] [place] [address],[address], [address], [facility] 01/19/2022 10:19:44 Tdap 05/24/2008 completed Connor Schaeffer MD [address] [place] [address],[address], [address], [facility] 01/19/2022 10:19:44 Influenza, split virus, trivalent, preservative 08/12/2012 completed Connor Schaeffer MD [address] [place] [address],[address], [address] [place] [address], [facility] 01/19/2022 10:19:44 Tdap 11/15/2016 completed Connor Schaeffer MD [address] [place] [address],[address], [address] [place] [address], [facility] 01/19/2022 10:19:44 COVID-19, mRNA, LNP-S, PF, 100 mcg/0.5mL dose or 50 mcg/0.25mL dose 07/17/2021 completed Connor Schaeffer MD [address] [place] [address],[address], [address], [facility] 01/19/2022 10:19:44 Influenza, split virus, quadrivalent, PF 07/28/2020 completed Connor Schaeffer MD [address] [place] [address],[address], [address] [place] [address], [facility] 01/19/2022 10:19:44 Past Encounters Encounter ID Performer Location Encounter Start Date Encounter Closed Date Diagnosis/Indication Diagnosis SNOMED-CT Code [id number] Vicente Perez MD [facility] [address] [place] [id number] 04/06/2020 16:30:51 04/06/2020 17:08:04 Malignant tumor of prostate [id number] Carlos Solis [facility] [address] [place] [address] 04/06/2020 16:31:31 04/06/2020 17:55:52 Carcinoma of prostate 693454025 Erectile d ysfunction following radical prostatectomy [id number] Carlos Solis [facility] [address] [place] [id number] 08/03/2020 15:49:30 08/05/2020 12:26:00 Carcinoma of prostate [id number] MD ST[facility] DrewJaspreet [address] [place] [address] [address] [place], [place] [address] 12/05/2020 16:37:04 12/07/2020 13:35:47 Malignant tumor of prostate 152894039 Erectile d ysfunction following radical prostatectomy [id number] Connor Schaeffer MD [facility] [address] [place], [place] [address] 04/07/2021 15:41:14 04/10/2021 10:43:15 Carcinoma of prostate 810249968 Malaise and fatigue 2717 [id number] Connor Schaeffer MD [address] [place], [place] [address] 07/21/2021 09:50:06 07/24/2021 09:34:15 Carcinoma of prostate [id number] Connor Schaeffer MD [address] [place], [place] [address] 01/19/2022 10:12:14 01/22/2022 16:47:19 Carcinoma of prostate [id number] Erectile d ysfunction following radical prostatectomy [id number] [facility] [address] [place], [place] [address] 07/30/2022 11:12:16 08/03/2022 09:59:05 Carcinoma of prostate 811547084 Erectile d ysfunction following radical prostatectomy [id number] Vicente Perez MD [address] [place], [place] [address] 03/13/2023 13:55:05 03/22/2023 19:55:10 Carcinoma of prostate 797027296 Erectile d ysfunction following radical prostatectomy [id number] [facility] [address] [place] [address] [address] [place], [place] [id number] 02/24/2024 09:21:00 02/25/2024 08:35:41 Carcinoma of prostate 217978300 Erectile d ysfunction following radical prostatectomy [id number] [facility] [address] [facility] [address] [place] [address] 03/04/2024 10:39:43 03/05/2024 08:56:45 Carcinoma of prostate 847821380 Erectile d ysfunction following radical prostatectomy [id number] Health Concerns Section Related Observation LastModified by Organization Detai ls LastModified Time None Recorded Concern Status LastModified by Organization Details LastModified Time None Recorded Advance Directives Directive N: Payers Encounter Date Sequence Insurance Name Policy Number Policy Rogers Covered Member ID Rogers Member ID Guarantor Name 03/04/2024 1 [place] [id number] Fredy Ambrocio Aldo [id number] Fredy Ambrocio Aldo 02/24/2024 1 [place] [id number] Fredy Ambrocio Aldo [id number] Fredy Ambrocio Aldo 03/13/2023 1 [place] [id number] Fredy Ambrocio Aldo [id number] 50 Fredy Ambrocio Aldo 07/30/2022 1 [place] [id number] Fredy Aldo [id number] 50 Fredy Ambrocio Aldo 01/19/2022 1 [place] [id number] Fredy Aldo [id number] 50 Fredy Ambrocio Aldo 07/21/2021 1 [place] [id number] Fredy Aldo [id number] 50 Fredy Ambrocio Aldo 04/07/2021 1 [place] [id number] Fredy Aldo [id number] Fredy Ambrocio Aldo 12/05/2020 1 [place] [id number] Fredy Aldo [id number] Fredy Ambrocio Aldo 08/03/2020 1 [place] [id number] Fredy Aldo [id number] Fredy Ambrocio Aldo Notes Date Note Type Note Provider Name and Address Organization Details Recorded Time 04/06/2020 text/html HPI Notes: FREDY CARLSON is a 59 year old male. Prostate ca f/up. Doing well. No voiding sxs. Has ED HPI: Date of diagnosis: 08/06/19 Bx by: Dr Vicente Perez PSA: 5.3 WILLIAM: Nl Volume: 40 cc Pathology: Gl score 7. Gr 3/4 LA,LM,LB,RA Bone scan: Neg Ct Scan: Neg MRI: Urol issues: Urolithiasis IIEF : 23 AUA score: Abdominal surgery: None. Pt has umbilical hernia Body Habitus: Nl. Treatment: 10/05/19: RARP path: Gr 3/4; [id number] ( focal extraprostatic extension, margins neg) First post op PSA <0.04. 59 yo male diagnosed with prostate cancer - T2a - [place] 3+4 = 7 on 08/06/19. He was noted to have an elevated PSA and nodule at Left apex. He was dx with kidney stones on 01/20/19. CT scan (01/20/19) revealed a 4-5 mm stone in the proximal right ureter -- no stones in the right or left kidney. He underwent cystoscopy with attempted right ureteroscopy and right stent placement on 01/26/2019 and Right ESWL on 01/29/19. His stone did break and he underwent Right ureteroscopy with stone removal on 02/12/19. Stone - 60% Calcium phosphate, 30% Calcium oxalate monohydrate, and 10% Calcium oxalate dihydrate. Carlos carrington [facility] 05/12/2020 14:14:32 08/03/2020 text/html HPI Notes: Prost ate ca f/up. Doing well. Continent. Has ED. HPI: Date of diagnosis: 08/06/19 Bx by: Dr Vicente Perez PSA: 5.3 WILLIAM: Nl Volume: 40 cc Pathology: Gl score 7. Gr 3/4 LA,LM,LB,RA Bone scan: Neg Ct Scan: Neg MRI: Urol issues: Urolithiasis IIEF : 23 AUA score: Abdominal surgery: None. Pt has umbilical hernia Body Habitus: Nl. Treatment: 10/05/19: RARP path: Gr 3/4; [id number] ( focal extraprostatic extension, margins neg) First post op PSA <0.04. 59 yo male diagnosed with prostate cancer - T2a - [place] 3+4 = 7 on 08/06/19. He was noted to have an elevated PSA and nodule at Left apex. He was dx with kidney stones on 01/20/19. CT scan (01/20/19) revealed a 4-5 mm stone in the proximal right ureter -- no stones in the right or left kidney. He underwent cystoscopy with attempted right ureteroscopy and right stent placement on 01/26/2019 and Right ESWL on 01/29/19. His stone did break and he underwent Right ureteroscopy with stone removal on 02/12/19. Stone - 60% Calcium phosphate, 30% Calcium oxalate monohydrate, and 10% Calcium oxalate dihydrate. [facility] 08/03/2020 17:38:55 12/05/2020 text/html HPI Notes: 15 mo nths after RARRP, PSA <0.04 today. voiding OK, control good but occasional urgency, no heme/dysuria. got cialis rx 20mg last visit and no effect. wants to try sildenafil instead. Connor Schaeffer MD [address] [place] [address],[address], [place], [address], [facility] 12/05/2020 18:06:16 04/07/2021 text/html HPI Notes: 18 mo nths after RARRP voiding OK, and 100mg sildenafil starting to get erections now. has some brain fog and low energy unlike before the surgery. PSA <0.04 today. Connor Schaeffer MD [address] [place] [address],[address], [place], [address], [facility] 04/07/2021 16:55:01 07/21/2021 text/html HPI Notes: about 2 years out from RARRP. PSA <0.04, voiding OK, no heme/dysuria. Connor Schaeffer MD [address] [place] [address],[address], [place], [address], [facility] 07/21/2021 10:15:46 01/19/2022 text/html HPI Notes: 2 1/2 year out from RARRP. PSA <0.04 today. voiding Ok, control good. has tried sildenafil 100mg for ED but not tried in a while due to back issues. it did not work at the time. Connor Schaeffer MD [address] [place] [address],[address], [place], [address], [facility] 01/19/2022 10:40:18 07/30/2022 text/html HPI Notes: 61 yo male with history of kidney stones (60% Calcium phosphate, 30% CaOX monohydrate, and 10% CaOX dihydrate) and prostate cancer - pT3a No Mo - [place] 3+4 = 7 - s/p RAL radical prostatectomy (10/05/19) - focal extraprostatic extension - (margins neg) - s/p Right ESWL- (01/29/19) - s/p Right ureteroscopy with stone removal - (02/12/19) 07/30/22 - He presents for follow-up on Prostate cancer. He states his urination is okay (gets up 2x.night) - denies leakages. No erections. He tried Cialis 20 mg - no improvement. He denies flank pain. -PSA- <0.04 PSA - 5.3 (2018) - < 0.04 (04/06/20) - < 0.04 (08/03/20) - < 0.04 (04/07/21) - < 0.04 (07/21/21) - < 0.04 (01/19/22) - < 0.04 (07/30/22) CT scan (01/20/19) - Right 5 mm stone (proximal ureter) -- no stones in either kidney. Vicente Perez MD [address] [place] [address],[address], [place], [address], [facility] 07/30/2022 14:09:30 03/13/2023 text/html HPI Notes: 62 yo male with history of kidney stones (60% Calcium phosphate, 30% CaOX monohydrate, and 10% CaOX dihydrate) and prostate cancer - pT3a No Mo - [place] 3+4 = 7 - s/p RAL radical prostatectomy (10/05/19) - focal extraprostatic extension - (margins neg) - s/p Right ESWL- (01/29/19) - s/p Right ureteroscopy with stone removal - (02/12/19) 07/30/22 - He presents for follow-up on Prostate cancer. He states his urination is okay (gets up 2x.night) - denies leakages. No erections. He tried Cialis 20 mg - no improvement. He denies flank pain. 03/13/23 - He presents for follow-up on Prostate cancer. No erections. -PSA- <0.04 PSA - 5.3 (2018) - < 0.04 (04/06/20) - < 0.04 (08/03/20) - < 0.04 (04/07/21) - < 0.04 (07/21/21) - < 0.04 (01/19/22) - < 0.04 (07/30/22) - < 0.04 (03/11/23) CT scan (01/20/19) - Right 5 mm stone (proximal ureter) -- no stones in either kidney. Vicente Perez MD [address] [place] [address],[address], [place], [address], [facility] 03/14/2023 21:58:11 02/24/2024 text/html HPI Notes: 63 yo male with history of kidney stones (60% Calcium phosphate, 30% CaOX monohydrate, and 10% CaOX dihydrate) and prostate cancer - pT3a No Mo - [place] 3+4 = 7 - s/p RAL radical prostatectomy (10/05/19) - focal extraprostatic extension - (margins neg) - s/p Right ESWL- (01/29/19) - s/p Right ureteroscopy with stone removal - (02/12/19) 07/30/22 - He presents for follow-up on Prostate cancer. He states his urination is okay (gets up 2x.night) - denies leakages. No erections. He tried Cialis 20 mg - no improvement. He denies flank pain. 03/13/23 - He presents for follow-up on Prostate cancer. No erections. 02/24/24- He presents for follow-up on prostate cancer and ED. He voids every 3 hours during the day and 2x/night. He reports rare leak with cough. No erections - he is interested in penile injections. -PSA - 0.05 PSA - 5.3 (2018) - < 0.04 (04/06/20) - < 0.04 (08/03/20) - < 0.04 (04/07/21) - < 0.04 (07/21/21) - < 0.04 (01/19/22) - < 0.04 (07/30/22) - < 0.04 (03/11/23) - 0.05 (02/24/24) CT scan (01/20/19) - Right 5 mm stone (proximal ureter) -- no stones in either kidney. Vicente Perez MD [address] [place] [address],[address], [place], [address], [facility] 02/25/2024 00:01:05 03/04/2024 text/html HPI Notes: 63 yo male with history of kidney stones (60% Calcium phosphate, 30% CaOX monohydrate, and 10% CaOX dihydrate) and prostate cancer - pT3a No Mo - [place] 3+4 = 7 - s/p RAL radical prostatectomy (10/05/19) - focal extraprostatic extension - (margins neg) - s/p Right ESWL- (01/29/19) - s/p Right ureteroscopy with stone removal - (02/12/19) 07/30/22 - He presents for follow-up on Prostate cancer. He states his urination is okay (gets up 2x.night) - denies leakages. No erections. He tried Cialis 20 mg - no improvement. He denies flank pain. 03/13/23 - He presents for follow-up on Prostate cancer. No erections. 02/24/24- He presents for follow-up on prostate cancer and ED. He voids every 3 hours during the day and 2x/night. He reports rare leak with cough. No erections - he is interested in penile injections. 03/04/24- He presents for Trimix injection teaching. PSA - 5.3 (2019) - < 0.04 (04/06/20) - < 0.04 (08/03/20) - < 0.04 (04/07/21) - < 0.04 (07/21/21) - < 0.04 (01/19/22) - < 0.04 (07/30/22) - < 0.04 (03/11/23) - 0.05 (02/24/24) CT scan (01/20/19) - Right 5 mm stone (proximal ureter) -- no stones in either kidney. Vicente Perez MD [address] [facility],[address], [place], [address], [facility] 03/04/2024 11:15:55
--- OUTSIDE RECORDS SUMMARY | 2024-03-08 06:56 | XMS_ITS | Continuity of Care Document ---
Author Organization [facility] Address [address] [place] [address] Care Team Providers Care Screen Door Maker Name Role Phone ÁNGELA GLEZ Primary Care Provider Assessment No assessment recorded. Plan of Treatment Reminders Order Date Submit Date Provider Last Modified By Organization Details Last Modified Time Details Appointments LAB BLOOD DRAW 2023 09:00A M [facility] Not available Not available Not available ESTABLISH ED 10 2023 09:20A M Vicente Perez MD Not available Not available Not available Lab None recorded. Referral None recorded. Procedures None recorded. Surgeries None recorded. Imaging None recorded. Medication Orders None recorded. Patient TargetsNo targets recorded. Patient InstructionsNo instructions recorded. Reason for Referral None Reported. Problems Name Status Onset Date Resolution Date Notes Provider Name and Address Organization Details Recorded Time Carcinoma of prostate Active 0 Frances Kvng carrington [facility] 04/06/2020 16:55:36 Problem Notes None recorded. Procedures Surgical History Date Name Laterality Status Provider Name and Address Organization Details Recorded Time 03/04/20 24 DT Penile Injection Teaching completed Vicente Perez MD [address] [place] [address],[facility] [address], [address], [facility] 03/04/2024 11:14:59 02/24/20 24 Blood Draw/PROFESSOR OF INDUSTRIAL TECHNOLOGY/PSA RESULTS completed Siobhan carrington [facility] 02/24/2024 09:35:12 03/13/20 23 Blood Draw/PROFESSOR OF INDUSTRIAL TECHNOLOGY/PSA RESULTS completed Vicente Perez MD [address] [place] [address],[address], [address], [facility] 03/13/2023 14:13:07 11/14/20 22 PROFESSOR OF INDUSTRIAL TECHNOLOGY/blood draw completed Vicente Perez MD [address] [facility],[address], [place], [address], [facility] 07/30/2022 11:20:28 01/20/20 22 Blood Draw/PROFESSOR OF INDUSTRIAL TECHNOLOGY/PSA RESULTS completed Connor Schaeffer MD [address] [facility], [place], [address], [facility] 01/19/2022 10:23:20 07/21/20 21 Blood Draw/PROFESSOR OF INDUSTRIAL TECHNOLOGY/PSA RESULTS completed Carmen Jc null, [facility] 07/21/2021 10:11:05 04/07/20 21 Blood Draw/PROFESSOR OF INDUSTRIAL TECHNOLOGY/PSA RESULTS completed Buzz Ramey null, [facility] 04/07/2021 16:17:09 12/06/19 21 Blood Draw/PROFESSOR OF INDUSTRIAL TECHNOLOGY/PSA RESULTS completed Chapito Mace MD [address] [facility],[address], [place], [address], [facility] 12/05/2020 17:29:08 08/03/20 20 Blood Draw/PROFESSOR OF INDUSTRIAL TECHNOLOGY/PSA RESULTS completed Jim Callahan null, [facility] 08/03/2020 16:28:02 04/06/20 20 Blood Draw/PROFESSOR OF INDUSTRIAL TECHNOLOGY/PSA RESULTS completed Bertha Mckeon null, [facility] 04/06/2020 17:06:16 10/05/19 20 Prostatectomy completed Buzz Ramey null, [facility] 04/06/2020 17:03:04 09/16/19 19 Colonoscopy completed Brooke Fields null, [facility] 07/21/2021 10:01:00 operative procedure on knee completed Frances Calderon null, [facility] 04/06/2020 16:56:27 kidney operation completed Frances Calderon null, [facility] 04/06/2020 16:57:02 repair of multiple tears of rotator cuff of shoulder completed Buzz Ramey null, [facility] 04/06/2020 17:03:31 Imaging Results None recorded. Procedure [...] Updated DateTime 03/04/2024 177.8 cm 28 kg/m2 07009.51 g Zoë lira [facility] 03/04/2024 10:42:16 Social History Question Answer Notes LastModified by Organizat ion Details LastModified Time Tobacco Smoking Status Never Smoker Buzz carrington [place] - [facility] 04/06/2020 17:02:22 Do You Have An Advance Directive? No [email or web address] Information not available 04/07/2021 What Is Your Level Of Alcohol Consumption? Moderate Information not available 12/05/2020 What Is Your Level Of Caffeine Consumption? Moderate Information not available 12/05/2020 In The 14 Days Before Symptom Onset, Have You Had Close Contact With A Laboratory-confir med COVID-19 While That Case Was Ill? No [email or web address] Information not available 04/07/2021 In The 14 Days Before Symptom Onset, Have You Had Close Contact With A Person Who Is Under Investigation For COVID-19 While That Person Was Ill? No [email or web address] Information not available 04/07/2021 Have You Been To An Area Known To Be High Risk For COVID-19? No [email or web address] Information not available 04/07/2021 What Type Of Diet Are You Following? REGULAR Information not available 04/07/2021 Do You Or Have You Ever Used E-cigarettes Or Vape? Never Used Electronic Cigarettes [email or web address] Information not available 04/06/2020 Race White [email or web address] Information no t available 04/07/2021 Ethnicity Not /Latin o [email or web address] Information not available 04/07/2021 Preferred Language Montenegrin Information not available 04/07/2021 Recreational Drug Use No Information not available 12/05/2020 Marital Status Informatio n not available 12/05/2020 What Was The Date Of Your Most Recent Tobacco Screening? 03/04/2024 [email or web address] Information not available 03/04/2024 What Is Your Relationship Status? [email or web address] Information not available 04/07/2021 Are You Sexually Active? Yes [email or web address] Information not available 04/07/2021 Do You Or Have You Ever Used Smokeless Tobacco? Never Used Smokeless Tobacco [email or web address] Information not available 04/06/2020 Do You Use Any Illicit Or Recreational Drugs? No [email or web address] Information not available 04/07/2021 Do You Or Have You Ever Used Any Other Forms Of Tobacco Or Nicotine? No [email or web address] Information not available 04/07/2021 Sex: Male Functional Status Question Answer Note LastModified by Organization D etails LastModified Time What is your exercise level? Moderate [email or web address] Information not available 04/07/2021 Mental Status None recorded. Family History Relationship Description Onset Age of this Age Resolved Age Notes Father Family history of diabetes mellitus Mother Family history of malignant neoplasm Lung cancer Medical History Condition Response High Blood Pressure Y Kidney Stones Y Cancer Y Immunizations Vaccine Type Date Status Provider Name and Address Organization Details Recorded Time COVID-19 vaccine, vector-nr, [id number], PF, 0.5 mL 11/24/2020 completed Connor Schaeffer MD [address] [place] [address],[address], [address], [facility] 01/19/2022 10:19:44 Influenza, split virus, trivalent, PF 06/09/2009 completed Connor Schaeffer MD [address] [place] [address],[address], [address], [facility] 01/19/2022 10:19:44 Influenza, recombinant, quadrivalent, PF 07/09/2019 completed Connor Schaeffer MD [address] [place] [address],[address], [address], [facility] 01/19/2022 10:19:44 Influenza, split virus, trivalent, preservative 07/07/2010 completed Connor Schaeffer MD [address] [place] [address],[address], [address], [facility] 01/19/2022 10:19:44 Influenza, split virus, trivalent, preservative 07/05/2011 completed Connor Schaeffer MD [address] [place] [address],[address], [address], [facility] 01/19/2022 10:19:44 Influenza, MDCK, quadrivalent, PF 07/17/2021 completed Connor Schaeffer MD [address] [place] [address],[address], [address], [facility] 01/19/2022 10:19:44 Influenza, split virus, quadrivalent, preservative 07/06/2015 completed Connor Schaeffer MD [address] [place] [address] [place] [address], [address], [facility] 01/19/2022 10:19:44 Tdap 05/24/2008 completed Connor Schaeffer MD [address] [place] [address],[address], [address], [facility] 01/19/2022 10:19:44 Influenza, split virus, trivalent, preservative 08/12/2012 completed Connor Schaeffer MD [address] [place] [address],[address], [address], [facility] 01/19/2022 10:19:44 Tdap 11/15/2016 completed Connor Schaeffer MD [address] [place] [address],[address], [address] [place] [address], [facility] 01/19/2022 10:19:44 COVID-19, mRNA, LNP-S, PF, 100 mcg/0.5mL dose or 50 mcg/0.25mL dose 07/17/2021 completed Connor Schaeffer MD [address] [place] [address],[address], [address], [facility] 01/19/2022 10:19:44 Influenza, split virus, quadrivalent, PF 07/28/2020 completed Connor Schaeffer MD [address] [place] [address],[address], [address], [facility] 01/19/2022 10:19:44 Past Encounters Encounter ID Performer Location Encounter Start Date Encounter Closed Date Diagnosis/Indication Diagnosis SNOMED-CT Code [id number] MD Juan Andrade [address] [place] [phone] 02/24/2024 09:21:00 02/25/2024 08:35:41 Carcinoma of prostate [id number] Erectile d ysfunction following radical prostatectomy [id number] MD Juan Andrade [address] [place] [phone] 03/04/2024 10:39:43 03/05/2024 08:56:45 Carcinoma of prostate [id number] Erectile d ysfunction following radical prostatectomy [id number] Health Concerns Section Related Observation LastModified by Organization Detai ls LastModified Time None Recorded Concern Status LastModified by Organization Details LastModified Time None Recorded Payers Encounter Date Sequence Insurance Name Policy Number Policy Rogers Covered Member ID Rogers Member ID Guarantor Name 03/04/2024 1 [place] [id number] Sawyer Carlson [id number] Sawyer Carlson Notes Date Note Type Note Provider Name and Address Organization Details Recorded Time 03/04/2024 text/html HPI Notes: 63 yo male [...] for Trimix injection teaching. PSA - 5.3 (2018) - < 0.04 (04/06/20) - < 0.04 (08/03/20) - < 0.04 (04/07/21) - < 0.04 (07/21/21) - < 0.04 (01/19/22) - < 0.04 (07/30/22) - < 0.04 (03/11/23) - 0.05 (02/24/24) CT scan (01/20/19) - Right 5 mm stone (proximal ureter) -- no stones in either kidney. Vicente Perez MD [address] [facility],[address], [place], [address], [facility] 03/04/2024 11:15:55
--- OUTSIDE RECORDS SUMMARY | 2024-03-08 06:57 | XMS_ITS | Encounter Summary ---
Author Organization [facility] Address [address] [place] [address] Care Team Providers Care Sewer Builder Name Role Phone Unavailable Primary Care Provider Unavailabl e Reason for Visit * Reason Comments BACK PAIN * Therapies (Routine) - Authorized Specialty Diagnoses / Procedures Referred By Contac t Referred To Contact Physical Therapy Diagnoses [place] [address] [place] [address] Tri [address] Neck/Back [address] [place] [address] Referral ID Status Reason Start Date Expiration Date V isits Requested Visits Authorized [id number] Authorized 07/10/2023 10/08/2024 [id number] Encounter Details Date Type Department Care Team (Late st Contact Info) Description 12/19/2023 11:15 AM CDT Therapy Physical Therapy at [facility] Physical Therapy [place] [address] [place] [address] [place], [place] [phone] Yumiko Robins BI ANALYST [address] [place], [place] [id number] Left lumbar radiculopathy [M54.16] (Primary Dx); Mechanical low back pain Social History Tobacco Use Types Packs/Day Years Used Date Smoking Tobacco: Never Assessed Sex and Gender Information Value Date Recorded Sex Assigned at Not on file Gender Identity Not on file Sexual Orientation Not on file documented as of this encounter Progress Notes * Yumiko Robins PTA - 12/19/2023 11:15 AM CDT 12/19/2023 Visit # 21 Protocol: Back and Fusion 03/07/2022 Start: 11:19 End: 12;02 (BI ANALYST Visit # 1 Subjective: Pt reports that his back is a little tight crampy today. No issues after last session. Has no questions or concerns at this time. Cervical Not performed today. Objective Tests & Measures: 60% Lext 60% T-roto +10LP Tests performed today (see reviewfloweet for score and outcomes): : None Performed Today Warm Up: Movement Specific Training: Not Completed Bike: Minutes 8 Intensity min/mod ICE: Declined Lumbar 12/19/2023 11:15 AM Lumbar & Torso Set 1 Ext % Max 100 Set 1 Ext ROM 9-42 Set 1 Ext Wgt 105 Set 1 Ext Reps 27 Set 1 Ext Tul 156 Set 1 Ext Celine RPE 6 Set 2 Ext % Max 100 Set 2 Ext ROM 9-42 Set 2 Ext Wgt 105 Set 2 Ext Reps 20 Set 2 Ext Tul 112 Set 2 Celine RPE 9 Left Rot % Max 60 Left Rot ROM 35 Left Rot Wgt 30 Left Rot Reps 30 Left Rot Gaurav RPE 5 Right Rot % Max 60 Right Rot ROM 35 Right Rot Wgt 30 Right Rot Reps 30 Right Rot Ceilne RPE 5 Therapeutic Exercise (35 min): Patient performed isolated lumbar extension exercise and auxillary exercises to improve muscle strength, to improve muscle endurance, to improve muscle flexibility, to increase strength for seated posture, increase strength and endurance levels of supporting spinal muscle groups, and to strengthen postural muscles to decrease stresses on the spine to increase tolerance for sitting, sleeping, lifting, and personal care tasks BI ANALYST provided max A for warm-up in medX at 60% of max weight x6 reps before 2 sets at 100% weight Cues to go further into fatigue in Lext and utilize breath. BI ANALYST provided max-assist for set up of equipment,and assessed patient response to exercise. Neuromuscular Re-Education (8 min): Patient performed isolated torso rotation to decrease substitution patterns present with chronic pain, to retrain muscles for proper sequencing, to improve ability to direct and regulate movement with decreased compensation, improve muscle recruitment patterns, to improve coordination and movement quality, and decrease substitution patterns and normalize movement patterns to increase tolerance for sitting, sleeping, lifting, driving, and personal care tasks. BI ANALYST provided max-assist for set up of equipment,and assessed patient response to exercise. Auxillary 12/19/2023 11:15 AM Auxillary Abs Wgt Set 1 75 Abs Reps Set 1 20 Abs Wgt Set 2 75 Abs Reps Set 2 20 Glute Wgt Set 1 130 Glute Reps Set 1 20 Glute Wgt Set 2 130 Glute Reps Set 2 20 Leg Press Wgt Set 1 260 Leg Press Reps Set 1 20 Leg Press Wgt Set 2 270 Leg Press Reps Set 2 30 Lats Wgt Set 1 90 Lats Reps Set 1 20 Lats Wgt Set 2 90 Lats Reps Set 2 20 Therapeutic Activities (0 min): Not performed today. Patient Education: Patient was instructed in pain/time scale to increase their understanding of the benefits related to completing the [facility] Neck and Back program Pt was given verbal explanation of session and therapeutic interventions to be used. Pt understood and gave verbal consent to today's plan of care. Assessment: Sawyer continues to tolerate therapy well, reporting (9/10 RPE) fatigue in Lext at 100% and (5/10 RPE) fatigue in T-roto at 60%. Auxiliary machines continue to present a good challenge, as pt continuesto report good fatigue levels. Weights and repetitions during therapy session were modified based on pt fatigue. Pt continues to make progress towards their goals and would benefit from further therapy as prescribed by physical therapist. Goals: Short Term Goals (4-6 weeks): 1. Patient will be able to don/doff shoes and sock with 50% reduced S/Sx. MET 10/29/23 with sitting 2. Patient will be able to drive and get in/out of truck with 50% reduced S/Sx. Met 12/13/23 3. Patient will sleep and move in bed with 50% right reduced symptoms on at least 3/7 nights/week. No change. 08/30 Depends on the day not met 10/29/23 Still up every couple hours. 12/13/23 Now every2 hours, minimal change. 12/17/23 4. Patient will lift 40-50 lbs from floor to waist with proper body mechanics without any S/Sx. (current 40 lbs with lifting belt) Landscape Specialist Goals (>6 weeks): 1. Patient will be independent with home exercise program after discontinued from Physical Therapy.Paul chair extension and seated thoracic rotation with tubing intro. 11/11/23. 2. Patient will be don/doff shoes and socks on a regular basis with minimal or no S/Sx. Met 11/11/[address] and get in/out of his truck with minimal or no S/Sx. MET 12/17/23 4. Patient will sleep and move in bed on at least 6/7 nights with minimal or no S/Sx. 5. Patient will lift 45-50 lbs from floor to waist level with proper body mechanics without any need for lifting belt on a regular basis 6. Patient will resume working out at [facility] without any S/Sx. MET 12/17/23 7. Patient will have a 50% reduction in their Oswestry score at the completion of their rehab program. (current score 33%) Precautions/Other Information: lumbar fusion L5-S1 03/07/2022 Prostate CA 2 years ago, no restrictions Hernia repair with mesh 03/07/2022 no restrictions On BP meds Fusion protcol no current restrictions Had to go to hospital on due to back going out Maintenance plan: member at the [employer], paul chair extension, thoracic rotation with tubing. Anticipated visits to d/c: 3-4 more per PT Recommendations/Communication: 100% Lext, 60% T-roto, increase aux per pt fatigue, +10 LP, Total timed code min: 43 Total treatment time: 43 12/17/2023, 12:01 PM Yumiko Robins PTA 12/19/2023, 12:03 PM documented in this encounter Plan of Treatment Not on file documented as of this encounter Visit Diagnoses Diagnosis Left lumbar radiculopathy [M54.16]- Primary Thoracic or lumbosacral neuritis or radiculitis, unspecified Mechanical low back pain Lumbago documented in this encounter
--- OUTSIDE RECORDS SUMMARY | 2024-03-08 06:57 | XMS_ITS | Encounter Summary ---
Author Organization [employer] Address [address] [place] [address] Care Team Providers Care Cloth Handler Name Role Phone Unavailable Primary Care Provider Unavailabl e Reason for Visit * Reason Comments BACK PAIN, LOW * Therapies (Routine) - Authorized Specialty Diagnoses / Procedures Referred By Contac t Referred To Contact Physical Therapy Diagnoses [place] [address] [facility] [address] [place] [address] Tri [address]ck/Back [address] [place] [address] Referral ID Status Reason Start Date Expiration Date V isits Requested Visits Authorized [id number] Authorized 07/10/2023 10/08/2024 999 [id number] Encounter Details Date Type Department Care Team (Late st Contact Info) Description 12/17/2023 8:30 AM CDT Therapy Physical Therapy at [facility] Physical Therapy [place] [address] [place], [place] [phone] Zachery Alvarado, DOG BATHER [id number] [facility], [facility] [address] [place] [address] Left lumbar radiculopathy [M54.16] (Primary Dx); Mechanical low back pain Social History Tobacco Use Types Packs/Day Years Used Date Smoking Tobacco: Never Assessed Sex and Gender Information Value Date Recorded Sex Assigned at Not on file Gender Identity Not on file Sexual Orientation Not on file documented as of this encounter Progress Notes * Zachery Alvarado, DOG BATHER - 12/17/2023 8:30 AM CDT 12/17/2023 Visit # 20 Protocol: Back and Fusion 03/07/2022 Start: 832a End: 912a (DOG BATHER Visit # 4 Subjective: Pt reports feeling tightness in right low back, little to no change in sleep, has been able to go to [employer] and workout for 15-20 min, is doing upper body strengthening exercises, states neck muscles get tight with triceps extension, has been careful getting in and out of truck. Cervical Not performed today. Objective Tests & Measures: Tests performed today (see reviewflowsheet for score and outcomes): : Oswestry Oswestry completed today at 40% compared to 33 % on initial visit. Warm Up: Movement Specific Training: None Bike: Minutes 5 Intensity mod ICE: na Lumbar 12/17/2023 8:30 AM Lumbar & Torso Set 1 Ext % Max 60% Set 1 Ext ROM 9-42 Set 1 Ext Wgt 60 Set 1 Ext Reps 30 Set 1 Ext Tul 183 Set 1 Ext Celine RPE 4.5 Left Rot % Max 60% Left Rot ROM 35 Left Rot Wgt 28 Left Rot Reps 25 Left Rot Gaurav RPE 4.5 Right Rot % Max 60% Right Rot ROM 35 Right Rot Wgt 28 Right Rot Reps 25 Right Rot Celine RPE 4.5 Therapeutic Exercise (30 min): Patient performed isolated torso rotation exercise and auxillary exercises to improve muscle strength and to improve muscle endurance to increase tolerance for goals listed below. Verbal cues for proper form and control on Thoracic Rotation with instruction on which shoulder to push with to avoid substitution on the wrong side of muscle groups. Instructed in slow reps to avoidmomentum and improper form. Neuromuscular Re-Education (10 min): Patient performed isolated lumbar extension to decrease substitution patterns present with chronic pain, to retrain muscles for proper sequencing and improve muscle recruitment patterns to increase tolerance for goals listed below. Verbal cues needed for proper form and control on Lumbar Extension machine with instruction to avoid substitution with other muscle groups and to facilitate correct muscle firing sequence and to avoid momentum, improper form and too fast with reps. Auxillary 12/17/2023 8:30 AM Auxillary Abs Wgt Set 1 70 Abs Reps Set 1 20 Abs Wgt Set 2 75 Abs Reps Set 2 20 Glute Wgt Set 1 130 Glute Reps Set 1 20 Glute Wgt Set 2 130 Glute Reps Set 2 20 Leg Press Wgt Set 1 260 Leg Press Reps Set 1 30 Leg Press Wgt Set 2 260 Leg Press Reps Set 2 30 Lats Wgt Set 1 90 Lats Reps Set 1 20 Lats Wgt Set 2 90 Lats Reps Set 2 20 Other Goals reviewed HEP ADALGISA completed Therapeutic Activities (0 min): Not performed today. Patient Education: Patient was instructed in correlation of strength and function to increase their understanding of the benefits related to completing the [facility] Neck and Back program Reviewed goals. ADALGISA completed Assessment: Sawyer Carlson tolerated treatment well with good tolerance on Medx and auxiliary machinestoday. Checked ROM and unable to change today. Observed form and speed on all reps to avoid substitution, proper positioning and cues given as needed on form and speed. Pt gives good effort in machines and follows cues well. Goals: Short Term Goals (4-6 weeks): 1. [...] S/Sx. (current 40 lbs with lifting belt) Innovations Paraprofessional Goals (>6 weeks): 1. Patient will be [...] 6. Patient will resume working out at [facility] without any S/Sx. MET 12/17/23 7. Patient [...] rotation with tubing. Anticipated visits to d/c: 4-5 more per PT Recommendations/Communication: 100% Lumbar extension and 60% thoracic rotation next. Continue treatment per PT POC. Total timed code min: 40 Total treatment time: 40 Zachery Alvarado PTA 12/17/2023, 11:19 AM Associated attestation - Raymundo Grey, PT - 12/17/2023 12:08 PM CDT Observed treatment. Goals/Plan of Care discussed with DOG BATHER. Treatment progressing and appropriate. documented in this encounter Plan of Treatment Not on file documented as of this encounter Visit Diagnoses Diagnosis Left lumbar radiculopathy [M54.16]- Primary Thoracic or lumbosacral neuritis or radiculitis, unspecified Mechanical low back pain Lumbago documented in this encounter
--- OUTSIDE RECORDS SUMMARY | 2024-03-08 06:57 | XMS_ITS | Clinical Summary ---
Author Organization [facility] [place] [address] Care Team Providers Care Complementary Health Therapists Name Role Phone Ankur Vazquez MD Primary Care Provider + Allergies No known active allergies Medications Medication Sig Dispensed Refills Start Date End Date Status amLODIPine (NORVASC) 5 mg tablet Take 5 mg by mouth at bedtime. Active tadalafiL (CIALIS;ADCIRCA) 20 mg tablet tadalafil 20 mg tablet Take 1 tablet as needed by oral route for 30 days. Active aspirin (ECOTRIN) 81 mg enteric coated tabletIndications:P eripheral arterial disease (HC) Take 1 Tablet (81 mg) by mouth once daily. 90 Tablet 08/16/2022 Active calcium carbonate (TUMS) 200 mg calcium (500 mg) chewable tabletIndications:S /P spinal fusion Chew 1 Tablet (500 mg) by mouth two times daily with meals. 180 Tablet 12/13/2022 Active ergocalciferol (VITAMIN D2; DRISDOL) 50,000 unit capsuleIndications: S/P spinal fusion Take 1 Capsule (50,000 units) by mouth once weekly. 12 Capsule 12/13/2022 Active Active Problems Problem Noted Date Diagnosed Date Elevated PSA 07/01/2019 Kidney stone 02/18/2019 Immunizations Name Administration Dates Next Due Td (Age >=7 Years) 05/24/2008 Social History Tobacco Use Types Packs/Day Years Used Date Smoking Tobacco: Never Smokeless Tobacco: Never Alcohol Use Standard Drinks/Week Comments Yes 0 (1 standard drink = 0.6 oz pur e alcohol) 1-2 per week Social Connections Answer Date Recorded Frequency of Communication with Friends and Fami ly Not on file 09/12/2021 Financial Resource Strain Answer Date R ecorded Difficulty of Paying Living Expenses Not on file 09/12/2021 Difficulty of Paying Living Expenses Not on file 09/12/2021 Sex and Gender Information Value Date Recorded Sex Assigned at Not on file Gender Identity Not on file Sexual Orientation Not on file Obstetrics History Last Filed Vital Signs Vital Sign Reading Time Taken Comments Blood Pressure 125/79 09/18/2022 8:57 AM HOSPICE MANAGER Pulse 65 09/18/2022 8:55 AM HOSPICE MANAGER Temperature 36.2 ??C (97.1 ??F) 03/09/2022 8:41 AM CD T Respiratory Rate 18 03/09/2022 8:41 AM CDT Oxygen Saturation 95% 09/18/2022 8:55 AM HOSPICE MANAGER Inhaled Oxygen Concentration - - Weight 95.3 kg (210 lb) 04/05/2023 10:41 AM CDT Height 177.8 cm (5' 10) 04/05/2023 10:41 AM CDT Body Mass Index 30.13 04/05/2023 10:41 AM CDT Plan of Treatment Health Maintenance Due Date Last Done Comments Tdap 1973 Depression screening for age 12+ 1974 HIV for age 15-65 1977 Hepatitis C screening for age 18-79 1980 Colonoscopy through age 75 12/13/2007 Lipids for age 45-75 12/13/2007 Zoster (shingles) series for age 50+ (1 of 2) 2012 Tetanus booster 05/24/2018 05/24/2008 COVID-19 vaccine series ( season) 2023 07/13/2022, 07/17/2021, 11/24/2020 BMI (ht and wt on same day) for age 18+ 04/05/2024 04/05/2023, 12/13/2022, 09/25/2022, Additional history exists Influenza for age 50-64 05/17/2024 Pneumococcal series for age 6-64 Aged Out No longer eligible based on patient's age to complete this topic Medical Devices Implanted Type Area Tape Folding Machine Operator Device Identifier Shelf Expiration Date Model / Serial / Lot Bone Matrix 5cc Progenix Plus Putty Dbm - [id number] Implanted:Qty: 1 on 03/07/2022 by Connor Taylor MD at [employer] N/A: Lumbar Vertebrae [employer] 08/31/2023 [id number] / [id number] / Bone Matrix Sm Infuse Bmp - [id number] Implanted:Qty: 1 on 03/07/2022 by Connor Taylor MD at [employer] N/A: Lumbar Vertebrae [employer] Sp[employer] 05/17/2023 [id number] / / [id number] Van Zandt Mis Spacer Implanted:Qty: 1 on 03/07/2022 by Connor Taylor MD at [employer] N/A: Lumbar Vertebrae [employer] [id number] / / Self Drilling Screw Implanted:Qty: 2 on 03/07/2022 by Connor Taylor MD at [employer] N/A: Lumbar Vertebrae [employer] [id number] / / Self Drilling Screw Implanted:Qty: 1 on 03/07/2022 by Connor Taylor MD at [employer] N/A: Lumbar Vertebrae [employer] [id number] / / Advance Directives * Full Code (Latest Code Status on File) Date Activated Date Inactivated Comments 03/07/2022 5:54 AM 03/09/2022 12:16 PM Question Answer Comments Code Status Discussion: Other Not disc ussed * Full Code Date Activated Date Inactivated Comments 08/06/2019 6:01 AM 08/06/2019 1:43 PM * Full Code Date Activated Date Inactivated Comments 01/29/2019 12:17 PM 01/29/2019 8:30 PM Care Teams Complementary Health Therapists Relationship Specialty Start Date End Date Ankur Vazquez MD [address] [place] [id number] PCP - General Family Practice 02/26/22
--- OUTSIDE RECORDS SUMMARY | 2024-03-08 06:57 | XMS_ITS | Encounter Summary ---
Author Organization [facility] Address [address] [place] [address] Care Team Providers Care Accounts Receivable Collector Name Role Phone Unavailable Primary Care Provider Unavailabl e Reason for Visit * Reason Comments BACK PAIN, LOW * Therapies (Routine) - Authorized Specialty Diagnoses / Procedures Referred By Contac t Referred To Contact Physical Therapy Diagn[place] [address] [facility] [address] [place] [address] Tri [address] Neck/Back [address] [place] [address] Referral ID Status Reason Start Date Expiration Date V isits Requested Visits Authorized [id number] Authorized 07/10/2023 10/08/2024 999 [id number] Encounter Details Date Type Department Care Team (Late st Contact Info) Description 12/24/2023 9:15 AM CDT Therapy Physical Therapy at [facility] Physical Therapy [place] [address] [place], [place] [phone] Gordon Arce, EXPANSION ENVELOPE MAKER HAND [address] [place], [place] Left lumbar radiculopathy [M54.16] (Primary Dx); Mechanical low back pain Social History Tobacco Use Types Packs/Day Years Used Date Smoking Tobacco: Never Assessed Sex and Gender Information Value Date Recorded Sex Assigned at Not on file Gender Identity Not on file Sexual Orientation Not on file documented as of this encounter Progress Notes * Gordon Arce, ISMAEL - 12/24/2023 9:15 AM CDT 12/24/2023 Visit # 22 Protocol: Back and Fusion 03/07/2022 Start: 9:15 End: 9:50 (EXPANSION ENVELOPE MAKER HAND Visit # 2 Subjective: Pt reports took a couple of days to recover from last heavy workout & pt notes neckis feeling stiff this morning & also states has a big knot in mid back & can't work it out other than that no complaints. Cervical Not performed today. Objective Tests & Measures: 60% both Lext/T-Roto due to last Rx 100% Lext Rx, Tests performed today (see reviewflowsheet for score and outcomes): : None Performed Today Warm Up: Movement Specific Training: Not Completed Mat Exercises Completed Bike: Minutes 8 Intensity Moderate pace ICE: Declined Lumbar 12/24/2023 9:15 AM Lumbar & Torso Set 1 Ext % Max 60% Set 1 Ext ROM 9-42 Set 1 Ext Wgt 65 Set 1 Ext Reps 30 Set 1 Ext Tul 180 Set 1 Ext Celine RPE 4 Left Rot % Max 60% Left Rot ROM 35 Left Rot Wgt 30 Left Rot Reps 30 Left Rot Gaurav RPE 4/5 Right Rot % Max 60% Right Rot ROM 35 Right Rot Wgt 30 Right Rot Reps 30 Right Rot Celine RPE 4/5 Therapeutic Exercise (12 min): Patient performed auxillary exercises to improve muscle strength, to improve muscle endurance, to increase strength for seated posture, to increase strength for standing posture, to provide postural and scapular stability, increase strength and endurance levels of supporting spinal muscle groups and to strengthen postural muscles to decrease stresses on the spine to increase tolerance for sleeping, bed mobility, lifting, driving, personal care tasks, and household tasks VC's for correct form with all Aux Ex's today. Neuromuscular Re-Education (23 min): Patient performed isolated Lumbar Extension and torso rotation to decrease substitution patterns present with chronic pain, to retrain muscles for proper sequencing, improve muscle recruitment patterns, to improve coordination and movement quality, decrease substitution patterns and normalize movement patterns, to improve kinesio awareness, to improve movement patterns in an isolated plane, to train functional 3 dimensional patterns of movement and to facilitate motion in pain free plane to increase patient confidence with movement to reduce fear to increase tolerance for sleeping, bed mobility, lifting, driving, personal care tasks, and household tasks. VC's for control of pace in Lumbar Extension today, Cues for breathing correctly with all Ex's Auxillary 12/24/2023 9:15 AM Auxillary Abs Wgt Set 1 75 Abs Reps Set 1 20 Abs Wgt Set 2 75 Abs Reps Set 2 20 Glute Wgt Set 1 130 Glute Reps Set 1 20 Glute Wgt Set 2 130 Glute Reps Set 2 20 Leg Press Wgt Set 1 270 Leg Press Reps Set 1 20 Leg Press Wgt Set 2 270 Leg Press Reps Set 2 20 Lats Wgt Set 1 90 Lats Reps Set 1 20 Lats Wgt Set 2 90 Lats Reps Set 2 20 HEP RC Review Therapeutic Activities (0 min): Not performed today. Patient Education: Patient was instructed in correlation of strength and function to increase their understanding of the benefits related to completing the [facility] Rehab program Reminders to push to full fatigue to build strength to muscles & see better improvements to Sx's as program progresses forward. Reviewed paul chair exercises again today with VC's for form/pace & to relax knees to isolate LB muscles. Assessment: Pt gave good effort with today's workout, & receptive to all instructs given today,& motivated to complete therapy program still Pt had no aggravation of LBP/Sx's during or afterworkout today. Instructed in stretches to help stretch out mid back & also instructed in some neck stretches today due to neck feeling tight lately. Pt had good understanding of POC for rehab today & pt follows VC's well. No new Sx improvements to report but cont Making good objective gainsthat should lead to more reduction in Sx's & more improvements towards functional activities inthe future. Pt still appropriate for skilled therapy under current plan Goals: Short Term Goals (4-6 weeks): 1. [...] S/Sx. (current 40 lbs with lifting belt) Food Service Order Clerk Goals (>6 weeks): 1. Patient will be independent with home exercise program after discontinued from Physical Therapy.Paul chair extension and seated thoracic rotation with tubing intro. 11/11/23. Reviewed 12/24/23, pt doing at the gym & feels OK except bother's pt knees. 2. Patient will be don/doff shoes and [...] 6. Patient will resume working out at [facility] without any S/Sx. MET 12/17/23 7. Patient [...] rotation with tubing. Anticipated visits to d/c: 3 more per PT Recommendations/Communication: Next visit 100% Lext for 2 sets as jonah, 60% T- Roto, start prep for upcoming DC. Total timed code min: 35 Total treatment time: 35 Gordon Arce PTA 12/24/2023, 9:50 AM documented in this encounter Plan of Treatment Not on file documented as of this encounter Visit Diagnoses Diagnosis Left lumbar radiculopathy [M54.16]- Primary Thoracic or lumbosacral neuritis or radiculitis, unspecified Mechanical low back pain Lumbago documented in this encounter
--- OUTSIDE RECORDS SUMMARY | 2024-03-08 06:57 | XMS_ITS | Encounter Summary ---
Author Organization [facility] Address [address] [place] [address] Care Team Providers Care Oil Well Services Superintendent Name Role Phone Unavailable Primary Care Provider Unavailabl e Reason for Visit * Reason Comments BACK PAIN, LOW * Therapies (Routine) - Authorized Specialty Diagnoses / Procedures Referred By Contac t Referred To Contact Physical Therapy [place]oses [place] [address] [place] [address] [facility] Pt Neck/Back [address] [place] [address] Referral ID Status Reason Start Date Expiration Date V isits Requested Visits Authorized [id number] Authorized 07/10/2023 10/08/2024 [id number] Encounter Details Date Type Department Care Team (Late st Contact Info) Description 12/10/2023 10:30 AM CDT Therapy Physical Therapy at [facility] [place] [address] [employer], [place] [id number] Aziza Manning, PT [address] [place], [place] [address] Left lumbar radiculopathy [M54.16] (Primary Dx); Mechanical low back pain Social History Tobacco Use Types Packs/Day Years Used Date Smoking Tobacco: Never Assessed Sex and Gender Information Value Date Recorded Sex Assigned at Not on file Gender Identity Not on file Sexual Orientation Not on file documented as of this encounter Progress Notes * Aziza Manning, PT - 12/10/2023 10:30 AM CDT 12/10/2023 Visit # 18 Protocol: Back and Fusion 03/07/2022 Start: 10:28 End: 11:15 (PATHOLOGY LABORATORY AIDES TEACHER Visit # 2 Subjective: Pt w/ right low back soreness that is increased from baseline that began a couple days after last session . Cervical Not performed today. Objective Tests & Measures: 5# increase abs, lats 10# increase glut/hams Tests performed today ([facility] and outcomes): : None Performed Today Warm Up: Movement Specific Training: Not Completed Bike: Minutes 5 Intensity min ICE: na Lumbar 12/10/2023 10:30 AM Lumbar & Torso Set 1 Ext % Max 60 Set 1 Ext ROM 9-42 Set 1 Ext Wgt 58 Set 1 Ext Reps 25 Set 1 Ext Tul 173 Set 1 Ext Celine RPE 4-5 Left Rot % Max 60 Left Rot ROM 35 Left Rot Wgt 28 Left Rot Reps 25 Left Rot Gaurav RPE 4-5 Right Rot % Max 60 Right Rot ROM 35 Right Rot Wgt 28 Right Rot Reps 25 Right Rot Celine RPE 4-5 Therapeutic Exercise (16 min): Patient performed auxillary exercises to improve muscle strength to increase tolerance for personalcare tasks and household tasks Cues for form to engage correct muscles w/glut/hams to limit substitution patterns Neuromuscular Re-Education (23 min): Patient performed isolated lumbar extension and isolated torso rotation decrease substitution patterns and normalize movement patterns to increase tolerance for personal care tasks and household tasks. Pt ed that doing more reps as long as not fatiguing is good for controlled movement patterns Auxillary 12/10/2023 10:30 AM Auxillary Abs Wgt Set 1 70 Abs Reps Set 1 25 Abs Wgt Set 2 70 Abs Reps Set 2 12 Glute Wgt Set 1 120 Glute Reps Set 1 30 Glute Wgt Set 2 120 Glute Reps Set 2 19 Leg Press Wgt Set 1 240 Leg Press Reps Set 1 40 Lats Wgt Set 1 85 Lats Reps Set 1 25 Lats Wgt Set 2 85 Lats Reps Set 2 27 Therapeutic Activities (8 min): 12/10/2023 10:30 AM Therapeutic Activities BASE OF SUPPORT Needs further training OBJECT CLOSE VS FAR AWAY Independent SQUAT Independent LIFT FROM FLOOR Needs further training OTHER ACTIVITY Demonstrate/instruct/perform correct lifting mechanics w/ cotton tipper: laundry,dishes groceries, using squat, golfers lean, 1/2 kneel, keeping objects close, moving feet w/o twisting. Patient Education: Patient was instructed in pain/time scale and correlation of strength and function to increase their understanding of the benefits related to completing the [facility] Neck and Back Strengthening program Using proper mechanics w/ work/home ADL's will limit spinal stress, pain Assessment: Pt did well during session, demonstrated good effort. Receptive to instruction, feedback, to improve quality of motion w/ lifting mechanics performed. Will benefit from advance in lumbar extensor strength as lumbar flare-up 11/14/23 appears resolved. Goals: Short Term Goals (4-6 weeks): 1. Patient will be able to don/doff shoes and sock with 50% reduced S/Sx. MET 10/29/23 with sitting 2. Patient will be able to drive and get in/out of truck with 50% reduced S/Sx. Slight improvement,getting in is easier, getting out still feels stiff and sore. 08/30 Depends on the day Roughly thesame. 10/29/23 3. Patient will sleep and move in bed with 50% right reduced symptoms on at least 3/7 nights/week. No change. 08/30 Depends on the day not met 10/29/23 4. Patient will lift 40-50 lbs from floor to waist with proper body mechanics without any S/Sx. (current 40 lbs with lifting belt) Snf Goals (>6 weeks): 1. Patient will be independent with home exercise program after discontinued from Physical Therapy.Paul chair extension and seated thoracic rotation with tubing intro. 11/11/23. 2. Patient will be don/doff shoes and socks on a regular basis with minimal or no S/Sx. Met 11/11/[address] and get in/out of his truck with minimal or no S/Sx. 4. Patient will sleep and move in bed on at least 6/7 nights with minimal or no S/Sx. 5. Patient will lift 45-50 lbs from floor to waist level with proper body mechanics without any need for lifting belt on a regular basis 6. Patient will resume working out at [facility] without any S/Sx. 7. Patient will have a 50% reduction [...] rotation with tubing. Anticipated visits to d/c: 2-6 Recommendations/Communication: L-ext 100%, 5% increase T-roto 60% Advance leg press Total timed code min: Total treatment time: Aziza Manning, PT 12/10/2023, 11:20 AM documented in this encounter Plan of Treatment Not on file documented as of this encounter Visit Diagnoses Diagnosis Left lumbar radiculopathy [M54.16]- Primary Thoracic or lumbosacral neuritis or radiculitis, unspecified Mechanical low back pain Lumbago documented in this encounter
--- OUTSIDE RECORDS SUMMARY | 2024-03-08 06:57 | XMS_ITS | Referral Summary ---
Author Organization [facility] Address [address] [place] [address] Care Team Providers Care Fish Net Stringer Name Role Phone Ankur Vazquez MD Primary Care Provider + Clinic, No Primary Unavailable Unavailable Allergies No known active allergies Medications Medication Sig Dispensed Refills Start Date End Date Status amLODIPine (NORVASC) 5 mg oral tablet Take 1 tablet (5 mg) by mouth once daily. 10/12/2022 Active calcium carbonate (JACINTA-GEST ANTACID) 200 mg calcium (500 mg) oral chew tab Jacinta-Gest Antacid 200 mg calcium (500 mg) chewable tablet CHEW 1 TABLET BY MOUTH 2 TIMES DAILY WITH MEALS. Active Active Problems Problem Noted Date Diagnosed Date Left leg pain 08/23/2023 Pain of left calf 11/09/2022 Social History Tobacco Use Types Packs/Day Years Used Date Smoking Tobacco: Never Smokeless Tobacco: Never Tobacco Cessation:Counseling Given: Not Answered Alcohol Use Standard Drinks/Week Comments Yes 0 (1 standard drink = 0.6 oz pur e alcohol) 2 days per week 4-5 beer Sex and Gender Information Value Date Recorded Sex Assigned at Not on file Gender Identity Not on file Sexual Orientation Not on file Last Filed Vital Signs Vital Sign Reading Time Taken Comments Blood Pressure - - Pulse - - Temperature - - Respiratory Rate - - Oxygen Saturation - - Inhaled Oxygen Concentration - - Weight 97.5 kg (215 lb) 11/09/2022 11:00 AM CMS EXPERT Height 177.8 cm (5' 10) 11/09/2022 11:00 AM CMS EXPERT Body Mass Index 30.85 11/09/2022 11:00 AM CMS EXPERT Plan of Treatment Not on file Care Teams Fish Net Stringer Relationship Specialty Start Date End Date Ankur Vazquez MD [address] [place] [address] PCP - General Family Medicine 10/05/22 Clinic, No Primary PCP - Primary Care Clinic 10/05/22
--- OUTSIDE RECORDS SUMMARY | 2024-03-08 06:57 | XMS_ITS | Continuity of Care Document ---
Author Organization [facility] Address [address] [place] [address] Care Team Providers Care Emergency Medicine Physician Assistant Name Role Phone ÁNGELA GLEZ Primary Care Provider [phone] Assessment No assessment recorded. Plan of Treatment [...] 024 [email or web address] [facility], [address], [place], [address], 02/25/2024 00:08:22 PSA, serum or plasma 2023 024 [email or web address] [facility], [address], [place], [address], 03/01/2024 12:37:19 Referral None recorded. Procedures None recorded. Surgeries None recorded. Imaging None recorded. Medication Orders None recorded. Patient TargetsNo targets recorded. Patient InstructionsNo instructions recorded. Reason for Referral None Reported. Results Created Date Observation Date Name Description Value Unit Range Abnormal Flag LastModifiedBy Organization Detail LastModifiedTime 02/24/20 24 02/24/2024 PSA, serum or plasm a PSA 0.05ng /ml 0-4.0 NG/mL Not Available [facility] [address], [place], [address], 02/18/2024 16:23:33 Result Notes None recorded. Problems Name Status Onset Date Resolution Date Notes Provider Name and Address Organization Details Recorded Time Carcinoma of prostate Active 0 Frances Calderon charissa [facility] 04/06/2020 16:55:36 Problem Notes None recorded. Procedures Surgical History Date Name Laterality Status Provider Name and Address Organization Details Recorded Time 03/04/20 24 DT Penile Injection Teaching completed Vicente Perez MD [address] [place] [address],[facility] [address], [address], [facility] 03/04/2024 11:14:59 02/24/20 24 Blood Draw/HOURLY ASSOCIATE/PSA RESULTS [facility] 09:35:12 03/13/20 23 Blood Draw/HOURLY ASSOCIATE/PSA RESULTS completed Vicente Perez MD [address] [place] [address],[facility] [address], [place], [address], [facility] 03/13/2023 14:13:07 07/30/20 22 HOURLY ASSOCIATE/blood draw completed Vicente Perez MD [address] [place] [address],[address], [place], [address], [facility] 07/30/2022 11:20:28 01/20/20 22 Blood Draw/HOURLY ASSOCIATE/PSA RESULTS completed Connor Schaeffer MD [address] [place] [address],[facility] [address], [address], [facility] 01/19/2022 10:23:20 07/21/20 21 Blood Draw/HOURLY ASSOCIATE/PSA RESULTS completed Carmen carrington [facility] 07/21/2021 10:11:05 04/07/20 21 Blood Draw/HOURLY ASSOCIATE/PSA RESULTS completed Buzz carrington [facility] 04/07/2021 16:17:09 12/06/19 21 Blood Draw/HOURLY ASSOCIATE/PSA RESULTS completed Chapito Mace MD [address] [place] [address],[facility] [address], [place], [address], [facility] 12/05/2020 17:29:08 08/03/20 20 Blood Draw/HOURLY ASSOCIATE/PSA RESULTS completed Jim carrington [facility] 08/03/2020 16:28:02 04/06/20 20 Blood Draw/HOURLY ASSOCIATE/PSA RESULTS completed Bertha Mckeon null, [facility] 04/06/2020 17:06:16 10/05/19 20 Prostatectomy completed Buzz Ramey null, [facility] 04/06/2020 17:03:04 09/16/19 19 Colonoscopy completed Brooke Donnie null, [facility] 07/21/2021 10:01:00 operative procedure on knee completed Frances Calderon null, [facility] 04/06/2020 16:56:27 kidney operation completed Frances Calderon null, [facility] 04/06/2020 16:57:02 repair of multiple tears of rotator cuff of shoulder completed Buzz Ramey null, [facility] 04/06/2020 17:03:31 Imaging Results None recorded. Procedure [...] Updated DateTime 02/24/2024 177.8 cm 28 kg/m2 02343.51 g Siobhan Narvaez [facility] 02/24/2024 09:33:41 Social History Question Answer Notes LastModified by Organizat ion Details LastModified Time Tobacco Smoking Status Never Smoker Buzz carrington, [facility] 04/06/2020 17:02:22 Do You Have An Advance Directive? No [email or web address] Information not available 04/07/2021 What Is Your Level Of Alcohol Consumption? Moderate Information not available 12/05/2020 What Is Your Level Of Caffeine Consumption? Moderate Information not available 12/05/2020 In The 14 Days Before Symptom Onset, Have You Had Close Contact With A Laboratory-confir med COVID-19 While That Case Was Ill? No [email or web address] Information not available 04/07/2021 In The 14 Days Before Symptom Onset, Have You Had Close Contact With A Person Who Is Under Investigation For COVID-19 While That Person Was Ill? No [email or web address] Information not available 04/07/2021 Have You Been To An Area Known To Be High Risk For COVID-19? No Information not available 04/07/2021 What Type Of Diet Are You Following? REGULAR [email or web address] Information not available 04/07/2021 Do You Or Have You Ever Used E-cigarettes Or Vape? Never Used Electronic Cigarettes [email or web address] Information not available 04/06/2020 Race White [email or web address] Information no t available 04/07/2021 Ethnicity Not /Latin o [email or web address] Information not available 04/07/2021 Preferred Language Indonesian [email or web address] Information not available 04/07/2021 Recreational Drug Use No Information not available 12/05/2020 Marital Status Informatio n not available 12/05/2020 What Was The Date Of Your Most Recent Tobacco Screening? 03/04/2024 [email or web address] Information not available 03/04/2024 What Is Your Relationship Status? [email or web address] Information not available 04/07/2021 Are You Sexually Active? Yes Information not available 04/07/2021 Do You Or Have You Ever Used Smokeless Tobacco? Never Used Smokeless Tobacco [email or web address] Information not available 04/06/2020 Do You Use Any Illicit Or Recreational Drugs? No [email or web address] Information not available 04/07/2021 Do You Or Have You Ever Used Any Other Forms Of Tobacco Or Nicotine? No [email or web address] Information not available 04/07/2021 Sex: Male Functional Status Question Answer Note LastModified by Organization D etails LastModified Time What is your exercise level? Moderate [email or web address] Information not available 04/07/2021 Mental Status None [...] 0.5 mL 11/24/2020 completed Connor Schaeffer MD [address] [place] [address],[address], [address], [facility] 01/19/2022 10:19:44 Influenza, split virus, trivalent, PF 06/09/2009 completed Connor Schaeffer MD [address] [place] [address],[address], [address], [facility] 01/19/2022 10:19:44 Influenza, recombinant, quadrivalent, PF 07/09/2019 completed Connor Schaeffer MD [address] [place] [address],[address], [address], [facility] 01/19/2022 10:19:44 Influenza, split virus, trivalent, preservative 07/07/2010 completed Connor Schaeffer MD [address] [place] [address],[address], [place], [address], [facility] 01/19/2022 10:19:44 Influenza, split virus, trivalent, preservative 07/05/2011 completed Connor Schaeffer MD [address] [place] [address],[address] [place] [address], [address], [facility] 01/19/2022 10:19:44 Influenza, MDCK, quadrivalent, PF 07/17/2021 completed Connor Schaeffer MD [address] [place] [address],[address], [address], [facility] 01/19/2022 10:19:44 Influenza, split virus, quadrivalent, preservative 07/06/2015 completed Connor Schaeffer MD [address] [place] [address],[address], [address], [facility] 01/19/2022 10:19:44 Tdap 05/24/2008 completed Connor Schaeffer MD [address] [place] [address],[address], [address], [facility] 01/19/2022 10:19:44 Influenza, split virus, trivalent, preservative 08/12/2012 completed Connor Schaeffer MD [address] [place] [address],[address], [address], [facility] 01/19/2022 10:19:44 Tdap 11/15/2016 completed Connor Schaeffer MD [address] [place] [address],[address] [place] [address], [address], [facility] 01/19/2022 10:19:44 COVID-19, mRNA, LNP-S, PF, 100 mcg/0.5mL dose or 50 mcg/0.25mL dose 07/17/2021 completed Connor Schaeffer MD [address] [place] [address],[address], [address], [facility] 01/19/2022 10:19:44 Influenza, split virus, quadrivalent, PF 07/28/2020 completed Connor Schaeffer MD [address] [facility],[address], [place], [address], [place] [facility] 01/19/2022 10:19:44 Past Encounters Encounter ID Performer Location Encounter Start Date Encounter Closed Date Diagnosis/Indication Diagnosis SNOMED-CT Code [id number] Vicente Perez MD [facility] [address] [place] [address] 02/24/2024 09:21:00 02/25/2024 08:35:41 Carcinoma of prostate [id number] Erectile d ysfunction following radical prostatectomy [id number] Health Concerns Section Related Observation LastModified by Organization Detai ls LastModified Time None Recorded Concern Status LastModified by Organization Details LastModified Time None Recorded Payers Encounter Date Sequence Insurance Name Policy Number Policy Rogers Covered Member ID Rogers Member ID Guarantor Name 02/24/2024 1 [place] [id number] [address] Carlson [id number] Sawyer Carlson Notes Date Note Type Note Provider Name and Address Organization Details Recorded Time 02/24/2024 text/html HPI Notes: 63 yo male with history of kidney stones (60% Calcium phosphate, 30% CaOX monohydrate, and 10% CaOX dihydrate) and prostate cancer - pT3a No Mo - [place] 3+4 = 7 - s/p RAL radical [...] stones in either kidney. Vicente Perez MD [address] [facility],[address], [place], [address], [facility] 02/25/2024 00:01:05
--- OUTSIDE RECORDS SUMMARY | 2024-03-08 06:57 | XMS_ITS | Clinical Summary ---
Author Organization [facility] Address [address] [place] [address]. [place] [address] Care Team Providers Care Resource Conservation Manager Name Role Phone SunnyChadd vicente Primary Care Provider + [phone] Allergies No known active allergies Medications Medication Sig Dispensed Refills Start Date End Date Status oxaprozin (DAYPRO) 600 MG tablet Take 1,200 mg by mouth daily as needed Active traMADol (ULTRAM) 50 MG tablet Take 50-100 mg by mouth daily as needed Active Glucosamine HCl (GLUCOSAMINE PO) Take 2 tablets by mouth daily Active MAGNESIUM PO Take 1 tablet by mouth daily Active B Complex-C (SUPER B COMPLEX PO) Take 1 tablet by mouth daily Active oxymetazoline (AFRIN) 0.05 % nasal spray [place] 2 sprays into both nostrils every evening as needed for congestion Active oxyCODONE (ROXICODONE) 5 MG tabletIndications:S/P prostatectomy Take 1-2 tablets (5-10 mg) by mouth every 3 hours as needed for moderate to severe pain 8 tablet 10/07/2019 Active senna-docusate (SENOKOT-S/PERICOLACE ) 8.6-50 MG tabletIndications:S/P prostatectomy Take 1 tablet by mouth 2 times daily 30 tablet 10/07/2019 Active bacitracin 500 UNIT/GM OINTIndications:S/P prostatectomy Apply topically 2 times daily as needed for wound care 10/07/2019 Active Active Problems Problem Noted Date Diagnosed Date S/P prostatectomy 10/05/2019 Resolved Problems Problem Noted Date Diagnosed Date Resolved Date iamLUMBAR DISC DISPLACEMENT 08/07/2005 11/21/2005 Family History Medical History Relation Comments Diabetes Father Other Cancer Mother Coronary Artery Disease Sister Relation Status Comments Father Mother Sister Social History Tobacco Use Types Packs/Day Years Used Date Smoking Tobacco: Never Smokeless Tobacco: Never Tobacco Cessation:Counseling Given: Yes Alcohol Use Standard Drinks/Week Comments Yes 0 (1 standard drink = 0.6 oz pur e alcohol) 2-3/week Adolescent Education Answer Date Record ed Getting School Help Needed Not on file 06/23 Sex and Gender Information Value Date Recorded Sex Assigned at Not on file Gender Identity Not on file Sexual Orientation Not on file Last Filed Vital Signs Vital Sign Reading Time Taken Comments Blood Pressure 141/75 10/07/2019 12:47 PM REINSTATEMENT CLERK Pulse 90 10/05/2019 3:49 PM REINSTATEMENT CLERK Temperature 36.2 ??C (97.2 ??F) 10/07/2019 12:[address] Respiratory Rate 16 10/07/2019 12:47 PM REINSTATEMENT CLERK Oxygen Saturation 95% 10/07/2019 12:47 PM REINSTATEMENT CLERK Inhaled Oxygen Concentration - - Weight 90.3 kg (199 lb 1.6 oz) 10/05/2019 6:12 A M REINSTATEMENT CLERK Height 180.3 cm (5' 11) 10/05/2019 6:12 AM REINSTATEMENT CLERK Body Mass Index 27.77 10/05/2019 6:12 AM REINSTATEMENT CLERK Plan of Treatment Health Maintenance Due Date Last Done Comments ADVANCE CARE PLANNING 1962 ANNUAL REVIEW OF HM ORDERS 1962 CT COLONOGRAPHY 1962 FIT 1962 FLEX SIG 1962 YEARLY PREVENTIVE VISIT 1962 sDNA (Cologuard) 1962 HIV SCREENING 1977 HEPATITIS C SCREENING 1980 LIPID 2002 ZOSTER IMMUNIZATION (1 of 2) 2012 GLUCOSE 10/07/2022 10/07/2019, 09/17, 07/09/2019, Additional history exists RSV VACCINE ( & 60+) (1 - 1-dose 60+ series) 2022 PHQ-2 (once per calendar year) 2023 DTAP/TDAP/TD IMMUNIZATION (3 - Td or Tdap) 11/15/2026 11/15/2016, 05/24/2008, 05/24/2008 COLONOSCOPY 07/10/2029 07/10/2019 COLORECTAL CANCER SCREENING 07/10/2029 COVID-19 Vaccine Completed 10/15/2023, , 07/17/2021, Additional history exists INFLUENZA VACCINE Completed 10/15/2023, , 07/17/2021, Additional history exists HPV IMMUNIZATION Aged Out No longer e ligible based on patient's age to complete this topic IPV IMMUNIZATION Aged Out No longer e ligible based on patient's age to complete this topic MENINGITIS IMMUNIZATION Aged Out No l onger eligible based on patient's age to complete this topic Pneumococcal Vaccine: Pediatrics (0 to 5 Years) and At-Risk Patients (6 to 64 Years) Aged Out No longer eligible based on patient's age to complete this topic RSV MONOCLONAL ANTIBODY Aged Out No l onger eligible based on patient's age to complete this topic Medical Devices Implanted Type Area Karate Black Belt Device Identifier Shelf Expiration Date Model / Serial / Lot Mesh Symbotex Composite Stex 20cm X 15cm [id number] Implanted:Qty : 1 on 10/05/2019 by Carlos Solis MD at [facility] Mesh N/A: Umbilical COVIDIEN 05/16/2023 [id number] / / [id number] Stent Ureteral Percuflex Plus [id number] Implanted:Qty : 1 on 02/12/2019 by Vicente Perez MD at [facility] Stent Right: Ureter [employer] 07/13/2021 [id number] / [id number] / [id number] Procedures Procedure Name Priority Date/Time Associated Diagnosis Comments GLUCOSE BY METER Routine 10/07/2019 6:17 AM REINSTATEMENT CLERK COLONOSCOPY - HIM SCAN 07/10/2019 12:00 AM CDT from Last 3 Months or Most Recently Relevant to Health Maintenance Results * Glucose by meter (10/07/2019 6:17 AM REINSTATEMENT CLERK) Glucose 80 70 - 99 mg/dL 10/07/2019 6:38 AM REINSTATEMENT CLERK POINT OF CARE TEST, GLUCOSE 10/07/2019 6:17 AM REINSTATEMENT CLERK 10/07/2019 6:38 AM REINSTATEMENT CLERK Carlos Solis MD [facility] POCT POINT OF CARE TEST, GLUCOSE * COLONOSCOPY - HIM SCAN (07/10/2019 12:00 AM CDT) 07/10/2019 Provider Outside PROCEDURES from Last 3 Months or Most Recently Relevant to Health Maintenance Advance Directives For more information, please contact: [phone] * Full Code (Latest Code Status on File) Date Activated Date Inactivated Comments 10/05/2019 3:23 PM 10/07/2019 4:21 PM Question Answer Comments Code status determined by: Unable to det ermine; FULL CODE until documents or legal decision maker available Care Teams Resource Conservation Manager Relationship Specialty Start Date End Date Chadd Correa [address] [address] PCP - General Family Practice 09/22/19
--- OUTSIDE RECORDS SUMMARY | 2024-03-08 06:57 | XMS_ITS | Encounter Summary ---
Author Organization [facility] Address [address] [place] [address] Care Team Providers Care Shuttle Fixer Name Role Phone Unavailable Primary Care Provider Unavailabl e Reason for Visit * Reason Comments BACK PAIN, LOW Encounter Details Date Type Department Care Team (Late st Contact Info) Description 01/13/2024 1:00 PM CDT Therapy Physical Therapy at [facility] Physical Therapy [place] [address] [place], [place] [id number] Aziza Manning, PT [address] [place], [place] [phone] Left lumbar radiculopathy [M54.16] (Primary Dx); Mechanical low back pain Social History Tobacco Use Types Packs/Day Years Used Date Smoking Tobacco: Never Assessed Sex and Gender Information Value Date Recorded Sex Assigned at Not on file Gender Identity Not on file Sexual Orientation Not on file documented as of this encounter Progress Notes * Aziza Manning, PT - 01/13/2024 1:00 PM CDT 01/13/2024 Visit # 25 Protocol: Back and Fusion 03/07/2022 Start: 1:00 End: 1:45 (PAINTER INTERIOR FINISH Visit # 4 Subjective: Pt feels comfortable w/ paul chair HEP. Overall, pt feels 40-50% better than baseline. Cervical Not performed today. Objective Tests & Measures: 5% increase L-ext weight due to reps, RPE last 100% weight Tests performed today (see reviewflowsheet for score and outcomes): : Oswestry 07/31/2023 12/17/2023 01/13/2024 OSWESTRY RESULTS Score % 33 40 38 15% regression Warm Up: Movement Specific Training: Not Completed Bike: Minutes 5 Intensity min ICE: na Lumbar 01/13/2024 1:00 PM Lumbar & Torso Set 1 Ext % Max 100 Set 1 Ext ROM 9-42 Set 1 Ext Wgt 122 Set 1 Ext Reps 16 Set 1 Ext Tul 109 Set 1 Ext Celine RPE 9-10 Set 2 Ext % Max 80 Set 2 Ext ROM 9-42 Set 2 Ext Wgt 98 Set 2 Ext Reps 26 Set 2 Ext Tul 137 Set 2 Celine RPE 8 Left Rot % Max 60 Left Rot ROM 35 Left Rot Wgt 36 Left Rot Reps 20 Left Rot Gaurav RPE 5 Right Rot % Max 60 Right Rot ROM 35 Right Rot Wgt 36 Right Rot Reps 20 Right Rot Celine RPE 5 Therapeutic Exercise (37 min): Patient performed isolated lumbar extension exercise and auxillary exercises to improve muscle strength to increase tolerance for personal care tasks and household tasks Cues for breathing sequence w/ L-ext to limit valsalva Neuromuscular Re-Education (8 min): Patient performed isolated torso rotation decrease substitution patterns and normalize movement patterns to increase tolerance for personal care tasks and household tasks. Auxillary 01/13/2024 1:00 PM Auxillary Abs Wgt Set 1 80 Abs Reps Set 1 33 Glute Wgt Set 1 130 Glute Reps Set 1 29 Leg Press Wgt Set 1 270 Leg Press Reps Set 1 20 Lats Wgt Set 1 90 Lats Reps Set 1 29 Therapeutic Activities (0 min): Not performed today. Patient Education: Patient was instructed in specific review of patients progress to increase their understanding of the benefits related to completing the [facility]ck [facility] Back Strengthening program Retest findings per Oswestry: Assessment: Pt is at lumbar extensor strength capacity, feels 40-50% improvement that counters 15% regression per Oswestry; appropriate for d/c. Goals: Short Term Goals (4-6 weeks): 1. [...] hours. 12/13/23 Now every2 hours, minimal change. 01/07/24 4. Patient will lift 40-50 lbs from floor to waist with proper body mechanics without any S/Sx. (current 40 lbs with lifting belt) Progressing still causes increased Sx's did some moving this past weekend with increased soreness/discomfort 01/07/24 Merchandising Manager Goals (>6 weeks): 1. Patient will be independent with home exercise program after discontinued from Physical Therapy.Paul chair extension and seated thoracic rotation with tubing intro. 11/11/23. Reviewed 12/24/23, pt doing at the gym & feels OK except bother's pt knees. Pt has been doing at gym on own & feeling confident with it so Met 01/07/24 2. Patient will be don/doff shoes and socks on a regular basis with minimal or no S/Sx. Met 11/11/[address] and get in/out of his truck with minimal or no S/Sx. MET 12/17/23 4. Patient will sleep and move in bed on at least 6/7 nights with minimal or no S/Sx's Progressing per STG #3 01/07/24 5. Patient will lift 45-50 lbs from floor to waist level with proper body mechanics without any need for lifting belt on a regular basis Progressing per STG #4 01/07/24 6. Patient will resume working out at [facility] without any S/Sx. MET 12/17/23 7. Patient will have a 50% reduction in their Oswestry score at the completion of their rehab program. (current score 33%)-15% regression 01/13/24 Precautions/Other Information: lumbar fusion L5-S1 03/07/2022 Prostate CA 2 years ago, no restrictions Hernia repair with mesh 03/07/2022 no restrictions On BP meds Fusion protcol no current restrictions Had to go to hospital on due to back going out Maintenance plan: member at the [employer], paul chair extension, thoracic rotation with tubing. Recommendations/Communication: d/c to HEP Total timed code min: Total treatment time: Aziza Manning PT 01/13/2024, 1:47 PM documented in this encounter Plan of Treatment Not on file documented as of this encounter Visit Diagnoses Diagnosis Left lumbar radiculopathy [M54.16]- Primary Thoracic or lumbosacral neuritis or radiculitis, unspecified Mechanical low back pain Lumbago documented in this encounter
--- OUTSIDE RECORDS SUMMARY | 2024-03-08 06:57 | XMS_ITS | Encounter Summary ---
Author Organization [facility] Address [address] [place] [address] Care Team Providers Care Roofing Plant Supervisor Name Role Phone Unavailable Primary Care Provider Unavailabl e Reason for Referral * Therapies (Routine) - Closed Specialty Diagnoses / Procedures Referred By Contac t Referred To Contact Diagnoses Left lumbar radiculopathy Mechanical low back pain [facility] [address] [place] [address] Referral ID Status Reason Start Date Expiration Date Visits Re quested Visits Authorized [id number] Closed 12/06/2023 03/06/2025 6 6 Scheduling Instructions Your clinician has recommended an appointment with [facility] [place]. You can quickly make your appointment online at [employer]/schedule. You can also call [phone] for help scheduling your appointment. We suggest you call your health insurance company about your coverage and benefits for this appointment. Question Answer Therapy Physical Therapy PT: Follow Up Every week How many times per week? 2 For how many weeks? 4 PT: Visit Type Follow Up PT: Type of Revisit In-Person Visit PT: Treatment Team Team - Neck and Back Comments Beyond already scheduled appts Reason for Visit * Reason Comments BACK PAIN, LOW * Therapies (Routine) - Authorized Specialty Diagnoses / Procedures Referred By Conthandy t Referred To Contact Physical Therapy Diagn[place] [address] [place] [address] [facility] [address] [place] [address] Referral ID Status Reason Start Date Expiration Date V isits Requested Visits Authorized [id number] Authorized 07/10/2023 10/08/2024 [id number] Encounter Details Date Type Department Care Team (Late st Contact Info) Description 12/06/2023 10:00 AM CDT Therapy Physical Therapy at [facility] Physical Therapy [place] [facility] [place] [address] [place], [place] [phone] Aziza Manning, PT [address] [place] [address] Left lumbar radiculopathy [M54.16] (Primary Dx); Mechanical low back pain Social History Tobacco Use Types Packs/Day Years Used Date Smoking Tobacco: Never Assessed Sex and Gender Information Value Date Recorded Sex Assigned at Not on file Gender Identity Not on file Sexual Orientation Not on file documented as of this encounter Progress Notes * Aziza Manning, PT - 12/06/2023 10:00 AM CDT 12/06/2023 Visit # 17 Protocol: Back and Fusion 03/07/2022 Start: 10:11 End: 10:54 (CAR DUMPER OPERATOR HELPER Visit # 2 Subjective: Pt did fine after last session. Cervical Not performed today. Objective Tests & Measures: 5# increase abs, lats 10# increase glut/hams 20# increase leg press Tests performed today (see reviewfloweet for score and outcomes): : None Performed Today Warm Up: Movement Specific Training: Not Completed Bike: Minutes 5 Intensity min ICE: na Lumbar 12/06/2023 10:00 AM Lumbar & Torso Set 1 Ext % Max 100 Set 1 Ext ROM 9-42 Set 1 Ext Wgt 96 Set 1 Ext Reps 26 Set 1 Ext Tul 181 Set 1 Ext Celine RPE 7-8 Set 2 Ext % Max 100 Set 2 Ext ROM 9-42 Set 2 Ext Wgt 96 Set 2 Ext Reps 18 Set 2 Ext Tul 135 Set 2 Celine RPE 8 Left Rot % Max 60 Left Rot ROM 35 Left Rot Wgt 28 Left Rot Reps 25 Left Rot Gaurav RPE 4 Right Rot % Max 60 Right Rot ROM 35 Right Rot Wgt 28 Right Rot Reps 25 Right Rot Celine RPE 4 Therapeutic Exercise (35 min): Patient performed isolated lumbar extension exercise and auxillary exercises to improve muscle strength to increase tolerance for personal care tasks and household tasks Cues for breathing sequence w/ L-ext to limit valsalva Cues for form to engage correct muscles w/glut/hams to limit substitution patterns Neuromuscular Re-Education (8 min): Patient performed isolated torso rotation decrease substitution patterns and normalize movement patterns to increase tolerance for personal care tasks and household tasks. Pt ed that doing more reps as long as not fatiguing is good for controlled movement patterns Auxillary 12/06/2023 10:00 AM Auxillary Abs Wgt Set 1 65 Abs Reps Set 1 27 Glute Wgt Set 1 110 Glute Reps Set 1 30 Leg Press Wgt Set 1 240 Leg Press Reps Set 1 35 Lats Wgt Set 1 80 Lats Reps Set 1 30 Therapeutic Activities (0 min): Not performed today. Patient Education: Patient was instructed in pain/time scale and correlation of strength and function to increase their understanding of the benefits related to completing the [facility]ck and Back Strengthening program Pt at L-ext weight ~ to last L-ext weight 11/08/23 prior to flare-up Assessment: Pt did well during session, tolerated L-ext 100%. Receptive to instruction, feedback, to improve quality of motion w/ L-ext, glut/hams performed. Will benefit from continuing current POC to advance resistance as pt's flare-up appears resolved and appropriate to gradually advance resistance to improve tolerance to ADL's. Goals: Short Term Goals (4-6 weeks): 1. [...] S/Sx. 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 Patient will be [...] 6. Patient will resume working out at [facility] without any S/Sx. 7. Patient will have [...] rotation with tubing. Anticipated visits to d/c: 2-7 Recommendations/Communication: L-ext 60% T-roto 60% Advance auxiliary weights as able Lifting review Total timed code min: Total treatment time: Aziza Manning PT 12/06/2023, 12:00 PM documented in this encounter Plan of Treatment Scheduled Referrals Name Type Priority Associated Diagnoses Orde r Schedule Rehab Therapies Follow Up Referral Routine Left lumbar radiculopathy [M54.16] Mechanical low back pain 6 Occurrences starting 12/06/2023 until 03/07/2024 documented as of this encounter Visit Diagnoses Diagnosis Left lumbar radiculopathy [M54.16]- Primary Thoracic or lumbosacral neuritis or radiculitis, unspecified Mechanical low back pain Lumbago documented in this encounter
--- OUTSIDE RECORDS SUMMARY | 2024-03-08 06:57 | XMS_ITS | Clinical Summary ---
Author Organization [facility] Address [address] [place] [id number] Care Team Providers Care Import/Export Analyst Name Role Phone Ankur Vazquez MD Primary [...] 97.5 kg (215 lb) 11/09/2022 11:00 AM FRAME COVERER Height 177.8 cm (5' 10) 11/09/2022 11:00 AM FRAME COVERER Body Mass Index 30.85 11/09/2022 11:00 AM FRAME COVERER Plan of Treatment Health Maintenance Due Date Last Done Comments Colonoscopy 1960 Hepatitis C Screening 1960 Lipid Screening 1960 Anxiety Screening (FAWN-2) 12/13/1963 Depression Assessment (PHQ-2) 12/13/1963 Yearly Review of HCD 2012 Zoster Vaccine (1 of 2) 2012 RSV 60+ Yrs (1 - 1-dose 60+ series) 2022 COVID-19 Vaccine (4 - 2022-2 4 season) 2023 07/13/2022, 07/17/2021, 11/24/2020 Influenza Vaccine (Season Ended) 2024 07/28/2020, 07/09/2019, 07/06/2015 Adult Tetanus Booster 11/15/2026 11/15/2016 , 05/24/2008, 05/24/2008 Pneumococcal <65 Aged Out No longer e ligible based on patient's age to complete this topic Care Teams Import/Export Analyst Relationship Specialty Start Date End Date Ankur Vazquez MD [address] [place] [address] PCP - General Family Medicine 10/05/22 Clinic, No Primary PCP - Primary Care Clinic 10/05/22
--- OUTSIDE RECORDS SUMMARY | 2024-03-08 06:57 | XMS_ITS | Clinical Summary ---
Author Organization [facility] Address [address] [place] [address] Care Team Providers Care Oncology Registrar Name Role Phone Unavailable Primary Care Provider Unavailabl e Source Comments You are receiving this document as you are listed as the primary care provider,follow-up provider, or the patient has been referred to you for consultation.This is in compliance with the Medicare andMedicaid EHR Incentive Program,which states Providers who transition their patient to another setting of careor provider of care or refers their patient to another provider of care shouldprovide summary care record for each transition of care or referral. [facility] Active Problems Problem Noted Date Diagnosed Date Left lumbar radiculopathy [M54.16] 07/31/2023 Mechanical low back pain 07/31/2023 Encounters Date Type Department Care Team Description 01/13/2024 1:00 PM CDT Therapy Physical Therapy at [facility] Physical [address] [address] Aziza Manning, PT Left lumbar radiculopathy [M54.16] (Primary Dx); Mechanical low back pain 01/07/2024 10:00 AM CDT Therapy Physical Therapy at [facility] Physical [address] [address] Gordon Arce, BOX CAR CHECKER Left lumbar radiculopathy [M54.16] (Primary Dx); Mechanical low back pain 12/26/2023 11:15 AM CDT Therapy Physical Therapy at [facility] Physical [address] [address] Yumiko Robins, BOX CAR CHECKER Left lumbar radiculopathy [M54.16] (Primary Dx); Mechanical low back pain 12/24/2023 9:15 AM CDT Therapy Physical Therapy at [facility] Physical [address] [address] Gordon Arce, BOX CAR CHECKER Left lumbar radiculopathy [M54.16] (Primary Dx); Mechanical low back pain 12/19/2023 11:15 AM CDT Therapy Physical Therapy at [address] [address] Yumiko Robins, BOX CAR CHECKER Left lumbar radiculopathy [M54.16] (Primary Dx); Mechanical low back pain 12/17/2023 8:30 AM CDT Therapy Physical Therapy at [address] [phone] Zachery Alvarado, BOX CAR CHECKER Left lumbar radiculopathy [M54.16] (Primary Dx); Mechanical low back pain 12/13/2023 10:00 AM CDT Therapy Physical Therapy at [address] [phone] Chadd Estrada, BOX CAR CHECKER Left lumbar radiculopathy [M54.16] (Primary Dx); Mechanical low back pain 12/10/2023 10:30 AM CDT Therapy Physical Therapy at [address] [address] Aziza Manning, PT Left lumbar radiculopathy [M54.16] (Primary Dx); Mechanical low back pain from Last 3 Months Social History Tobacco Use Types Packs/Day Years Used Date Smoking Tobacco: Never Assessed Sex and Gender Information Value Date Recorded Sex Assigned at Not on file Gender Identity Not on file Sexual Orientation Not on file Plan of Treatment Health Maintenance Due Date Last Done Comments Colon Cancer Screening Plan Due 1960 Hep C Screening (Preventive Services) 1962 PSA Screening Discussion 1962 HIV Screening (Preventive Services) 1978 Adult Preventive Visit 1980 Cholesterol 1997 DTaP/Tdap/Td (1 - Tdap) 05/25/2008 05/24/2008 Zoster/Shingles (1 of 2) 2012 COVID-19 Vaccine (4 - 2022-2 4 season) 2023 07/13/2022, 07/17/2021, 11/24/2020 Influenza Completed 10/15/2023, 07/13/2022, 07/17/2021 HepA Aged Out No longer eligi ble based on patient's age to complete this topic HepB Aged Out No longer eligi ble based on patient's age to complete this topic Hib Aged Out No longer eligi ble based on patient's age to complete this topic IPV (Polio) Aged Out No longer eligi ble based on patient's age to complete this topic MCV4 Aged Out No longer eligi ble based on patient's age to complete this topic Pneumococcal Aged Out No longer eligi ble based on patient's age to complete this topic
--- OUTSIDE RECORDS SUMMARY | 2024-03-08 06:57 | XMS_ITS | Encounter Summary ---
Author Organization [facility] Address [address] [place] [address] Care Team Providers Care Taxi Driver Name Role Phone Unavailable Primary Care Provider Unavailabl e Reason for Visit * Reason Comments BACK PAIN, LOW * Therapies (Routine) - Authorized Specialty Diagnoses / Procedures Referred By Contac t Referred To Contact Physical Therapy Diagn[place] [address] [facility] [address] [place] [address] [facility] Pt Neck[facility]Back Strgth [address] [place] [address] Referral ID Status Reason Start Date Expiration Date V isits Requested Visits Authorized [id number] Authorized 07/10/2023 10/08/2024 [id number] Encounter Details Date Type Department Care Team (Late st Contact Info) Description 01/07/2024 10:00 AM CDT Therapy Physical Therapy at [facility] Physical Therapy [place] [address] [place] [employer] [place], [place] [phone] Gordon Arce, CANE WEIGHER HELPER [address] [place], [place] Left lumbar radiculopathy [M54.16] (Primary Dx); Mechanical low back pain Social History Tobacco Use Types Packs/Day Years Used Date Smoking Tobacco: Never Assessed Sex and Gender Information Value Date Recorded Sex Assigned at Not on file Gender Identity Not on file Sexual Orientation Not on file documented as of this encounter Progress Notes * Gordon Arce, ISMAEL - 01/07/2024 10:00 AM CDT 01/07/2024 Visit # 24 Protocol: Back and Fusion 03/07/2022 Start: 10:00 End: 10:35 (CANE WEIGHER HELPER Visit # 4 Subjective: Pt's LBP/Sx's were feeling pretty good until Saturday when he helped someone do some moving & after getting done with activity LB very stiff/tight & sore, pt used ice, stretches & also some heat, Layed down on floor to try to relax LB but remained pretty stiff for another 2 days post moving activity then felt minimally better but still bothersome, still not great today. Cervical Not performed today. Objective Tests & Measures: Gave 5# increase to Lext 100% wts today. No other increases or changes. Tests performed today (see reviewflowsheet for score and outcomes): : None Performed Today Warm Up: Movement Specific Training: Not Completed Mat Exercises Completed Bike: Minutes 8 Intensity Moderate pace ICE: Declined Lumbar 01/07/2024 10:00 AM Lumbar & Torso Set 1 Ext % Max 100% Set 1 Ext ROM 9-42 Set 1 Ext Wgt 115 Set 1 Ext Reps 20 Set 1 Ext Tul 120 Set 1 Ext Celine RPE 7/8 Set 2 Ext % Max 100% Set 2 Ext ROM 9-42 Set 2 Ext Wgt 115 Set 2 Ext Reps 20 Set 2 Ext Tul 115 Set 2 Celine RPE 8 Left Rot % Max 60% Left Rot ROM 35 Left Rot Wgt 32 Left Rot Reps 30 Left Rot Gaurav RPE 4 Right Rot % Max 60% Right Rot ROM 35 Right Rot Wgt 32 Right Rot Reps 30 Right Rot Celine RPE 4 Therapeutic Exercise (23 min): Patient performed isolated lumbar extension exercise and auxillary exercises to improve muscle strength, to improve muscle endurance, to increase strength for seated posture, to increase strength forstanding posture, to provide postural and scapular stability, increase strength and endurance levels of supporting spinal muscle groups and to strengthen postural muscles to decrease stresses on the spine to increase tolerance for standing, walking, sleeping, bed mobility, lifting, driving, household tasks, and work activities Reminders to slow reps down in Lext for better strength gains, fatigue & improvements to functional deficits too as program cont to progress. VC's for correct form with all Aux Ex's today. Neuromuscular Re-Education (12 min): Patient performed isolated torso rotation to [...] to reduce fear to increase tolerance for standing, walking, sleeping, bed mobility, lifting, driving, household tasks, and work activities. VC's for control of pace in torso rotation today, Cues for breathing correctly with all Ex's Auxillary 01/07/2024 10:00 AM Auxillary Abs Wgt Set 1 80 Abs Reps Set 1 20 Abs Wgt Set 2 80 Abs Reps Set 2 20 Glute Wgt [...] instructed in specific review of patients progress and correlation of strength and function to increase their understanding of the benefits related to completing the [facility] program Reminders to push to full fatigue to build strength to muscles & see better improvements to Sx's as program progresses forward. Assessment: Pt did well despite having a very rough weekend, Reached target fatigue with 100% Lext,good challenge Pt feels pretty ready to be finished with therapy Most goals met now, reviewed goalsagain today see below foe update. Pt has been progressing well & will only need one more therapy session. Goals: Short Term Goals (4-6 weeks): 1. [...] this past weekend with increased soreness/discomfort 01/07/24 Longterm Goals (>6 weeks): 1. Patient will be [...] rotation with tubing. Anticipated visits to d/c: 1 more per PT Recommendations/Communication: Next Rx Review paul chair exercises if needed, Final ADALGISA, 60% Lext/T-Roto. Give [employer] print out of HEP. & DC next visit. Total timed code min: 35 Total treatment time: 35 Gordon Arce PTA 01/07/2024, 10:37 AM documented in this encounter Plan of Treatment Not on file documented as of this encounter Visit Diagnoses Diagnosis Left lumbar radiculopathy [M54.16]- Primary Thoracic or lumbosacral neuritis or radiculitis, unspecified Mechanical low back pain Lumbago documented in this encounter
--- OUTSIDE RECORDS SUMMARY | 2024-03-08 06:57 | XMS_ITS | Encounter Summary ---
Author Organization [facility] Address [address] [place] [address] Care Team Providers Care Appliance Worker Name Role Phone Unavailable Primary Care Provider Unavailabl e Reason for Visit * Reason Comments BACK PAIN, LOW * Therapies (Routine) - Authorized Specialty Diagnoses / Procedures Referred By Contac t Referred To Contact Physical Therapy Diagnoses [place] [address] [place] [address] [facility] Pt Neck/Back [address] [place] [address] Referral ID Status Reason Start Date Expiration Date V isits Requested Visits Authorized [id number] Authorized 07/10/2023 10/08/2024 [id number] Encounter Details Date Type Department Care Team (Late st Contact Info) Description 12/03/2023 10:30 AM CDT Therapy Physical Therapy at [facility] Physical Therapy [place] [address] [employer] [place], [place] [address] Aziza Manning, PT [address] [place], [place] [id number] Left lumbar radiculopathy [M54.16] (Primary Dx); Mechanical low back pain Social History Tobacco Use Types Packs/Day Years Used Date Smoking Tobacco: Never Assessed Sex and Gender Information Value Date Recorded Sex Assigned at Not on file Gender Identity Not on file Sexual Orientation Not on file documented as of this encounter Progress Notes * Aziza Manning, PT - 12/03/2023 10:30 AM CDT 12/03/2023 Visit # 16 Protocol: Back and Fusion 03/07/2022 Start: 10:28 End: 11:17 (FILM SORTER Visit # 2 Subjective: Pt's weekend went fine, nothing new to report Cervical Not performed today. Objective Tests & Measures: 20# increase leg press 2nd set 10# increase glut/hams 2nd set 5# increase lats 2nd set Tests performed today (see reviewfloweet for score and outcomes): : None Performed Today Warm Up: Movement Specific Training: Not Completed Bike: Minutes 5 Intensity min ICE: na Lumbar 12/03/2023 10:30 AM Lumbar & Torso Set 1 Ext % Max 60 Set 1 Ext ROM 9-42 Set 1 Ext Wgt 66 Set 1 Ext Reps 25 Set 1 Ext Tul 175 Set 1 Ext Celine RPE 4-5 Left Rot % Max 60 Left Rot ROM 35 Left Rot Wgt 34 Left Rot Reps 25 Left Rot Gaurav RPE 5 Right Rot % Max 60 Right Rot ROM 35 Right Rot Wgt 34 Right Rot Reps 25 Right Rot Celine RPE 5 Therapeutic Exercise (24 min): Patient performed auxillary exercises to improve muscle strength to increase tolerance for personalcare tasks and household tasks Paul chair: Instruct/demonstrate/perform setup, ext w/, w/o UE assist 2x each, tactile/verbal cuesneeded -5x Neuromuscular Re-Education (25 min): Patient performed isolated lumbar extension and isolated torso rotation decrease substitution patterns and normalize movement patterns to increase tolerance for personal care tasks and household tasks. Pt ed that doing more reps as long as not fatiguing is good for controlled movement patterns Auxillary 12/03/2023 10:30 AM Auxillary Abs Wgt Set 1 60 Abs Reps Set 1 25 Abs Wgt Set 2 60 Abs Reps Set 2 25/15 Glute Wgt Set 1 90 Glute Reps Set 1 30 Glute Wgt Set 2 100 Glute Reps Set 2 30 Leg Press Wgt Set 1 200 Leg Press Reps Set 1 30 Leg Press Wgt Set 2 220 Leg Press Reps Set 2 40 Lats Wgt Set 1 70 Lats Reps Set 1 30 Lats Wgt Set 2 75 Lats Reps Set 2 30 HEP Paul chair: Instruct/demonstrate/perform setup, ext w/, w/o UE assist 2x each, tactile/verbal cues needed -5x Therapeutic Activities (0 min): Not performed today. Patient Education: Patient was instructed in pain/time scale and correlation of strength and function to increase their understanding of the benefits related to completing the [facility] Neck and Back Strengthening program Importance of strength maintenance HEP after d/c Pt demonstrated understanding of Importance of strength maintenance HEP after d/c Assessment: Pt did well during session, demonstrated good effort. Receptive to instruction, feedback, to improve quality of motion w/ paul chair HEP performed. Will benefit from resuming L-ext 100% next visit, Goals: Short Term Goals (4-6 weeks): 1. [...] S/Sx. 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 Patient will be [...] 6. Patient will resume working out at [facility] without any S/Sx. 7. Patient will [...] rotation with tubing. Anticipated visits to d/c: 2-8 Recommendations/Communication: L-ext 100% T-roto 60% Advance auxiliary weights Total timed code min: 49 Total treatment time: 49 Aziza Manning, PT 12/03/2023, 11:45 AM documented in this encounter Plan of Treatment Not on file documented as of this encounter Visit Diagnoses Diagnosis Left lumbar radiculopathy [M54.16]- Primary Thoracic or lumbosacral neuritis or radiculitis, unspecified Mechanical low back pain Lumbago documented in this encounter
--- OUTSIDE RECORDS SUMMARY | 2024-03-08 06:57 | XMS_ITS | Referral Summary ---
Author Organization [facility] Address [address] [place] [address]. [place] [address] Care Team Providers Care Chemical Plant Operator Supervisor Name Role Phone SunnyChadd cabrera Primary Care Provider + [phone] Allergies No known active allergies Medications Medication [...] Active oxymetazoline (AFRIN) 0.05 % nasal spray [place] 2 sprays into both nostrils every evening [...] Resolved Date iamLUMBAR DISC DISPLACEMENT 08/07/2005 11/21/2005 Social History Tobacco Use Types Packs/Day Years [...] Comments Blood Pressure 141/75 10/07/2019 12:47 PM EXPLOSIVE OPERATOR GRENADE Pulse 90 10/05/2019 3:49 PM EXPLOSIVE OPERATOR GRENADE Temperature 36.2 ??C (97.2 ??F) 10/07/2019 12:[address] Respiratory Rate 16 10/07/2019 12:47 PM EXPLOSIVE OPERATOR GRENADE Oxygen Saturation 95% 10/07/2019 12:47 PM EXPLOSIVE OPERATOR GRENADE Inhaled Oxygen Concentration - - Weight 90.3 kg (199 lb 1.6 oz) 10/05/2019 6:12 A M EXPLOSIVE OPERATOR GRENADE Height 180.3 cm (5' 11) 10/05/2019 6:12 AM EXPLOSIVE OPERATOR GRENADE Body Mass Index 27.77 10/05/2019 6:12 AM EXPLOSIVE OPERATOR GRENADE Plan of Treatment Not on file Medical Devices Implanted Type Area Shopping Investigator Device Identifier Shelf Expiration Date Model / Serial / Lot Mesh Symbotex Composite Stex 20cm X 15cm [id number] Implanted:Qty : 1 on 10/05/2019 by Carlos Solis MD at [facility] Mesh N/A: Umbilical COVIDIEN 05/16/2023 [id number] / / [id number] Stent Ureteral Percuflex Plus [id number] Implanted:Qty : 1 on 02/12/2019 by Vicente Perez MD at [facility] Stent Right: Ureter [employer] 07/13/2021 [id number] / [id number] Procedures Procedure Name Priority Date/Time Associated Diagnosis Comments GLUCOSE BY METER Routine 10/07/2019 6:17 AM EXPLOSIVE OPERATOR GRENADE COLONOSCOPY - HIM SCAN 07/10/2019 12:00 AM CDT from Last 3 Months or Most Recently Relevant to Health Maintenance Results * Glucose by meter (10/07/2019 6:17 AM EXPLOSIVE OPERATOR GRENADE) Glucose 80 70 - 99 mg/dL 10/07/2019 6:38 AM EXPLOSIVE OPERATOR GRENADE POINT OF CARE TEST, GLUCOSE 10/07/2019 6:17 AM EXPLOSIVE OPERATOR GRENADE 10/07/2019 6:38 AM EXPLOSIVE OPERATOR GRENADE [facility] PO[facility] POINT OF CARE TEST, GLUCOSE * COLONOSCOPY - HIM SCAN (07/10/2019 12:00 AM CDT) 07/10/2019 Provider Outside PROCEDURES from Last 3 Months or Most Recently Relevant to Health Maintenance Advance Directives For more information, please contact: [phone] * Full Code (Latest Code Status on File) Date Activated Date Inactivated Comments 10/05/2019 3:23 PM 10/07/2019 4:21 PM Question Answer Comments Code status determined by: Unable to det ermine; FULL CODE until documents or legal decision maker available Care Teams Chemical Plant Operator Supervisor Relationship Specialty Start Date End Date Chadd Correa [address] [address] PCP - General Family Practice 09/22/19
--- OUTSIDE RECORDS SUMMARY | 2024-03-08 06:57 | XMS_ITS | Continuity of Care Document ---
Author Organization [facility] Address [address] [address] [place] [address] Phone Care Team Providers Care Ballet Teacher Name Role Phone Efe Le CRNA Unavailable Unavailable Allergies, Adverse Reactions, Alerts Substance Reaction Status Criticality No Known Allergies Active No Inform ation Medications Medication Instructions Dosage Effective Dates (start - stop) Status Comments amlodipine 5 mg tablet take 1 tablet by oral route every day 5 MG - Active tramadol 50 mg tablet take 1 tablet by oral route every 6 hours as needed 50 MG - Active Glucosamine 500 mg tablet - Active magnesium 200 mg tablet take 1 tablets by oral route every day 1 tablets - No Longer Active PAIN RELIEVER ADULT (unknown strength) oxyprosin as needed for back pain Not Available - No Longer Active Procedures Procedure Date Colonoscopy Flex; W/remov Les- Level Iv-surg Path Gross/micro Colonoscopy Flex; W/remov Les- Colonoscopy W/Submucosal Injection Colonoscopy Flex; W/bx 1/mx Level Iv-surg Path Gross/micro Colonoscopy Flex; W/remov Les- Colonoscopy Flex; W/bx 1/mx Level Iv-surg Path Gross/micro Colonoscopy Flex; W/remov Les- Level Iv-surg Path Gross/micro Advance Directives Directive Yes / No Effective Date File Name No Information Encounters Encounter Description Practice Location Reason(s) For Visit Diagnoses Date Provider Providers Copied on Encounter [facility], [address] [address], [place], [id number], [place] tel:[phone] [facility] No Information 4 Rey Wilks. [address] [facility], [place], [place], [address] , [place]. [phone] Referring Provider: Stu Fung MD, [address] [facility] [address], [place], [address] . tel:[phone] [facility], [address] [address], [place], [id number], [place] tel:[phone] [facility] GI Symptoms or Concerns (chief complaint) Colorectal polypsDiverticulosi sEncounter for screening for malignant neoplasm of colonPersonal history of colonic polypsBenign neoplasm of transverse colonDvrtclos of lg int w/o perforation or abscess w/o bleedingDvrtclos of lg int w/o perforation or abscess w/o bleedingBenign neoplasm of transverse colon 4 Kenton Peraza. [address] [facility], [place], [place], [address] , [place]. [phone] Referring Provider: Referral Self, USE FOR SELF REFERRALS. [facility], [address] [address], [place], [place], [address], [place] tel:[phone] [facility] No Information 3 Jonathan Chang. [address] [facility], [place], [place], [address] , [place]. tel:[phone] [facility], [address] [address], [place], [place], [address], [place] tel:[phone] [facility] Colorectal polypsDiverticulosi sInternal hemorrhoidsEncounte r for screening for malignant neoplasm of colonPersonal history of colonic polypsBenign neoplasm of transverse colonBenign neoplasm of cecumBenign neoplasm of cecumBenign neoplasm of transverse colonPersonal history of colonic polyps 1 Kenton Peraza. [address] [facility], [place], [place], [address] , [place]. [phone] Referring Provider: Referral Self, USE FOR SELF REFERRALS. [facility], [address] [address], [place], [place], [address], [place] tel:[phone] [facility] No Information 9 Rey Wilks. [address] [facility], [place], [place], [address] , [place]. tel:[phone] Referring Provider: Stu Fung MD, [address] [facility] [address], [place], [address] . tel:[phone] [facility], [address] [address], [place], [place], [address], [place] tel:[phone] [facility] Colorectal polypsDiverticulosi sEncounter for screening for malignant neoplasm of colonPersonal history of colonic polypsBenign neoplasm of ascending colonBenign neoplasm of cecumBenign neoplasm of cecumBenign neoplasm of ascending colon 9 Kenton Peraza. [address] [facility], [address], [place], [place], [address] , [place]. [phone] Referring Provider: Paul Ibarra, [address] [place] [address], [address]. tel:[phone] [facility], [address] [address], [place], [address], [place] tel:[phone] [facility] Encounter for screening for malignant neoplasm of colonBenign neoplasm of colon, unspecifiedBenign neoplasm of rectumEncounter for screening for malignant neoplasm of colon 7 Cheyenne Mcgovern. [address] [facility], [place], [place], [address] , [place]. tel:[phone] Referring Provider: Miguel Ibarra, [address], [place], [address]. tel:[phone] [facility], [address] [address], [place], [id number], [place] tel:[phone] [facility] External Referral 4 Link MD Dooley. [address] [facility], [address], [place], [address] , [place]. [phone] Referring Provider: Miguel Ibarra, [address], [place], [address]. tel:[phone] Family History Family Member Type Diagnosis Age At Onset No Information Immunizations Vaccine Date Status Comments SARS-COV-2 (COVID-19) vaccin e, mRNA, spike protein, LNP, preservative free, 50 mcg/0.5 mL dose administered Note: [facility] bi-direct ional interface ; Source: Other Registry Influenza, injectable, Madin [place] Canine Kidney, preservative free, quadrivalent administered Note: [facility] bi- directional interface ; Source: Other Registry Afluria Qd administered Note: [facility] bi-directional interface ; Source: Other Registry SARS-COV-2 (COVID-19) vaccin e, mRNA, spike protein, LNP, bivalent, preservative free, 50 mcg/0.5 mL or 25 mcg/0.25 mL dose administered Note: [facility] bi-direct ional interface ; Source: Other Registry Influenza, injectable, Madin [place] Canine Kidney, preservative free, quadrivalent administered Note: [facility] bi- directional interface ; Source: Other Registry SARS-COV-2 (COVID-19) vaccin e, mRNA, spike protein, LNP, preservative free, 100 mcg/0.5mL dose or 50 mcg/0.25mL dose administered Note: [facility] bi -directional interface ; Source: Other Registry SARS-COV-2 (COVID-19) vaccin e, vector non-replicating, recombinant spike protein-Ad26, preservative free, 0.5 mL administered Note: [facility] bi- directional interface ; Source: Other Registry Seasonal, quadrivalent, recombinant, injectable influenza vaccine, preservative free administered Note: [facility] bi-direct ional interface ; Source: Other Registry tetanus toxoid, reduced diphtheria toxoid, and acellular pertussis vaccine, adsorbed administered Note: [facility] b i-directional interface ; Source: Other Registry Influenza administered Note: [facility] bi-d irectional interface ; Source: Other Registry Influenza, seasonal, injectable administe red Note: [facility] bi- directional interface ; Source: Other Registry Influenza, seasonal, injectable administe red Note: [facility] bi- directional interface ; Source: Other Registry Influenza, seasonal, injecta ble, preservative free administered Note: [facility] bi-direct ional interface ; Source: Other Registry tetanus toxoid, reduced diphtheria toxoid, and acellular pertussis vaccine, adsorbed administered Note: [facility] b i-directional interface ; Source: Other Registry Payers Payer name Insurance type Covered green party ID Authoriza tion(s) [facility] [id number] Social History Type Description Quantity Date Captured Comments Sex Male Smoking Status No Information Chief Complaint And Reason For Visit No Information Reason For Referral Reason For Referral No Information History Of Present Illness Encounter Date Complaint History Of Prese nt Illness GI Symptoms or Concerns Functional Status Date Functional Assessmen t No Information Instructions Date Instruction Additional Infor jensen high fiber diet Related to Color ectal polyps Colon Cancer Prevention Related to Colorectal polyps Colon Polyps Related to Color ectal polyps Diverticulosis/Diverticulitis Re lated to Colorectal polyps Colon Cancer Prevention Related to Colorectal polyps high fiber diet Related to Color ectal polyps Hemorrhoids Related to Color ectal polyps Colon Polyps Related to Color ectal polyps Diverticulosis/Diverticulitis Re lated to Colorectal polyps Colon Cancer Prevention Related to Colorectal polyps high fiber diet Related to Color ectal polyps Colon Polyps Related to Color ectal polyps Diverticulosis/Diverticulitis Re lated to Colorectal polyps Assessments Type Assessment Date No Information Patient Care Teams Name Effective Dates (start - stop) Status Members No Information
--- OUTSIDE RECORDS SUMMARY | 2024-03-08 06:57 | XMS_ITS | Encounter Summary ---
Author Organization [facility] Address [address] [place] [address] Care Team Providers Care Blacking Machine Operator Name Role Phone Unavailable Primary Care Provider Unavailabl e Reason for Visit * Reason Comments Spine Lumbar * Therapies (Routine) - Authorized Specialty Diagnoses / Procedures Referred By Contac t Referred To Contact Physical Therapy Diagn[place] [address] [place] [address] [address] [place] [address] Referral ID Status Reason Start Date Expiration Date V isits Requested Visits Authorized [id number] Authorized 07/10/2023 10/08/2024 [id number] Encounter Details Date Type Department Care Team (Late st Contact Info) Description 12/13/2023 10:00 AM CDT Therapy Physical Therapy at [facility] Physical Therapy [place] [address] [place], [place] [address] Chadd Estrada, CENTRAL OFFICE REPAIRER [address] [place], [place] [address] Left lumbar radiculopathy [M54.16] (Primary Dx); Mechanical low back pain Social History Tobacco Use Types Packs/Day Years Used Date Smoking Tobacco: Never Assessed Sex and Gender Information Value Date Recorded Sex Assigned at Not on file Gender Identity Not on file Sexual Orientation Not on file documented as of this encounter Progress Notes * Chadd Estrada PTA - 12/13/2023 10:00 AM CDT 12/13/2023 Visit # 19 Protocol: Back and Fusion 03/07/2022 Start: 10:02AM End: 10:39AM (CENTRAL OFFICE REPAIRER Visit # 3 Subjective: Pt reports he is feeling good today. Right side of the back has been tight, a little crampy. Mid back down into right above the glut. Cervical Not performed today. Objective Tests & Measures: Increased lumbar extension weight by approximately 5% from last heavy day. 60% thoracic rotation unchanged due to previous RPE and fusion protocol. Tests performed today (see reviewfloweet for score and outcomes): : None Performed Today Warm Up: Movement Specific Training: Not Completed Bike: Minutes 15 Intensity mod ICE: declined Lumbar 12/13/2023 10:00 AM Lumbar & Torso Set 1 Ext % Max 100% Set 1 Ext ROM 9-42 Set 1 Ext Wgt 100 Set 1 Ext Reps 21, self limited Set 1 Ext Tul 116 Set 1 Ext Celine RPE 6.5 Set 2 Ext % Max 100% Set 2 Ext ROM 9-42 Set 2 Ext Wgt 100 Set 2 Ext Reps 25 Set 2 Ext Tul 131 Set 2 Celine RPE 9-10 Left Rot % Max 60% Left Rot ROM 35 Left Rot Wgt 28 Left Rot Reps 25 Left Rot Gaurav RPE 5 Right Rot % Max 60% Right Rot ROM 35 Right Rot Wgt 28 Right Rot Reps 25 Right Rot Celine RPE 5 Therapeutic Exercise (28 min): Patient performed isolated lumbar extension exercise and auxiliary exercises to improve muscle strength, to improve muscle endurance, increase strength and endurance levels of supporting spinal muscle groups and to strengthen postural muscles to decrease stresses on the spine to increase tolerance for goals listed below. Verbal cues needed for proper form and control on Lumbar Extension machine with instruction to avoid substitution with other muscle groups and to facilitate correct muscle firing sequence and to avoid momentum, improper form and too fast with reps. Neuromuscular Re-Education (9 min): Patient performed isolated torso rotation to decrease substitution patterns present with chronic pain, to retrain muscles for proper sequencing and improve muscle recruitment patterns to increase tolerance for goals listed below. Verbal cues for proper form and control on Thoracic Rotation with instruction for isolating obliques and reducing substitution with upper extremity/neck muscles. Cues for slow speed for increased muscle fiber recruitment. Auxillary 12/13/2023 10:00 AM Auxillary Abs Wgt Set 1 70 Abs Reps Set 1 20 Abs Wgt Set 2 70 Abs Reps Set 2 26 Glute Wgt Set 1 130 Glute Reps Set 1 20 Glute Wgt Set 2 130 Glute Reps Set 2 25 Leg Press Wgt Set 1 250 Leg Press Reps Set 1 25 Leg Press Wgt Set 2 250 Leg Press Reps Set 2 30 Lats Wgt Set 1 90 Lats Reps Set 1 22 Lats Wgt Set 2 90 Lats Reps Set 2 17 Therapeutic Activities (0 min): Not performed today. Patient Education: Patient was instructed in correlation of strength and function to increase their understanding of the benefits related to completing the [facility] Neck and Back program. Educated patient on factors taken into account when deciding when a patient is ready for DC. Educated patient on benefits of reaching lumbar extensor strength plateau to ensure maximal strengthening of the lumbar extensor muscles for increased spinal stability. Assessment: Sawyer Carlson tolerated treatment well with good fatigue and challenge. ROM set per tolerance and protocol. Symptoms were not aggravated by exercises today. Would benefit from further sessions to establish lumbar extensor strength as able, and to establish independence with HEP. Patient would benefit from further strengthening to increase tolerance to independent exercise following completion of the program. Goals: Short Term Goals (4-6 weeks): 1. [...] 10/29/23 Still up every couple hours. 12/13/23 4. Patient will lift 40-50 lbs from floor to waist with proper body mechanics without any S/Sx. (current 40 lbs with lifting belt) Residential Goals (>6 weeks): 1. Patient will be [...] 6. Patient will resume working out at [facility] without any S/Sx. 7. Patient will have [...] rotation with tubing. Anticipated visits to d/c: 1-5 Recommendations/Communication: 60% Lumbar extension and 60% thoracic rotation next. Review HEP prior to DC for independence. Increase LP 10-20#. Continue treatment per PT POC. Total timed code min: 37 Total treatment time: 37 Cahdd Estrada PTA 12/13/2023, 10:44 AM documented in this encounter Plan of Treatment Not on file documented as of this encounter Visit Diagnoses Diagnosis Left lumbar radiculopathy [M54.16]- Primary Thoracic or lumbosacral neuritis or radiculitis, unspecified Mechanical low back pain Lumbago documented in this encounter
--- OUTSIDE RECORDS SUMMARY | 2024-03-08 06:57 | XMS_ITS | Encounter Summary ---
Author Organization [facility] Address [address] [place] [address] Care Team Providers Care Marketing Program Coordinator Name Role Phone Unavailable Primary Care Provider Unavailabl e Reason for Visit * Reason Comments BACK PAIN * Therapies (Routine) - Authorized Specialty Diagnoses / Procedures Referred By Contac t Referred To Contact Physical Therapy Diagnoses [place] [address] [place] [address] [address] [place] [address] Referral ID Status Reason Start Date Expiration Date V isits Requested Visits Authorized [id number] Authorized 07/10/2023 10/08/2024 [id number] Encounter Details Date Type Department Care Team (Late st Contact Info) Description 12/26/2023 11:15 AM CDT Therapy Physical Therapy at [facility] Physical Therapy [place] [address] [employer] [place], [place] [address] Yumiko Robins, PERFORMANCE TEST CONSULTANT [address] [place], [place] [address] Left lumbar radiculopathy [M54.16] (Primary Dx); Mechanical low back pain Social History Tobacco Use Types Packs/Day Years Used Date Smoking Tobacco: Never Assessed Sex and Gender Information Value Date Recorded Sex Assigned at Not on file Gender Identity Not on file Sexual Orientation Not on file documented as of this encounter Progress Notes * Yumiko Robins PTA - 12/26/2023 11:15 AM CDT 12/26/2023 Visit # 23 Protocol: Back and Fusion 03/07/2022 Start: 11;17 End: 12:00 (PERFORMANCE TEST CONSULTANT Visit # 3 Subjective: Pt reports that his back felt fine after last session, was sore after last heavy therapy session. Left leg was bugging him yesterday as well, felt like pins and needles tht can be infrequent throughout the day or intermittent throughout entire day depending. Has been an issue since surgery. Would like to Cervical Not performed today. Objective Tests & Measures: 100% Lext @ 110ft lb 95%inc) 60% T-roto @ 32 lb (10%inc) +5 Abs Tests performed today (see reviewflowsheet for score and outcomes): : None Performed Today Warm Up: Movement Specific Training: Not Completed Bike: Minutes 5 Intensity min/mod ICE: Declined Lumbar 12/26/2023 11:15 AM Lumbar & Torso Set 1 Ext % Max 100 Set 1 Ext ROM 9-42 Set 1 Ext Wgt 110 Set 1 Ext Reps 25 Set 1 Ext Tul 137 Set 1 Ext Celine RPE 9.5 Set 2 Ext % Max 100 Set 2 Ext ROM 9-42 Set 2 Ext Wgt 110 Set 2 Ext Reps 25 Set 2 Ext Tul 132 Set 2 Celine RPE 10 Left Rot % Max 60 Left Rot ROM 35 Left Rot Wgt 32 Left Rot Reps 30 Left Rot Gaurav RPE 6 Right Rot % Max 60 Right Rot ROM 35 Right Rot Wgt 32 Right Rot Reps 30 Right Rot Celine RPE 6 Therapeutic Exercise (35 min): Patient performed isolated lumbar extension exercise and auxillary exercises to improve muscle strength, to improve muscle endurance, to improve muscle flexibility, increase strength and endurance levels of supporting spinal muscle groups, and to strengthen postural muscles to decrease stresses on the spine to increase tolerance for sleeping, lifting, and personal care tasks PERFORMANCE TEST CONSULTANT provided max A for warm-up in medX at 60% of max weight x6 reps before 2 sets at 100% weight -Cues to slow speed and to not rest at end range during LP. PERFORMANCE TEST CONSULTANT provided max-assist for set up of equipment,and [...] normalize movement patterns to increase tolerance for sleeping, lifting, and personal care tasks. PERFORMANCE TEST CONSULTANT provided max-assist for set up of equipment,and assessed patient response to exercise. Auxillary 12/26/2023 11:15 AM Auxillary Abs Wgt Set 1 75 Abs Reps Set 1 20 Abs Wgt Set 2 80 Abs Reps Set 2 20 Glute Wgt Set 1 130 Glute Reps Set 1 20 Glute Wgt Set 2 130 Glute Reps Set 2 20 Leg Press Wgt Set 1 270 Leg Press Reps Set 1 23 Leg Press Wgt Set 2 270 Leg Press Reps Set 2 23 Lats Wgt Set 1 90 Lats Reps [...] plan of care. Assessment: Sawyer continues to work hard and tolerate therapy well, reporting (10/10 RPE) fatigue inLext at 100% and (6/10 RPE) fatigue in T-roto at 60%. Auxiliary machines continue to present a goodchallenge, as pt continues to report good fatigue levels. Weights and repetitions during therapy session were modified based on pt fatigue. Pt continues to make progress towards his goals and would benefit from further therapy [...] S/Sx. (current 40 lbs with lifting belt) Medical Staff Manager Goals (>6 weeks): 1. Patient will [...] 6. Patient will resume working out at [facility] without any S/Sx. MET 12/17/23 7. Patient [...] rotation with tubing. Anticipated visits to d/c: 2 more per PT Recommendations/Communication: 100% Lext (if more than 6 day gap), 60% T-roto, review HEP for DC ifneeded, has lifting goal, needs lifthing TherAct at 45lb Total timed code min: 43 Total treatment time: 43 12/26/2023, 11:58 AM Yumiko Robins PTA 12/26/2023, 12:01 PM documented in this encounter Plan of Treatment Not on file documented as of this encounter Visit Diagnoses Diagnosis Left lumbar radiculopathy [M54.16]- Primary Thoracic or lumbosacral neuritis or radiculitis, unspecified Mechanical low back pain Lumbago documented in this encounter
--- OUTSIDE RECORDS SUMMARY | 2024-03-08 06:57 | XMS_ITS | Encounter Summary ---
Author Organization [facility] Address [address], [place] [address] Care Team Providers Care Town Planner Name Role Phone Unavailable Primary Care Provider Unavailabl e Encounter Details Date Type Department Care Team (Latest Contact Info) Description 11/28/2023 Orders Only HIM DEPARTMENT Provider, [place] [address] Social History Tobacco Use Types Packs/Day Years Used Date Smoking Tobacco: Never Assessed Sex and Gender Information Value Date Recorded Sex Assigned at Not on file Gender Identity Not on file Sexual Orientation Not on file documented as of this encounter Plan of Treatment Not on file documented as of this encounter Procedures Procedure Name Priority Date/Time Associated Diagnosis Comments MRI-SCAN 11/28/2023 documented in this encounter Results * MRI-SCAN (11/28/2023) Anatomical Region Laterality Modality Other Interface Provider DUMMY/OTHER/AR documented in this encounter Visit Diagnoses Not on filedocumented in this encounter
[2024-03-08] MEDS: HYDROmorphone 0.5 mg/0.5 ml inj 1 MG IM (07:05)
[2024-03-08] MEDS: LIDOCAINE 5% PATCH 1 PATCH TRANSDERMA (07:05)
[2024-03-08] MEDS: IBUPROFEN 400 MG TABLET 800 MG PO (07:05)
[2024-03-08] MEDS: LORazepam 2 MG/ML inj 1 MG IM (07:05)
[2024-03-08 07:26] VITALS: BP 113/72; PULSE 62; RESP 16; O2SAT 96
== END 2024-03-08 08:50 | disposition home or self-care (01) ==
PROVIDERS: Emergency Provider Family Medicine; PCP Internal Medicine
DX: M54.50 Low back pain, unspecified (principal); M53.3 Sacrococcygeal disorders, not elsewhere classified
CPT/HCPCS: 96372; 99283; 99284; A9270; J1170; J2060

== ENCOUNTER 2024-08-12 07:45 | Outpatient (CLI) | payer BC, SELFPAY ==
--- OUTSIDE RECORDS SUMMARY | 2024-08-12 11:28 | XMS_ITS | Clinical Summary ---
Author Organization [place] Address [address] [place] [address] Care Team Providers Care Inspector And Tester Name Role Phone Chadd Correa Primary Care Provider [phone] Allergies No known active allergies Medications oxaprozin (DAYPRO) 600 MG tablet Take 1,200 [...] Active oxymetazoline (AFRIN) 0.05 % nasal spray [place] 2 sprays into both nostrils every evening as needed for congestion Active oxyCODONE (ROXICODONE) 5 MG tabletIndications :S/P prostatectomy Take 1-2 tablets (5-10 mg) by mouth every 3 hours as needed for moderate to severe pain 8 tablet 0 Active senna-docusate (SENOKOT-S/YOLA LACE) 8.6-50 MG tabletIndications :S/P prostatectomy Take 1 tablet by mouth 2 times daily 30 tablet 0 Active bacitracin 500 UNIT/GM OINTIndications:S /P prostatectomy Apply topically 2 times daily as needed for wound care 0 Active Active Problems Problem Noted Date Diagnosed [...] Recorded Sex Assigned at Not on file Legal Sex Male 3:20 AM PROCED TECH Gender Identity Not on file Sexual Orientation Not on file Last Filed Vital Signs Vital Sign Reading Time Taken Comments Blood Pressure 141/75 10/07/2019 12:47 PM PROCED TECH Pulse 90 10/05/2019 3:49 PM PROCED TECH Temperature 36.2 C (97.2 F) 10/07/2019 12:47 PM PROCED TECH Respiratory Rate 16 10/07/2019 12:47 PM PROCED TECH Oxygen Saturation 95% 10/07/2019 12:47 PM PROCED TECH Inhaled Oxygen Concentration - - Weight 90.3 kg (199 lb 1.6 oz) 10/05/2019 6:12 A M PROCED TECH Height 180.3 cm (5' 11) 10/05/2019 6:12 AM PROCED TECH Body Mass Index 27.77 10/05/2019 6:12 AM PROCED TECH Plan of Treatment Not on file Medical Devices Implanted Type Area Community Health Nurse Device Identifier Shelf Expiration Date Model / Serial / Lot Mesh Symbotex Composite Stex 20cm X 15cm [id number] Implanted:Qty : 1 on 10/05/2019 by Carlos Solis MD at [facility] Mesh N/A: Umbilical COVIDIEN 05/16/2023 [id number] / / [id number] Stent Ureteral Percuflex Plus [id number] Implanted:Qty : 1 on 02/12/2019 by Vicente Perez MD at [facility] Stent Right: Ureter [employer] 07/13/2021 [id number] / [id number] Insurance [place] OUT OF STATE Advance Directives For more information, please contact: [phone] * Full Code (Latest Code Status on File) Date Activated Date Inactivated Comments 10/05/2019 3:23 PM 10/07/2019 4:21 PM Question Answer Comments Code status determined by: Unable to det ermine; FULL CODE until documents or legal decision maker available Care Teams Inspector And Tester Relationship Specialty Start Date End Date Chadd Correa [address] [address] PCP - General Family Practice 09/22/19
--- OUTSIDE RECORDS SUMMARY | 2024-08-12 11:28 | XMS_ITS | Clinical Summary ---
Author Organization [email or web address] [facility] Address [place], [place] [address] Care Team Providers Care Sand Mill Grinder Name Role Phone Ankur Vazquez MD Primary [...] Comments Blood Pressure 125/79 09/18/2022 8:57 AM COORDINATOR OF LIBRARY SERVICES Pulse 65 09/18/2022 8:55 AM COORDINATOR OF LIBRARY SERVICES Temperature 36.2 C (97.1 F) 03/09/2022 8:41 AM CDT Respiratory Rate 18 03/09/2022 8:41 AM CDT Oxygen Saturation 95% 09/18/2022 8:55 AM COORDINATOR OF LIBRARY SERVICES Inhaled Oxygen Concentration - - Weight 95.3 [...] of 2) 2012 Tetanus booster 05/24/2018 05/24/2008 BMI (ht and wt on same day) for age 18+ 04/05/2024 04/05/2023, 12/13/2022, 09/25/2022, Additional history exists COVID-19 vaccine series (2023- season) 2024 07/13/2022, 07/17/2021, 11/24/2020 Influenza for age 50-64 05/17/2024 Pneumococcal series for age 6-64 Aged Out No longer eligible based on patient's age to complete this topic Medical Devices Implanted Type Area Ceramics Teacher Device Identifier Shelf Expiration Date Model / Serial / Lot Bone Matrix 5cc Progenix Plus Putty Dbm - [id number] Implanted:Qty: 1 on 03/07/2022 by Connor Taylor MD at [facility] N/A: Lumbar Vertebrae [employer] 08/31/2023 [id number] / [id number] / Bone Matrix Sm Infuse Bmp - [id number] Implanted:Qty: 1 on 03/07/2022 by Connor Taylor MD at [facility] N/A: Lumbar Vertebrae [employer] Spine/Ortho 05/17/2023 [id number] / / [id number] Piatt Mis Spacer Implanted:Qty: 1 on 03/07/2022 by Connor Taylor MD at [facility] N/A: Lumbar Vertebrae [employer] [id number] / / Self Drilling Screw Implanted:Qty: 2 on 03/07/2022 by Connor Taylor MD at [facility] N/A: Lumbar Vertebrae [employer] [id number] / / Self Drilling Screw Implanted:Qty: 1 on 03/07/2022 by Connor Taylor MD at [facility] N/A: Lumbar Vertebrae [employer] [id number] [...] 12:17 PM 01/29/2019 8:30 PM Care Teams Sand Mill Grinder Relationship Specialty Start Date End Date Ankur Vazquez MD [address] [place] [address] PCP - General Family Practice 02/26/22
--- OUTSIDE RECORDS SUMMARY | 2024-08-12 11:28 | XMS_ITS | Referral Summary ---
Author Organization 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 Gender Identity Not on file Sexual Orientation Not on file Last Filed Vital Signs Vital Sign Reading Time Taken Comments Blood Pressure - - Pulse - - Temperature - - Respiratory Rate - - Oxygen Saturation - - Inhaled Oxygen Concentration - - Weight 97.5 kg (215 lb) 11/09/2022 11:00 AM LANDSCAPE CREW LEADER Height 177.8 cm (5' 10) 11/09/2022 11:00 AM LANDSCAPE CREW LEADER Body Mass Index 30.85 11/09/2022 11:00 AM LANDSCAPE CREW LEADER Plan of Treatment Not on file Insurance BCBS OUT OF STATE COMMERCIAL Care Teams Cold Working Inspector Relationship Specialty Start Date End Date Ankur Vazquez MD [address] [place] [address] PCP - General Family Medicine 10/05/22 Clinic, No Primary PCP - Primary Care Clinic 10/05/22
--- OUTSIDE RECORDS SUMMARY | 2024-08-12 11:28 | XMS_ITS | Clinical Summary ---
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 Gender Identity Not on file Sexual Orientation Not on file Last Filed Vital Signs Vital Sign Reading Time Taken Comments Blood Pressure - - Pulse - - Temperature - - Respiratory Rate - - Oxygen Saturation - - Inhaled Oxygen Concentration - - Weight 97.5 kg (215 lb) 11/09/2022 11:00 AM DIRECTOR OF OUTSIDE SALES Height 177.8 cm (5' 10) 11/09/2022 11:00 AM DIRECTOR OF OUTSIDE SALES Body Mass Index 30.85 11/09/2022 11:00 AM DIRECTOR OF OUTSIDE SALES Plan of Treatment Health Maintenance Due Date Last Done Comments Colonoscopy 1962 Hepatitis C Screening 1960 Lipid Screening 1960 Anxiety Screening (FAWN-2) 12/13/1963 Depression Assessment (PHQ-2) 12/13/1963 Yearly Review of HCD 2012 Zoster Vaccine (1 of 2) 2012 COVID-19 Vaccine ( - season) 2024 07/13/2022, 07/17/2021, 11/24/2020 Influenza Vaccine (#1) 2024 0, 07/09/2019, 07/06/2015, Additional history exists Adult Tetanus Booster 11/15/2026 11/15/2016 , 05/24/2008, 05/24/2008 RSV Vaccines (1 - 1-dose 75+ series) 2037 Pneumococcal <65 Aged Out No longer e ligible based on patient's age to complete this topic Insurance BCBS OUT OF STATE COMMERCIAL Care Teams Demand Equipment Repairer Relationship Specialty Start Date End Date Ankur Vazquez MD [address] [place] [address] PCP - General Family Medicine 10/05/22 Clinic, No Primary PCP - Primary Care Clinic 10/05/22
--- OUTSIDE RECORDS SUMMARY | 2024-08-12 11:28 | XMS_ITS | Referral Summary ---
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 STORAGE MANAGER Gender Identity Not on file Sexual Orientation Not on file Last Filed Vital Signs Vital Sign Reading Time Taken Comments Blood Pressure 141/75 10/07/2019 12:47 PM SELF STORAGE MANAGER Pulse 90 10/05/2019 3:49 PM SELF STORAGE MANAGER Temperature 36.2 C (97.2 F) 10/07/2019 12:47 PM SELF STORAGE MANAGER Respiratory Rate 16 10/07/2019 12:47 PM SELF STORAGE MANAGER Oxygen Saturation 95% 10/07/2019 12:47 PM SELF STORAGE MANAGER Inhaled Oxygen Concentration - - Weight 90.3 kg (199 lb 1.6 oz) 10/05/2019 6:12 A M SELF STORAGE MANAGER Height 180.3 cm (5' 11) 10/05/2019 6:12 AM SELF STORAGE MANAGER Body Mass Index 27.77 10/05/2019 6:12 AM SELF STORAGE MANAGER Plan of Treatment Not on file Medical Devices Implanted Type Area Hemstitching Machine Operator Device Identifier Shelf Expiration Date Model / Serial / Lot Mesh Symbotex Composite Stex 20cm X 15cm [id number] Implanted:Qty : 1 on 10/05/2019 by Carlos Solis MD at [facility] Mesh N/A: Umbilical COVIDIEN 05/16/2023 [id number] / / [id number] Stent Ureteral Percuflex Plus [id number] Implanted:Qty : 1 on 02/12/2019 by Vicente Perez MD at [facility] Stent Right: Ureter [employer] 07/13/2021 [id number] / [id number] Insurance BCBS OUT OF STATE Advance Directives For more information, please contact: [phone] * Full Code (Latest Code Status on File) Date Activated Date Inactivated Comments 10/05/2019 3:23 PM 10/07/2019 4:21 PM Question Answer Comments Code status determined by: Unable to det ermine; FULL CODE until documents or legal decision maker available Care Teams Programmer Analyst Consultant Relationship Specialty Start Date End Date Chadd Correa [address] [address] PCP - General Family Practice 09/22/19
--- OUTSIDE RECORDS SUMMARY | 2024-08-12 11:28 | XMS_ITS | Clinical Summary ---
Author Organization [facility] Address [address] [address] Care Team Providers Care Relocation Director Name Role Phone Unavailable Primary Care Provider [...] for each transition of care or referral. [facility] Active Problems Problem Noted Date Diagnosed Date Left lumbar radiculopathy [M54.16] 07/31/2023 Mechanical low back pain 07/31/2023 Social History Tobacco Use Types Packs/Day Years [...] of 2) 2012 COVID-19 Vaccine (4 - 2023-2 5 season) 2024 07/13/2022, 07/17/2021, 11/24/2020 Influenza (#1) 2024 10/15/2023, 07/13/2022, 07/17/2021 RSV (1 - 1-dose 75+ series) 2037 HepA Aged Out No longer eligi ble based on patient's age to complete this topic HepB Aged Out No longer eligi ble based on patient's age to complete this topic Hib Aged Out No longer eligi ble based on patient's age to complete this topic IPV (Polio) Aged Out No longer eligi ble based on patient's age to complete this topic Infant RSV Aged Out No longer eligi ble based on patient's age to complete this topic MCV4 Aged Out No longer eligi ble based on patient's age to complete this topic Pneumococcal Aged Out No longer eligi ble based on patient's age to complete this topic
== END 2024-08-12 07:46 | disposition home or self-care (01) ==
LOC: NFLDREF 11:25
PROVIDERS: PCP Internal Medicine; Referring Provider Internal Medicine; Visit Provider Internal Medicine
DX: C61 Malignant neoplasm of prostate (principal); I10 Essential (primary) hypertension; E78.5 Hyperlipidemia, unspecified; Z12.5 Encounter for screening for malignant neoplasm of prostate
CPT/HCPCS: 80053; 80061; G0103

== ENCOUNTER 2025-07-27 08:05 | Outpatient (CLI) | payer MEDICARE, SELFPAY | END 2025-07-27 08:06 | disposition home or self-care (01) | LOC: NFLDREF 08:05 | PROVIDERS: PCP Internal Medicine; Visit Provider Internal Medicine | DX: Z12.5 Encounter for screening for malignant neoplasm of prostate (principal); Z85.46 Personal history of malignant neoplasm of prostate | CPT/HCPCS: G0103 ==

== ENCOUNTER 2025-08-31 07:07 | Outpatient (CLI) | payer MEDICARE, SELFPAY ==
--- NOTE | 2025-08-31 07:15 | CRLHL7_ITS ---
For Patients: As a result of the 21st Century Cures Act, medical imaging exams and procedure reports are released immediately into your electronic medical record. You may view this report before your referring provider. If you have questions, please contact your health care provider. CLINICAL INDICATION: Left knee pain. COMPARISON STUDIES: Radiographs 08/18/2025. TECHNICAL: Noncontrast MRI of the left knee. 1.5 jose MRI scanner. Axial, sagittal and coronal T1, PD, PD FS and T2 FS images. FINDINGS: MEDIAL COMPARTMENT: Medial Meniscus: Mild intrameniscal degeneration of the medial meniscus without tear. Articular Cartilage: Mild thinning of articular cartilage within the medial compartment (grade 1/2). Tiny focus of subchondral bone marrow edema overlying the central lateral aspect of the medial femoral condyle likely relates to superimposed grade 4 cartilage fissuring. LATERAL COMPARTMENT: Lateral Meniscus: Intact. Articular Cartilage: Maintained. PATELLOFEMORAL COMPARTMENT: Articular Cartilage: Small foci of subchondral bone marrow edema underlying the patellar apex and medial facet related to limited areas of grade 4 chondromalacia. Mild chondromalacia within the trochlea (grade 2). LIGAMENTS: Anterior Cruciate Ligament: Intact. Posterior Cruciate Ligament: Intact. MEDIAL COLLATERAL LIGAMENT AND POSTEROMEDIAL CORNER COMPLEX: Medial Collateral Ligament: Intact. Medial Head of the Gastrocnemius and Semimembranosus Tendons: Tendons intact. Small area of fatty infiltration of the medial head of the gastrocnemius compatible with remote strain changes. LATERAL COLLATERAL LIGAMENT COMPLEX AND POSTEROLATERAL CORNER COMPLEX: Fibular Collateral Ligament: Intact. Distal Biceps Femoris Tendon Complex: Intact. Iliotibial Band: There is a pseudo adventitial bursa underlying the IT band. This implies chronic inflammatory change. Slight thickening of the band. No tear of the band. Popliteus Tendon: Intact. Posterolateral Corner Capsule: No defect. EXTENSOR MECHANISM: Distal Quadriceps Tendon: Focal tendinosis at the distal medial aspect of the quadriceps tendon. Mild edema within the fat posterior to the distal tendon. Patellar Tendon: Intact. Medial Patellar Retinaculum and Medial Patellofemoral Ligament: Intact. Lateral Patellar Retinaculum: Intact. Normal patellar alignment. No patella yasmani. Normal trochlear depth. Normal lateral trochlear inclination. JOINT SPACE AND CAPSULE: No significant joint effusion. BONES AND SOFT TISSUES: No acute fracture or avascular necrosis.No significant popliteal cyst.No mass. IMPRESSION: 1. Pseudo adventitial bursa underlying the IT band indicating chronic inflammatory change. Slight thickening of the band. 2. Mild medial compartment articular cartilage wear. Superimposed tiny focus of grade 4 cartilage fissuring of the medial femoral condyle. 3. 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 4. No meniscal tear. 5. No effusion or fracture. Dictated by Girish Meadows MD @ 09/01/2025 10:11:52 AM (Electronically Signed)
== END 2025-08-31 07:08 | disposition home or self-care (01) ==
LOC: MRI 07:07
PROVIDERS: PCP Internal Medicine; Visit Provider Internal Medicine
DX: M25.561 Pain in right knee (principal); M17.12 Unilateral primary osteoarthritis, left knee; M76.32 Iliotibial band syndrome, left leg; M22.42 Chondromalacia patellae, left knee
CPT/HCPCS: 73721